=== PATIENT | male | born 1970 | race Caucasian/White ===

== ENCOUNTER 2022-08-17 01:02 | Emergency (ER) | payer OTHER, SELFPAY ==
--- NOTE | ~2022-08-17 | XR_ITS ---
EXAMINATION: XR KNEE, LEFT CLINICAL INFORMATION: Pop of the left knee COMPARISON: None TECHNIQUE: Two views of the left knee. FINDINGS: No fracture or subluxation. Mild medial compartment joint space narrowing. Small tricompartmental marginal osteophytes. No joint effusion. The soft tissues are unremarkable. XR/XR knee LT 2V IMPRESSION: Mild tricompartmental degenerative changes.
[2022-08-17 01:25] VITALS: BP 180/84; PULSE 71; O2SAT 98
[2022-08-17 01:26] VITALS: BP 144/82; PULSE 68; RESP 18; TEMP 36.5; O2SAT 98; BMI 35.2
[2022-08-17 04:13] VITALS: BP 139/80; PULSE 59; RESP 16; TEMP 36.7; O2SAT 100
[2022-08-17 06:06] VITALS: BP 129/73; PULSE 61; RESP 14; TEMP 36.6; O2SAT 98
--- NOTE | 2022-08-17 06:53 | PC.NURSE ---
report given to FRANCINE Rich
[2022-08-17 07:18] VITALS: BP 117/63; PULSE 60; RESP 16; O2SAT 98
--- NOTE | 2022-08-17 07:36 | ED.LOWEXIN ---
HPI - Extremity Injury (Lower) General Chief Complaint: Extremity Injury, Lower Stated Complaint: LT KNEE AND ANKLE PAIN S/P FALL Time Seen by Provider: 08/17/22 07:28 Source: patient and old records reviewed History of Present Illness HPI Narrative: Patient with a history of chronic left leg pain secondary to left knee arthritis as well as 1 year postop from stent placement for presumed vascular insufficiency. He states last night he slipped and fell after losing his balance when his left leg gave out. He did not fall to the ground,. He complains of increased left knee and left ankle pain. No recent illnesses. He is supposed to be in physical therapy for the left flank but has not gone for a while. He denies other injuries for physical point. He is able to weightbear but states with pain. Related Data Allergies Allergy/AdvReac Type Severity Reaction Status Date / Time No Known Allergies Allergy Unverified 04/16/20 18:35 [No Known Allergies*] Review of Systems Constitutional: Comments: No fevers or chills Musculoskeletal: Comments: Left knee and ankle pain as documented Integumentary/Breasts: Comments: No rashes or change in skin color Neurologic: Comments: No new focal weakness PMFSH Social History Social History Advance Directives: No Physical Exam Vital Signs: Vital Signs: Last Vital Signs Temp 97.8 F 08/17/22 06:06 Pulse 60 08/17/22 07:18 Resp 16 08/17/22 07:18 BP 117/63 08/17/22 07:18 Pulse Ox 98 08/17/22 07:18 O2 Del Method 08/17/22 07:18 BMI result Body Mass Index 35.2 Const: Other: Awake alert. No acute distress. Vital signs stable. Skin: Other: Warm pink and dry. Exam of left lower extremity shows no increased erythema or warmth or evidence of infection. Ankle with medial and lateral remote surgical scars which are well-healed without evidence of infection or dehiscence. Neuro: Other: Motor and sensation intact Extrem: Other: Left knee stable in all 4 directions. Discomfort with weight-bearing. Left ankle with chronic edema. No evidence of and focal bony injury on exam. Ankle is stable. Medical Decision Making Medical Decision Making MDM Narrative: Acute on chronic pain. Internal derangement of knee most likely. Rule out bony injury. No evidence of significant ankle injury. X-ray of knee shows arthritis without acute traumatic injury. Will treat symptomatically with crutches and knee immobilizer. Encouraged to follow up with his physical therapy team. Discharge Plan Discharge Clinical Impression: Knee derangement Patient Disposition: Home, Self-Care Instructions: Arthritis (ED), Knee Immobilizer (ED), Crutch Instructions (ED) Additional Instructions: Your x-ray today showed arthritis but no evidence of fracture or acute bony injury. Be sure to follow-up with her physical therapy team and was [place] as discussed. Ibuprofen if needed for discomfort. Crutches and knee immobilizer for comfort. You may take the immobilizer off as tolerated.
== END 2022-08-17 08:14 | disposition home or self-care (01) ==
PROVIDERS: Emergency Provider Emergency Medicine; PCP Internal Medicine
DX: M23.92 Unspecified internal derangement of left knee (principal); M25.562 Pain in left knee
CPT/HCPCS: 73560; 99283

== ENCOUNTER 2022-08-31 21:45 | Emergency (ER) | payer OTHER, SELFPAY ==
[2022-08-31 21:52] VITALS: BP 143/79; PULSE 63; RESP 16; TEMP 36.8; O2SAT 98; BMI 36.6
--- NOTE | 2022-09-01 02:27 | ED_ITS ---
HPI - General Adult General Chief complaint: General Medical Stated complaint: anxiety attacks, doesnt have meds Time Seen by Provider: 09/01/22 01:05 Source: patient Mode of arrival: ambulatory Limitations: no limitations History of Present Illness HPI narrative: This is a 52-year-old male history of anxiety presenting to the emergency department requesting a medication refill for clonazepam patient tells me he is on 0.5 mg p.o. q.i.d. has been on this dose for a long time he tells me he has been taking this medication for years. He tells me he last took it 6 days ago, he tells me he is in between providers because he was kicked out of his [facility] due to missed appointments. Patient tells me he is experiencing increasing anxiety and panic attacks he tells me he is having relationship issues that are contributing to this. Denies visual, auditory and tactile hallucinations. Denies drugs, alcohol and tobacco. Tells me that he is feeling intermittently nauseous however not at this time he tells me this is likely from not taking his clonazepam. Patient denies suicidal and homicidal ideation. Patient tells me he is scheduled for an intake this Monday and he is hoping he can get in sooner than what other places have told him which has been 3 months. Patient not requesting to speak to crisis today. Denies medical complaints at this time Related Data Previous Rx's Medication Instructions Recorded clonazepam 0.5 mg disintegrating 0.5 mg PO QID 5 days #20 tabs 09/01/22 tablet Allergies Allergy/AdvReac Type Severity Reaction Status Date / Time No Known Allergies Allergy Unverified 04/16/20 18:35 [No Known Allergies*] Review of Systems Review of Systems: Constitutional : No Weight loss, No Fever, No Chills, No Fatigue, No Malaise ENT/Mouth : No sore throat, No Rhinorrhea Eyes: No Eye Pain, No Swelling, No Redness Cardiovascular : No Chest Pain, No SOB, No Dyspnea on Exertion, No Orthopnea, No Edema, No Palpitations Respiratory : No Cough, No Sputum, No Wheezing Gastrointestinal : + Nausea, No Vomiting, No Diarrhea, No Constipation, No abdominal Pain, No Hematochezia, No Melena Genitourinary : No Dysuria, No Urinary Frequency, No Hematuria, Musculoskeletal : No joint pain, No Myalgias, No Joint Swelling Skin : No Skin Lesions, No rash Neuro : No Weakness, No Numbness, No Dizziness, No Headache Psych : + Anxiety/Panic, No Depression All other systems reviewed and are negative Yes all other systems are reviewed and are negative FOR[facility]LY [facility] Past Medical History Attestation statement: The following information was validated with the patient. Source: old records reviewed and nursing notes reviewed Social History Social History Advance Directives: No Physical Exam ED Vital Signs: Vital Signs - 24 hr 08/31/22 21:52 Temperature 98.3 F Pulse Rate 63 Respiratory Rate 16 Blood Pressure 143/79 H Pulse Oximetry 98 Oxygen Delivery Method Room Air BMI result Body Mass Index 36.6 vss Appearance: Alert.? Oriented X3.? No acute distress.? Linear speech. Head: Normocephalic, atraumatic, no step-offs or deformities Eyes: Pupils equal, round and reactive to light.? ENT: Pharynx normal.? Neck: Normal inspection.? Neck supple.? CVS: Normal heart rate and rhythm.? Pulses normal.? Respiratory: No respiratory distress.? Breath sounds normal.? Abdomen: Soft and nontender.? Skin: Skin warm and dry.? Normal skin color.? Normal skin turgor.? Extremities: No lower extremity edema.? No calf ttp. 5/5 strength to bilateral upper and lower extremities Neuro: Oriented X 3.? No motor deficit.? No sensory deficit. CN 2-12 intact . Answering questions appropriately. Following commands. Course Reevaluation(s) Reevaluation #1: Clonazepam has been sent to patient's pharmacy. Advised him to return with new or worsening symptoms and to follow-up with psychiatry and therapy. Educated patient on diagnosis and treatment plan, answered all question, patient verbalizes understanding. At this time patient will be discharged home, advised to return with new or worsening symptoms. Educated on worrisome signs and symptoms and when to return. At this time I feel comfortable discharge home. Again patient refusing to speak to care team. Time: 02:31 Medical Decision Making Medical Decision Making [facility] Narrative: 021 52-year-old male presents requesting medication refill. Physical exam benign. Likely anxiety versus panic attack. Unlikely metabolic causes. Patient denies suicidal and homicidal ideation. I did check patient's [employer]NA[employer], he filled clonazepam 0.5 mg p.o. q.i.d. on 08/07/2022 he had 5 days worth #20. Consistent with patient's story. Plan at this time is to discharge patient home with a 5 day supply of clonazepam. I did offer him to speak to crisis however he tells me there is no need he tells me he is just anxious. No indication for Section 12 at this time. Patient is not a harm to self or others. Differential Diagnosis Differential Diagnoses: The differential diagnosis associated with the presentation includes Likely anxiety versus panic attack. Unlikely metabolic causes. Patient denies suicidal and homicidal ideation. Admission/Observation Consideration of admission/observation: Escalation of care including admission/observation considered Not indicated Core Measures AMI core measures followed: Yes Measure exclusions: not indicated Critical Care Time Critical Care Time Critical Care Time: No Discharge Plan Discharge Clinical Impression: Anxiety, Medication refill Patient Disposition: Home, Self-Care Instructions: Anxiety (ED), Medicine Refill (ED) Additional Instructions: Take your medications as prescribed. If you were prescribed antibiotics today, it is important that you take your medication to their entirety, do not skip any doses, do not finish them early. Follow-up with your primary care provider this week. Please follow-up with therapy and psychiatry. Return to the emergency department with new or worsening symptoms. Such as fevers, chills, chest pain, shortness of breath, nausea, vomiting, dizziness, headache, vision changes, lethargy, suicidal or homicidal ideation In case of emergency call 911 Prescriptions: New clonazepam 0.5 mg tablet,disintegrating 0.5 mg PO QID 5 Days Qty: 20 0RF Rx Instructions: Patient can partially filled this prescription upon request. Referrals: [facility] [Provider Group] - 1 day Rome Cameron MD [Primary Care Provider] - 2 days Stand Alone Forms: Work/School Release
[2022-09-01 03:55] VITALS: BP 137/79; PULSE 50; RESP 16; O2SAT 99
== END 2022-09-01 04:00 | disposition home or self-care (01) ==
PROVIDERS: Emergency Provider Emergency Medicine; PCP Orthopaedic Surgery
DX: F41.9 Anxiety disorder, unspecified (principal); Z76.0 Encounter for issue of repeat prescription
CPT/HCPCS: 99283

== ENCOUNTER 2022-09-23 00:12 | Emergency (ER) | payer OTHER, SELFPAY ==
[2022-09-23 02:09] VITALS: BP 132/82; PULSE 71; RESP 18; TEMP 36.4; O2SAT 96; BMI 36.6
--- NOTE | 2022-09-23 03:40 | ED_ITS ---
HPI - General Adult General Chief complaint: Extremity Problem Stated complaint: Flu like Time Seen by Provider: 09/23/22 02:26 Source: patient Mode of arrival: ambulatory Limitations: no limitations History of Present Illness HPI narrative: Patient history of anxiety on Klonopin and gabapentin for long-time moved from [place] unable to get the prescription patient fairly been taking this medication for a long time patient was seen here on 09/01/2022 for same feels very anxious unable to sleep and having diffuse leg pain Related Data Previous Rx's Medication Instructions Recorded clonazepam 0.5 mg disintegrating 0.5 mg PO QID 5 days #20 tabs 09/01/22 tablet clonazepam 0.5 mg tablet (Klonopin) 0.5 mg PO QID PRN anxiety #30 tabs 09/23/22 gabapentin 800 mg tablet 800 mg PO TID #90 tabs 09/23/22 Allergies Allergy/AdvReac Type Severity Reaction Status Date / Time No Known Allergies Allergy Unverified 04/16/20 18:35 [No Known Allergies*] Review of Systems Review of Systems: Yes all other systems are reviewed and are negative COUNT INCLUDES THE [facility] Social History Social History Advance Directives: No Advance Directives Information Provided: No Physical Exam ED Vital Signs: Vital Signs - 24 hr 09/23/22 02:09 Temperature 97.6 F Pulse Rate 71 Respiratory Rate 18 Blood Pressure 132/82 Pulse Oximetry 96 Oxygen Delivery Method Room Air BMI result Body Mass Index 36.6 Appearance: Alert. Oriented X3. No acute distress. Anxious Eyes: PERRLA, No Nystagmus ENT: Pharynx normal. Oral Mucosa moist Neck: Normal inspection. Neck supple. CVS: Normal heart rate and rhythm. Pulses normal. Respiratory: No respiratory distress. Equal air entry bilateral, no wheezing/rales/rhonchi Abdomen: Soft and nontender. Bowel sounds are present, no mass palpable, no CVA tenderness Skin: Skin warm and dry. Normal skin color. Normal skin turgor. Extremities: No lower extremity edema. No calf tenderness neuro No sensory deficit.No cerebellar signs , cranial nerves II-XII intact Medications Administered Discontinued Medications Generic Name Dose Route Start Last Admin Trade Name Freq PRN Reason Stop Dose Admin Clonazepam 0.5 mg 09/23/22 03:46 09/23/22 04:04 Clonazepam 0.5 Mg Tablet PO 09/23/22 03:47 0.5 mg ONCE ONE Administration Gabapentin 800 mg 09/23/22 03:46 09/23/22 04:04 Gabapentin 600 Mg Tablet PO 09/23/22 03:47 800 mg ONCE ONE Administration Discharge Plan Discharge Clinical Impression: Anxiety, Chronic pain Patient Disposition: Home, Self-Care Instructions: Chronic Pain (ED), Anxiety (ED) Additional Instructions: Take medication as prescribed Follow-up with your psychiatrist Prescriptions: New gabapentin 800 mg tablet 800 mg PO TID Qty: 90 0RF clonazepam [Klonopin] 0.5 mg tablet 0.5 mg PO QID PRN (Reason: anxiety) Qty: 30 0RF No Action clonazepam 0.5 mg tablet,disintegrating 0.5 mg PO QID 5 Days Qty: 20 0RF Rx Instructions: Patient can partially filled this prescription upon request. Interventions: ED Discharge Assessment Last Done: 09/23/22 04:08 Discharge Date/Time: 09/23/22 04:08
[2022-09-23] MEDS: Gabapentin 600 MG TABLET 800 MG PO (04:04)
[2022-09-23] MEDS: clonazePAM 0.5 MG TABLET PO (04:04)
== END 2022-09-23 04:08 | disposition home or self-care (01) ==
PROVIDERS: Emergency Provider Internal Medicine
DX: F41.9 Anxiety disorder, unspecified (principal); G89.29 Other chronic pain; Z79.899 Other long term (current) drug therapy
CPT/HCPCS: 99282; 99283

== ENCOUNTER 2023-01-28 00:22 | Observation (INO) | payer OTHER, SELFPAY ==
[2023-01-28] VITALS (8 sets, daily range): BP systolic 126–179; BP diastolic 70–101; PULSE 62–77; RESP 11–20; TEMP 36.4–36.7; O2SAT 94–99; BMI 37.4
--- NOTE | ~2023-01-28 | CT_ITS ---
EXAMINATION: CT ANGIOGRAM NECK AND HEAD CLINICAL INFORMATION: Right arm/leg weakness, history of hemorrhagic CVA is COMPARISON: 10/03/2015 TECHNIQUE: Initial noncontrast head CT was performed. Test bolus sequences followed by intravenous administration 70 mL of Omnipaque 350. Helical imaging was performed in the axial plane from the thoracic inlet to the skull vertex. Delayed postcontrast imaging of the head was also performed. The data was processed at the [employer] infectious [employer]'s workstation for generation of MIP sequences. Angled MIPs and volume rendered reformatted images were also generated at an offline 3D workstation. Stenoses are assessed in accordance with NASCET criteria unless otherwise indicated. DOSE LOWERING TECHNIQUES: This CT examination was performed using dose optimization techniques as appropriate, variously including the following: - Automated exposure control - Adjustment of mA and/or kV according to patient size (this includes techniques or standardized protocols for targeted exams were dose is matched to indication/reason for exam; i.e. extremities or head) - Use of iterative reconstruction technique DLP: 2390 mGy-cm FINDINGS: Neck CTA: There is a classic 3 vessel branching pattern of the aortic arch. Ascending aorta measures approximately 4.0 cm in diameter. No evidence of stenosis at the branch origins. Both vertebral arteries are widely patent throughout their extracranial cervical course. Normal appearance of the common and internal carotid arteries without focal stenosis. Brain CTA: Normal appearance of the intradural vertebral arteries. Normal appearance of the basilar and superior cerebellar arteries. There is origin of the right posterior cerebral artery. Normally opacified posterior cerebral arteries bilaterally. Normal appearance of the intradural internal carotid arteries without focal stenosis. Normal appearance of the anterior cerebral and middle cerebral arteries without focal occlusion or stenosis. Normal anterior communicating artery. Normal arborization of the middle cerebral arteries. CT Head: There is subtle curvilinear hyperdensity along the cortex of the left frontal lobe as seen on axial image 30/70 of series 8, which appears similar to 10/03/2015. No intracranial mass, definite hemorrhage, extra-axial collection, or midline shift. The tan-white matter differentiation is preserved. No pathologic intra-axial enhancement or regional oligemia. No hydrocephalus. The mastoid air cells and paranasal sinuses remain well aerated. CT Neck: The thyroid gland and remaining cervical soft tissues are normal in appearance. There is degenerative change at the atlantodens articulation. There is disc space narrowing and endplate osteophyte formation in the lower cervical spine. Upper Chest: No abnormalities in the visualized lung apices or upper mediastinum. CT/CT angio head neck IMPRESSION: 1. No hemodynamically significant stenosis in the major arteries of the neck. No large vessel occlusion or significant stenosis in the intracranial circulation. 2. Subtle curvilinear hyperdensity along the cortex of the left frontal lobe, similar to 10/03/2015 and suggesting mild mineralization. If not already performed, this could be further assessed with MRI.
[2023-01-28 01:00] LABS: MANUAL DIFF FLAG NO
[2023-01-28 01:02] LABS: Basophils Percent Auto 0.4 % (0-2); Eosinophils Absolute Auto 0.2 X10*3/uL (0.0-0.4); Eosinophils Percent Auto 3.6 % (0-4); Hematocrit 43.1 % (42.0-52.0); Hemoglobin 13.6 g/dl (14.0-18.0); Lymphocytes Absolute Auto 1.6 X10*3/uL (1.2-4.9); Lymphocytes Percent Auto 30.7 % (20-40); Mean Corpuscular HGB Conc 31.6 g/dl (31.0-36.0); Mean Corpuscular Hemoglobin 25.4 pg (27.0-33.0); Mean Corpuscular Volume 80.6 fL (80.0-98.0); Mean Platelet Volume 11.2 fL (9.4-12.4); Monocytes Absolute Auto 0.4 X10*3/uL (0.1-1.2); Monocytes Percent Auto 8.1 % (2-11); Neutrophils Absolute Auto 2.9 x10*3/uL (2.0-8.3); Neutrophils Percent Auto 57.2 % (45-73); Platelet Count 224 X10*3/uL (160-400); Red Blood Count 5.35 X10*6/uL (4.60-5.80); Red Cell Distribution Width 14.9 % (11.0-16.0); White Blood Count 5.1 X10*3/uL (4.8-10.8)
--- NOTE | 2023-01-28 01:03 | ED_ITS ---
HPI - Weakness General Chief complaint: Weakness Stated complaint: stroke symptoms, history of stroke Time Seen by Provider: 01/28/23 00:43 Source: patient Mode of arrival: ambulatory Limitations: no limitations History of Present Illness HPI Narrative: Patient comes to the emergency room complaining of right upper and lower extremity pain and weakness. Patient states that earlier today, approximately 2-1/2 hours, patient had a popping sensation on the right side of his head. Patient states that the numbness/weakness on the right upper and lower extremity lasted for about 30 minutes and then self-resolved. Patient states that he takes aspirin daily. 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 Patient states that today he did not use any drugs, admits to using cocaine yesterday. Related Data Previous Rx's Medication Instructions Recorded clonazepam 0.5 mg disintegrating 0.5 mg PO QID 5 days #20 tabs 09/01/22 tablet clonazepam 0.5 mg tablet (Klonopin) 0.5 mg PO QID PRN anxiety #30 tabs 09/23/22 gabapentin 800 mg tablet 800 mg PO TID #90 tabs 09/23/22 Allergies Allergy/AdvReac Type Severity Reaction Status Date / Time No Known Allergies Allergy Unverified 04/16/20 18:35 [No Known Allergies*] Review of Systems Review of Systems: Constitutional : No Weight loss, No Fever, No Chills, No Night Sweats, No Fatigue, No Malaise ENT/Mouth : No Hearing loss, No Ear Pain, No Nasal Congestion, No Sinus Pain, No Hoarseness, No sore throat, No Rhinorrhea, No Swallowing Difficulty Eyes: No Eye Pain, No Swelling, No Redness, No Foreign Body, No Discharge, No Vision Changes Cardiovascular : No Chest Pain, No SOB, No Dyspnea on Exertion, No Orthopnea, No Edema, No Palpitations Respiratory : No Cough, No Sputum, No Wheezing, No Smoke Exposure, No Dyspnea Gastrointestinal : No Nausea, No Vomiting, No Diarrhea, No Constipation, No abdominal Pain, No Hematochezia, No Melena Genitourinary : no irregular bleeding, No Dysuria, No Urinary Frequency, No Hematuria, No Urinary Incontinence, No Urgency, No Flank Pain, No Urinary Flow Changes, No Hesitancy Musculoskeletal : No joint pain, No Myalgias, No Joint Swelling Skin : No Skin Lesions, No rash Neuro : No Weakness, No Numbness, complaining of paresthesia, weakness of right arm and right leg lasting 30 minutes and self resolving Psych : No Anxiety/Panic, No Depression, No SI/HI/AH/VH, No Social Issues, Heme/Lymph: No Bruising, No Bleeding,No Lymphadenopathy Endocrine : No Polyuria, No Polydipsia, No Temperature Intolerance [facility] Past Medical History Medical History (Updated 01/28/23 @ 04:49 by Zhane Chicas MD) Cocaine abuse Hemorrhagic stroke Social History Social History Alcohol intake: never Smoked in Last 30 Days: No Use of substances other than those prescribed or required for medical reasons: Yes Substance Use Type: IV Drugs, Methamphetamine and Opiates Substance Use Frequency: Weekly Last Used Substance: Days (ago) Advance Directives: No Advance Directives Information Provided: Yes Physical Exam Vital Signs: Vital Signs: Last Vital Signs Temp 97.8 F 01/28/23 01:53 Pulse 67 01/28/23 01:53 Resp 15 01/28/23 01:53 BP 126/77 01/28/23 01:53 Pulse Ox 98 01/28/23 01:53 O2 Del Method Room Air 01/28/23 01:53 BMI result Body Mass Index 37.4 Const: Other: Appearance: Alert. Oriented X3. No acute distress. Eyes: Pupils equal, round and reactive to light. ENT: Pharynx normal. Neck: Normal inspection. Neck supple. No lymph nodes noted. No crepitus CVS: Normal heart rate and rhythm. Pulses normal. Normal S1 and S2 Respiratory: No respiratory distress. Breath sounds normal. No Wheezing. No rales Abdomen: Soft and nontender. No rigidity. No distention. Skin: Skin warm and dry. Normal skin color. Normal skin turgor. Extremities: No lower extremity edema. No Lacerations. No Rash Neuro: Oriented X 3. No motor deficit. No sensory deficit. Moving all extremities. No slurred speech. CN 2 through 12 grossly intact Psych: calm, cooperative, normal affect NIH Stroke Scale Internal: Initial- Upon Arrival Level of Consciousness: Alert Level of Consciousness Questions: Answers both questions correctly Level of Consciousness Commands: Performs both tasks correctly Best Gaze: Normal Visual: No visual loss Facial Palsy: Normal Motor Arm (Right): No drift Motor Arm (Left): No drift Motor Leg (Right): No drift Motor Leg (Left): No drift Limb Ataxia: Absent Sensory: Normal Best Language: No aphasia Dysarthia: Normal Extinction and Inattention: No abnormality Score: 0 Course Course Course Narrative: -on arrival, NIH score 0, neurologically, patient is at baseline -of of patient's labs and CT scan pending Medications Administered Discontinued Medications Generic Name Dose Route Start Last Admin Trade Name Julissa PRN Reason Stop Dose Admin Iohexol 70 ml 01/28/23 02:50 01/28/23 02:51 Iohexol 350 Mg/Ml 100 Ml Infus..Btl IV 01/28/23 02:51 70 ml ONCE ONE Administration Medical Decision Making Medical Decision Making [facility] Narrative: -my interpretation of CT scan of the brain: No intracranial bleed -patient's CTA shows no large vessel occlusion or stenosis in the intracranial circulation. -my interpretation of labs: White blood cell count normal, no significant electrolyte abnormality Differential Diagnosis Differential Diagnoses: The differential diagnosis associated with the presentation includes (TIA, CVA, migraine) Admission/Observation Consideration of admission/observation: Escalation of care including admission/observation considered Consult Healthcare Provider Management of the patient was discussed with: Hospitalist Lab Data [facility] Lab Attestation statement: I reviewed the patient's lab results. 01/28/23 00:37 01/28/23 00:37 Labs: Lab Results 01/28/23 01/28/23 01/28/23 Range/Units 00:37 00:37 00:37 WBC 5.1 (4.8-10.8) X10*3/uL RBC 5.35 (4.60-5.80) X10*6/uL Hgb 13.6 L (14.0-18.0) g/dl Hct 43.1 (42.0-52.0) % MCV 80.6 (80.0-98.0) fL MCH 25.4 L (27.0-33.0) pg MCHC 31.6 (31.0-36.0) g/dl RDW 14.9 (11.0-16.0) % Plt Count 224 (160-400) X10*3/uL MPV 11.2 (9.4-12.4) fL Immature Gran % (Auto) 0.0 (0.0-0.4) % Neut % (Auto) 57.2 (45-73) % Lymph % (Auto) 30.7 (20-40) % [place] % (Auto) 8.1 (2-11) % Eos % (Auto) 3.6 (0-4) % Baso % (Auto) 0.4 (0-2) % Lymph # (Auto) 1.6 (1.2-4.9) X10*3/uL [place] # (Auto) 0.4 (0.1-1.2) X10*3/uL Eos # (Auto) 0.2 (0.0-0.4) X10*3/uL Baso # (Auto) 0.0 (0.0-0.2) X10*3/uL Abs Immat Gran (auto) 0.00 (0.00-0.03) X10*3/uL Absolute Neuts (auto) 2.9 (2.0-8.3) x10*3/uL Absolute Nucleated RBC 0.000 (0.0-0.012) X10*3/uL Nucleated RBC % (auto) 0.0 (0.0-0.2) /100WBC PT 11.4 (10.0-13.1) SEC INR 1.0 (0.9-1.1) Sodium (135-145) mmol/L Potassium (3.3-5.1) mmol/L Chloride (96-108) mmol/L Carbon Dioxide (22-29) mmol/L Anion Gap (12-20) BUN (9-16) mg/dL Creatinine (0.5-1.4) mg/dL Estim Creat Clear Calc Estimated GFR Random Glucose (60-115) mg/dL Calcium (8.4-10.2) mg/dL Total Bilirubin (0.0-1.0) mg/dL AST (5-37) U/L ALT (0-40) U/L Alkaline Phosphatase (39-117) U/L Troponin I High Sens 3.0 (<3.5-35.0) ng/L Total Protein (6.5-8.0) g/dL Albumin (3.5-5.0) g/dL Ethyl Alcohol mg/dL 01/28/23 Range/Units 01:50 WBC (4.8-10.8) X10*3/uL RBC (4.60-5.80) X10*6/uL Hgb (14.0-18.0) g/dl Hct (42.0-52.0) % MCV (80.0-98.0) fL MCH (27.0-33.0) pg MCHC (31.0-36.0) g/dl RDW (11.0-16.0) % Plt Count (160-400) X10*3/uL MPV (9.4-12.4) fL Immature Gran % (Auto) (0.0-0.4) % Neut % (Auto) (45-73) % Lymph % (Auto) (20-40) % [place] % (Auto) (2-11) % Eos % (Auto) (0-4) % Baso % (Auto) (0-2) % Lymph # (Auto) (1.2-4.9) X10*3/uL [place] # (Auto) (0.1-1.2) X10*3/uL Eos # (Auto) (0.0-0.4) X10*3/uL Baso # (Auto) (0.0-0.2) X10*3/uL Abs Immat Gran (auto) (0.00-0.03) X10*3/uL Absolute Neuts (auto) (2.0-8.3) x10*3/uL Absolute Nucleated RBC (0.0-0.012) X10*3/uL Nucleated RBC % (auto) (0.0-0.2) /100WBC PT (10.0-13.1) SEC INR (0.9-1.1) Sodium 139 (135-145) mmol/L Potassium 3.3 (3.3-5.1) mmol/L Chloride 101 (96-108) mmol/L Carbon Dioxide 28 (22-29) mmol/L Anion Gap 13 (12-20) BUN 10 (9-16) mg/dL Creatinine 0.91 (0.5-1.4) mg/dL Estim Creat Clear Calc 131.2 Estimated GFR > 60 Random Glucose 139 H (60-115) mg/dL Calcium 9.7 (8.4-10.2) mg/dL Total Bilirubin 0.5 (0.0-1.0) mg/dL AST 31 (5-37) U/L ALT 32 (0-40) U/L Alkaline Phosphatase 113 (39-117) U/L Troponin I High Sens (<3.5-35.0) ng/L Total Protein 7.2 (6.5-8.0) g/dL Albumin 3.8 (3.5-5.0) g/dL Ethyl Alcohol < 10 mg/dL Radiology Impression Discussion of test interpretation with radiology: I have reviewed the radiologist's reading. Radiologist Impression: FINDINGS: Neck CTA: There is a classic 3 vessel branching pattern of the aortic arch. Ascending aorta measures approximately 4.0 cm in diameter. No evidence of stenosis at the branch origins. Both vertebral arteries are widely patent throughout their extracranial cervical course. Normal appearance of the common and internal carotid arteries without focal stenosis. Brain CTA: Normal appearance of the intradural vertebral arteries. Normal appearance of the basilar and superior cerebellar arteries. There is origin of the right posterior cerebral artery. Normally opacified posterior cerebral arteries bilaterally. Normal appearance of the intradural internal carotid arteries without focal stenosis. Normal appearance of the anterior cerebral and middle cerebral arteries without focal occlusion or stenosis. Normal anterior communicating artery. Normal arborization of the middle cerebral arteries. CT Head: There is subtle curvilinear hyperdensity along the cortex of the left frontal lobe as seen on axial image 30/70 of series 8, which appears similar to 10/03/2015. No intracranial mass, definite hemorrhage, extra-axial collection, or midline shift. The tan-white matter differentiation is preserved. No pathologic intra-axial enhancement or regional oligemia. No hydrocephalus. The mastoid air cells and paranasal sinuses remain well aerated. CT Neck: The thyroid gland and remaining cervical soft tissues are normal in appearance. There is degenerative change at the atlantodens articulation. There is disc space narrowing and endplate osteophyte formation in the lower cervical spine. Upper Chest: No abnormalities in the visualized lung apices or upper mediastinum. CT/CT angio head neck IMPRESSION: 1.? No hemodynamically significant stenosis in the major arteries of the neck. No large vessel occlusion or significant stenosis in the intracranial circulation. 2.? Subtle curvilinear hyperdensity along the cortex of the left frontal lobe, similar to 10/03/2015 and suggesting mild mineralization. If not already performed, this could be further assessed with MRI. ? External Record Review I do not see any previous records from the patient regarding CVAs. Patient states that he was here. I reviewed the old system as well, I did not see any information regarding hemorrhagic or ischemic CVAs. Critical Care Time Critical Care Time Critical Care Time: Yes Total Critical Care Time: 60 Attestation: I have personally provided critical care time. Time includes review of lab data, radiology results, discussion with consultants, and monitoring for potential decompensation. Intervention performed as documented. Discharge Plan Discharge Clinical Impression: Brain TIA Patient Disposition: Admitted As Inpatient Instructions: Transient Ischemic Attack (ED) Prescriptions: No Action gabapentin 800 mg tablet 800 mg PO TID Qty: 90 0RF clonazepam [Klonopin] 0.5 mg tablet 0.5 mg PO QID PRN (Reason: anxiety) Qty: 30 0RF clonazepam 0.5 mg tablet,disintegrating 0.5 mg PO QID 5 Days Qty: 20 0RF Rx Instructions: Patient can partially filled this prescription upon request.
[2023-01-28 01:07] LABS: Prothrombin Time 11.4 SEC (10.0-13.1)
[2023-01-28] MEDS: iohexoL 350 MG/ML 100 ML INFUS..BTL 70 ML IV (02:51)
[2023-01-28 04:59] LABS: Amphetamine Screen Urine POSITIVE (Not Detect); Barbiturates, Urine Not Detected (Not Detect); Benzodiazepines Screen Urine Not Detected (Not Detect); Cannabinoid Screen Urine Not Detected (Not Detect); Cocaine Screen Urine POSITIVE (Not Detect); Fentanyl, urine POSITIVE (Not Detect); Opiate Screen Urine Not Detected (Not Detect); Phencyclidine Screen Urine Not Detected (Not Detect)
--- NOTE | 2023-01-28 05:30 | PM.IMHP ---
History of Present Illness Date of Service: 01/28/23 Chief Complaint: Dizziness, weakness 52-year-old male with past medical history of hemorrhagic stroke, history of cocaine abuse states that he is sober for 3 weeks presents the hospital with complaints of dizziness, lightheadedness, blurry vision, as well as right-sided weakness. Patient reports that as a result of his MRI jig stroke he does have some minimal weakness on the right but today was worse. He also complaining of right-sided headache, blurry vision, denies any shortness of breath, no chest pain, no abdominal pain nausea or vomiting, no diarrhea constipation, no urinary symptoms and no lower extremity edema. On arrival to the ED patient hypertensive with blood pressure 170/100 Labs significant for urine drug screen positive for amphetamines, cocaine, and fentanyl Head and neck CT angiogram shows no stenosis in the major arteries of the neck, no large vessel occlusion or significant stenosis in the intracranial circulation, Patient admitted for further evaluation Review of Systems Review of Systems: Yes all other systems are reviewed and are negative [facility] Medical History Cocaine abuse Hemorrhagic stroke Social History Alcohol intake: never Smoked in Last 30 Days: No Use of substances other than those prescribed or required for medical reasons: Yes Substance Use Type: IV Drugs, Methamphetamine and Opiates Substance Use Frequency: Weekly Last Used Substance: Days (ago) Advance Directives: No Advance Directives Information Provided: Yes Meds Allergies Allergy/AdvReac Type Severity Reaction Status Date / Time No Known Allergies Allergy Unverified 04/16/20 18:35 [No Known Allergies*] Active Medications: Current Medications Acetaminophen (Acetaminophen 325 Mg Tablet) 650 mg PO Q6H PRN PRN Reason: Pain, Mild (Pain Scale 1-3) Docusate Sodium (Docusate Sodium 100 Mg Capsule) 100 mg PO DAILY PRN PRN Reason: Constipation Ondansetron HCl (Ondansetron Hcl 4 Mg/2 Ml Vial) 4 mg IVPUSH Q8H PRN PRN Reason: Nausea and Vomiting Physical Exam Vital Signs and Narrative: Vital Signs: Last Vital Signs Temp 98.0 F 01/28/23 04:00 Pulse 62 01/28/23 04:00 Resp 11 L 01/28/23 04:00 BP 170/101 H 01/28/23 04:00 Pulse Ox 97 01/28/23 04:00 O2 Del Method Room Air 01/28/23 04:00 BMI result Body Mass Index 37.4 Const: General: cooperative and no acute distress Orientation/consciousness: patient oriented x3 Eyes: General: appearance normal, both eyes and all related structures Pupils: Equal, round and reactive pupils present Resp: Effort & Inspection: normal respiratory effort Auscultation: clear to auscultation bilaterally Cardio: Rate: regular rate Rhythm: regular rhythm GI: Palpation (GI): Soft to palpation Auscultation: normal bowel sounds Skin: General skin exam: no rashes or lesions noted Neuro: Other: , has 5/5 strength in upper and lower extremities General: patient oriented x3 Cranial nerves: Yes Equal, round and reactive pupils present Cognition (Neuro): normal cognition Extrem: General: Yes normal to inspection and Yes no pedal edema Results Labs 01/28/23 00:37 01/28/23 01:50 Labs: Laboratory Results - last 24 hr 01/28/23 01/28/23 01/28/23 00:37 00:37 00:37 MCV 80.6 MCH 25.4 L MCHC 31.6 RDW 14.9 Plt Count 224 MPV 11.2 Immature Gran % (Auto) 0.0 Neut % (Auto) 57.2 Lymph % (Auto) 30.7 [place] % (Auto) 8.1 Eos % (Auto) 3.6 Baso % (Auto) 0.4 Lymph # (Auto) 1.6 [place] # (Auto) 0.4 Eos # (Auto) 0.2 Baso # (Auto) 0.0 Abs Immat Gran (auto) 0.00 Absolute Neuts (auto) 2.9 Absolute Nucleated RBC 0.000 Nucleated RBC % (auto) 0.0 PT 11.4 INR 1.0 Anion Gap Estim Creat Clear Calc Estimated GFR Random Glucose Calcium Total Bilirubin AST ALT Alkaline Phosphatase Troponin I High Sens 3.0 Total Protein Albumin Urine Opiates Screen Urine Fentanyl Screen Ur Barbiturates Screen Ur Phencyclidine Scrn Ur Amphetamines Screen U Benzodiazepines Scrn Urine Cocaine Screen U Marijuana (THC) Screen Ethyl Alcohol 01/28/23 01/28/23 01:50 04:42 MCV MCH MCHC RDW Plt Count MPV Immature Gran % (Auto) Neut % (Auto) Lymph % (Auto) [place] % (Auto) Eos % (Auto) Baso % (Auto) Lymph # (Auto) [place] # (Auto) Eos # (Auto) Baso # (Auto) Abs Immat Gran (auto) Absolute Neuts (auto) Absolute Nucleated RBC Nucleated RBC % (auto) PT INR Anion Gap 13 Estim Creat Clear Calc 131.2 Estimated GFR > 60 Random Glucose 139 H Calcium 9.7 Total Bilirubin 0.5 AST 31 ALT 32 Alkaline Phosphatase 113 Troponin I High Sens Total Protein 7.2 Albumin 3.8 Urine Opiates Screen Not Detected Urine Fentanyl Screen POSITIVE H Ur Barbiturates Screen Not Detected Ur Phencyclidine Scrn Not Detected Ur Amphetamines Screen POSITIVE H U Benzodiazepines Scrn Not Detected Urine Cocaine Screen POSITIVE H U Marijuana (THC) Screen Not Detected Ethyl Alcohol < 10 Imaging Radiologist's Impressions: Impressions Head/Neck CTA 01/28/23 02:59 IMPRESSION: 1. No hemodynamically significant stenosis in the major arteries of the neck. No large vessel occlusion or significant stenosis in the intracranial circulation. 2. Subtle curvilinear hyperdensity along the cortex of the left frontal lobe, similar to 10/03/2015 and suggesting mild mineralization. If not already performed, this could be further assessed with MRI. Assessment and Plan (1) Right sided weakness: Status: Acute Plan This is a 52-year-old male with past medical history of cocaine use presents the hospital with complaints of lightheadedness, and right-sided weakness # right-sided weakness - possibly secondary to TIA/CVA - risk factors including cocaine use - although patient admitted to stopping cocaine use about 3 weeks ago, urine drug screen stool positive - at this time will consult Neurology, start him on aspirin and statin # history of opioid use disorder - continue methadone DVT prophylaxis: Early ambulation Time Spent With Patient Time: Total time managing care of this patient today ____ minutes. Quality Stroke Does the patient have a stroke diagnosis?: No VTE Prior VTE?: No VTE Risk Level:: Medical - low VTE Device Contraindication: Treatment Not Indicated VTE Drug Contraindication: Treatment Not Indicated
--- NOTE | 2023-01-28 06:16 | PC.NURSE ---
Methadone dose verified by KEELY Naidu at [facility], per Elysia patient receives Methadone 100 mg daily, last dose received 01/27/2023. Release of information form filled at faxed to [facility] [place] oat [phone].
--- NOTE | 2023-01-28 06:35 | HE.PHANOTE ---
RE METHADONE PATIENT GETS 100MG DOSED FROM [facility]. LAST DOSE WAS 01/27/23 RICHARD
--- NOTE | 2023-01-28 07:51 | PHA.MEDREC ---
Pharmacy Consult ? Medication Reconciliation Pharmacy has completed the medication reconciliation. Patient confirmed he is only on methadone at home
--- NOTE | 2023-01-28 08:04 | PC.NURSE ---
report given to RN on [facility].
--- NOTE | 2023-01-28 08:26 | PC.NURSE ---
pt transported to [facility] via transporter
[2023-01-28] MEDS: methADONE HCl 20 MG/2 ML ORAL.CONC 100 MG PO (09:03)
[2023-01-28] MEDS: Acetaminophen 325 MG TABLET 650 MG PO (09:07)
--- NOTE | 2023-01-28 10:46 | PM.NEUROCN ---
History of Present Illness Data of Consult Service Date: 01/28/23 Primary Care Provider: Nonstaff Physician HPI Reason for consult: Numbness 52 years old man with polydrug abuse including cocaine abuse, a left frontal cortical hyperdensity noted in 2016 and [address] on recent CT scan, probably from a frontal contusion, having 15-20 headaches every month came to hospital with right-sided numbness. He said that numbness was like pain started in his right leg in and few seconds went up to involve his body arm and face. He also had a headache with it that lasted for couple of hours. This was similar to his usual headache Review of Systems Review of Systems: Active cocaine abuse PMFSH Past Medical History Medical History Cocaine abuse Hemorrhagic stroke Social History Social History Alcohol intake: never Patient Tobacco Use Status: Never used Tobacco Substance Use Type: IV Drugs, Methamphetamine and Opiates Meds Allergies Allergy/AdvReac Type Severity Reaction Status Date / Time No Known Allergies Allergy Unverified 04/16/20 18:35 [No Known Allergies*] Active Medications: Current Medications Acetaminophen (Acetaminophen 325 Mg Tablet) 650 mg PO Q6H PRN PRN Reason: Pain, Mild (Pain Scale 1-3) Last Admin: 01/28/23 09:07 Dose: 650 mg Docusate Sodium (Docusate Sodium 100 Mg Capsule) 100 mg PO DAILY PRN PRN Reason: Constipation Methadone HCl (Methadone Hcl 20 Mg/2 Ml Oral.Conc) 100 mg PO DAILY [facility] Last Admin: 01/28/23 09:03 Dose: 100 mg Home Medications Medication Instructions Recorded Confirmed Last Taken Type methadone 10 mg/mL oral 100 mg PO DAILY 01/28/23 01/28/23 01/27/23 History concentrate (Methadone Intensol) Physical Exam Vital Signs: Vital Signs: Last Vital Signs Temp 97.7 F 01/28/23 08:33 Pulse 66 01/28/23 08:33 Resp 20 01/28/23 08:33 BP 141/90 H 01/28/23 08:33 Pulse Ox 99 01/28/23 08:33 O2 Del Method Room Air 01/28/23 08:33 BMI result Body Mass Index 37.4 Neuro: Other: Alert and awake with normal spontaneity of speech fluency comprehension and affect. Face is symmetrical. Visual aponte are full. There is no pronator drift. Deep tendon reflexes are absent. Speech and gait are okay. Results Labs 01/28/23 00:37 01/28/23 01:50 Labs: Short CBC 01/28/23 Range/Units 00:37 WBC 5.1 (4.8-10.8) X10*3/uL Hgb 13.6 L (14.0-18.0) g/dl Hct 43.1 (42.0-52.0) % Plt Count 224 (160-400) X10*3/uL BMP 01/28/23 01:50 Sodium 139 Potassium 3.3 Chloride 101 Carbon Dioxide 28 BUN 10 Creatinine 0.91 Calcium 9.7 Liver Function 01/28/23 Range/Units 01:50 Total Bilirubin 0.5 (0.0-1.0) mg/dL AST 31 (5-37) U/L ALT 32 (0-40) U/L Alkaline Phosphatase 113 (39-117) U/L Albumin 3.8 (3.5-5.0) g/dL Not contrast head CT revealed left frontal cortical hyperdensity unchanged from 2016. No significant vascular lesion was noted. Assessment and Plan (1) Migraine equivalent syndrome: Status: Acute 52 years old man who was having frequent headaches every month developed right-sided spreading numbness followed by headache. Overall history was suggestive of migraine and migraine and related stroke-like symptoms. Head CT finding is chronic and probably from a frontal contusion. This could be a risk factor for seizure disorder but he is not presenting with such symptoms. Mainstay of management at this time is complete avoidance of drugs including cocaine, which typically can cause strokes or stroke-like symptoms and headaches. For headache control, topiramate 50 mg 1 at night can be considered. (2) Brain lesion: Status: Acute (3) Polydrug abuse: Status: Acute Time Spent With Patient Time: Total time managing care of this patient today ____ minutes. Procedures Date of Service Date of Service: 01/28/23
--- NOTE | 2023-01-28 11:00 | PM.DS ---
DS: Providers Provider Date of Service: 01/28/23 Date of admission: 01/28/23 05:17 Date of discharge: 01/28/23 Primary care physician: Nonstaff Physician Consults: 01/28/23 05:19 Consult to Neurology Routine Consulting Provider: [facility] Reason for consultation: worsening right sided weakness, dizziness, blurred vision Attending physician on discharge: Owen Rico Discharging clinician: Tesha Benavidez DS: Diagnosis Discharge Diagnosis (1) Migraine equivalent syndrome: Status: Acute (2) Brain lesion: Status: Acute (3) Polydrug abuse: Status: Acute DS: Summary Hospital Course Hospital Course: From H&P on day of admission 52-year-old male with past medical history of hemorrhagic stroke, history of cocaine abuse states that he is sober for 3 weeks presents the hospital with complaints of dizziness, lightheadedness, blurry vision, as well as right-sided weakness.? Patient reports that as a result of his MRI jig stroke he does have some minimal weakness on the right but today was worse.? He also complaining of right-sided headache, blurry vision, denies any shortness of breath, no chest pain, no abdominal pain nausea or vomiting, no diarrhea constipation, no urinary symptoms and no lower extremity edema.? On arrival to the ED patient hypertensive with blood pressure 170/100 Labs significant for urine drug screen positive for amphetamines, cocaine, and fentanyl Head and neck CT angiogram shows no stenosis in the major arteries of the neck, no large vessel occlusion or significant stenosis in the intracranial circulation, Patient admitted for further evaluation Right side weakness with headache. Head and neck CT angiogram shows no stenosis in the major arteries of the neck, no large vessel occlusion or significant stenosis in the intracranial circulation. Symptoms have resolved. Patient was seen by Neurology Overall history was suggestive of migraine and migraine and related stroke-like symptoms. Mainstay of management at this time is complete avoidance of drugs including cocaine, which typically can cause strokes or stroke-like symptoms and headaches.? For headache control, topiramate 50 mg 1 at night can be considered. He was seen by physical therapy who recommended outpatient physical therpay Polysubstance abuse. patient reports he has cut down drug use significantly. He has a sponsor through and awareness of available resources. He was encouraged to avoid all drug use Time Spent with Patient Time attestation: Total time managing care of this patient today ____ minutes. Discharge coordination time: Greater than 30 minutes Quality: Safe Use of Opioids Does Pt have an Active Cancer Diagnosis on the Problem List?: No Quality: Stroke Does the patient have a stroke diagnosis?: No Physical Exam Vital Signs: Vital Signs: Last Vital Signs Temp 97.7 F 01/28/23 08:33 Pulse 66 01/28/23 08:33 Resp 20 01/28/23 08:33 BP 141/90 H 01/28/23 08:33 Pulse Ox 99 01/28/23 08:33 O2 Del Method Room Air 01/28/23 08:33 BMI result Body Mass Index 37.4 Const: General: cooperative, comfortable, alert and awake Nutritional Appearance: average body habitus Orientation/consciousness: patient oriented x3 Resp: Effort & Inspection: normal respiratory effort, able to speak in complete sentences, no respiratory distress and no use of accessory muscles Auscultation: clear to auscultation bilaterally Cardio: Rate: regular rate Heart sounds: S1 normal heart sound present and S2 normal heart sound present GI: Inspection: No distended Palpation (GI): Soft to palpation and nontender Neuro: General: patient oriented x3, moves all extremities and CN's II-XI intact bilaterally Extrem: General: Yes no pedal edema DS: Data Data Completed and Pending Labs on day of discharge: Laboratory Results - last 24 hr 01/28/23 01/28/23 01/28/23 00:37 00:37 00:37 WBC 5.1 RBC 5.35 Hgb 13.6 L Hct 43.1 MCV 80.6 MCH 25.4 L MCHC 31.6 RDW 14.9 Plt Count 224 MPV 11.2 Immature Gran % (Auto) 0.0 Neut % (Auto) 57.2 Lymph % (Auto) 30.7 Stanley % (Auto) 8.1 Eos % (Auto) 3.6 Baso % (Auto) 0.4 Lymph # (Auto) 1.6 Stanley # (Auto) 0.4 Eos # (Auto) 0.2 Baso # (Auto) 0.0 Abs Immat Gran (auto) 0.00 Absolute Neuts (auto) 2.9 Absolute Nucleated RBC 0.000 Nucleated RBC % (auto) 0.0 PT 11.4 INR 1.0 Sodium Potassium Chloride Carbon Dioxide Anion Gap BUN Creatinine Estim Creat Clear Calc Estimated GFR Random Glucose Calcium Total Bilirubin AST ALT Alkaline Phosphatase Troponin I High Sens 3.0 Total Protein Albumin Urine Opiates Screen Urine Fentanyl Screen Ur Barbiturates Screen Ur Phencyclidine Scrn Ur Amphetamines Screen U Benzodiazepines Scrn Urine Cocaine Screen U Marijuana (THC) Screen Ethyl Alcohol 01/28/23 01/28/23 01:50 04:42 WBC RBC Hgb Hct MCV MCH MCHC RDW Plt Count MPV Immature Gran % (Auto) Neut % (Auto) Lymph % (Auto) Stanley % (Auto) Eos % (Auto) Baso % (Auto) Lymph # (Auto) Stanley # (Auto) Eos # (Auto) Baso # (Auto) Abs Immat Gran (auto) Absolute Neuts (auto) Absolute Nucleated RBC Nucleated RBC % (auto) PT INR Sodium 139 Potassium 3.3 Chloride 101 Carbon Dioxide 28 Anion Gap 13 BUN 10 Creatinine 0.91 Estim Creat Clear Calc 131.2 Estimated GFR > 60 Random Glucose 139 H Calcium 9.7 Total Bilirubin 0.5 AST 31 ALT 32 Alkaline Phosphatase 113 Troponin I High Sens Total Protein 7.2 Albumin 3.8 Urine Opiates Screen Not Detected Urine Fentanyl Screen POSITIVE H Ur Barbiturates Screen Not Detected Ur Phencyclidine Scrn Not Detected Ur Amphetamines Screen POSITIVE H U Benzodiazepines Scrn Not Detected Urine Cocaine Screen POSITIVE H U Marijuana (THC) Screen Not Detected Ethyl Alcohol < 10 Discharge Plan Discharge Patient Disposition: Home, Self-Care Discharge Diagnosis: migraine equivalent Referrals: Physician,Nonstaff [Primary Care Provider] - 1 Week Discharge Medications: New topiramate 50 mg tablet 50 mg PO BEDTIME Qty: 30 0RF Continued methadone [Methadone Intensol] 10 mg/mL Concentrate 100 mg PO DAILY Discharge Orders: Discharge Order (Routine); Ordered 01/28/23 Ordered By: Tesha Benavidez Activity on Discharge: As tolerated Stand Alone Forms: Patient Portal Discharge page Care Plan Goals: see below Health Concerns: Headache with right side weakness polysubstance use Plan of Treatment: No evidence of stroke. symptoms were likely related to complex migraine or migraine equivalent can try taking topiramate at night time for management of migraines. can cause sedation, don't drive/operate heavy machinery until you know how you will respond. do not take while using drugs or alcohol recommend to avoid all drugs call to schedule follow up appointment with PCP Assessment: see discharge summary
--- NOTE | 2023-01-28 15:06 | PM.EVENT ---
Event Note Date of Service: 01/28/23 Event Note: seen and examined this morning admitted overnight for tia rule out awake, alert, NAD pulm: lungs CTA CV: RRR neuro: no focal deficits appreciated, moving all extremities, strength equal b/l reporting frequent headaches plan for pt eval, neuro eval further management per H&P Time Spent With Patient Time: Total time managing care of this patient today ____ minutes.
--- NOTE | 2023-01-28 15:37 | MHC.CM.PN ---
MD order for home, self care prior to CM interview w/Pt. CM acknowledge MD order for home, self care.
== END 2023-01-28 17:25 | disposition home or self-care (01) ==
LOC: HO.ED 04:49 → HO.EDOVER 05:34 → HO.IMC 07:02
PROVIDERS: Admitting Provider Internal Medicine; Emergency Provider Emergency Medicine; Visit Provider Physician Assistant Medical
DX: G43.109 Migraine with aura, not intractable, without status migrainosus (principal); G93.9 Disorder of brain, unspecified; F19.10 Other psychoactive substance abuse, uncomplicated; R42 Dizziness and giddiness; H53.8 Other visual disturbances; R53.1 Weakness; Z86.73 Personal history of transient ischemic attack (TIA), and cerebral infarction without residual deficits
CPT/HCPCS: 36415; 70496; 70498; 80053; 80061; 80307; 84484; 85025; 85610; 97161; 99222; 99285; Q9967

== ENCOUNTER 2023-03-08 23:42 | Emergency (ER) | payer OTHER, SELFPAY ==
[2023-03-08 23:43] VITALS: BP 154/90; PULSE 78; RESP 16; TEMP 36.9; O2SAT 98; BMI 38.3
--- NOTE | 2023-03-09 01:00 | PC.NURSE ---
Patient presents with complaints that his right arm is locking up. Patient with history of stroke that did affect his right side but he currently has full range of motion to the area. Patient admits that recently he has been going hard at the gym. Patient is otherwise well appearing at this time.
--- NOTE | 2023-03-09 02:44 | ED_ITS ---
HPI - Extremity Injury (Lower) General Chief Complaint: Extremity Injury, Lower Stated Complaint: extremity inj Time Seen by Provider: 03/09/23 01:20 Source: patient Mode of arrival: ambulatory Limitations: no limitations History of Present Illness HPI Narrative: 52-year-old male who presents emergency department for evaluation of right elbow locking up while he is lifting weights and left foot pain. The patient states that he was released today from a dual diagnosis treatment program. He states he was in this program for 2 months and he was detoxing Tea benzodiazepines and crystal meth. He was also being treated for bipolar disorder. Patient states that he was working out daily and that he notice that his right elbow would lock up when he was bench pressing. He also was complaining of left foot pain. He states that he had surgery to his left foot 2 years prior and that he often gets pain in his foot. Related Data Home Medications Medication Instructions Recorded Confirmed methadone 10 mg/mL oral 100 mg PO DAILY 01/28/23 01/28/23 concentrate (Methadone Intensol) Previous Rx's Medication Instructions Recorded topiramate 50 mg tablet 50 mg PO BEDTIME #30 tabs 01/28/23 Allergies Allergy/AdvReac Type Severity Reaction Status Date / Time No Known Allergies Allergy Unverified 04/16/20 18:35 [No Known Allergies*] Review of Systems Review of Systems: Yes all other systems are reviewed and are negative [facility] Past Medical History [facility] Narrative: Social history: He denies tobacco and alcohol use. Patient states that he has been sober for 2 months and has not been using cocaine or methamphetamine since he was in a treatment program. Medical History Brain lesion Cocaine abuse Hemorrhagic stroke Social History Social History Alcohol intake: never Patient Tobacco Use Status: Never used Tobacco Substance Use Type: IV Drugs, Methamphetamine and Opiates Advance Directives: No Advance Directives Information Provided: Yes Physical Exam Vital Signs: Vital Signs: Last Vital Signs Temp 98.4 F 03/08/23 23:43 Pulse 78 03/08/23 23:43 Resp 16 03/08/23 23:43 BP 154/90 H 03/08/23 23:43 Pulse Ox 98 03/08/23 23:43 O2 Del Method Room Air 03/08/23 23:43 BMI result Body Mass Index 38.3 Medical Decision Making Medical Decision Making MDM Narrative: 52-year-old male who presents emergency department for evaluation of right elbow locking up while he is bench pressing and lifting weights and left foot pain. The patient's physical examination was unremarkable. At this time I do not have a clear etiology for the patient's right elbow locking up and I did discuss this with him. I told the patient if he wants to continue to bench press he should try using individual dumbbells to see if this prevents is right elbow from walking up. The patient's left foot does not appear to be infected and I believe that his pain is chronic and related to his previous surgery he was advised to take Tylenol and ibuprofen for pain. Was discharged home Differential Diagnosis Differential diagnosis includes but is not limited to arthritis of the elbow, spasm of the forearm and upper arm muscles, left foot infection Discharge Plan Discharge Clinical Impression: Acute pain of left foot, Right elbow pain Patient Disposition: Home, Self-Care Additional Instructions: At this time, I do not know why your right elbow is locking up when you are bench pressing weight. Consider using dumbbells instead of a straight bar to see if this prevents your elbow from walking up Your left foot does not look infected. Take ibuprofen 200 mg pills, 2 pills every 6 hours as needed for pain or fever. Take Tylenol (acetaminophen) 500 mg pills, 2 pills every 6 hours as needed for pain or fever. Follow-up with your doctor in 2 days. Please return to the emergency department if your symptoms get worse or if you develop any symptoms that are concerning to you. Prescriptions: No Action methadone [Methadone Intensol] 10 mg/mL Concentrate 100 mg PO DAILY topiramate 50 mg tablet 50 mg PO BEDTIME Qty: 30 0RF
[2023-03-09 03:04] VITALS: BP 116/92; PULSE 76; RESP 16; O2SAT 96
== END 2023-03-09 03:08 | disposition home or self-care (01) ==
PROVIDERS: Emergency Provider Emergency Medicine Emergency Medical Services
DX: M79.672 Pain in left foot (principal); M25.521 Pain in right elbow
CPT/HCPCS: 99282; 99283

== ENCOUNTER 2023-08-12 00:29 | Emergency (ER) | payer OTHER, SELFPAY ==
[2023-08-12 00:53] VITALS: BP 133/79; PULSE 98; RESP 19; TEMP 36.6; O2SAT 97; BMI 44.1
--- OUTSIDE RECORDS SUMMARY | 2023-08-12 02:34 | XMS_ITS | Continuity of Care Document ---
Author Name Unknown Organization [facility] ter Address [address] [place] [address]- Care Team Providers Care Product Development Technician Name Role Phone Roger Peter MD Primary Care Physician [phone] Encounter [facility] Date(s): 07/21/22 - 07/22/[address] [address]- Discharge Disposition: A-D/C Walkout Attending Physician: Not on Staff, Attending MD Admitting Physician: Not on Staff, Admitting MD Referring Physician: Not on Staff, Referring MD Allergies, Adverse Reactions, Alerts No Known Allergies Immunizations Given and Recorded Vaccine Date Status Refusal Reason tetanus/diphtheria/pertussis, acel(Tdap) 12/14/09 Recorded Medications clonazePAM 0.5 mg oral tablet 1 tablet = 0.5 mg, By Mouth, 3 times a day, PRN Anxiety, # 15 tablet, 0 Refills, Maintenance, 03/30/22 11:25:00 EDT, Tablet, [facility]/pharmacy #[id number], Partial fill upon patient request if the prescription is for a schedule II opioid drug., 183, cm, 03/29/22... Start Date: 03/30/22 Stop Date: 04/04/22 Status: Ordered gabapentin 300 mg oral capsule 300 mg, 1, capsule, By Mouth, 3 times a day, # 90 capsule, Refills 0, Tot. Refills 0, Maintenance, 03/30/22 11:25:00 EDT, Route to Pharmacy Electronically, [facility]/pharmacy #[id number], Partial fill upon patient request if the prescription is for a schedule II... Start Date: 03/30/22 Status: Ordered lisinopril 10 mg oral tablet 10 mg, 1, tablet, By Mouth, Daily, # 30 tablet, Refills 0, Tot. Refills 0, Maintenance, 03/30/22 11:25:00 EDT, Route to Pharmacy Electronically, [facility]/pharmacy #[id number], Partial fill upon patient request if the prescription is for a schedule II opioid drug... Start Date: 03/30/22 Status: Ordered methadone 10 mg oral tablet 3 tablet = 30 mg, By Mouth, Daily, 0 Refills, Maintenance, 03/30/22 11:25:00 EDT, Tablet, Partial fill upon patient request if the prescription is for a schedule II opioid drug. Start Date: 03/30/22 Status: Ordered Trileptal 150 mg oral tablet 150 mg, 1, tablet, By Mouth, 2 times a day, # 60 tablet, Refills 0, Tot. Refills 0, Maintenance, 03/30/22 11:25:00 EDT, Route to Pharmacy Electronically, [facility]/pharmacy #[id number], Partial fill upon patientrequest if the prescription is for a schedule II op... Start Date: 03/30/22 Status: Ordered Walker See Instructions, # 1 each, Maintenance, Group G Strep Septic Arthritis in L ankle s/p I+D of left ankle and talar region, 01/03/22 12:23:00 EDT, Supply Start Date: 01/03/22 Status: Ordered Problem List Condition Confirmation Course Effective Dates Status Health St atus Informant Obese class II Confirmed Active Results Radiology Reports * Exam Date Time Procedure Performing Provider Status 07/21/22 9:43 PM Knee 1 or 2 Views Right Rose Kishore ; Margie (Verified) Notes: (Knee 1 or 2 Views Right) Reason For Exam: Pain RESULT: Knee 1 or 2 Views Right Knee 1 or 2 Views Right, views Hx of Present Illness: Patient reports increasing pain in right knee x past 2 days. Pain extends distally into right ankle. No known traumatic injury.; Reason: Pain; Clinical Question(s): Arthritis COMPARISON: None. FINDINGS: There is no evidence of acute or healing fracture, dislocation or bone lesion. Mild tricompartmental degenerative osteoarthritis but no evidence of osteochondral defect or intra-articular loose body. No evidence of joint effusion. IMPRESSION: Mild tricompartmental degenerative osteoarthritis but no acute abnormality. WSN: [id number] Ordering Physician: Sonali Julio Dictated By: Manuel Boston MD Dictated Date/Time: 07/21/22 9:44 pm Reviewed By: Manuel Boston MD Signed By: Manuel Boston MD Signed Date/Time: 07/21/22 9:44 pm Transcribed By: SAMM Transcribed Date/Time: 07/21/22 9:43 pm Vital Signs Most recent to oldest [Reference Range]: 1 2 3 Height 183 cm (07/21/22 8:59 PM) Weight 122 kg (07/21/22 8:59 PM) Oxygen Saturation [94-100 %] 99 % (07/22/22 5:20 AM) 96 % (07/22/22:22 AM) 98 % (07/21/22 8:59 PM) Pulse Rate [55-90 bpm] 56 bpm (07/22/22 5:20 AM) 68 bpm (07/22/22 2:22 AM) 82 bpm (07/21/22 8:59 PM) Body Mass Index [18.5-24.99 kg/m2] 36.43 kg/m2 *>HHI* (07/21/22 8:59 PM) Blood Pressure [90-138/55-84 mm Hg] 140/82mm Hg *H* (07/22/22 5:20 AM) 142/86mm Hg *H* (07/22/22 2:22 AM) 133/84mm Hg (07/21/22 8:59 PM) Respiratory Rate [16-30 br/min] 16 br/min (07/22/22 5:20 AM) 16 br/min (07/21/22 8:59 PM) Temperature [96.8-100.4 DegF] 98.1 DegF (07/22/22 5:20 AM) 97.9 DegF (07/22/22:22 AM) 98.3 DegF (07/21/22 8:59 PM) Mode of Delivery (Oxygen) Room air (07/22/22 5:20 AM) Room air (07/22/22 2:22 AM) Room air (07/21/22 8:59 PM) Blood pressure sites Arm, left (07/22/22 5:20 AM) Arm, left (07/22/22 2:22 AM) Arm, left (07/21/22 8:59 PM) Temperature Route Oral (07/22/22 5:20 AM) Oral (07/22/22 2:22 AM) Oral (07/21/22 8:59 PM) Dry Weight 122 kg (07/21/22 8:59 PM) Weight Obtained Via Patient/family state d (07/21/22 8:59 PM) Dry Weight Obtained Via Patient/family s tated (07/21/22 8:59 PM) Social History Social History Type Response Smoking Status Never (less than 100 in lifetime) entered on: 02/15/22 Sex XR Knee - right 1 or 2 Views * [facility] , CIS S: TRANSCRIBE Manuel Boston MD: VERIFY Event Display: Result: Authored Date: [id number] Knee 1 or 2 Views Right, views Hx of Present Illness: Patient reports increasing pain in right knee x past 2 days. Pain extends distally into right ankle. No known traumatic injury.; Reason: Pain; Clinical Question(s): Arthritis COMPARISON: None. FINDINGS: There is no evidence of acute or healing fracture, dislocation or bone lesion. Mild tricompartmental degenerative osteoarthritis but no evidence of osteochondral defect or intra-articular loose body. No evidence of joint effusion. IMPRESSION: Mild tricompartmental degenerative osteoarthritis but no acute abnormality. WSN: [id number] Ordering Physician: Sonali Julio Dictated By: Manuel Boston MD Dictated Date/Time: 07/21/22 9:44 pm Reviewed By: Manuel Boston MD Signed By: Manuel Boston MD Signed Date/Time: 07/21/22 9:44 pm Transcribed By: SAMM Transcribed Date/Time: 07/21/22 9:43 pm Patient Care team information Care Team Personnel Name: Sangeetha Webb RN Position: [facility] RN Member Role: Primary Care Nurse Name: Navdeep Chavez RN Position: S RN Member Role: Primary Care Nurse Name: Minnie Turk RN Position: S RN Member Role: Primary Care Nurse Name: CRUZ FRENCH RN Position: S RN Member Role: Primary Care Nurse Name: Luis Ross RN Position: S RN Member Role: Primary Care Nurse Name: Adri Santizo RN Position: S RN Member Role: Primary Care Nurse Name: Ruth Cowan Position: S RN Member Role: Primary Care Nurse Name: Tesha Javier Position: [facility] RN Member Role: Primary Care Nurse Name: Ghazala Aldrich RN Position: S RN Member Role: Primary Care Nurse Name: Piotr Mckeon RN Position: S RN Member Role: Primary Care Nurse Name: Roger Peter MD Position: Reference Physician Member Role: PCP Address: Address: [address] [place] [address] [address] [place] [address]- Name: Carlo Almodovar RN Position: [facility] RN Member Role: Primary Care Nurse Name: Rossy Oliver Position: S RN Member Role: Primary Care Nurse Name: Candelaria Christensen RN Position: [facility] RN Member Role: Primary Care Nurse Name: Joseph Sams Position: [facility] Associate Professional Member Role: Lifetime Consulting Provider Address: Address: [address] [place] [address]- Name: Erica Mulligan RN Position: [facility] RN Member Role: Primary Care Nurse Name: Vinny Miller RN Position: [facility] RN Member Role: Primary Care Nurse Name: Sal Lazo MD Position: [facility] Renal MD Member Role: Lifetime Consulting Physician Address: Address: [address] [place] [address] [address] [facility] [place] [address]- [place] Name: Janis Greenberg RN Position: [facility] RN Member Role: Primary Care Nurse Name: Bret Butt RN Position: [facility] RN Member Role: Primary Care Nurse Name: Lakshmi Roberson RN Position: [facility] RN Member Role: Primary Care Nurse Name: Haley Lamb RN Position: [facility] RN Member Role: Primary Care Nurse Name: Dolores Krishnamurthy RN Position: [facility] RN Member Role: Primary Care Nurse Name: Nelia Smiley RN Position: [facility] RN Member Role: Primary Care Nurse Name: Alejandra Hernandez RN Position: [facility] RN Member Role: Primary Care Nurse Address: Address: [address] [place] [address]- [place] Name: Ferny Gomez MD Position: [facility] Renal MD Member Role: Lifetime Consulting Physician Address: Address: [address] [place] [address] [facility] [place] [place] [address]- [place] Name: Malina Blackwell RN Position: [facility] RN Member Role: Primary Care Nurse Name: Joycelyn Carmona RN Position: [facility] RN Member Role: Primary Care Nurse Name: Asif Berry RN Position: [facility] RN Member Role: Primary Care Nurse Name: Asha Howell RN Position: [facility] RN Member Role: Primary Care Nurse Name: Gale Doherty RN Position: [facility] RN Member Role: Primary Care Nurse Name: Nichole Thomas RN Position: [facility] RN Member Role: Primary Care Nurse Care Team Related Persons Name: MAURISIO MANZO Address: [place] [address]
--- OUTSIDE RECORDS SUMMARY | 2023-08-12 02:34 | XMS_ITS | Continuity of Care Document ---
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 RN Position: [facility] RN Member Role: Primary Care Nurse Name: Vinny Miller RN Position: [facility] RN Member Role: Primary Care Nurse Name: Sal Lazo MD Position: [facility] Renal MD Member Role: Lifetime Consulting Physician Address: Address: [address] [place] [address] [address] [facility] [place] [address]- Name: Bret Butt RN Position: [facility] Onco RN Member Role: Primary Care Nurse Name: Lakshmi Roberson RN Position: [facility] RN Member Role: Primary Care Nurse Name: Haley Lamb RN Position: [facility] RN Member Role: Primary Care Nurse Name: Nelia Smiley RN Position: [facility] SN RN Member Role: Primary Care Nurse Name: Alejandra Hernandez RN Position: [facility] RN Member Role: Primary Care Nurse Address: Address: [address] [place] [address]- [place] Name: Ferny Gomez MD Position: [facility] Renal MD Member Role: Lifetime Consulting Physician Address: Address: [address] [place] [address] [facility] [place] [place] [address]- Name: Asif Berry RN Position: [facility] RN Member Role: Primary Care Nurse Name: Asha Howell RN Position: [facility] RN Member Role: Primary Care Nurse Name: Gale Doherty RN Position: [facility] RN Member Role: Primary Care Nurse Name: Nichole Thomas RN Position: [facility] RN Member Role: Primary Care Nurse Name: Deborah Hadley MD Position: [facility] ED Medicine MD Member Role: Admitting Physician Address: Address: [address] [place] [address] Name: Andrey Woodard MD Position: [facility] Resident Member Role: ED Resident Address: Address: [address] [place] [address] Name: Elsa Chavez RN Position: [facility] ED RN W/OE and Tasks Member Role: Patient Care Provider Name: Fercho Bailon Position: [facility] ED [facility] Member Role: Patient Care Provider Care Team Related Persons Name: MAURISIO MANZO Address: home [address] [place] [address]
--- OUTSIDE RECORDS SUMMARY | 2023-08-12 02:34 | XMS_ITS | Continuity of Care Document ---
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 Name Role Phone Roger Peter MD Primary Care Physician [phone] Encounter [facility] Date(s): 07/11/22 - 07/12/[address] [address]- Discharge Disposition: A-D/C Home Attending Physician: Shaheed OCHOA, Radha Jacobs Admitting Physician: Shaheed OCHOA, Radha Jacobs Referring Physician: Not on Staff, Referring MD [...] Date: 03/30/22 Stop Date: 04/04/22 Status: Ordered doxycycline hyclate 100 mg oral tablet 1 tablet = 100 mg, By Mouth, 2 times a day, for 7 days, with fluids, # 14 tablet, 0 Refills, Acute 07/19/22 8:04:00 EST, 07/12/22 8:04:00 EST, Tablet, Partial fill upon patient request if the prescription is for a schedule II opioid drug. Start Date: 07/12/22 Stop Date: 07/19/22 Status: Ordered gabapentin 300 mg oral capsule 300 mg, Capsule, By Mouth, 07/12/22 9:00:00 EST Start Date: 07/12/22 Stop Date: 07/12/22 Status: Completed gabapentin 300 mg oral capsule 300 mg, 1, capsule, By Mouth, 3 times a day, # 90 capsule, Refills 0, Tot. Refills 0, Maintenance, 03/30/22 11:25:00 EDT, Route to Pharmacy Electronically, [facility]/pharmacy #[id number], Partial fill upon patient request if the prescription is for a schedule II... Start Date: 03/30/22 Status: Ordered lisinopril 10 mg oral tablet 10 mg, Tablet, By Mouth, 07/11/22 14:02:00 EST Start Date: 07/11/22 Stop Date: 07/11/22 Status: Completed lisinopril 10 mg oral tablet 10 mg, Tablet, By Mouth, 07/12/22 9:00:00 EST Start Date: 07/12/22 Stop Date: 07/12/22 Status: Completed lisinopril 10 mg oral tablet 10 mg, 1, tablet, By Mouth, Daily, # 30 tablet, Refills 0, Tot. Refills 0, Maintenance, 03/30/22 11:25:00 EDT, Route to Pharmacy Electronically, [facility]/pharmacy #[id number], Partial fill upon patient request if the prescription is for a schedule II opioid drug... Start Date: 03/30/22 Status: Ordered methadone 10 mg oral tablet 3 tablet = 30 mg, By Mouth, Daily, 0 Refills, Maintenance, 03/30/22 11:25:00 EDT, Tablet, Partial fill upon patient request if the prescription is for a schedule II opioid drug. Start Date: 03/30/22 Status: Ordered Methadone Tablet 30 mg, Tablet, By Mouth, Once, STAT, 07/12/22 7:47:00 EST, Stop date 07/12/22 7:47:00 EST Start Date: 07/12/22 Stop Date: 07/12/22 Status: Completed Trileptal 150 mg oral tablet 150 mg, 1, tablet, By Mouth, 2 times a day, # 60 tablet, Refills 0, Tot. Refills 0, Maintenance, 03/30/22 11:25:00 EDT, Route to Pharmacy Electronically, [facility]/pharmacy #[id number], Partial fill upon patientrequest if the prescription is for a schedule II op... 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 History: Hx of Present Illness: feeling suicidal x 4 dys, been wothout meds for 3 weeks, having difference with my pshychiatr=st so i stopped going to get my meds ; Reason: Trauma; with Pain; Clinical Question(s): Fracture Findings: Frontal, oblique, and lateral views of the left hand are submitted. There is a 0.6 cm ovoid lucency within the distal aspect of the fifth proximal phalanx. This could represent an area of fibrous dysplasia or a bone cyst. No fractures or dislocations are seen. Soft tissue prominence overlies the dorsum of the hand. IMPRESSION: Soft tissue prominence. There is no acute osseous abnormality. WSN: [id number] Ordering Physician: Deborah Bartlett Dictated By: Arianne Savage MD Dictated Date/Time: 07/11/22 1:40 pm Reviewed By: Arianne Savage MD Signed By: Arianne Savage MD Signed Date/Time: 07/11/22 1:40 pm Transcribed By: SAMM Transcribed Date/Time: 07/11/22 1:39 pm Vital Signs Most recent to oldest [Reference Range]: 1 2 3 Oxygen Saturation [94-100 %] 98 % (07/12/22 7:57 AM) 95 % (07/11/22 11:47 PM) 100 % (07/11/22 11:43 AM) Pulse Rate [55-90 bpm] 60 bpm (07/12/22 7:57 AM) 55 bpm (07/11/22 11:47 PM) 86 bpm (07/11/22 11:29 AM) Blood Pressure [90-138/55-84 mm Hg] 116/64mm Hg (07/12/22 7:57 AM) 133/67mm Hg (07/11/22 11:47 PM) 106/60mm Hg (07/11/22 1:48 PM) Respiratory Rate [16-30 br/min] 18 br/min (07/12/22 7:57 AM) 18 br/min (07/12/22 7:57 AM) 20 br/min (07/11/22 11:47 PM) Temperature [96.8-100.4 DegF] 98.6 DegF (07/11/22 11:47 PM) 98 DegF (07/11/22 11:43 AM) Mode of Delivery (Oxygen) Room air (07/12/22 7:57 AM) Room air (07/11/22 11:47 PM) Room air (07/11/22 11:29 AM) Blood pressure sites Arm, right (07/12/22 7:57 AM) Arm, right (07/11/22 11:47 PM) Temperature Route Oral (07/11/22 11:47 PM) Social History Social History Type Response Smoking Status Never (less than 100 in lifetime) entered on: 02/15/22 Sex XR Hand - left GE 3 Views * [facility] , CIS S: TRANSCRIBE Janette OCHOA , Arianne Connors: VERIFY Event Display: Result: Authored Date: [id number] Examination: Left hand performed on 07/11/2022. History: Hx of Present Illness: feeling suicidal x 4 dys, been wothout meds for 3 weeks, having difference with my pshychiatr=st so i stopped going to get my meds ; Reason: Trauma; with Pain; Clinical Question(s): Fracture Findings: Frontal, oblique, and lateral views of the left hand are submitted. There is a 0.6 cm ovoid lucency within the distal aspect of the fifth proximal phalanx. This could represent an area of fibrous dysplasia or a bone cyst. No fractures or dislocations are seen. Soft tissue prominence overlies the dorsum of the hand. IMPRESSION: Soft tissue prominence. There is no acute osseous abnormality. WSN: [id number] Ordering Physician: Deborah Bartlett Dictated By: Arianne Savage MD Dictated Date/Time: 07/11/22 1:40 pm Reviewed By: Arianne Savage MD Signed By: Arianne Savage MD Signed Date/Time: 07/11/22 1:40 pm Transcribed By: SAMM Transcribed Date/Time: 07/11/22 1:39 pm Patient Care team information Care Team Personnel Name: Sangeetha Webb RN Position: S RN Member Role: Primary Care Nurse Name: Navdeep Chavez RN Position: S RN Member Role: Primary Care Nurse Name: Minnie Turk RN Position: S RN Member Role: Primary Care Nurse Name: CRUZ FRENCH RN Position: S RN Member Role: Primary Care Nurse Name: Luis Ross RN Position: [facility] RN Member Role: Primary Care Nurse Name: Adri Santizo RN Position: [facility] RN Member Role: Primary Care Nurse Name: Ruth Cowan Position: S RN Member Role: Primary Care Nurse Name: Tesha Javier Position: [facility] RN Member Role: Primary Care Nurse Name: Ghazala Aldrich RN Position: [facility] RN Member Role: Primary Care Nurse Name: Piotr Mckeon RN Position: S RN Member Role: Primary Care Nurse Name: Roger Peter MD Position: Reference Physician Member Role: PCP Address: Address: [address] [place] [address] [address] Name: Carlo Almodovar RN Position: [facility] RN Member Role: Primary Care Nurse Name: Rossy Oliver Position: [facility] RN Member Role: Primary Care Nurse Name: Candelaria Christensen RN Position: S RN Member Role: Primary Care Nurse Name: Joseph Sams Position: [facility] Associate Professional Member Role: Lifetime Consulting Provider Address: Address: [address] [place] [address] Name: Erica Mulligan RN Position: S RN Member Role: Primary Care Nurse Name: Vinny Miller RN Position: [facility] RN Member Role: Primary Care Nurse Name: Sal Lazo MD Position: [facility] Renal MD Member Role: Lifetime Consulting Physician Address: Address: [address] [place] [address] [address] [facility] [place] [address]- Name: Janis Greenberg RN Position: S RN Member Role: Primary Care Nurse Name: Bret Butt RN Position: S RN Member Role: Primary Care Nurse Name: Lakshmi Roberson RN Position: S RN Member Role: Primary Care Nurse Name: Haley Lamb RN Position: S RN Member Role: Primary Care Nurse Name: Dolores Krishnamurthy RN Position: S RN Member Role: Primary Care Nurse Name: Nelia Smiley RN Position: [facility] SN RN Member Role: Primary Care Nurse Name: Alejandra Hernandez RN Position: S RN Member Role: Primary Care Nurse Address: Address: [address] [place] [address]- Name: Ferny Gomez MD Position: [facility] Renal MD Member Role: Lifetime Consulting Physician Address: Address: [address] [place] [address] [facility] [place] [address]- Name: Malina Blackwell RN Position: [facility] RN Member Role: Primary Care Nurse Name: Joycelyn Carmona RN Position: [facility] RN Member Role: Primary Care Nurse Name: Asif Berry RN Position: [facility] RN Member Role: Primary Care Nurse Name: Asha Howell RN Position: [facility] RN Member Role: Primary Care Nurse Name: Gale Doherty RN Position: [facility] RN Member Role: Primary Care Nurse Name: Nichole Thomas RN Position: [facility] RN Member Role: Primary Care Nurse [facility] Attending Position: [facility] ED Attendings Patient Name: Adrian aTlbot Position: [facility] ED [facility] Name: Irene Turner RN Position: [facility] ED RN W/OE and Tasks Member Role: Patient Care Provider Name: Radha Hummel MD Position: [facility] ED Medicine MD Member Role: Admitting Physician Address: Address: [address] [facility] [place] [address]- Care Team Related Persons Name: ANAISMAURISIO Address: home [address] [facility] [place] [facility] [place] [address]
--- OUTSIDE RECORDS SUMMARY | 2023-08-12 02:34 | XMS_ITS | Continuity of Care Document ---
Author Name Unknown Organization [facility] ter Address [address] [place] [address]- Care Team Providers Care Household Assistant Name Role Phone Not on Staff, PCP Primary Care Physician Unavail able [place] [facility] [place] 12[place] [facility] [address] [place] [id number]- Encounter Diagnosis Back pain(Final) - 12/09/21 Knee pain(Final) - 12/09/21 Discharge Disposition: Transfer to [facility] Facility Attending Physician: Eddi Liu MD Admitting Physician: Silviano OCHOA, Kishan Kothari Referring Physician: Not on Staff, Referring MD Allergies, Adverse Reactions, Alerts No Known Allergies Medications amoxicillin 875 mg oral tablet = 875 mg, By Mouth, Every 12 hours, 0 Refills, Maintenance, 12/29/21 9:46:00 EDT, Tablet, Partial fill upon patient request if the prescription is for a schedule II opioid drug. Start Date: 12/29/21 Stop Date: 01/09/22 Status: Ordered clonazePAM 0.5 mg oral tablet 1 tablet = 0.5 mg, By Mouth, 4 times a day, Maintenance, 12/09/21 15:47:00 EDT, Tablet, Partial fill upon patient request if the prescription is for a schedule II opioid drug. Start Date: 12/09/21 Stop Date: 01/08/22 Status: Ordered gabapentin 300 mg oral capsule 300 mg, Capsule, By Mouth, Hold for: oversedation, 12/29/21 9:00:00 EDT Start Date: 12/29/21 Stop Date: 12/29/21 Status: Completed gabapentin 300 mg oral capsule 300 mg, 1, capsule, By Mouth, 3 times a day, Refills 0, Maintenance, 12/29/21 9:46:00 EDT, Partial fill upon patient request if the prescription is for a schedule II opioid drug. Start Date: 12/29/21 Status: Ordered methadone 10 mg oral tablet 50 mg, Tablet, By Mouth, 12/29/21 9:00:00 EDT Start Date: 12/29/21 Stop Date: 12/29/21 Status: Completed methadone 10 mg oral tablet 5 tablet = 50 mg, By Mouth, Daily, 0 Refills, Maintenance, 12/29/21 9:47:00 EDT, Tablet, Partial fill upon patient request if the prescription is for a schedule II opioid drug. Start Date: 12/29/21 Status: Ordered methocarbamol 750 mg oral tablet 1 tablet = 750 mg, By Mouth, Every 6 hours, PRN muscle spasms, Maintenance, 12/09/21 15:46:00 EDT, Partial fill upon patient request if the prescription is for a schedule II opioid drug. Start Date: 12/09/21 Stop Date: 12/14/21 Status: Ordered oxyCODONE 5 mg oral tablet 5 mg, 1, tablet, By Mouth, Every 6 hours, PRN, # 10 tablet, Refills 0, Tot. Refills 0, Maintenance,Pain , Moderate, 12/29/21 9:47:00 EDT, Partial fill upon patient request if the prescription is fora schedule II opioid drug. Start Date: 12/29/21 Status: Ordered Problem List Condition Effective Dates Status Health Status Inform ant Severe obesity(Confirmed) Active Results Orders for Microbiology Reports Name Date Anaerobic Culture (ANAEROBIC CULTURE) Fungal Culture, Nonrespiratory (FUNGAL C ULT,NON-RESPIRATORY) 12/12/21 Sterile Body Fluid Culture W/ Gram Smear (STERILE FLUID CULT.) 12/12/21 Anaerobic Culture (ANAEROBIC CULTURE) Sterile Body Fluid Culture W/ Gram Smear (STERILE FLUID CULT.) 12/10/21 Blood Culture 12/09/21 Blood Culture #2 12/09/21 Microbiology Reports TEST:Anaerobic Culture STATUS:Auth (Verified) BODY SITE: SOURCE:JOINT COLLECTED DATE/TIME:12/12/21 12:30 PM Anaerobic Culture SPECIMEN DESCRIPTION : JOINT FLUID LEFT ANKLE SPECIMEN RECEIVED ON SWAB. RESULTS MAY BE COMPROMISED. SPECIMEN OF CHOICE IS TISSUE OR ASPIRATE. SPECIAL REQUESTS : NONE CULTURE : NO ANAEROBES ISOLATED REPORT STATUS : FINAL 12/14/2021 TEST:Sterile Fluid Culture STATUS:Auth (Verified) BODY SITE: SOURCE:JOINT COLLECTED DATE/TIME:12/12/21 12:30 PM Sterile Fluid Culture SPECIMEN DESCRIPTION : JOINT FLUID LEFT ANKLE SPECIMEN RECEIVED ON SWAB. RESULTS MAY BE COMPROMISED. SPECIMEN OF CHOICE IS TISSUE OR ASPIRATE. SPECIAL REQUESTS : NONE GRAM STAIN : 3+ POLYMORPHONUCLEAR LEUKOCYTES 2+ TISSUE CELLS NO ORGANISMS SEEN CULTURE : 1+ STREPTOCOCCI, GR.G BETA HEMOLYTIC FOR CLINDAMYCIN RESULT, REFER TO: JOINT FLUID COLLECTED ON 12/10/21. REPORT STATUS : FINAL 12/14/2021 ORGANISM 1+ STREPTOCOCCI, GR.G BETA HEMOLYTIC METHOD MIN. INHIB. CONC. (MCG/ML) CEFTRIAXONE SUSCEPTIBLE ERYTHROMYCIN RESISTANT PENICILLIN SUSCEPTIBLE VANCOMYCIN SUSCEPTIBLE TEST:Fungal Culture, Non-Respiratory STATUS:Unauthenticated BODY SITE: SOURCE:JOINT COLLECTED DATE/TIME:12/12/21 12:30 PM Fungal Culture, Non-Respiratory SPECIMEN DESCRIPTION : JOINT FLUID LEFT ANKLE SPECIMEN RECEIVED ON SWAB. RESULTS MAY BE COMPROMISED. SPECIMEN OF CHOICE IS TISSUE OR ASPIRATE. SPECIAL REQUESTS : NONE DIRECT EXAM : NO FUNGAL ELEMENTS OBSERVED CULTURE : NO FUNGI ISOLATED AFTER 16 DAYS REPORT STATUS : PRELIMINARY REPORT TEST:Anaerobic Culture STATUS:Auth (Verified) BODY SITE: SOURCE:JOINT COLLECTED DATE/TIME:12/10/21 4:20 PM Anaerobic Culture SPECIMEN DESCRIPTION : JOINT FLUID LEFT ANKLE SPECIAL REQUESTS : PLEASE NOTE THAT CULTURE RESULTS MAY BE COMPROMISED BY THE LIMITED VOLUME OF SPECIMEN RECEIVED CULTURE : NO ANAEROBES ISOLATED REPORT STATUS : FINAL 12/20/2021 TEST:Sterile Fluid Culture STATUS:Auth (Verified) BODY SITE: SOURCE:JOINT COLLECTED DATE/TIME:12/10/21 4:20 PM Sterile Fluid Culture SPECIMEN DESCRIPTION : JOINT FLUID LEFT ANKLE SPECIAL REQUESTS : PLEASE NOTE THAT CULTURE RESULTS MAY BE COMPROMISED BY THE LIMITED VOLUME OF SPECIMEN RECEIVED CRITICAL VALUE CALLED AND VERIFIED BY READBACK FOR: GRAM POSITIVE COCCI TO [id number], S64, ON 12/11/21 AT 0030 BY TECH [id number] GRAM STAIN : 3+ POLYMORPHONUCLEAR LEUKOCYTES 3+ GRAM POSITIVE COCCI CULTURE : 3+ STREPTOCOCCI, GR.G BETA HEMOLYTIC THIS ORGANISM IS PRESUMED TO BE CLINDAMYCIN RESISTANT BASED ON DETECTION OF INDUCIBLE RESISTANCE. CLINDAMYCIN MAY STILL BE EFFECTIVE IN SOME PATIENTS. CRITICAL VALUE CALLED AND VERIFIED BY READBACK FOR: JNTF TO [id number],S64,12/12 AT 1350 BY TECH 155 REPORT STATUS : FINAL 12/14/2021 ORGANISM 3+ STREPTOCOCCI, GR.G BETA HEMOLYTIC THIS ORGANISM IS PRESUMED TO BE CLINDAMYCIN RESISTANT BASED ON DETECTION OF INDUCIBLE RESISTANCE. CLINDAMYCIN MAY STILL BE EFFECTIVE IN SOME PATIENTS. METHOD MIN. INHIB. CONC. (MCG/ML) CEFTRIAXONE SUSCEPTIBLE ERYTHROMYCIN RESISTANT PENICILLIN SUSCEPTIBLE VANCOMYCIN SUSCEPTIBLE INDUCIBLE CLINDAMYCI POSITIVE TEST:Blood Culture STATUS:Auth (Verified) BODY SITE: SOURCE:Blood COLLECTED DATE/TIME:12/09/21 2:30 PM Blood Culture SPECIMEN DESCRIPTION : BLOOD RHAND SPECIAL REQUESTS : NONE CULTURE : NO GROWTH 5 DAYS. REPORT STATUS : FINAL 12/14/2021 TEST:Blood Culture, Second Order STATUS:Auth (Verified) BODY SITE: SOURCE:Blood COLLECTED DATE/TIME:12/09/21 2:30 PM Blood Culture, Second Order SPECIMEN DESCRIPTION : BLOOD LAC SPECIAL REQUESTS : NONE CULTURE : NO GROWTH 5 DAYS. REPORT STATUS : FINAL 12/14/2021 Radiology Reports * Exam Date Time Procedure Performing Provider Status 12/21/21 8:45 AM Chest Portable Dee Dee Matthew h (Verified) Notes: (Chest Portable) Reason For Exam: Cough RESULT: Chest Portable Chest Portable Reason: Cough; Clinical Question(s): Pneumonia COMPARISON: Scanogram from chest CT 12/09/2021. FINDINGS: LINES AND TUBES: None. LUNGS AND PLEURA: Clear lungs. Normal pulmonary vascularity. No pleural effusion. No pneumothorax. HEART, MEDIASTINUM AND CATALINO: Heart is normal in size. Normal upper mediastinal and hilar contour. BONES AND SOFT TISSUES: No acute abnormality. IMPRESSION: No acute abnormality. WSN: [id number] Ordering Physician: Apollo Pastrana Dictated By: Jethro Tellez MD Dictated Date/Time: 12/21/21 10:14 a Reviewed By: Jethro Telelz MD Signed By: Jethro Tellez MD Signed Date/Time: 12/21/21 10:14 am Transcribed By: SAMM Transcribed Date/Time: 12/21/21 10:14 am * Exam Date Time Procedure Performing Provider Status 12/10/21 4:25 PM XR Aspiration Hip Left OrlandoÁlvaro avila L; Auth (Verified) Notes: (XR Aspiration Hip Left) Reason For Exam: lt ankle tenosynovitis RESULT: XR Aspiration Hip Left XR ASPIRATION LEFT SUBTALAR JOINT HISTORY: Possible infection. PROCEDURE: Informed, written consent was obtained from the patient. Risks including bleeding and infection were outlined. Under fluoroscopic guidance an 18-gauge needle was advanced to the anterior aspect of the sinus tarsi/ anterior subtalar joint. This portion of the subtalar joint was targeted as there may have been more fluid in this portion of the subtalar joint on the recent CT scan. Less than 1 mL serosanguineous fluid was removed and sent for laboratory evaluation. Intra-articular needle position could not be confirmed with contrast due to contrast shortage Fluoroscopy time: 18 seconds DAP [id number]^2 IMPRESSION: Fluoroscopically guided subtalar joint aspiration yielding 1 mL serosanguineous fluid that was sent for laboratory analysis. WSN: [id number] Ordering Physician: Rere Morton Dictated By: Fercho Rodas MD Dictated Date/Time: 12/10/21 4:45 pm Reviewed By: Fercho Rodas MD Signed By: Fercho Rodas MD Signed Date/Time: 12/10/21 4:45 pm Transcribed By: SAMM Transcribed Date/Time: 12/10/21 4:42 pm * Exam Date Time Procedure Performing Provider Status 12/09/21 3:25 PM Tibia/Fibula 2 Views Left Amos Beasley; Margie (Verified) Notes: (Tibia/Fibula 2 Views Left) Reason For Exam: with Pain;Trauma RESULT: Tibia/Fibula 2 Views Left Tibia/Fibula 2 Views Left Reason: Trauma; with Pain; Clinical Question(s): Fracture COMPARISON: None. FINDINGS: No fractures or bone lesions. Alignment and bone mineralization are preserved. Visualized joints are maintained. There is mild soft tissue edema in the mid lower calf. IMPRESSION: Mild soft tissue edema in the mid lower calf. No acute fracture. WSN: [id number] Ordering Physician: Ariane Pop Dictated By: Idalmis Boyd MD Dictated Date/Time: 12/09/21 3:49 pm Reviewed By: Idalmis Boyd MD Signed By: Idalmis Boyd MD Signed Date/Time: 12/09/21 3:49 pm Transcribed By: SAMM Transcribed Date/Time: 12/09/21 3:40 pm * Exam Date Time Procedure Performing Provider Status 12/09/21 9:16 AM Knee 1 or 2 Views Right Matsuk , Arthu r; Auth (Verified) Notes: (Knee 1 or 2 Views Right) Reason For Exam: with Pain;Trauma RESULT: Knee 1 or 2 Views Right Knee 1 or 2 Views Right, 2 views Reason: Trauma; with Pain; Clinical Question(s): Fracture COMPARISON: None. FINDINGS: There is no evidence of acute or healing fracture, dislocation or bone lesion. Bone mineralization is normal. Small osteophytes along the medial femoral condyle and medial tibial plateau associated with mild to moderate narrowing of the medial compartment and slight widening of the lateral compartment. No evidence of joint effusion. IMPRESSION: No acute abnormality. Osteoarthritis of the right knee with mild cartilage loss in the medial compartment. WSN: [id number] Ordering Physician: Ariane Pop Dictated By: Fercho Boyer MD Dictated Date/Time: 12/09/21 9:33 am Reviewed By: Fercho Boyer MD Signed By: Fercho Boyer MD Signed Date/Time: 12/09/21 9:33 am Transcribed By: SAMM Transcribed Date/Time: 12/09/21 9:32 am * Exam Date Time Procedure Performing Provider Status 12/09/21 9:16 AM Foot Min 3 Views Left Ernie , Jorge Alberto; Auth (Verified) Notes: (Foot Min 3 Views Left) Reason For Exam: with Pain;Trauma RESULT: Foot Min 3 Views Left Foot Min 3 Views Left, 3 views Reason: Trauma; with Pain; Clinical Question(s): Fracture COMPARISON: None. FINDINGS: No fractures or bone lesions. No arthritic changes. Normal soft tissues. IMPRESSION: Normal. WSN: [id number] Ordering Physician: Ariane Pop Dictated By: Fercho Boyer MD Dictated Date/Time: 12/09/21 9:21 am Reviewed By: Fercho Boyer MD Signed By: Fercho Boyer MD Signed Date/Time: 12/09/21 9:21 am Transcribed By: SAMM Transcribed Date/Time: 12/09/21 9:19 am * Exam Date Time Procedure Performing Provider Status 12/09/21 9:16 AM Ankle Min 3 Views Left Matsuk , Jorge Alberto ; Auth (Verified) Notes: (Ankle Min 3 Views Left) Reason For Exam: with Pain;Trauma RESULT: Ankle Min 3 Views Left Ankle Min 3 Views Left Reason: Trauma; with Pain; Clinical Question(s): Fracture COMPARISON: None. FINDINGS: No evidence of acute or healing fracture or bone lesion. Bone mineralization is normal. Intact ankle mortise and talar dome. No arthritic changes. Generalized soft tissue swelling at the ankle. IMPRESSION: No osseous or joint space abnormality. Generalized soft tissue swelling. WSN: [id number] Ordering Physician: Ariane Pop Dictated By: Fercho Boyer MD Dictated Date/Time: 12/09/21 9:19 am Reviewed By: Fercho Boyer MD Signed By: Fercho Boyer MD Signed Date/Time: 12/09/21 9:19 am Transcribed By: SAMM Transcribed Date/Time: 12/09/21 9:18 am * Exam Date Time Procedure Performing Provider Status 12/09/21 9:16 AM Knee 1 or 2 Views Left Jorge Alberto Klein ; Auth (Verified) Notes: (Knee 1 or 2 Views Left) Reason For Exam: with Pain;Trauma RESULT: Knee 1 or 2 Views Left Knee 1 or 2 Views Left, 2 views Reason: Trauma; with Pain; Clinical Question(s): Fracture COMPARISON: None. FINDINGS: There is no evidence of acute or healing fracture, dislocation or bone lesion. No arthritic changes. No osteochondral defects or intra-articular loose bodies. No evidence of joint effusion. IMPRESSION: Normal. WSN: [id number] Ordering Physician: Ariane Pop Dictated By: Fercho Boyer MD Dictated Date/Time: 12/09/21 9:18 am Reviewed By: Fercho Boyer MD Signed By: Fercho Boyer MD Signed Date/Time: 12/09/21 9:18 am Transcribed By: SAMM Transcribed Date/Time: 12/09/21 9:17 am * Exam Date Time Procedure Performing Provider Status 12/09/21 8:36 AM Chest Portable Adri Pryor; Auth (Verified) Notes: (Chest Portable) Reason For Exam: Pain;Other: RESULT: Chest Portable Chest Portable, supine at 8:19 AM Reason: Other:; Pain following trauma; Clinical Question(s): Other:; Fracture, pneumothorax, pulmonary contusion COMPARISON: None. FINDINGS: LINES AND TUBES: None. LUNGS AND PLEURA: Clear lungs. Normal pulmonary vascularity. No pleural effusion. No pneumothorax. HEART, MEDIASTINUM AND CATALINO: Heart is normal in size. Normal upper mediastinal and hilar contour. BONES AND SOFT TISSUES: No acute abnormality. IMPRESSION: Normal examination. WSN: [id number] Ordering Physician: Ariane Pop Dictated By: Fercho Boyer MD Dictated Date/Time: 12/09/21 8:41 am Reviewed By: Fercho Boyer MD Signed By: Fercho Boyer MD Signed Date/Time: 12/09/21 8:41 am Transcribed By: SAMM Transcribed Date/Time: 12/09/21 8:40 am Vital Signs Most recent to oldest [Reference Range]: 1 2 3 4 Height 183 cm (12/29/21 7:48 AM) 183 cm (12/28/21 11:41 PM) 183 cm (12/28/21 7:47 PM) Weight 137.6 kg (12/12/21 10:48 AM) 137.6 kg (12/09/21 5:03 PM) Oxygen Saturation [94-100 %] 98 % (12/29/21 7:48 AM) 99 % (12/28/21 11:41 PM) 99 % (12/28/21 7:47 PM) Pulse Rate [55-90 bpm] 71 bpm (12/29/21 7:48 AM) 79 bpm (12/28/21 11:41 PM) 78 bpm (12/28/21 7:47 PM) Body Mass Index [18.5-24.99] 41.09 *>HHI* (12/12/21 10:48 AM) 41.09 *>HHI* (12/09/21 5:03 PM) Blood Pressure [90-138/55-84 mm Hg] 119/55mm Hg (12/29/21 7:48 AM) 122/82mm Hg (12/28/21 11:41 PM) 136/78mm Hg (12/28/21 7:47 PM) Respiratory Rate [16-30 br/min] 18 br/min (12/29/21 11:33 AM) 18 br/min (12/29/21 11:33 AM) 18 br/min (12/29/21 9:10 AM) 18 br/min (12/29/21 9:10 AM) Temperature [96.8-100.4 DegF] 98.1 DegF (12/29/21 7:48 AM) 98.9 DegF (12/28/21 11:41 PM) 97.8 DegF (12/28/21 7:47 PM) Liters per Minute 0 L/min (12/09/21 10:51 AM) Mode of Delivery (Oxygen) Room air (12/29/21 7:48 AM) Room air (12/28/21 11:41 PM) Room air (12/28/21 7:47 PM) Blood pressure sites Arm, left (12/29/21 7:48 AM) Arm, left (12/28/21 11:41 PM) Arm, left (12/28/21 7:47 PM) Temperature Route Oral (12/29/21 7:48 AM) Oral (12/28/21 11:41 PM) Oral (12/28/21 7:47 PM) Dry Weight 137.6 kg (12/09/21 5:03 PM) Weight Obtained Via Bed scale (12/09/21 5:03 PM)
--- OUTSIDE RECORDS SUMMARY | 2023-08-12 02:34 | XMS_ITS | Continuity of Care Document ---
Author Name Unknown Organization [facility] Address [address] [place] [id number]- Care Team Providers Care Research Tech Name Role Phone Roger Peter MD Primary Care Physician [place] [facility] [place] [id number] Date(s): 12/21/21 - 01/20/22 [facility] [address] [place] [phone]- Attending Physician: Han Yarbrough Admitting Physician: AdmtrHan Referring Physician: Admtr, Ar8 Allergies, Adverse Reactions, Alerts No Known Allergies Medications acetaminophen 325 mg oral tablet 650 mg, By Mouth, Every 4 hours, PRN, Temperature Greater than 100.5, Refills 0, Maintenance, Pain , Mild, 01/13/22 14:22:00 EDT, Partial fill upon patient request if the prescription is for a schedule II opioid drug. Start Date: 01/13/22 Status: Ordered clonazePAM 0.5 mg oral tablet 1 tablet = 0.5 mg, By Mouth, 3 times a day, PRN Anxiety, # 15 tablet, 0 Refills, Maintenance, 01/13/22 14:20:00 EDT, Tablet, [facility], Partial fill upon patient request if the prescription is for a schedule II opioid drug., 183, cm, 06... Start Date: 01/13/22 Stop Date: 01/18/22 Status: Ordered gabapentin 300 mg oral capsule 300 mg, 1, capsule, By Mouth, 3 times a day, # 90 capsule, Refills 0, Tot. Refills 0, Maintenance, 01/03/22 12:00:00 EDT, Route to Pharmacy Electronically, [facility]/pharmacy #[id number], Partial fill upon patient request if the prescription is for a schedule II... Start Date: 01/03/22 Status: Ordered lisinopril 10 mg oral tablet 10 mg, 1, tablet, By Mouth, Daily, # 30 tablet, Refills 0, Tot. Refills 0, Maintenance, 01/13/22 14:23:00 EDT, Route to Pharmacy Electronically, [facility], Partial fill upon patient request if the prescription is for a schedule II opioi... Start Date: 01/13/22 Status: Ordered methadone 10 mg oral tablet 4 tablet = 40 mg, By Mouth, Daily, 0 Refills, Maintenance, 01/13/22 14:21:00 EDT, Tablet, Partial fill upon patient request if the prescription is for a schedule II opioid drug. Start Date: 01/13/22 Status: Ordered oxyCODONE 5 mg oral tablet 5 mg, 1, tablet, By Mouth, Every 6 hours, PRN, # 20 tablet, Refills 0, Tot. Refills 0, Maintenance,Pain , Moderate, 01/13/22 14:21:00 EDT, Route to Pharmacy Electronically, [facility],Partial fill upon patient request if the prescripti... Start Date: 01/13/22 Stop Date: 01/18/22 Status: Ordered Trileptal 150 mg oral tablet 150 mg, 1, tablet, By Mouth, 2 times a day, # 60 tablet, Refills 0, Tot. Refills 0, Maintenance, 01/13/22 14:21:00 EDT, Route to Pharmacy Electronically, [facility], Partial fill upon patient request if the prescription is for a schedule... 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
--- OUTSIDE RECORDS SUMMARY | 2023-08-12 02:34 | XMS_ITS | Continuity of Care Document ---
Author Name Unknown Organization [facility] ter Address [address] [place] [id number]- Care Team Providers Care Quiller Machine Fixer Name Role Phone Rome OCHOA, Roger Primary Care Physician [phone] Encounter [facility] Date(s): 01/08/22 - 01/13/[address] [address] Discharge Disposition: A-D/C Home Attending Physician: Sonny Sawyer MD Admitting Physician: Christina OCHOA, Luis Referring Physician: Not on Staff, Referring MD Allergies, Adverse Reactions, Alerts No Known Allergies Medications acetaminophen 325 mg oral tablet 650 mg, By Mouth, Every 4 hours, PRN, Temperature Greater than 100.5, Refills 0, Maintenance, Pain , Mild, 01/13/22 14:22:00 EDT, Partial fill upon patient request if the prescription is for a schedule II opioid drug. Start Date: 01/13/22 Status: Ordered cephalexin monohydrate 500 mg oral tablet 1 tablet = 500 mg, By Mouth, 4 times a day, for 3 days, # 12 tablet, 0 Refills, Acute 01/16/22 14:24:00 EDT, 01/13/22 14:24:00 EDT, Tablet, [facility], Partial fill upon patient requestif the prescription is for a schedule II opioid tanvi... Start Date: 01/13/22 Stop Date: 01/16/22 Status: Ordered clonazePAM 0.5 mg oral tablet 1 tablet = 0.5 mg, By Mouth, 3 times a day, PRN Anxiety, # 15 tablet, 0 Refills, Maintenance, 01/13/22 14:20:00 EDT, Tablet, [facility], Partial fill upon patient request if the prescription is for a schedule II opioid drug., 183, cm, 06... Start Date: 01/13/22 Stop Date: 01/18/22 Status: Ordered gabapentin 300 mg oral capsule 300 mg, 1, capsule, By Mouth, 3 times a day, # 90 capsule, Refills 0, Tot. Refills 0, Maintenance, 01/03/22 12:00:00 EDT, Route to Pharmacy Electronically, [facility]/pharmacy #[id number], Partial fill upon patient request if the prescription is for a schedule II... Start Date: 01/03/22 Status: Ordered gabapentin 300 mg oral capsule 300 mg, Capsule, By Mouth, 01/13/22 9:00:00 EDT Start Date: 01/13/22 Stop Date: 01/13/22 Status: Completed gabapentin 300 mg oral capsule 300 mg, Capsule, By Mouth, 01/13/22 15:00:00 EDT Start Date: 01/13/22 Stop Date: 01/13/22 Status: Completed lisinopril 10 mg oral tablet 10 mg, 1, tablet, By Mouth, Daily, # 30 tablet, Refills 0, Tot. Refills 0, Maintenance, 01/13/22 14:23:00 EDT, Route to Pharmacy Electronically, [facility], Partial fill upon patient request if the prescription is for a schedule II opioi... Start Date: 01/13/22 Status: Ordered lisinopril 10 mg oral tablet 10 mg, Tablet, By Mouth, Hold for: sbp<110, 01/13/22 9:00:00 EDT Start Date: 01/13/22 Stop Date: 01/13/22 Status: Completed methadone 10 mg oral tablet 4 tablet = 40 mg, By Mouth, Daily, 0 Refills, Maintenance, 01/13/22 14:21:00 EDT, Tablet, Partial fill upon patient request if the prescription is for a schedule II opioid drug. Start Date: 01/13/22 Status: Ordered methadone 10 mg oral tablet 40 mg, Tablet, By Mouth, 01/13/22 9:00:00 EDT Start Date: 01/13/22 Stop Date: 01/13/22 Status: Completed oxyCODONE 5 mg oral tablet 5 mg, 1, tablet, By Mouth, Every 6 hours, PRN, # 20 tablet, Refills 0, Tot. Refills 0, Maintenance,Pain , Moderate, 01/13/22 14:21:00 EDT, Route to Pharmacy Electronically, [facility],Partial fill upon patient request if the prescripti... Start Date: 01/13/22 Stop Date: 01/18/22 Status: Ordered Trileptal 150 mg oral tablet 150 mg, 1, tablet, By Mouth, 2 times a day, # 60 tablet, Refills 0, Tot. Refills 0, Maintenance, 01/13/22 14:21:00 EDT, Route to Pharmacy Electronically, [facility], Partial fill upon patient [...] Results Orders for Microbiology Reports Name Date Blood Culture 01/08/22 Blood Culture #2 01/08/22 Microbiology Reports TEST:Blood Culture, Second Order STATUS:Auth (Verified) BODY SITE: SOURCE:Blood COLLECTED DATE/TIME:01/08/22 12:45 PM Blood Culture, Second Order SPECIMEN DESCRIPTION : BLOOD R HAND SPECIAL REQUESTS : NONE CULTURE : NO GROWTH 5 DAYS. REPORT STATUS : FINAL 01/13/2022 TEST:Blood Culture STATUS:Auth (Verified) BODY SITE: SOURCE:Blood COLLECTED DATE/TIME:01/08/22 12:20 PM Blood Culture SPECIMEN DESCRIPTION : BLOOD LAC SPECIAL REQUESTS : NONE CULTURE : NO GROWTH 5 DAYS. REPORT STATUS : FINAL 01/13/2022 Radiology Reports * Exam Date Time Procedure Performing Provider Status 01/08/22 3:16 PM Ankle Min 3 Views Left Elie Beasley; Auth (Verified) Notes: (Ankle Min 3 Views Left) Reason For Exam: Infection RESULT: Ankle Min 3 Views Left Examination: Left ankle performed on 01/08/2022. History: Hx of Present Illness: pt arrived from hotel via EMS c o LLE cellulitis. [facility]. took PO abx as directed, LLE seems worse and it painful and itchy. LLE red, warm to touch; Reason: Infection; Clinical Question(s): Osteomyelitis Findings: Frontal, oblique, and lateral views of the left ankle are compared to a prior study dated 12/30/2021. The mortise is preserved. No fractures or dislocations are demonstrated. Soft tissue swelling overlies the malleoli. An ankle joint effusion is noted. Impression: Soft tissue swelling. There is no acute osseous abnormality. WSN: [id number] Ordering Physician: Gregg Horvath Dictated By: Arianne Savage MD Dictated Date/Time: 01/08/22 3:26 pm Reviewed By: Arianne Savage MD Signed By: Arianne Savage MD Signed Date/Time: 01/08/22 3:26 pm Transcribed By: SAMM Transcribed Date/Time: 01/08/22 3:25 pm Vital Signs Most recent to oldest [Reference Range]: 1 2 3 4 Height 183 cm (01/13/22 7:39 AM) 183 cm (01/12/22 7:26 PM) 183 cm (01/12/22 3:43 PM) Weight 154.4 kg (01/09/22 4:46 PM) 154.4 kg (01/09/22 1:17 PM) Oxygen Saturation [94-100 %] 100 % (01/13/22 1:00 PM) 96 % (01/13/22 7:39 AM) 98 % (01/12/22 7:26 PM) Pulse Rate [55-90 bpm] 48 bpm *L* (01/13/22 1:00 PM) 64 bpm (01/13/22 7:39 AM) 62 bpm (01/12/22 7:26 PM) Body Mass Index [18.5-24.99] 46.1 *>HHI* (01/09/22 4:46 PM) 46.1 *>HHI* (01/09/22 1:17 PM) Blood Pressure [90-138/55-84 mm Hg] 143/79mm Hg *H* (01/13/22 1:00 PM) 123/73mm Hg (01/13/22 8:12 AM) 123/73mm Hg (01/13/22 7:39 AM) Respiratory Rate [16-30 br/min] 20 br/min (01/13/22 3:00 PM) 21 br/min (01/13/22 1:00 PM) 20 br/min (01/13/22 8:12 AM) 20 br/min (01/13/22 8:12 AM) Temperature [96.8-100.4 DegF] 98.6 DegF (01/13/22 1:00 PM) 98.6 DegF (01/13/22 7:39 AM) 98.3 DegF (01/12/22 7:26 PM) Mode of Delivery (Oxygen) Room air (01/13/22 1:00 PM) Room air (01/13/22 7:39 AM) Room air (01/12/22 7:26 PM) Blood pressure sites Arm, left (01/13/22 1:00 PM) Arm, left (01/13/22 7:39 AM) Arm, left (01/12/22 7:26 PM) Temperature Route Oral (01/13/22 1:00 PM) Oral (01/13/22 7:39 AM) Oral (01/12/22 7:26 PM) Dry Weight 154.4 kg (01/09/22 4:46 PM) 154.4 kg (01/09/22 1:17 PM) Weight Obtained Via Bed scale (01/09/22 1:17 PM) Dry Weight Obtained Via Bed scale (01/09/22 1:17 PM)
--- OUTSIDE RECORDS SUMMARY | 2023-08-12 02:34 | XMS_ITS | Continuity of Care Document ---
Author Name Unknown Organization [facility] ter Address [address] [place] [id number]- Care Team Providers Care Lead Dental Assistant Name Role Phone Roger Peter MD Primary Care Physician [phone] [facility]23 - 07/30/[address] [address]- Encounter Diagnosis Suicidal ideation(Final) - 07/30/23 Discharge Disposition: Transfer to [facility] Facility Attending Physician: eFrcho Smith MD Admitting Physician: Fercho Smith MD Referring Physician: Not on Staff, Referring MD Allergies, Adverse Reactions, Alerts Substance Reaction Severity Status cefepime 1 whole body rash Active 1can take ertapenem Immunizations Given and Recorded Vaccine Date Status Refusal Reason tetanus/diphtheria/pertussis, acel(Tdap) 12/14/09 Recorded Medications cloNIDine 0.1 mg oral tablet 0.1 mg, 1, tablet, By Mouth, 3 times a day, # 90 tablet, Refills 0, Tot. Refills 0, Maintenance, 04/17/23 13:04:00 EDT, Print Requisition, Partial fill upon patient request if the prescription is fora schedule II opioid drug. Start Date: 04/17/23 Stop Date: 05/17/23 Status: Ordered gabapentin 300 mg oral capsule 300 mg, 1, capsule, By Mouth, 3 times a day, # 90 capsule, Refills 0, Tot. Refills 0, Maintenance, 04/17/23 13:03:00 EDT, Print Requisition, Partial fill upon patient request if the prescription is for a schedule II opioid drug. Start Date: 04/17/23 Status: Ordered gabapentin 800 mg oral tablet 1 tablet = 800 mg, By Mouth, 3 times a day, # 270 tablet, 0 Refills, Maintenance, 07/30/23 7:30:00 EST, Tablet, Partial fill upon patient request if the prescription is for a schedule II opioid drug. Start Date: 07/30/23 Status: Ordered lidocaine 5% topical film APPLY 1 PATCH TOPICALLY DAILY NEEDED FOR MILD PAIN REMOVE AFTER 12 HOURS Start Date: 07/30/23 Status: Ordered lisinopril 10 mg oral tablet 10 mg, By Mouth, Daily, # 30 tablet, Refills 0, Tot. Refills 0, Maintenance, 04/17/23 13:03:00 EDT,Print Requisition, Partial fill upon patient request if the prescription is for a schedule II opioid drug. Start Date: 04/17/23 Stop Date: 05/17/23 Status: Ordered lisinopril 10 mg oral tablet 10 mg, Tablet, By Mouth, 07/30/23 9:00:00 EST Start Date: 07/30/23 Stop Date: 07/30/23 Status: Completed lisinopril 5 mg oral tablet 5 mg, 1, tablet, By Mouth, Daily, # 30 tablet, Refills 0, Maintenance, 07/30/23 7:30:00 EST, Partial fill upon patient request if the prescription is for a schedule II opioid drug. Start Date: 07/30/23 Status: Ordered methadone 10 mg/5 mL oral solution 10 mL = 20 mg, By Mouth, Daily at bedtime, 0 Refills, Maintenance, 04/17/23 13:04:00 EDT, Solution,Partial fill upon patient request if the prescription is for a schedule II opioid drug. Start Date: 04/17/23 Status: Ordered methadone 10 mg/5 mL oral solution 25 mL = 50 mg, By Mouth, Daily in AM, 0 Refills, Maintenance, 04/17/23 13:04:00 EDT, Solution, Partial fill upon patient request if the prescription is for a schedule II opioid drug. Start Date: 04/17/23 Status: Ordered Methadone Tablet 30 mg, Tablet, By Mouth, Once, STAT, 07/30/23 8:17:00 EST, Stop date 07/30/23 8:17:00 EST Start Date: 07/30/23 Stop Date: 07/30/23 Status: Completed OXcarbazepine 150 mg oral tablet 150 mg, By Mouth, 2 times a day, # 60 tablet, Refills 0, Tot. Refills 0, Maintenance, 04/17/23 13:04:00 EDT, Print Requisition, Partial fill upon patient request if the prescription is for a scheduleII opioid drug. Start Date: 04/17/23 Stop Date: 05/17/23 Status: Ordered sertraline 25 mg oral tablet = 25 mg, By Mouth, Daily in AM, # 30 tablet, 0 Refills, Maintenance, 04/17/23 13:04:00 EDT, Tablet,Partial fill upon patient request if the prescription is for a schedule II opioid drug. Start Date: 04/17/23 Stop Date: 05/17/23 Status: Ordered topiramate 50 mg oral tablet 1 tablet = 50 mg, By Mouth, 2 times a day, # 180 tablet, 0 Refills, Maintenance, 07/30/23 7:30:00 EST, Tablet, Partial fill upon patient request if the prescription is for a schedule II opioid drug. Start Date: 07/30/23 Status: Ordered Problem List Condition Confirmation Course Effective Dates Status Health St atus Informant Severe obesity Confirmed Active Vital Signs Most recent to oldest [Reference Range]: 1 2 3 Height 183 cm (07/30/23 2:06 AM) Weight 141 kg (07/30/23 2:06 AM) Oxygen Saturation [94-100 %] 99 % (07/30/23 8:00 PM) 100 % (07/30/23 3:57 PM) 99 % (07/30/23 6:56 AM) Pulse Rate [55-90 bpm] 60 bpm (07/30/23 8:00 PM) 53 bpm *L* (07/30/23 3:57 PM) 52 bpm *L* (07/30/23 6:56 AM) Body Mass Index [18.5-24.99 kg/m2] 42.1 kg/m2 *>HHI* (07/30/23 2:06 AM) Blood Pressure [90-138/55-84 mm Hg] 116/74mm Hg (07/30/23 8:00 PM) 111/72mm Hg (07/30/23 3:57 PM) 147/79mm Hg *H* (07/30/23 8:09 AM) Respiratory Rate [16-30 br/min] 18 br/min (07/30/23 8:00 PM) 18 br/min (07/30/23 3:57 PM) 16 br/min (07/30/23 8:19 AM) Temperature [96.8-100.4 DegF] 98.8 DegF (07/30/23 8:00 PM) 98.9 DegF (07/30/23 3:57 PM) 97.6 DegF (07/30/23 6:56 AM) Mode of Delivery (Oxygen) Room air (07/30/23 3:57 PM) Room air (07/30/23 6:56 AM) Room air (07/30/23 2:06 AM) Blood pressure sites Arm, left (07/30/23 3:57 PM) Arm, right (07/30/23 6:56 AM) Arm, right (07/30/23 2:06 AM) Temperature Route Oral (07/30/23 3:57 PM) Oral (07/30/23 6:56 AM) Oral (07/30/23 2:06 AM) Dry Weight 141 kg (07/30/23 2:06 AM) Weight Obtained Via Patient/family state d (07/30/23 2:06 AM) Dry Weight Obtained Via Patient/family s tated (07/30/23 2:06 AM) Social History Social History Type Response Smoking Status Never (less than 100 in lifetime) entered on: 02/15/22 Sex Patient Care team information Care Team Personnel Name: Navdeep Chavez RN Position: [facility] RN Member Role: Primary Care Nurse Name: Minnie Turk RN Position: S RN Member Role: Primary Care Nurse Name: Dolores Torres RN Position: [facility] SN RN Member Role: Primary Care Nurse Name: Adri Shepard RN Position: S RN Member Role: Primary Care Nurse Name: Ingrid Nazario RN Position: S RN Member Role: Primary Care Nurse Name: Luis Ross RN Position: [facility] RN Supv Member Role: Primary Care Nurse Name: Tesha Javier Position: S RN Member Role: Primary Care Nurse Name: Ghazala Aldrich RN Position: S RN Member Role: Primary Care Nurse Name: Piotr Mckeon RN Position: S RN Member Role: Primary Care Nurse Name: Roger Peter MD Position: Reference Physician Member Role: PCP Address: Address: [address] [place] [address] [address] [place] [address] Name: Carlo Almodovar RN Position: [facility] RN Member Role: Primary Care Nurse Name: Rossy Oliver Position: [facility] RN Member Role: Primary Care Nurse Name: Candelaria Christensen RN Position: [facility] RN Member Role: Primary Care Nurse Name: Joseph Sams Position: [facility] Associate Professional Member Role: Lifetime Consulting Provider Address: Address: [address] [place] [address]- Name: Erica Mulligan RN Position: [facility] RN Member Role: Primary Care Nurse Name: Yisel Patel Position: [facility] RN Member Role: Primary Care Nurse Name: Vinny Miller RN Position: [facility] RN Member Role: Primary Care Nurse Name: Sal Lazo MD Position: [facility] Renal MD Member Role: Lifetime Consulting Physician Address: Address: [address] [place] [address] [facility] [place] [address]- Name: Bret Butt RN Position: [facility] Onco RN Member Role: Primary Care Nurse Name: Lakshmi Roberson RN Position: [facility] RN Member Role: Primary Care Nurse Name: Haley Lamb RN Position: [facility] RN Member Role: Primary Care Nurse Name: Nelia Smiley RN Position: [facility] SN RN Member Role: Primary Care Nurse Name: Alejandra Hernandez RN Position: [facility] RN Member Role: Primary Care Nurse Address: Address: [address] [place] [address]- Name: Ferny Gomez MD Position: [facility] Renal MD Member Role: Lifetime Consulting Physician Address: Address: [address] [place] [address] [facility] [place] [address]- Name: Asif Berry RN Position: [facility] RN Member Role: Primary Care Nurse Name: Asha Howell RN Position: [facility] RN Member Role: Primary Care Nurse Name: Gale Doherty RN Position: [facility] RN Member Role: Primary Care Nurse Name: Nichole Thomas RN Position: [facility] RN Member Role: Primary Care Nurse [facility] Attending Position: [facility] ED Attendings Patient Name: Paco Baldwin Position: [facility] ED TA [facility] Name: Markus Centeno RN Position: [facility] ED RN W/OE and Tasks Member Role: Patient Care Provider Name: Sarah OCHOA, Fercho Du Position: S Resident Member Role: Admitting Physician Address: Address: [address] [place] [address]- Care Team Related Persons Name: MAURISIO MANZO Address: home [address] [place] [address]
--- OUTSIDE RECORDS SUMMARY | 2023-08-12 02:34 | XMS_ITS | Continuity of Care Document ---
Author Name Unknown Organization [facility] ter Address [address] [place] [address]- Care Team Providers Care Broadcast Checker Name Role Phone Roger Peter MD Primary Care Physician [place] [facility] [place] 07/13/[address] [address]- Encounter Diagnosis Right knee sprain(Final) - 07/13/20 Discharge Disposition: A-D/C Home Attending Physician: Celestina Cuenca DO Admitting Physician: Celestina Cuenca DO Referring Physician: Not on Staff, Referring MD Allergies, Adverse Reactions, Alerts Substance Reaction Severity Status NKA Active Medications clonazePAM 1 mg oral tablet 1 tablet = 1 mg, TK 1 T PO QID PRF ANXIETY. DO NOT DRIVE OR USE MACHINERY Start Date: 02/16/17 Status: Ordered Suboxone 8 mg-2 mg sublingual film 2 times a day, 0 Refills, Maintenance, 07/02/17 2:16:10 Start Date: 07/02/17 Status: Ordered Suboxone 8 mg-2 mg Sublingual Film 2 film, Sublingual, Daily, dissolve under the tongue. JOSSELIN-X: [id number], # 14 film, 0 Refills, Maintenance, 05/27/20 18:50:00 EDT, Film, [id number], 2 film Sublingual Daily,x7 days,Instr:dissolve under the tongue. JOSSELIN-X: [id number] Start Date: 05/27/20 Stop Date: 06/03/20 Status: Ordered Results Radiology Reports * Exam Date Time Procedure Performing Provider Status 07/13/20 10:49 AM Knee 1 or 2 Views Right lEena Zaldivar; Auth (Verified) Notes: (Knee 1 or 2 Views Right) Reason For Exam: with Pain;Trauma RESULT: Knee 1 or 2 Views Right Knee 1 or 2 Views Right, 2 views Reason: Trauma; with Pain; Clinical Question(s): Fracture; Special Instructions: This is a protocolfilm and radiologist should call any findings to the Charge Nurse COMPARISON: August,. FINDINGS: No fracture or dislocation. Minimal narrowing medial joint compartment. Spur off inferior-posterior patella. Sharpening of tibial spines. IMPRESSION: Mild degenerative changes. WSN: [id number] Ordering Physician: Lai Garcia MD Dictated By: Damon Vogt MD Dictated Date/Time: 07/13/20 10:51 a Reviewed By: Damon Vogt MD Signed By: Damon Vogt MD Signed Date/Time: 07/13/20 10:51 am Transcribed By: SAMM Transcribed Date/Time: 07/13/20 10:50 am Vital Signs Most recent to oldest [Reference Range]: 1 2 Height 183 cm (07/13/20 11:18 AM) 183 cm (07/13/20 10:24 AM) Weight 136.5 kg (07/13/20 11:18 AM) 136.5 kg (07/13/20 10:24 AM) Oxygen Saturation [94-100 %] 98 % (07/13/20 10:24 AM) 99 % (07/13/20 10:16 AM) Pulse Rate [55-90 bpm] 76 bpm (07/13/20 10:24 AM) 72 bpm (07/13/20 10:16 AM) Body Mass Index [18.5-24.99] 40.76 *>HHI* (07/13/20 10:24 AM) Blood Pressure [90-138/55-84 mm Hg] 148/ 85mm Hg *H* (07/13/20 10:24 AM) Respiratory Rate [16-30 br/min] 18 br/mi n (07/13/20 10:24 AM) Temperature [96.8-100.4 DegF] 98.6 DegF (07/13/20 10:24 AM) Mode of Delivery (Oxygen) Room air (07/13/20 10:24 AM) Simple face mask (07/13/20 10:16 AM) Blood pressure sites Arm, right (07/13/20 10:24 AM) Temperature Route Oral (07/13/20 10:24 AM) Dry Weight 136.5 kg (07/13/20 11:18 AM) 136.5 kg (07/13/20 10:24 AM) Weight Obtained Via Patient/family state d (07/13/20 10:24 AM) Dry Weight Obtained Via Patient/family s tated (07/13/20 10:24 AM)
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
--- OUTSIDE RECORDS SUMMARY | 2023-08-12 02:34 | XMS_ITS | Continuity of Care Document ---
Author Name Unknown Organization [facility] ter Address [address] [place] [address]- Care Team Providers Care Manager Testing Name Role Phone Roger Peter MD Primary Care Physician [phone] [place] [facility] [place] 09/02/[address] [address]- Discharge Disposition: A-D/C Home Attending Physician: Carlo Laboy MD Admitting Physician: Carlo Laboy MD Referring Physician: Not on Staff, Referring MD Allergies, Adverse Reactions, Alerts No Known Allergies Immunizations Given and Recorded Vaccine Date Status Refusal Reason tetanus/diphtheria/pertussis, acel(Tdap) 12/14/09 Recorded Medications clonazePAM 0.5 mg oral tablet 1 tablet = 0.5 mg, By Mouth, 3 times a day, PRN Anxiety, # 15 tablet, 0 Refills, Maintenance, 03/30/22 11:25:00 EDT, Tablet, [facility]/pharmacy #[id number], Partial fill upon patient request if the prescription is for a schedule II opioid drug., 183, cm, 03/29/22... Start Date: 03/30/22 Stop Date: 04/04/22 Status: Ordered gabapentin 300 mg oral capsule 300 mg, 1, capsule, By Mouth, 3 times a day, # 90 capsule, Refills 0, Tot. Refills 0, Maintenance, 03/30/22 11:25:00 EDT, Route to Pharmacy Electronically, [facility]/pharmacy #[id number], Partial fill upon patient request if the prescription is for a schedule II... Start Date: 03/30/22 Status: Ordered ibuprofen 600 mg oral tablet 600 mg, 1, tablet, By Mouth, Every 6 hours, for 7 days, # 28 tablet, Refills 0, Tot. Refills 0, Acute 09/09/22 4:08:00 EST, 09/02/22 4:08:00 EST, Route to Pharmacy Electronically, [facility]acy #[id number],Partial fill upon patient request if the prescripti... Start Date: 09/02/22 Stop Date: 09/09/22 Status: Ordered lisinopril 10 mg oral tablet [...] EST, H... Start Date: 09/02/22 Status: Ordered Trileptal 150 mg oral tablet 150 mg, 1, tablet, By Mouth, 2 times a day, # 60 tablet, Refills 0, Tot. Refills 0, Maintenance, 03/30/22 11:25:00 EDT, Route to Pharmacy Electronically, [id number], Partial fill upon patientrequest if the prescription is for a schedule II op... Start Date: 03/30/22 Status: Ordered Tylenol 325 mg oral tablet 650 mg, 2, tablet, By Mouth, Every 6 hours, PRN, for 7 days, # 56 tablet, Refills 0, Tot. Refills 0, Acute 09/09/22 4:08:00 EST, for fever, 09/02/22 4:08:00 EST, Route to Pharmacy Electronically, [id number], Partial fill upon patient request i... 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, 01/03/22 12:23:00 EDT, Supply Start Date: 01/03/22 Status: Ordered Problem List Condition Confirmation Course Effective Dates Status Health St atus Informant Obese class II Confirmed Active Vital Signs Most recent to oldest [Reference Range]: 1 2 3 Oxygen Saturation [94-100 %] 96 % (09/02/22 5:56 AM) 96 % (09/02/22 4:00 AM) 98 % (09/02/22 2:37 AM) Pulse Rate [55-90 bpm] 55 bpm (09/02/22 5:56 AM) 66 bpm (09/02/22 4:00 AM) 78 bpm (09/02/22 2:37 AM) Blood Pressure [90-138/55-84 mm Hg] 127/75mm Hg (09/02/22 5:56 AM) 124/72mm Hg (09/02/22 4:00 AM) 141/84mm Hg *H* (09/02/22 2:37 AM) Respiratory Rate [16-30 br/min] 16 br/min (09/02/22 5:56 AM) 16 br/min (09/02/22 4:00 AM) 18 br/min (09/01/22 10:22 PM) Temperature [96.8-100.4 DegF] 97.8 DegF (09/02/22 5:56 AM) 97.8 DegF (09/02/22 4:00 AM) 98.1 DegF (09/02/22 2:37 AM) Mode of Delivery (Oxygen) Room air (09/02/22 5:56 AM) Room air (09/02/22 4:00 AM) Room air (09/02/22 2:37 AM) Blood pressure sites Arm, left (09/02/22 5:56 AM) Arm, left (09/02/22 4:00 AM) Arm, left (09/01/22 10:22 PM) Temperature Route Oral (09/02/22 5:56 AM) Oral (09/02/22 4:00 AM) Oral (09/02/22 2:37 AM) Social History Social History Type Response Smoking Status Never (less than 100 in lifetime) entered on: 02/15/22 Sex Patient Care team information Care Team Personnel Name: Navdeep Chavez RN Position: [facility] RN Member Role: Primary Care Nurse Name: Minnie Turk RN Position: S RN Member Role: Primary Care Nurse Name: CRUZ FRENCH RN Position: S RN Member Role: Primary Care Nurse Name: Luis Ross RN Position: [facility] RN Supv Member Role: Primary Care Nurse Name: Adri Santizo RN Position: S RN Member Role: Primary Care Nurse Name: Ruth Cowan Position: S RN Member Role: Primary Care Nurse Name: Tesha Javier Position: [facility] RN Member Role: Primary Care Nurse Name: Ghazala Aldrich RN Position: S RN Member Role: Primary Care Nurse Name: Piotr Mckeon RN Position: [facility] RN Member Role: Primary Care Nurse Name: Roger Peter MD Position: Reference Physician Member Role: PCP Address: Address: [address] [place] [address] [address] [facility] [address] Name: Carlo Almodovar RN Position: [facility] RN Member Role: Primary Care Nurse Name: Rossy Oliver Position: [facility] RN Member Role: Primary Care Nurse Name: Candelaria Christensen RN Position: [facility] RN Member Role: Primary Care Nurse Name: Joseph Sams Position: [facility] Associate Professional Member Role: Lifetime Consulting Provider Address: Address: [address] [place] [address]- Name: Erica Mulligan RN Position: [facility] RN Member Role: Primary Care Nurse Name: Vinny Miller RN Position: [facility] RN Member Role: Primary Care Nurse Name: Sal Lazo MD Position: [facility] Renal MD Member Role: Lifetime Consulting Physician Address: Address: [address] [place] [address] [address] [facility] Name: Janis Greenberg RN Position: [facility] RN Member Role: Primary Care Nurse Name: Bret Butt RN Position: [facility] RN Member Role: Primary Care Nurse Name: Lakshmi Roberson RN Position: [facility] RN Member Role: Primary Care Nurse Name: Haley Lamb RN Position: [facility] RN Member Role: Primary Care Nurse Name: Dolores Krishnamurthy RN Position: [facility] RN Member Role: Primary Care Nurse Name: Nelia Smiley RN Position: [facility] SN RN Member Role: Primary Care Nurse Name: Alejandra Hernandez RN Position: [facility] RN Member Role: Primary Care Nurse Address: Address: [address] [place] [id number]- Name: Ferny Gomez MD Position: [facility] Renal MD Member Role: Lifetime Consulting Physician Address: Address: [address] [place] [address] [facility] [place] [address]- Name: Malina Blackwell RN Position: [facility] RN Member Role: Primary Care Nurse Name: Joycelyn Carmona RN Position: [facility] RN Member Role: Primary Care Nurse Name: Asif Berry RN Position: [facility] RN Member Role: Primary Care Nurse Name: Asha Howell RN Position: [facility] RN Member Role: Primary Care Nurse Name: Gale Doherty RN Position: [facility] RN Member Role: Primary Care Nurse Name: Nichole Thomas RN Position: [facility] RN Member Role: Primary Care Nurse [facility] Attending Position: [facility] ED Attendings Patient Name: Briseida Tinsley Position: [facility] ED TA [facility] Name: Fercho Orozco RN Position: [facility] ED RN W/OE and Tasks Member Role: Patient Care Provider Name: Carlo Laboy MD Position: [facility] Resident Member Role: Admitting Physician Address: Address: [address] [place] [address] [place] [address]- Care Team Related Persons Name: MAURISIO MANZO Address: home [address] [place] [address]
--- OUTSIDE RECORDS SUMMARY | 2023-08-12 02:34 | XMS_ITS | Continuity of Care Document ---
Author Name Unknown Organization [facility] Address [address] [place] [address]- Care Team Providers Care Cash Processor Name Role Phone Roger Peter MD Primary Care Physician [phone] Encounter [facility] [place] Date(s): 02/15/22 - 02/22/[address] [address]- Discharge Disposition: A-Transfer SNF Attending Physician: Lai Ochoa DO Admitting Physician: Lai Ochoa DO Referring Physician: Lai Ochoa DO Allergies, Adverse Reactions, Alerts No Known Allergies Medications acetaminophen 325 mg oral tablet 650 mg, By Mouth, Every 4 hours, PRN, Temperature Greater than 100.5, Refills 0, Maintenance, Pain , Mild, 01/13/22 14:22:00 EDT, Partial fill upon patient request if the prescription is for a schedule II opioid drug. Start Date: 01/13/22 Status: Ordered Benadryl Tablet = 25 mg, By Mouth, Every 12 hours, PRN Itch, 0 Refills, Maintenance, 02/22/22 10:22:00 EDT, Tablet,Partial fill upon patient request if the prescription is for a schedule II opioid drug. Start Date: 02/22/22 Status: Ordered clonazePAM 0.5 mg oral tablet 1 tablet = 0.5 mg, By Mouth, 3 times a day, PRN Anxiety, # 15 tablet, 0 Refills, Maintenance, 01/13/22 14:20:00 EDT, Tablet, [facility], Partial fill upon patient request if the prescription is for a schedule II opioid drug., 183, cm, 06... Start Date: 01/13/22 Stop Date: 01/18/22 Status: Ordered ertapenem 1 gm injectable powder for injection = 1 Gm, IV Infusion, Every 24 hours, 0 Refills, Maintenance, 02/15/22 17:02:00 EDT, Partial fill upon patient request if the prescription is for a schedule II opioid drug. Start Date: 02/15/22 Status: Ordered gabapentin 300 mg oral capsule 300 mg, 1, capsule, By Mouth, 3 times a day, # 90 capsule, Refills 0, Tot. Refills 0, Maintenance, 01/03/22 12:00:00 EDT, [id number] Partial fill upon patient request if the prescription is for a schedule II... Start Date: 01/03/22 Status: Ordered gabapentin 300 mg oral capsule 300 mg, Capsule, By Mouth, 02/22/22 9:00:00 EDT Start Date: 02/22/22 Stop Date: 02/22/22 Status: Completed lisinopril 10 mg oral tablet 10 mg, 1, tablet, By Mouth, Daily, # 30 tablet, Refills 0, Tot. Refills 0, Maintenance, 01/13/22 14:23:00 EDT, Route to Pharmacy Electronically, [facility], Partial fill upon patient request if the prescription is for a schedule II opioi... Start Date: 01/13/22 Status: Ordered lisinopril 10 mg oral tablet 10 mg, Tablet, By Mouth, 02/22/22 9:00:00 EDT Start Date: 02/22/22 Stop Date: 02/22/22 Status: Completed methadone 10 mg oral tablet 4.5 tablet = 45 mg, By Mouth, Daily, 0 Refills, Maintenance, 02/15/22 13:15:00 EDT, Tablet, Partialfill upon patient request if the prescription is for a schedule II opioid drug. Start Date: 02/15/22 Status: Ordered methadone 10 mg oral tablet 45 mg, Tablet, By Mouth, 02/22/22 9:00:00 EDT Start Date: 02/22/22 Stop Date: 02/22/22 Status: Completed Miconazole 2% Topical Ointment 1 applicator, Topically, Daily, 0 Refills, Maintenance, Ointment Start Date: 02/15/22 Status: Ordered Multivit Therapeutic/Minerals Tablet 1 tablet, By Mouth, Daily, 0 Refills, Maintenance, 02/15/22 13:15:00 EDT, Tablet, Partial fill uponpatient request if the prescription is for a schedule II opioid drug. Start Date: 02/15/22 Status: Ordered oxyCODONE 5 mg oral tablet 5 mg, 1, tablet, By Mouth, Every 6 hours, PRN, # 20 tablet, Refills 0, Tot. Refills 0, Maintenance,Pain , Moderate, 01/13/22 14:21:00 EDT, Route to Pharmacy Electronically, [facility],Partial fill upon patient request if the prescripti... Start Date: 01/13/22 Stop Date: 01/18/22 Status: Ordered Robitussin DM Liquid 10 mL, By Mouth, Every 4 hours, PRN Cough, 0 Refills, Maintenance, 02/15/22 16:57:00 EDT, Syrup, Partial fill upon patient request if the prescription is for a schedule II opioid drug. Start Date: 02/15/22 Status: Ordered simethicone 80 mg oral tablet, chewable 80 mg, Chew, 3 times a day, PRN, Refills 0, Maintenance, Gas, 02/15/22 13:15:00 EDT, Partial fill upon patient request if the prescription is for a schedule II opioid drug. Start Date: 02/15/22 Status: Ordered Trileptal 150 mg oral tablet 150 mg, 1, tablet, By Mouth, 2 times a day, # 60 tablet, Refills 0, Tot. Refills 0, Maintenance, 01/13/22 14:21:00 EDT, Route to Pharmacy Electronically, [facility], Partial fill upon patient request if the prescription is for a schedule... 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, 01/03/22 12:23:00 EDT, Supply Start Date: 01/03/22 Status: Ordered Problem List Condition Effective Dates Status Health Status Inform ant Severe obesity(Confirmed) Active Vital Signs Most recent to oldest [Reference Range]: 1 2 3 Height 182 cm (02/22/22 7:40 AM) 182 cm (02/22/22 6:02 AM) 182 cm (02/21/22 11:30 PM) Weight 151.6 kg (02/21/22 4:28 AM) 143 kg (02/15/22 5:07 PM) 143.0 kg (02/15/22 3:40 PM) Oxygen Saturation [94-100 %] 100 % (02/22/22 7:40 AM) 100 % (02/22/22 6:02 AM) 97 % (02/21/22 11:30 PM) Pulse Rate [55-90 bpm] 57 bpm (02/22/22 7:40 AM) 57 bpm (02/22/22 6:02 AM) 58 bpm (02/21/22 11:30 PM) Body Mass Index [18.5-24.99] 45.77 *>HHI* (02/21/22 4:28 AM) 43.17 *>HHI* (02/15/22 5:07 PM) Blood Pressure [90-138/55-84 mm Hg] 122/74mm Hg (02/22/22 9:01 AM) 122/74mm Hg (02/22/22 7:40 AM) 108/51mm Hg (02/22/22 6:02 AM) Respiratory Rate [16-30 br/min] 17 br/min (02/22/22 10:01 AM) 17 br/min (02/22/22 10:00 AM) 18 br/min (02/22/22 9:01 AM) Temperature [96.8-100.4 DegF] 97.9 DegF (02/22/22 7:40 AM) 97.4 DegF (02/22/22 6:02 AM) 97.6 DegF (02/21/22 11:30 PM) Liters per Minute 0 L/min (02/20/22 4:08 AM) 0 L/min (02/19/22 11:44 PM) 0 L/min (02/19/22 3:12 AM) Mode of Delivery (Oxygen) Room air (02/22/22 7:40 AM) Room air (02/22/22 6:02 AM) Room air (02/21/22 11:30 PM) Blood pressure sites Arm, left (02/22/22 7:40 AM) Arm, right (02/22/22 6:02 AM) Arm, right (02/21/22 11:30 PM) Temperature Route Oral (02/22/22 7:40 AM) Oral (02/22/22 6:02 AM) Oral (02/21/22 11:30 PM) Dry Weight 143 kg (02/15/22 5:07 PM) Weight Obtained Via Bed scale (02/21/22 4:28 AM) Bed scale (02/15/22 5:07 PM) Bed scale (02/15/22 3:40 PM) Dry Weight Obtained Via Bed scale (02/15/22 5:07 PM) Social History Social History Type Response Smoking Status Never (less than 100 in lifetime) entered on: 02/15/22 Sex
--- OUTSIDE RECORDS SUMMARY | 2023-08-12 02:34 | XMS_ITS | Continuity of Care Document ---
Author Name Unknown Organization [facility] ter Address [address] [place] [address]- Care Team Providers Care Emergency Vehicle Technician Name Role Phone Roger Peter MD Primary Care Physician Encounter [facility] [place] Date(s): 07/13/23 - 07/14/[address] [address]- Encounter Diagnosis Strain of thoracic region(Final) - 07/14/23 Discharge Disposition: A-D/C Home Attending Physician: Shaheed OCHOA, Radha Jacobs Admitting Physician: Radha Hummel MD Referring Physician: Not on Staff, Referring [...] drug. Start Date: 04/17/23 Status: Ordered gabapentin 300 mg oral capsule 300 mg, Capsule, By Mouth, Once, MERI, 07/14/23 3:14:00 EST, Stop date 07/14/23 3:14:00 EST Start Date: 07/14/23 Stop Date: 07/14/23 Status: Completed lidocaine 5% topical film 1 patch, Topically, Daily, PRN Pain , Mild, remove after 12 hours, # 13 each, 0 Refills, Acute 07/21/23 12:00:00 EST, 07/14/23 5:14:00 EST, Film, [id number], Partial fill upon patient requestif the prescription is for a schedule II opioid tanvi... Start Date: 07/14/23 Stop Date: 07/21/23 Status: Ordered lisinopril 10 mg oral tablet 10 mg, By Mouth, Daily, # 30 tablet, Refills 0, Tot. Refills 0, Maintenance, 04/17/23 13:03:00 EDT,Print Requisition, Partial fill upon patient request if the prescription is for a schedule II opioid drug. Start Date: 04/17/23 Stop Date: 05/17/23 Status: Ordered methadone 10 mg/5 mL oral [...] opioid drug. Start Date: 04/17/23 Status: Ordered OXcarbazepine 150 mg oral tablet 150 mg, [...] Date: 04/17/23 Stop Date: 05/17/23 Status: Ordered Problem List Condition Confirmation Course Effective Dates Status Health St atus Informant Obese class II Confirmed Active Vital Signs Most recent to oldest [Reference Range]: 1 2 3 Oxygen Saturation [94-100 %] 97 % (07/14/23 5:26 AM) 99 % (07/14/23 2:57 AM) 94 % (07/14/23 1:22 AM) Pulse Rate [55-90 bpm] 78 bpm (07/14/23 5:26 AM) 83 bpm (07/14/23 2:57 AM) 69 bpm (07/14/23 1:22 AM) Blood Pressure [90-138/55-84 mm Hg] 147/81mm Hg *H* (07/14/23 5:26 AM) 139/86mm Hg *H* (07/14/23 2:57 AM) 176/100mm Hg *H* (07/14/23 1:22 AM) Respiratory Rate [16-30 br/min] 18 br/min (07/14/23 5:26 AM) 16 br/min (07/14/23 3:19 AM) 16 br/min (07/14/23 2:57 AM) Temperature [96.8-100.4 DegF] 98.3 DegF (07/14/23 2:57 AM) 98.2 DegF (07/14/23 1:22 AM) 97.8 DegF (07/13/23 10:44 PM) Mode of Delivery (Oxygen) Room air (07/14/23 5:26 AM) Room air (07/14/23 2:57 AM) Room air (07/14/23 1:22 AM) Blood pressure sites Arm, left (07/14/23 5:26 AM) Arm, right (07/14/23 2:57 AM) Arm, right (07/14/23 1:22 AM) Temperature Route Oral (07/14/23 2:57 AM) Oral (07/14/23 1:22 AM) Oral (07/13/23 10:44 PM) Dry Weight 141.7 kg (07/14/23 5:26 AM) 141.7 kg (07/14/23 2:57 AM) 141.7 kg (07/13/23 10:44 PM) Dry Weight Obtained Via Standing scale (07/13/23 10:44 PM) Social History Social History Type Response Smoking Status Never (less than 100 in lifetime) entered on: 02/15/22 Sex Note * Radha Quach DO: PERFORM Event Display: Patient Education Leaflets Authored Date: [id number] Back Spasm (No Trauma) ?? [id number] Back Spasm (No Trauma) Spasm of the back muscles can occur after a sudden forceful twisting or bending such as in a car accident. A spasm can also happen after a simple awkward movement. Or after lifting something heavy without the correct body positioning. In any case, muscle spasm adds to the pain.??Sleeping in an awkward position or on a poor quality mattress can also cause this. Some people respond to emotional stress by tensing the muscles of their back. Lasting pain may need further assessment. Or you may need other types of treatment such as physicaltherapy. You don't always need X-rays for the first assessment of back pain, unless you had a physical injury such as from a car accident or fall. If your pain continues and doesn't respond to medical treatment, X-rays and other tests may then be done.?? Home care ??? As soon as possible, start sitting or walking again. This will help prevent problems from a long bed rest. These problems include muscle weakness, worsening back stiffness and pain, and blood clots in the legs. ??? When in bed, try to find a position of comfort. A firm mattress is best. Try lying flat on your back with pillows under your knees. You can also try lying on your side with your kne es bent up toward your chest and a pillow between your knees. ??? Don't sit for long periods. Also limit car rides and travel. This puts more stress on the lower back than standing or walking.? During the first 24 to 72 hours after an injury or flare-up, put an ice pack on the painful area for20 minutes, then remove it for 20 minutes. Do this over a period of 60 to 90 minutes, or several times a day. This will reduce swelling and pain. Always wrap ice packs in a thin towel. ??? You can start with ice, then switch to heat. Heat from a hot shower, hot bath, or heating pad reduces pain andworks well for muscle spasms. Put heat on the painful area for 20 minutes, then remove it for 20 minutes. Do this over a period of 60 to 90 minutes, or several times a day. Don't sleep on a heating pad. It can burn or damage skin. ??? Alternate using ice and heat. ??? Be aware of safe lifting methods. don't lift anything over 15 pounds until??all the pain is gone. Gentle stretching will help your back heal faster. Do this simple routine 2 to 3 times a day until your back is feeling better. ??? Lie on your back with your knees bent and both feet on the ground. ??? Slowly raise your left knee to your chest as you flatten your lower back against the floor. Holdfor??20 to 30??seconds. ??? Relax and repeat the exercise with your right knee. ??? Do??2 to 3??of these exercises for each leg. ??? Repeat, hugging both knees to your chest at the same time. ??? Don't bounce, but use a gentle pull. ?? Medicines Talk with your doctor before using medicine, especially if you have other medical problems or are taking other medicines. You may use [id number] medicines such as acetaminophen, ibuprofen, or naproxen to control pain, unless your healthcare provider prescribed another pain medicine. Talk with your provider if you have a chronic condition such as diabetes, liver or kidney disease, stomach ulcer, or digestive bleeding. Also talk with them if you're taking blood thinners. Be careful if you are given prescription pain medicine, opioids, or medicine for muscle spasm. Theycan cause drowsiness. It can affect your coordination, reflexes, and judgment. Don't drive or operate heavy machinery when taking these medicines. Take pain medicine only as prescribed by your provider. ?? Follow-up care Follow up with your doctor as advised. You may need physical therapy or more tests. If X-rays were taken, they may be reviewed by a radiologist. You'll be told of any new findings that may affect your care. ?? Call 911 Call 911 if any of these occur: ??? Trouble breathing ??? Confusion ??? Drowsiness or trouble awakening ??? Fainting or loss of consciousness ??? Rapid or very slow heart rate ??? Loss of bowel or bladder control ?? When to get medical care Call your healthcare provider right away if any of these occur: ??? Pain gets worse or spreads to your legs ??? Weakness or numbness in 1 or both legs ??? Numbness in the groin or genital area ??? Fever of 100.4??F (38??C) or higher, or as advised by your provider ??? Chills ??? Burning feeling or pain when you pee ?? Last Reviewed Date: 2021 ?? 3767-9550 [employer]. All rights reserved. This information is not intended as a substitute for professional medical care. Always follow your healthcare professional's instructions. ?? Patient Care team information Care Team Personnel Name: Navdeep Chavez RN Position: [facility] RN Member Role: Primary Care Nurse Name: Minnie Turk RN Position: [facility] RN Member Role: Primary Care Nurse Name: Dolores Torres RN Position: [facility] SN RN Member Role: Primary Care Nurse Name: Adri Shepard RN Position: [facility] RN Member Role: Primary Care Nurse Name: Ingrid Nazario RN Position: [facility] RN Member Role: Primary Care Nurse Name: Luis Ross RN Position: [facility] RN Supeliot Member Role: Primary Care Nurse Name: Tesha Javier Position: [facility] RN Member Role: Primary Care Nurse Name: Ghazala Aldrich RN Position: [facility] RN Member Role: Primary Care Nurse Name: Piotr Mckeon RN Position: [facility] RN Member Role: Primary Care Nurse Name: Roger Peter MD Position: Reference Physician Member Role: PCP Address: Address: [address] [place] [id number]- Name: Carlo Almodovar RN Position: [facility] RN Member Role: Primary Care Nurse Name: Rossy Oliver Position: [facility] RN Member Role: Primary Care Nurse Name: Candelaria Christensen RN Position: [facility] RN Member Role: Primary Care Nurse Name: Joseph Sams Position: [facility] Associate Professional Member Role: Lifetime Consulting Provider Address: Address: [address] [place] [address]- Name: Erica Mulligan RN Position: [facility] RN Member Role: Primary Care Nurse Name: Asuncion COBOS Yisel Position: S RN Member Role: Primary Care Nurse Name: Vinny Miller RN Position: [facility] RN Member Role: Primary Care Nurse Name: Sal Lazo MD Position: [facility] Renal MD Member Role: Lifetime Consulting Physician Address: Address: [address] [place] [address] [address] [facility] [place] [address]- [place] Name: Bret Butt RN Position: [facility] Onco RN Member Role: Primary Care Nurse Name: Lakshmi Roberson RN Position: [facility] RN Member Role: Primary Care Nurse Name: Haley Lamb RN Position: [facility] RN Member Role: Primary Care Nurse Name: Nelia Smiley RN Position: [facility] SN RN Member Role: Primary Care Nurse Name: Alejandra Hernandez RN Position: [facility] RN Member Role: Primary Care Nurse Address: Address: [address] [place] [address]- Name: Ferny Gomez MD Position: [facility] Renal MD Member Role: Lifetime Consulting Physician Address: Address: [address] [place] [address] [facility] [place] [address]- [place] Name: Asif Berry RN Position: [facility] RN Member Role: Primary Care Nurse Name: Asha Howell RN Position: [facility] RN Member Role: Primary Care Nurse Name: Gale Doherty RN Position: [facility] RN Member Role: Primary Care Nurse Name: Nichole Thomas RN Position: [facility] RN Member Role: Primary Care Nurse Name: Asha Cox RN Position: [facility] ED RN W/OE and Tasks Member Role: Patient Care Provider Name: Radha Quach DO Position: [facility] Resident Member Role: ED Resident Address: Address: [address] [place] [id number]- [place] Name: Radha Hummel MD Position: [facility] ED Medicine MD Member Role: Admitting Physician Address: Address: [address] [place] [address]- Care Team Related Persons Name: SOLISLaMAURISIO CONROY Address: home [address] [place] [address]
--- OUTSIDE RECORDS SUMMARY | 2023-08-12 02:35 | XMS_ITS | Continuity of Care Document ---
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 Name Role Phone Roger Peter MD Primary Care Physician Encounter [facility] [place] Date(s): 01/22/22 - 02/15/[address] [address]- Encounter Diagnosis Osteomyelitis(Final) - 01/22/22 Cellulitis(Final) - 01/22/22 Discharge Disposition: Disch/Trans to IP Rehab or unit w/in Hos Attending Physician: Bobby OCHOA, Noor Admitting Physician: Jenaro Phillips MD Referring Physician: Not on Staff, Referring [...] 0 Refills, Maintenance, 01/13/22 14:20:00 EDT, Tablet, [facility], Partial fill upon patient [...] 01/03/22 12:00:00 EDT, [id number] Partial fill upon patient request if the prescription is for a schedule II... Start Date: 01/03/22 Status: Ordered gabapentin 300 mg oral capsule 300 mg, Capsule, By Mouth, 02/15/22 9:00:00 EDT Start Date: 02/15/22 Stop Date: 02/15/22 Status: Completed lisinopril 10 mg oral tablet 10 mg, Tablet, By Mouth, 02/15/22 9:00:00 EDT Start Date: 02/15/22 Stop Date: 02/15/22 Status: Completed lisinopril 10 mg oral tablet 10 mg, 1, tablet, By Mouth, Daily, # 30 tablet, Refills 0, Tot. Refills 0, Maintenance, 01/13/22 14:23:00 EDT, Route to Pharmacy Electronically, [facility], Partial fill upon patient request if the prescription is for a schedule II opioi... Start Date: 01/13/22 Status: Ordered loratadine 10 mg oral tablet 10 mg, 1, tablet, By Mouth, 2 times a day, PRN, hold if sedation, Refills 0, Maintenance, Itch, 02/15/22 13:15:00 EDT, Partial fill upon patient request if the prescription is for a schedule II opioid drug. Start Date: 02/15/22 Status: Ordered methadone 10 mg oral tablet 45 mg, Tablet, By Mouth, 02/15/22 9:00:00 EDT Start Date: 02/15/22 Stop Date: 02/15/22 Status: Completed methadone 10 mg oral tablet 4.5 tablet = 45 mg, By Mouth, Daily, 0 Refills, Maintenance, 02/15/22 13:15:00 EDT, Tablet, Partialfill upon patient request if the prescription is for a schedule II opioid drug. Start Date: 02/15/22 Status: Ordered Miconazole 2% Topical Ointment 1 applicator, Topically, [...] 01/13/22 14:21:00 EDT, Route to Pharmacy Electronically, [facility],Partial fill upon patient request if the prescripti... Start Date: 01/13/22 Stop Date: 01/18/22 Status: Ordered oxyCODONE 5 mg oral tablet 10 mg, Tablet, By Mouth, Every 6 hours, PRN for Pain , Severe, Routine, 01/23/22 4:22:00 EDT Start Date: 01/23/22 Stop Date: 02/20/22 Status: Ordered Robitussin DM Liquid 10 mL, [...] 01/13/22 14:21:00 EDT, Route to Pharmacy Electronically, [facility], Partial fill upon patient request [...] Results Orders for Microbiology Reports Name Date AFB Culture w/ AFB Smear, Nonrespiratory (ACID FAST CULT,NON-RESP) 01/27/22 Anaerobic Culture (ANAEROBIC CULTURE) Fungal Culture, Nonrespiratory (FUNGAL C ULT,NON-RESPIRATORY) 01/27/22 Tissue Culture w/ Gram Smear (TISSUE/BIO PSY CULT.) 01/27/22 Anaerobic Culture (ANAEROBIC CULTURE) Tissue Culture w/ Gram Smear (TISSUE/BIO PSY CULT.) 01/27/22 Wound Superficial Culture W/ Gram Smear (Culture Wound Superficial w/ Gram Smear) 01/22/22 Blood Culture 01/22/22 Blood Culture #2 01/22/22 Microbiology Reports TEST:Anaerobic Culture STATUS:Auth (Verified) BODY SITE: SOURCE:TISSUE1 COLLECTED DATE/TIME:01/27/22 3:20 PM Anaerobic Culture SPECIMEN DESCRIPTION : TISSUE LEFT ANKLE SPECIAL REQUESTS : NONE CULTURE : BACILLUS SPECIES SUSCEPTIBILITY TESTING NOT ROUTINELY PERFORMED ON THIS ISOLATE. NO ANAEROBES ISOLATED REPORT STATUS : FINAL 02/03/2022 TEST:Tissue/Biopsy Culture STATUS:Auth (Verified) BODY SITE: SOURCE:TISSUE1 COLLECTED DATE/TIME:01/27/22 3:20 PM Tissue/Biopsy Culture SPECIMEN DESCRIPTION : TISSUE LEFT ANKLE SPECIAL REQUESTS : NONE GRAM STAIN : 4+ RBC'S 2+ WHITE BLOOD CELLS NO ORGANISMS SEEN CULTURE : NO GROWTH 2 DAYS REPORT STATUS : FINAL 01/30/2022 TEST:Fungal Culture, Non-Respiratory STATUS:Unauthenticated BODY SITE: SOURCE:TISSUE1 COLLECTED DATE/TIME:01/27/22 3:20 PM Fungal Culture, Non-Respiratory SPECIMEN DESCRIPTION : TISSUE LEFT ANKLE SPECIAL REQUESTS : NONE DIRECT EXAM : NO FUNGAL ELEMENTS OBSERVED CULTURE : NO FUNGI ISOLATED AFTER 18 DAYS REPORT STATUS : PRELIMINARY REPORT TEST:AFB Culture w/AFB Smear, Non-Respiratory STATUS:Unauthenticated BODY SITE: SOURCE:TISSUE1 COLLECTED DATE/TIME:01/27/22 3:20 PM AFB Culture w/AFB Smear, Non-Respiratory SPECIMEN DESCRIPTION : TISSUE LEFT ANKLE SPECIAL REQUESTS : NONE DIRECT EXAM : NO ACID FAST BACILLI SEEN ON DIRECT SMEAR, TEST PERFORMED AT [facility] No acid fast bacilli seen on concentrated smear. Per [facility] protocol, this specimen was concentrated prior to smear preparation. [facility], [address] [place] [id number]. CULTURE : SPECIMEN SENT TO DEPT OF PUBLIC HEALTH, [place], [place] REPORT STATUS : PRELIMINARY REPORT TEST:Anaerobic Culture STATUS:Auth (Verified) BODY SITE: SOURCE:TISSUE1 COLLECTED DATE/TIME:01/27/22 2:45 PM Anaerobic Culture SPECIMEN DESCRIPTION : TISSUE LEFT ANKLE SPECIAL REQUESTS : NONE CULTURE : NO ANAEROBES ISOLATED REPORT STATUS : FINAL 02/01/2022 TEST:Tissue/Biopsy Culture STATUS:Auth (Verified) BODY SITE: SOURCE:TISSUE1 COLLECTED DATE/TIME:01/27/22 2:45 PM Tissue/Biopsy Culture SPECIMEN DESCRIPTION : TISSUE LEFT ANKLE SPECIAL REQUESTS : NONE GRAM STAIN : 2+ TISSUE CELLS 2+ WHITE BLOOD CELLS NO ORGANISMS SEEN CULTURE : NO GROWTH 2 DAYS REPORT STATUS : FINAL 01/30/2022 TEST:Blood Culture, Second Order STATUS:Auth (Verified) BODY SITE: SOURCE:Blood COLLECTED DATE/TIME:01/22/22 8:47 PM Blood Culture, Second Order SPECIMEN DESCRIPTION : BLOOD RT HAND SPECIAL REQUESTS : NONE CULTURE : NO GROWTH 5 DAYS. REPORT STATUS : FINAL 01/27/2022 TEST:Blood Culture STATUS:Auth (Verified) BODY SITE: SOURCE:Blood COLLECTED DATE/TIME:01/22/22 8:30 PM Blood Culture SPECIMEN DESCRIPTION : BLOOD L HAND SPECIAL REQUESTS : NONE CULTURE : NO GROWTH 5 DAYS. REPORT STATUS : FINAL 01/27/2022 TEST:Superficial Wound Culture STATUS:Auth (Verified) BODY SITE: SOURCE:E SWAB COLLECTED DATE/TIME:01/22/22 8:00 PM Superficial Wound Culture SPECIMEN DESCRIPTION : E SWAB ANKLE LT LESION SPECIAL REQUESTS : NONE GRAM STAIN : 3+ POLYMORPHONUCLEAR LEUKOCYTES 1+ GRAM NEGATIVE RODS CULTURE : 3+ ESCHERICHIA COLI 3+ ENTEROBACTER CLOACAE REPORT STATUS : FINAL 01/25/2022 ORGANISM 3+ ESCHERICHIA COLI METHOD MIN. INHIB. CONC. (MCG/ML) AMPICILLIN RESISTANT AMPICILLIN/SULBACTAM RESISTANT AMOXICILLIN/CLAVULAN SUSCEPTIBLE CEFAZOLIN INTERMEDIATE CEFEPIME SUSCEPTIBLE CEFTRIAXONE SUSCEPTIBLE CIPROFLOXACIN SUSCEPTIBLE ERTAPENEM SUSCEPTIBLE GENTAMICIN SUSCEPTIBLE LEVOFLOXACIN SUSCEPTIBLE MEROPENEM SUSCEPTIBLE PIPERACILLIN/TAZOBAC SUSCEPTIBLE TRIMETH/SULFAMETHOX SUSCEPTIBLE TETRACYCLINE RESISTANT ORGANISM 3+ ENTEROBACTER CLOACAE METHOD MIN. INHIB. CONC. (MCG/ML) AMPICILLIN RESISTANT AMPICILLIN/SULBACTAM RESISTANT AMOXICILLIN/CLAVULAN RESISTANT CEFAZOLIN RESISTANT CEFEPIME SUSCEPTIBLE CEFTRIAXONE SUSCEPTIBLE CIPROFLOXACIN SUSCEPTIBLE ERTAPENEM SUSCEPTIBLE GENTAMICIN SUSCEPTIBLE LEVOFLOXACIN SUSCEPTIBLE MEROPENEM SUSCEPTIBLE PIPERACILLIN/TAZOBAC SUSCEPTIBLE TRIMETH/SULFAMETHOX SUSCEPTIBLE TETRACYCLINE SUSCEPTIBLE Radiology Reports * Exam Date Time Procedure Performing Provider Status 02/09/22 10:19 AM Ankle Min 3 Views Left Indigo Pollock ; Margie (Verified) Notes: (Ankle Min 3 Views Left) Reason For Exam: Follow-Up Fracture RESULT: Ankle Min 3 Views Left Ankle Min 3 Views Left Reason: Follow-Up Fracture; Clinical Question(s): Position Fixation COMPARISON: 01/22/2022 FINDINGS: Fine detail is obscured by the overlying dressing material. No evidence of fracture or dislocation. Antibiotic impregnated plugs in the distal tibia and talus. IMPRESSION: Limited by the overlying dressing. No fracture or dislocation. Tibiotalar antibiotic impregnated plugs WSN: [id number] Ordering Physician: Lakisha Lopez Dictated By: Fercho Rodas MD Dictated Date/Time: 02/09/22 1:05 pm Reviewed By: Fercho Rodas MD Signed By: Fercho Rodas MD Signed Date/Time: 02/09/22 1:05 pm Transcribed By: SAMM Transcribed Date/Time: 02/09/22 1:00 pm * Exam Date Time Procedure Performing Provider Status 01/27/22 3:35 PM Ankle 2 Views Left Cynthia Vargas; Margie (Verified) Notes: (Ankle 2 Views Left) Reason For Exam: Left ankle abscess; Insertion antibiotic nail RESULT: Ankle 2 Views Left Ankle 2 Views Left INDICATION: Reason: Left ankle abscess; Insertion antibiotic nail COMPARISONS: None TECHNIQUE: Fluoroscopy support was provided. There was no radiologist in attendance. FLUOROSCOPY TIME: 45 seconds EXPOSURE: 2.50 mGy TECHNOLOGIST TIME: 45 minutes FINDINGS: 3 images were submitted. Please refer to operative note for full details. IMPRESSION: See above. WSN: [id number] Ordering Physician: Josee Adhikari Dictated By: Mike Meza MD Dictated Date/Time: 01/28/22 12:07 p Reviewed By: Mike Meza MD Signed By: Mike Meza MD Signed Date/Time: 01/28/22 12:07 pm Transcribed By: SAMM Transcribed Date/Time: 01/28/22 12:06 pm * Exam Date Time Procedure Performing Provider Status 01/27/22 3:35 PM C-Arm < 1 Hour Edwin Vargas (Verified) Notes: (C-Arm < 1 Hour) Reason For Exam: Left ankle abscess; Insertion antibiotic nail RESULT: C-Arm < 1 Hour C-Arm < 1 Hour INDICATION: Reason: Left ankle abscess; Insertion antibiotic nail COMPARISONS: None TECHNIQUE: Fluoroscopy support was provided. There was no radiologist in attendance. FLUOROSCOPY TIME: 45 seconds TECHNOLOGIST TIME: 45 minutes FINDINGS: Fluoroscopy support was provided. There was no radiologist in attendance. IMPRESSION: See above. WSN: [id number] Ordering Physician: Josee Adhikari Dictated By: Leo Mao MD Dictated Date/Time: 01/28/22 12:47 p Reviewed By: Leo Mao MD Signed By: Leo Mao MD Signed Date/Time: 01/28/22 12:47 pm Transcribed By: SAMM Transcribed Date/Time: 01/27/22 9:11 pm * Exam Date Time Procedure Performing Provider Status 01/22/22 9:33 PM Chest Portable Bran Menard (Veri fied) Notes: (Chest Portable) Reason For Exam: Shortness of Breath RESULT: Chest Portable Chest Portable REASON: Shortness of Breath; Clinical Question(s): Pneumonia Hx of Present Illness: Pt c o infection to left ankle. Pt initially cut it on something when he wasrenovating his house. Pt had surgery to clean out the wound, now has some yellow drainage from surgical site. Swelling to entire lower leg, more around surgical site.; COMPARISON: Multiple priors, most recent 12/21/2021. FINDINGS: LINES AND TUBES: None. LUNGS AND PLEURA: Clear lungs. Normal pulmonary vascularity. No pleural effusion. No pneumothorax. HEART, MEDIASTINUM AND CATALINO: Unchanged. Normal upper mediastinal and hilar contour. BONES AND SOFT TISSUES: No acute abnormality. IMPRESSION: No acute abnormality. I have personally reviewed the images and I agree with this report. WSN: [id number] Ordering Physician: Alexia Salazar Dictated By: Ferny Martinez DO Dictated Date/Time: 01/22/22 9:39 pm Reviewed By: Ben Erickson MD Signed By: Ben Erickson MD Signed Date/Time: 01/22/22 9:44 pm Transcribed By: SAMM Transcribed Date/Time: 01/22/22 9:37 pm * Exam Date Time Procedure Performing Provider Status 01/22/22 7:00 PM Ankle Min 3 Views Left Gris Hummel ; Auth (Verified) Notes: (Ankle Min 3 Views Left) Reason For Exam: with Pain;Trauma RESULT: Ankle Min 3 Views Left Ankle Min 3 Views Left Refer to EMR; Hx of Present Illness: Pt c o infection to left ankle. Pt initially cut it on something when he was renovating his house. Pt had surgery to clean out the wound, now has some yellow drainage from surgical site. Swelling to entire lower leg, more around surgical site.; Reason: Trauma; with Pain; Clinical Question(s): Fracture; Special Instructions: This is a protocol film and radiologic COMPARISON: None. FINDINGS: Diffuse soft tissue swelling question of gas anterior to the ankle joint. Irregularity of the distal fibula with cortical disruption is reidentified in concern for osteomyelitis. No acute fracture. IMPRESSION: Irregularity and discontinuity of the distal fibula cortex concerning for osteomyelitis. MR may be helpful. Question of soft tissue gas anterior to the ankle joint. A Mills message has been communicated via the [employer] system on 01/22/2022 7:13 PM, Message ID [id number]. WSN: [id number] Ordering Physician: Kishan Cali Dictated By: Ben Erickson MD Dictated Date/Time: 01/22/22 7:13 pm Reviewed By: Ben Erickson MD Signed By: Ben Erickson MD Signed Date/Time: 01/22/22 7:13 pm Transcribed By: SAMM Transcribed Date/Time: 01/22/22 7:10 pm Vital Signs Most recent to oldest [Reference Range]: 1 2 3 4 Height 183 cm (02/15/22 5:16 AM) 183 cm (02/14/22 8:13 PM) 183 cm (02/14/22 5:02 AM) Weight 136.4 kg (01/27/22 1:07 PM) 136.4 kg (01/23/22 5:23 AM) 136.4 kg (01/23/22 3:40 AM) Oxygen Saturation [94-100 %] 95 % (02/15/22 1:00 PM) 100 % (02/15/22 5:16 AM) 99 % (02/14/22 8:13 PM) Pulse Rate [55-90 bpm] 67 bpm (02/15/22 1:00 PM) 52 bpm *L* (02/15/22 5:16 AM) 57 bpm (02/14/22 8:13 PM) Body Mass Index [18.5-24.99] 40.73 *>HHI* (01/27/22 1:07 PM) 40.73 *>HHI* (01/23/22 5:23 AM) 40.73 *>HHI* (01/23/22 3:40 AM) Blood Pressure [90-138/55-84 mm Hg] 135/68mm Hg (02/15/22 1:00 PM) 133/68mm Hg (02/15/22 8:24 AM) 129/72mm Hg (02/15/22 5:16 AM) Respiratory Rate [16-30 br/min] 18 br/min (02/15/22 1:00 PM) 19 br/min (02/15/22 10:38 AM) 19 br/min (02/15/22 8:24 AM) 19 br/min (02/15/22 8:24 AM) Temperature [96.8-100.4 DegF] 97.7 DegF (02/15/22 1:00 PM) 98.4 DegF (02/15/22 5:16 AM) 98.0 DegF (02/14/22 8:13 PM) Liters per Minute 6 L/min (01/27/22 4:30 PM) Mode of Delivery (Oxygen) Room air (02/15/22 1:00 PM) Room air (02/15/22 5:16 AM) Room air (02/14/22 8:13 PM) Blood pressure sites Arm, left (02/15/22 1:00 PM) Arm, left (02/15/22 5:16 AM) Arm, left (02/14/22 8:13 PM) Temperature Route Oral (02/15/22 1:00 PM) Oral (02/15/22 5:16 AM) Oral (02/14/22 8:13 PM) Dry Weight 136.4 kg (01/23/22 5:23 AM) 136.4 kg (01/23/22 3:40 AM) 136.4 kg (01/23/22 2:04 AM) 136.4 kg (01/23/22 2:04 AM) Weight Obtained Via Patient/family stated (01/22/22 5:34 PM) Dry Weight Obtained Via Patient/family stated (01/22/22 5:34 PM) Social History Social History Type Response Smoking Status Never (less than 100 in lifetime) entered on: 02/15/22 Sex
--- OUTSIDE RECORDS SUMMARY | 2023-08-12 02:35 | XMS_ITS | Continuity of Care Document ---
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 Name Role Phone Roger Peter MD Primary Care Physician Encounter [facility] [place] Date(s): 03/11/22 - 04/10/22 [facility] [address] [place], [place] [address] Attending Physician: AdmHan jacobsen Admitting Physician: AdmtrHan Referring Physician: Admtr, Ar8 Allergies, Adverse Reactions, Alerts No Known Allergies Immunizations Given and Recorded Vaccine Date Status Refusal Reason tetanus/diphtheria/pertussis, acel(Tdap) 12/14/09 Recorded Medications clonazePAM 0.5 mg oral tablet 1 tablet = 0.5 mg, By Mouth, 3 times a day, PRN Anxiety, # 15 tablet, 0 Refills, Maintenance, 03/30/22 11:25:00 EDT, Tablet, [facility] #[id number], Partial fill upon patient request if [...] 03/30/22 11:25:00 EDT, Route to Pharmacy Electronically, [facility]/pharmacy #[id number], Partial fill upon patientrequest if the [...] Health Status Inform ant Severe obesity(Confirmed) Active Social History Social History Type Response Smoking Status Never (less than 100 in lifetime) entered on: 02/15/22 Sex Care Team Personnel Name: Roger Peter MD Address: [address] [place] [address] [address]
--- OUTSIDE RECORDS SUMMARY | 2023-08-12 02:35 | XMS_ITS | Continuity of Care Document ---
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 Name Role Phone PCP, No Primary Care Physician Unavailab le Encounter [facility] Date(s): 05/03/23 - 05/03/[address] [address]- Encounter Diagnosis Rhinorrhea(Discharge Diagnosis) - 05/03/23 Fatty liver(Discharge Diagnosis) - 05/03/23 COVID-19(Discharge Diagnosis) - 05/03/23 Headache(Discharge Diagnosis) - 05/03/23 Sore throat(Discharge Diagnosis) - 05/03/23 Discharge Disposition: Home/Self Care Attending Physician: LEONARDO PARSON MD Admitting Physician: LEONARDO PARSON MD Referring Physician: LEONARDO PARSON MD Allergies, Adverse Reactions, Alerts No Known Medication Allergies Assessment and Plan Diagnostic Tests Pending * Strep Group A Culture 05/03/23 Medications cloNIDine 0.1 mg oral tablet 0 Refill(s) Start Date: 05/03/23 Status: Ordered gabapentin 300 mg oral capsule 0 Refill(s) Start Date: 05/03/23 Status: Ordered ibuprofen 800 mg oral tablet 800 mg = 1 tab, Oral, Q8hr, PRN PRN Pain Mild, PRN PAIN, SWELLING AND/OR FEVER. TAKE W/ FOOD AND/ORMILK., # 30 tab, 0 Refill(s), Pharmacy: [facility], COVID-19, 182.9, cm, 8:51:00 EDT, Height, 129, kg, 05/03/2023 18:51:00... Start Date: 05/03/23 Stop Date: 05/08/23 Status: Ordered lisinopril 10 mg oral tablet 0 Refill(s) Start Date: 05/03/23 Status: Ordered Melatonin 3 mg oral tablet 0 Refill(s), Partial fill upon patient request if the prescription is for a schedule II opioid drug. Start Date: 05/03/23 Status: Ordered OXcarbazepine 150 mg oral tablet 0 Refill(s) Start Date: 05/03/23 Status: Ordered sertraline 25 mg oral tablet 0 Refill(s) Start Date: 05/03/23 Status: Ordered Trileptal 0 Refill(s) Start Date: 05/03/23 Status: Ordered Tylenol Extra Strength 500 mg oral tablet 1,000 mg = 2 tab, Oral, Q4hr, PRN PRN Fever, PRN FEVER, PAIN AND/OR SWELLING. DONT EXCEED 4000MG/DAY AND/OR 8TAB/DAY FROM ALL SOURCES OF ACETAMINOPHEN, # 30 tab, 0 Refill(s), Pharmacy: [facility], COVID-19, 182.9, cm, 05/03/2023 18:51:... Start Date: 05/03/23 Stop Date: 05/08/23 Status: Ordered Problem List Condition Confirmation Course Effective Dates Status H ealth Status Informant Anxiety Confirmed Active patient Bone infection Confirmed 07/31/19 Active patient CVA - Cerebrovascular accident Confirmed Active patient Morbid obesity Confirmed Active Results Laboratory List Name Date Rapid Streptococcal Screen 05/03/23 Respiratory Virus COVID-19 Flu A+B RSV P CR 05/03/23 Most recent to oldest [Reference Range]: 1 Influenza A PCR [Negative] Negative (05/03/23 7:28 PM) COVID-19 PCR [Negative] Positive *ABN* (05/03/23 7:28 PM) Influenza B PCR [Negative] Negative (05/03/23 7:28 PM) RSV PCR [Negative] Negative (05/03/23 7:28 PM) Rapid Strep Scr [Presumptive Neg] Presum ptive Neg (05/03/23 7:28 PM) Vital Signs Most recent to oldest [Reference Range]: 1 2 Blood Pressure [90-140/60-90 mmHg] 119/7 8mmHg (05/03/23 6:51 PM) Blood Pressure Method Automatic (05/03/23 6:51 PM) Dosing BMI 39 (05/03/23 9:06 PM) 39 (05/03/23 6:51 PM) Dosing BSA-Mosteller 2.56 m2 (05/03/23 9:06 PM) 2.56 m2 (05/03/23 6:51 PM) Dosing Weight 129 kg (05/03/23 9:06 PM) 129 kg (05/03/23 6:51 PM) Heart Rate [60-100 bpm] 61 bpm (05/03/23 6:51 PM) Height 182.9 cm (05/03/23 9:06 PM) 182.9 cm (05/03/23 6:51 PM) Mean Arterial Pressure 92 mmHg (05/03/23 6:51 PM) Method for Height Stated (05/03/23 6:51 PM) Method for Weight Stated (05/03/23 6:51 PM) Respiratory Rate [14-20 breaths/min] 19 breaths/min (05/03/23 6:51 PM) SpO2/Pulse Oximetry [85-100 %] 97 % (05/03/23 6:51 PM) Temperature Oral [35.8-37.3 degC] 37.0 d egC (05/03/23 6:51 PM) Social History Social History Type Response Smoking Status Former smoker entered on: 05/03/23 Sex Hospital Discharge Instructions Follow Up Care 05/03/2023 18:20:54 With:Follow up with primary care provider Address: When:Within 1 Day(s) Comments:Call your doctor in the morning, schedule appointment to be seen within 2 days for evaluation, review all lab results and discharge paperwork with your doctor.ORAL COVID MEDICATION SUCH PAXLOVID IS NOT RECOMMENDED GIVEN YOUR NUMEROUS MEDICATIONS AND THEIR POTENTIAL SIDE EFFECTS WHEN COMBINED WITH PAXLOVID.Drink plenty of water. Avoid exertional, strenuous, high impact activity, lift/push/pull > 5 lbs, stairs/steps/ladders/heights until cleared by your doctor. At ANY time should you experience ANY new and/or worse signs and/or symptoms return immediately to the emergency department for further evaluation.?? Patient Care team information Care Team Personnel Name: PCP, No Position: RO No Access Member Role: Primary Care Physician Name: JASMIN GUY PA-C Position: ED MLP PA R3 Member Role: Physician Casualty Claim Adjuster Name: Allie OCHOA, Hari Position: ED Physician R3 Member Role: ED Physician Address: Address: [address] [place] [id number]- [place] Name: Vi Chen CLA Position: ED Registration/Bed Control CPOE
--- OUTSIDE RECORDS SUMMARY | 2023-08-12 02:35 | XMS_ITS | Continuity of Care Document ---
Author Name Unknown Organization [facility] Address [address] [place] [address]- Care Team Providers Care Senior Sales Associate Name Role Phone Roger Peter MD Primary Care Physician Encounter [facility] Date(s): 02/03/22 - 04/10/22 [facility] [address] [place], [place] [address] Attending Physician: Fabio Baltazar MD Admitting Physician: Fabio Baltazar MD Referring Physician: Roger Peter MD Allergies, Adverse Reactions, Alerts No Known [...] 11:25:00 EDT, Route to Pharmacy Electronically, [facility]/pharmacy #[id number], Partial fill upon patientrequest if the [...] Team Personnel Name: Roger Peter MD Address: [address] [place] [address] [address]
--- OUTSIDE RECORDS SUMMARY | 2023-08-12 02:35 | XMS_ITS | Continuity of Care Document ---
Author Name Unknown Organization [facility] ter Address [address] [place] [id number]- Care Team Providers Care Laundry Agent Name Role Phone Roger Peter MD Primary Care Physician [phone] Encounter [facility] Date(s): 09/13/22 - 09/14/[address] [address]- Encounter Diagnosis Anxiety(Final) - 09/14/22 Discharge Disposition: A-D/C Home Attending Physician: Bernabe Riley MD Admitting Physician: Bernabe Riley MD Referring Physician: Not on Staff, Referring MD Allergies, Adverse Reactions, Alerts No Known Allergies Immunizations Given and Recorded Vaccine Date Status Refusal Reason tetanus/diphtheria/pertussis, acel(Tdap) 12/14/09 Recorded Medications clonazePAM 0.5 mg oral tablet 1 tablet = 0.5 mg, By Mouth, 3 times a day, PRN Anxiety, # 15 tablet, 0 Refills, Maintenance, 03/30/22 11:25:00 EDT, Tablet, [facility]/pharmacy #[id number], Partial fill upon patient request if the prescription is for a schedule II opioid drug., 183, cm, 03/29/22... Start Date: 03/30/22 Stop Date: 04/04/22 Status: Ordered gabapentin 300 mg oral capsule 300 mg, 1, capsule, By Mouth, 3 times a day, # 90 capsule, Refills 0, Tot. Refills 0, Maintenance, 03/30/22 11:25:00 EDT, Route to Pharmacy Electronically, [facility]/pharmacy #[id number], Partial fill upon patient request if [...] Start Date: 03/30/22 Status: Ordered Methadone Tablet 95 mg, Tablet, By Mouth, Once, Routine, 09/14/22 14:00:00 EST, Stop date 09/14/22 14:00:00 EST Start Date: 09/14/22 Stop Date: 09/14/22 Status: Completed ondansetron 4 mg oral tablet 1 tablet [...] Exam Date Time Procedure Performing Provider Status 09/13/22 8:32 PM Chest 2 Views Frontal and Lat Trixie Rinaldi; Auth (Verified) Notes: (Chest 2 Views Frontal and Lat) Reason For Exam: Chest Pain;Other: RESULT: Chest 2 Views Frontal and Lat Chest 2 Views Frontal and Lat Hx of Present Illness: pt reports he ran out of his psych meds. Increasing anxiety panic attacks, CP x 6 hours.; Reason: Chest Pain COMPARISON: Multiple priors, most recent 01/22/2022. FINDINGS: LINES AND TUBES: None. LUNGS AND PLEURA: Clear lungs. Normal pulmonary vascularity. No pleural effusion. No pneumothorax. HEART, MEDIASTINUM AND CATALINO: Heart is normal in size. Normal mediastinal and hilar contour. BONES AND SOFT TISSUES: Degenerative changes of the spine. No acute abnormality. IMPRESSION: No acute abnormality. I have personally reviewed the images and I agree with this report. WSN: [id number] Ordering Physician: Rodríguez Vallejo MD Dictated By: Ina Lou DO Dictated Date/Time: 09/13/22 8:56 pm Reviewed By: Ben Erickson MD Signed By: Ben Erickson MD Signed Date/Time: 09/13/22 9:01 pm Transcribed By: SAMM Transcribed Date/Time: 09/13/22 8:53 pm Vital Signs Most recent to oldest [Reference Range]: 1 2 3 Weight 118 kg (09/14/22 3:06 PM) 118 kg (09/13/22 7:53 PM) Oxygen Saturation [94-100 %] 98 % (09/14/22 3:06 PM) 100 % (09/14/22 9:12 AM) 100 % (09/14/22 8:21 AM) Pulse Rate [55-90 bpm] 58 bpm (09/14/22 3:06 PM) 58 bpm (09/14/22 9:12 AM) 52 bpm *L* (09/14/22 8:21 AM) Blood Pressure [90-138/55-84 mm Hg] 146/77mm Hg *H* (09/14/22 3:06 PM) 122/78mm Hg (09/14/22 9:12 AM) 131/78mm Hg (09/14/22 8:21 AM) Respiratory Rate [16-30 br/min] 17 br/min (09/14/22 3:06 PM) 18 br/min (09/14/22 1:48 PM) 16 br/min (09/13/22 7:53 PM) Temperature [96.8-100.4 DegF] 98 DegF (09/14/22 3:06 PM) 98.2 DegF (09/14/22 8:21 AM) 97.8 DegF (09/14/22 6:40 AM) Mode of Delivery (Oxygen) Room air (09/14/22 3:06 PM) Room air (09/14/22 9:12 AM) Room air (09/14/22 8:21 AM) Blood pressure sites Arm, right (09/14/22 3:06 PM) Arm, left (09/14/22 9:12 AM) Arm, right (09/14/22 8:21 AM) Temperature Route Oral (09/14/22 3:06 PM) Oral (09/14/22 8:21 AM) Oral (09/14/22 6:40 AM) Weight Obtained Via Patient/family state d (09/13/22 7:53 PM) Social History Social History Type Response Smoking Status Never (less than 100 in lifetime) entered on: 02/15/22 Sex EKG study * Event Display: ECG 12-Lead Authored Date: Please click on pdf link to open report * Event Display: ECG 12-Lead Authored Date: Ventricular Rate: 54 BPM Atrial Rate: 54 BPM P-R Interval: 152 ms QRS Duration: 90 ms Q-T Interval: 440 ms QTC Calculation(Bazett): 417 ms P Davis: 49 degrees R Davis: 17 degrees T Davis: 31 degrees Sinus bradycardia Otherwise normal ECG When compared with ECG of 29-MAR-2022 08:20, No significant change was found Confirmed by MEE DICKSON MD ([id number]) on 09/14/2022 3:59:12 PM [place]: MEE DICKSON MD Note * Jordyn Deluna: PERFORM Event Display: Patient Education Leaflets Authored Date: Anxiety??Reaction ?? [id number] Anxiety??Reaction Anxiety is the feeling we all get when we think something bad might happen. It is a normal responseto stress. It most often causes only a mild reaction. But it can interfere with daily life when anxiety is more severe. In some cases, you may not know what you???re anxious about. Anxiety seems to have both mental and physical triggers. You may have stress from home and family. Or work and social relationships. Anxiety tends to run in families. This may mean it???s linked to genes. During an anxiety reaction, you may feel: ??? Helpless ??? Nervous ??? Depressed ??? Grouchy Your body may show signs of anxiety in many ways. You may have: ??? Dry mouth ??? Shakiness ??? Dizziness ??? Weakness ??? Trouble breathing ??? Fast breathing ???Chest pressure ??? Sweating ??? Headache ??? Nausea ??? Diarrhea ??? Tiredness ??? Inability to sleep ??? Sexual problems Home care Try to find those things that set off anxiety in your life. They may not be obvious. They may include: ??? Daily hassles of life. This can include traffic jams, missed appointments, or car troubles. ???Major life changes. This means both good changes, such as a new baby or job promotion. This can also mean tough life changes, such as loss of a job or loss of a loved one. ??? Overload. This means feeling that you have too many responsibilities. And that you can't take care of all of them. ??? Feeling helpless. You may feel you don???t have any control or choices. You may feel that your problems can't be solved. Notice how your body reacts to stress. This will help you take action before the stress sets off anxiety. When you can, make changes to reduce the sources of your stress. But stress in life often can't be prevented. It is important to learn how to manage stress to reduce anxiety. There are many proven methods that will reduce your anxiety. These include: ??? Exercise ??? Good nutrition ??? Getting enough sleep ??? Relaxation methods ??? Breathing exercises ??? Visualization ??? Biofeedback ??? Meditation ??? Counseling ??? Medicine For more information about this, talk with your healthcare provider. Or check online or at your local library or bookstore. You'll find many books and audiobooks on this subject. ?? Follow-up care If you feel your anxiety is not getting better with self-help, call your healthcare provider. Or make an appointment with a counselor. You may need short-term counseling or medicine to help you manage anxiety. ?? Call 911 Call 911 if any of the following occur: ??? Trouble breathing ??? Confusion ??? Drowsiness or trouble waking up ??? Fainting ??? Rapid heart rate ??? Seizure ??? New chest pain that becomes more severe, lasts longer, or spreads into your shoulder, arm, neck, jaw, or back Call or text [phone] if you have thoughts of harming yourself or others. You will be connected to trained crisis counselors at the [employer] Suicide Prevention Lifeline. An online chat option is also available at www.suicidepreQuantagen Biotech.org. You can also call [employer] at 774-143-LOVD ([phone]). Lifeline is free and available 20/02. ?? When to get medical advice Call your healthcare provider right away if any of the following occur: ??? Symptoms that don't improve or get worse, such as feelings of hopelessness or overwhelming sadness ??? Severe headache not eased by rest and mild pain medicine The [employer] Suicide Prevention Lifeline is available at 928-550-RJBP ([phone]). The Lifeline is available 20/02 and provides free and confidential support. The [employer] also has an online chat at www.[employer]uel[employer].org. ?? Last Reviewed Date: 2022 ?? 5138-5444 [employer]. All rights reserved. This information is not intended as a substitute for professional medical care. Always follow your healthcare professional's instructions. ?? * Katherine , YOHANA S: TRANSCTISH Erickson MD, Ben: VERIFY LouIna lindsay DO P: SIGN Event Display: Result: Authored Date: [id number] Chest 2 Views Frontal and Lat Hx of Present Illness: pt reports he ran out of his psych meds. Increasing anxiety panic attacks, CP x 6 hours.; Reason: Chest Pain COMPARISON: Multiple priors, most recent 01/22/2022. FINDINGS: LINES AND TUBES: None. LUNGS AND PLEURA: Clear lungs. Normal pulmonary vascularity. No pleural effusion. No pneumothorax. HEART, MEDIASTINUM AND CATALINO: Heart is normal in size. Normal mediastinal and hilar contour. BONES AND SOFT TISSUES: Degenerative changes of the spine. No acute abnormality. IMPRESSION: No acute abnormality. I have personally reviewed the images and I agree with this report. WSN: [id number] Ordering Physician: Rodríguez Vallejo MD Dictated By: Ina Lou DO Dictated Date/Time: 09/13/22 8:56 pm Reviewed By: Ben Erickson MD Signed By: Ben Erickson MD Signed Date/Time: 09/13/22 9:01 pm Transcribed By: SAMM Transcribed Date/Time: 09/13/22 8:53 pm Patient Care team information Care Team Personnel Name: Navdeep Chavez RN Position: S RN Member Role: Primary Care Nurse Name: Minnie Turk RN Position: S RN Member Role: Primary Care Nurse Name: Adri Shepard RN Position: S RN Member Role: Primary Care Nurse Name: CRUZ FRENCH RN Position: S RN Member Role: Primary Care Nurse Name: Luis Ross RN Position: [facility] RN Supv Member Role: Primary Care Nurse Name: Ruth Cowan Position: S RN Member Role: Primary Care Nurse Name: Tesha Javier Position: S RN Member Role: Primary Care Nurse Name: Ghazala Aldrich RN Position: S RN Member Role: Primary Care Nurse Name: Piotr Mckeon RN Position: S RN Member Role: Primary Care Nurse Name: Roger Peter MD Position: Reference Physician Member Role: PCP Address: Address: [address] [place] [address] Name: Carlo Almodovar RN Position: S RN Member Role: Primary Care Nurse Name: Rossy Oliver Position: S RN Member Role: Primary Care Nurse Name: Candelaria Christensen RN Position: S RN Member Role: Primary Care Nurse Name: Joseph Sams Position: S Associate Professional Member Role: Lifetime Consulting Provider Address: Address: [address] [place] [address]- Name: Erica Mulligan RN Position: S RN Member Role: Primary Care Nurse Name: Vinny Miller RN Position: S RN Member Role: Primary Care Nurse Name: Sal Lazo MD Position: [facility] Renal MD Member Role: Lifetime Consulting Physician Address: Address: [address] [facility] [address] [facility] [place] [address]- Name: Janis Greenberg RN Position: [facility] RN Member Role: Primary Care Nurse Name: Bret Butt RN Position: [facility] RN Member Role: Primary Care Nurse Name: Lakshmi Roberson RN Position: [facility] RN Member Role: Primary Care Nurse Name: Haley Lamb RN Position: [facility] RN Member Role: Primary Care Nurse Name: Dolores Krishnamurthy RN Position: [facility] RN Member Role: Primary Care Nurse Name: Nelia Smiley RN Position: [facility] SN RN Member Role: Primary Care Nurse Name: Alejandra Hernandez RN Position: [facility] RN Member Role: Primary Care Nurse Address: Address: [address] [place] [address]- Name: Ferny Gomez MD Position: [facility] Renal MD Member Role: Lifetime Consulting Physician Address: Address: [address] [place] [address] [facility] [place] [address]- Name: Joycelyn Carmona RN Position: [facility] RN Member Role: Primary Care Nurse Name: Asif Berry RN Position: [facility] RN Member Role: Primary Care Nurse Name: Asha Howell RN Position: [facility] RN Member Role: Primary Care Nurse Name: Gale Doherty RN Position: [facility] RN Member Role: Primary Care Nurse Name: Nichole Thomas RN Position: [facility] RN Member Role: Primary Care Nurse Name: Asha Coates RN Position: [facility] ED RN W/OE and Tasks Member Role: Patient Care Provider Name: Edna Ruelas Position: [facility] ED [facility] Member Role: Patient Care Provider Name: Bernabe Riley MD Position: [facility] ED Medicine MD Member Role: Admitting Physician Address: Address: [address] [place] [address] Department Emergency [address] Name: Jordyn Deluna Position: [facility] Associate Professional Member Role: Physician Senior Net Application Developer Address: Address: [address] [place] [address] Name: Lea Estrella Position: [facility] ED [facility] Care Team Related Persons Name: MAURISIO MANZO Address: home [address] [place] [address]
--- OUTSIDE RECORDS SUMMARY | 2023-08-12 02:35 | XMS_ITS | Continuity of Care Document ---
Author Name Unknown Organization [facility] Address [address] [place] [id number]- Care Team Providers Care Operator Command Support Systems Name Role Phone Roger Peter MD Primary Care Physician [facility]counter [facility] Date(s): 12/22/21 - 01/20/22 [facility] [address] [place] [address]- Attending Physician: Kishan Francisco MD Admitting Physician: Kishan Francisco MD Allergies, Adverse Reactions, Alerts No Known [...] 0 Refills, Maintenance, 01/13/22 14:20:00 EDT, Tablet, [facility], Partial fill upon patient request if the prescription is for a schedule II opioid drug., 183, cm, 06... Start Date: 01/13/22 Stop Date: 01/18/22 Status: Ordered gabapentin 300 mg oral capsule 300 mg, 1, capsule, By Mouth, 3 times a day, # 90 capsule, Refills 0, Tot. Refills 0, Maintenance, 01/03/22 12:00:00 EDT, Route to Pharmacy Electronically, [facility]/pharmacy #[id number], Partial fill upon patient request if the prescription is for a schedule II... Start Date: 01/03/22 Status: Ordered lisinopril 10 mg oral tablet 10 mg, 1, tablet, By Mouth, Daily, # 30 tablet, Refills 0, Tot. Refills 0, Maintenance, 01/13/22 14:23:00 EDT, Route to Pharmacy Electronically, [facility], Partial fill upon patient [...] 01/13/22 14:21:00 EDT, Route to Pharmacy Electronically, [facility],Partial fill upon patient request if the prescripti... Start Date: 01/13/22 Stop Date: 01/18/22 Status: Ordered Trileptal 150 mg oral tablet 150 mg, 1, tablet, By Mouth, 2 times a day, # 60 tablet, Refills 0, Tot. Refills 0, Maintenance, 01/13/22 14:21:00 EDT, Route to Pharmacy Electronically, [facility], Partial fill upon patient request if [...]
--- OUTSIDE RECORDS SUMMARY | 2023-08-12 02:35 | XMS_ITS | Continuity of Care Document ---
Author Name Unknown Organization [facility] ter Address [address] [place] [address]- Care Team Providers Care Associate Sales Manager Name Role Phone Roger Peter MD Primary Care Physician Encounter [facility] [place] Date(s): 03/29/22 - 03/30/[address] [address] Discharge Disposition: A-D/C Home Attending Physician: Fiorella Bennett MD Admitting Physician: Fiorella Bennett MD Referring Physician: Deborah Heaton Allergies, Adverse Reactions, Alerts No Known Allergies Immunizations Given and Recorded Vaccine Date Status Refusal Reason tetanus/diphtheria/pertussis, acel(Tdap) 12/14/09 Recorded Medications clonazePAM 0.5 mg oral tablet 1 tablet = 0.5 mg, By Mouth, 3 times a day, PRN Anxiety, # 15 tablet, 0 Refills, Maintenance, 03/30/22 11:25:00 EDT, Tablet, [facility]/pharmacy #[id number], Partial fill upon patient request if the prescription is for a schedule II opioid drug., 183, cm, 03/29/22... Start Date: 03/30/22 Stop Date: 04/04/22 Status: Ordered gabapentin 300 mg oral capsule 300 mg, Capsule, By Mouth, 03/30/22 9:00:00 EDT Start Date: 03/30/22 Stop Date: 03/30/22 Status: Completed gabapentin 300 mg oral capsule 300 mg, 1, capsule, By Mouth, 3 times a day, # 90 capsule, Refills 0, Tot. Refills 0, Maintenance, 03/30/22 11:25:00 EDT, Route to Pharmacy Electronically, [facility]/pharmacy #[id number], Partial fill upon patient request if the prescription is for a schedule II... Start Date: 03/30/22 Status: Ordered lisinopril 10 mg oral tablet 10 mg, 1, tablet, By Mouth, Daily, # 30 tablet, Refills 0, Tot. Refills 0, Maintenance, 03/30/22 11:25:00 EDT, [facility], [facility] [...] Methadone Tablet 30 mg, Tablet, By Mouth, 03/30/22 9:00:00 EDT Start Date: 03/30/22 Stop Date: 03/30/22 Status: Completed sulfamethoxazole-trimethoprim 400 mg-80 mg oral tablet = 80 mg, By Mouth, 2 times a day, for 2 days, # 4 tablet, 0 Refills, Acute 04/01/22 11:26:00 EDT, 03/30/22 11:26:00 EDT, Tablet, [facility]/pharmacy #[id number], Partial fill upon patient request if the prescription is for a schedule II opioid drug., 80 mg By Mout... Start Date: 03/30/22 Stop Date: 04/01/22 Status: Ordered Trileptal 150 mg oral tablet 150 mg, 1, tablet, By Mouth, 2 times a day, # 60 tablet, Refills 0, Tot. Refills 0, Maintenance, 03/30/22 11:25:00 EDT, Route to Pharmacy Electronically, [facility]/pharmacy #[id number], Partial fill upon patientrequest if the [...] for Microbiology Reports Name Date Blood Culture 03/25/22 Blood Culture #2 03/25/22 Microbiology Reports TEST:Blood Culture, Second Order STATUS:Auth (Verified) BODY SITE: SOURCE:Blood COLLECTED DATE/TIME:03/25/22 10:35 AM Blood Culture, Second Order SPECIMEN DESCRIPTION : BLOOD LARM SPECIAL REQUESTS : NONE CULTURE : NO GROWTH 5 DAYS. REPORT STATUS : FINAL 03/30/2022 TEST:Blood Culture STATUS:Auth (Verified) BODY SITE: SOURCE:Blood COLLECTED DATE/TIME:03/25/22 10:09 AM Blood Culture SPECIMEN DESCRIPTION : BLOOD NOSITE SPECIAL REQUESTS : NONE CULTURE : NO GROWTH 5 DAYS. REPORT STATUS : FINAL 03/30/2022 Radiology Reports * Exam Date Time Procedure Performing Provider Status 03/25/22 11:41 AM Foot Min 3 Views Left Rashard Collins; Auth (Verified) Notes: (Foot Min 3 Views Left) Reason For Exam: with Pain;Trauma RESULT: Foot Min 3 Views Left Foot Min 3 Views Left, 3 views Hx of Present Illness: I've had a couple of operations yesterday was [place], and had those rail road rocks in the middle of the trail and I stepped on them and it was awful they made me fall and the walker came apart, denies wearing a shoe, had a; Reason: Trauma; with Pain; Clinical Question(s): Fracture COMPARISON: Ankle from the same day. FINDINGS: Bones appear demineralized. There are postsurgical changes in the distal tibia and talus. Small metallic structures project in the region of the calcaneus. Linear lucency in the calcaneus seen on theankle radiographs is not as well- visualized on this exam. There is soft tissue swelling around the foot and ankle. IMPRESSION: No fracture identified. WSN: [id number] Ordering Physician: Deborah Bartlett Dictated By: Mike Meza MD Dictated Date/Time: 03/25/22 12:08 p Reviewed By: Mike Meza MD Signed By: Mike Meza MD Signed Date/Time: 03/25/22 12:08 pm Transcribed By: SAMM Transcribed Date/Time: 03/25/22 12:07 pm * Exam Date Time Procedure Performing Provider Status 03/25/22 11:41 AM Ankle Min 3 Views Left Reymundo Collins; Auth (Verified) Notes: (Ankle Min 3 Views Left) Reason For Exam: with Pain;Trauma RESULT: Ankle Min 3 Views Left Ankle Min 3 Views Left Hx of Present Illness: I've had a couple of operations yesterday was walking my [place] through the [place], and had those rail road rocks in the middle of the trail and I stepped on them and it was awful they made me fall and the walker came apart, denies wearing a shoe, had a; Reason: Trauma; with Pain; Clinical Question(s): Fracture COMPARISON: 02/09/2022 FINDINGS: Ghost tracts in the distal tibia and talus. Small metallic structures in the calcaneus. Subtle vertically oriented linear lucency in the calcaneal body seen only on the lateral view. Soft tissue swelling around the ankle with soft tissue irregularity laterally. Bones appear demineralized. IMPRESSION: Findings concerning for a nondisplaced fracture of the calcaneus. Postoperative changes around the ankle. WSN: [id number] Ordering Physician: Deborah Bartlett Dictated By: Mike Meza MD Dictated Date/Time: 03/25/22 12:01 p Reviewed By: Mike Meza MD Signed By: Mike Meza MD Signed Date/Time: 03/25/22 12:01 pm Transcribed By: SAMM Transcribed Date/Time: 03/25/22 11:58 am Vital Signs Most recent to oldest [Reference Range]: 1 2 3 4 Height 183 cm (03/29/22 7:10 PM) 183 cm (03/29/22 12:30 PM) 183 cm (03/29/22 8:23 AM) Weight 139.1 kg (03/29/22 12:30 PM) 140 kg (03/29/22 8:23 AM) 140 kg (03/28/22 7:07 PM) Oxygen Saturation [94-100 %] 99 % (03/30/22 7:57 AM) 98 % (03/29/22 7:10 PM) 96 % (03/29/22 12:30 PM) Pulse Rate [55-90 bpm] 53 bpm *L* (03/30/22 7:57 AM) 62 bpm (03/29/22 7:10 PM) 64 bpm (03/29/22 12:30 PM) Body Mass Index [18.5-24.99] 41.54 *>HHI* (03/29/22 12:30 PM) 41.8 *>HHI* (03/29/22 8:23 AM) 41.8 *>HHI* (03/28/22 7:07 PM) Blood Pressure [90-138/55-84 mm Hg] 145/78mm Hg *H* (03/30/22 7:57 AM) 121/65mm Hg (03/29/22 7:10 PM) 107/60mm Hg (03/29/22 12:30 PM) Respiratory Rate [16-30 br/min] 16 br/min (03/30/22 9:07 AM) 16 br/min (03/30/22 9:07 AM) 16 br/min (03/30/22 8:07 AM) 16 br/min (03/30/22 8:07 AM) Temperature [96.8-100.4 DegF] 96.9 DegF (03/30/22 7:57 AM) 96.8 DegF (03/29/22 7:10 PM) 96.4 DegF *L* (03/29/22 12:30 PM) Mode of Delivery (Oxygen) Room air (03/30/22 7:57 AM) Room air (03/29/22 7:10 PM) Room air (03/29/22 12:30 PM) Blood pressure sites Arm, right (03/30/22 7:57 AM) Arm, right (03/29/22 7:10 PM) Arm, right (03/29/22 12:30 PM) Temperature Route Temporal (03/30/22 7:57 AM) Temporal (03/29/22 7:10 PM) Temporal (03/29/22 12:30 PM) Dry Weight 139.1 kg (03/29/22 12:30 PM) 140 kg (03/29/22 8:23 AM) 140 kg (03/28/22 7:07 PM) Weight Obtained Via Standing scale (03/29/22 12:30 PM) Dry Weight Obtained Via Standing scale (03/29/22 12:30 PM) Social History Social History Type Response Smoking Status Never (less than 100 in lifetime) entered on: 02/15/22 Sex XR Ankle - left GE 3 Views * [facility] , C[facility] S: Mike Gomes MD S: VERIFY Event Display: Result: Authored Date: Ankle Min 3 Views Left Hx of Present Illness: I've had a couple of operations yesterday was [place], and had those rail road rocks in the middle of the trail and I stepped on them and it was awful they made me fall and the walker came apart, denies wearing a shoe, had a; Reason: Trauma; with Pain; Clinical Question(s): Fracture COMPARISON: 02/09/2022 FINDINGS: Ghost tracts in the distal tibia and talus. Small metallic structures in the calcaneus. Subtle vertically oriented linear lucency in the calcaneal body seen only on the lateral view. Soft tissue swelling around the ankle with soft tissue irregularity laterally. Bones appear demineralized. IMPRESSION: Findings concerning for a nondisplaced fracture of the calcaneus. Postoperative changes around the ankle. WSN: [id number] Ordering Physician: Deborah Bartlett Dictated By: Mike Meza MD Dictated Date/Time: 03/25/22 12:01 p Reviewed By: Mike Meza MD Signed By: Mike Meza MD Signed Date/Time: 03/25/22 12:01 pm Transcribed By: SAMM Transcribed Date/Time: 03/25/22 11:58 am Note * YOHANA Murphy S: Mike Gomes MD: VERIFY Event Display: Result: Authored Date: Foot Min 3 Views Left, 3 views Hx of Present Illness: I've had a couple of operations yesterday was [place], and had those rail road rocks in the middle of the trail and I stepped on them and it was awful they made me fall and the walker came apart, denies wearing a shoe, had a; Reason: Trauma; with Pain; Clinical Question(s): Fracture COMPARISON: Ankle from the same day. FINDINGS: Bones appear demineralized. There are postsurgical changes in the distal tibia and talus. Small metallic structures project in the region of the calcaneus. Linear lucency in the calcaneus seen on theankle radiographs is not as well- visualized on this exam. There is soft tissue swelling around the foot and ankle. IMPRESSION: No fracture identified. WSN: [id number] Ordering Physician: Deborah Bartlett Dictated By: Mike Meza MD Dictated Date/Time: 03/25/22 12:08 p Reviewed By: Mike Meza MD Signed By: Mike Meza MD Signed Date/Time: 03/25/22 12:08 pm Transcribed By: SAMM Transcribed Date/Time: 03/25/22 12:07 pm Care Team Personnel Name: Roger Peter MD Address: [address] [place] [address] [address]
--- OUTSIDE RECORDS SUMMARY | 2023-08-12 02:35 | XMS_ITS | Continuity of Care Document ---
Author Name Unknown Organization [facility] ter Address [address] [place] [address]- Care Team Providers Care Business Reporting Developer Name Role Phone Roger Peter MD Primary Care Physician [phone] Encounter [facility] [place] Date(s): 12/29/21 - 01/27/[address] [address] Attending Physician: Jamie Banks MD Referring Physician: Jamie Banks MD Allergies, Adverse Reactions, Alerts No Known [...] 0 Refills, Maintenance, 01/13/22 14:20:00 EDT, Tablet, [facility], Partial fill upon patient request if the prescription is for a schedule II opioid drug., 183, cm, 06... Start Date: 01/13/22 Stop Date: 01/18/22 Status: Ordered gabapentin 300 mg oral capsule 300 mg, 1, capsule, By Mouth, 3 times a day, # 90 capsule, Refills 0, Tot. Refills 0, Maintenance, 01/03/22 12:00:00 EDT, Route to Pharmacy Electronically, [facility]/pharmacy #[id number], Partial fill upon patient request if the prescription is for a schedule II... Start Date: 01/03/22 Status: Ordered lisinopril 10 mg oral tablet 10 mg, 1, tablet, By Mouth, Daily, # 30 tablet, Refills 0, Tot. Refills 0, Maintenance, 01/13/22 14:23:00 EDT, Route to Pharmacy Electronically, [facility], Partial fill upon patient [...] 01/13/22 14:21:00 EDT, Route to Pharmacy Electronically, [facility],Partial fill upon patient request if the prescripti... Start Date: 01/13/22 Stop Date: 01/18/22 Status: Ordered Trileptal 150 mg oral tablet 150 mg, 1, tablet, By Mouth, 2 times a day, # 60 tablet, Refills 0, Tot. Refills 0, Maintenance, 01/13/22 14:21:00 EDT, Route to Pharmacy Electronically, [facility], Partial fill upon patient [...]
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
--- NOTE | 2023-08-12 04:15 | PC.NURSE ---
per dr anaya pt okay to remain in ed to sleep plan to discharge in AM. supercharger mechanic aware. pt provided with warm blanket and lights dimmed to promote rest
[2023-08-12 06:27] VITALS: BP 151/80; PULSE 87; RESP 14; TEMP 36.4; O2SAT 95
--- NOTE | 2023-08-12 06:41 | PC.NURSE ---
pt calm and cooperative. pt ambulatory at discharge pt states I feel ready to leave pt discharged to waiting room to wait for bus. pt provided with discharge packet. pt verbalized understanding of discharge plan
== END 2023-08-12 06:42 | disposition home or self-care (01) ==
PROVIDERS: Emergency Provider Emergency Medicine
DX: R60.0 Localized edema (principal); F11.20 Opioid dependence, uncomplicated; Z72.89 Other problems related to lifestyle; Z63.0 Problems in relationship with spouse or partner; Z79.899 Other long term (current) drug therapy
CPT/HCPCS: 99283; 99284

== ENCOUNTER 2024-01-04 10:53 | Emergency (ER) | payer MEDICAID, SELFPAY ==
--- NOTE | ~2024-01-04 | US_ITS ---
EXAMINATION: US VENOUS ULTRASOUND WITH DOPPLER LOWER EXTREMITY, RIGHT CLINICAL INFORMATION: Right lower extremity swelling COMPARISON: None available. TECHNIQUE: Ultrasound of the deep veins is performed from the hip to the calf with compression sonography and color and pulse Doppler assessment. Spectral analysis with color-flow imaging is performed. FINDINGS: There is normal venous compression and respiratory variation. The visualized common femoral vein, superficial femoral vein, profunda femoral vein, popliteal vein, and the posterior tibial and peroneal veins show no evidence of deep venous thrombosis. 6.0 x 1.4 x 3.2 cm cyst is seen in the right popliteal fossa consistent with a Matos's cyst. The contralateral common femoral vein demonstrates normal respiratory variation. Benign-appearing lymph nodes are seen in the right groin. These measure 1.0 x 0.6 x 1.2 cm and 2.0 x 0.5 x 1.7 cm. US/US venous duplex LE RT IMPRESSION: 1. No DVT demonstrated in the right lower extremity. 2. Matos's cyst in the right popliteal fossa. 3. Benign-appearing lymph nodes in the right groin.
[2024-01-04 11:00] VITALS: BP 161/91; PULSE 78; O2SAT 95
[2024-01-04 11:01] VITALS: BP 143/83; PULSE 79; RESP 18; TEMP 36.8; O2SAT 96; BMI 41.3
--- NOTE | 2024-01-04 12:10 | ED_ITS ---
HPI - General Adult General Chief complaint: Extremity Injury, Lower Stated complaint: PT C/O LEG INF X3 DAYS PER EMS Time Seen by Provider: 01/04/24 11:10 Source: patient Mode of arrival: EMS Limitations: no limitations History of Present Illness ED Provider: Philip Vaca PA-C HPI narrative: This is a 53 yo male pmh of polydrug abuse, migraine equivalent syndrome,right sided weakness, cocaine abuse, hemmorhagic stroke, brain lesion, presenting with right leg infection x 4 days which he first noticed Monday. Patient states he was wearing tight socks which originally caused a scab on his right lower extremity, but last night the lesion began to become increasingly painful, red and is now spreading up his leg. Patient reports pain that is constant, worse with movement and ambulation and states he has difficulty ambulating due to pain. Patient reports he has also been experiencing fever, chills, and sweating describes just feeling unewell. Denies numbness, weakness, or tingling to extremity. Patient reports he has been sober for 7 years and typically recieves methadone daily, however he has not gone x 3 days because of his leg pain and difficulty ambulating. Reports intermitent chest discomfort but not present at this time Related Data Home Medications ?Medication ?Instructions ?Recorded ?Confirmed methadone 10 mg/mL oral 100 mg PO DAILY 01/28/23 01/28/23 concentrate (Methadone Intensol) Previous Rx's ?Medication ?Instructions ?Recorded topiramate 50 mg tablet 50 mg PO BEDTIME #30 tabs 01/28/23 compr.stocking,knee,long,x-lrg #12 ea 08/12/23 cephalexin 500 mg tablet 500 mg PO Q6H 10 days #40 tabs 01/04/24 doxycycline hyclate 100 mg capsule 100 mg PO BID 10 days #20 caps 01/04/24 Allergies Allergy/AdvReac Type Severity Reaction Status Date / Time No Known Allergies Allergy Verified 01/04/24 11:03 [No Known Allergies*] Review of Systems 2 Review of Systems: Yes all other systems are reviewed and are negative [facility] Past Medical History Attestation statement: The following information was validated with the patient. Source: old records reviewed and nursing notes reviewed Medical History Brain lesion Cocaine abuse Hemorrhagic stroke Social History Social History Alcohol intake: former Patient Tobacco Use Status: Never used Tobacco Smoked in Last 30 Days: No Use of substances other than those prescribed or required for medical reasons: No Substance Use Type: IV Drugs, Methamphetamine and Opiates Advance Directives: No Advance Directives Information Provided: Yes Do you have a plan to hurt others: No Plan Physical Exam ED Vital Signs: Vital Signs - 24 hr 01/04/24 11:01 01/04/24 14:00 Temperature 98.3 F 97.9 F Pulse Rate 79 63 Respiratory Rate 18 Blood Pressure 143/83 H 142/75 H Pulse Oximetry 96 97 Oxygen Delivery Method Room Air Room Air BMI result Body Mass Index 41.3 vss. Appearance: Alert.? Oriented X3.? No acute distress.? Head: Normocephalic, atraumatic, no step-offs or deformities Eyes: Pupils equal, round and reactive to light.? Neck: Normal inspection.? Neck supple.? CVS: Normal heart rate and rhythm.? Pulses normal.? Respiratory: No respiratory distress.? Breath sounds normal.? Abdomen: Soft and nontender.? Skin: Skin warm and dry.? Normal skin color.? Normal skin turgor.? Extremities: +Scab wound to right lower extremity on anterior sofia with crusting and surrounding erythema up the right sofia . Hot to the touch. 2+ dp,at and pt pulses equal and symmetric blaterally. Tenderness to palpation of right anterior sofia and mild ttp of right calf. 5/5 strength to bilateral upper and lower extremities Back: No midline tenderness, no C-spine tenderness, full range of motion, no CVA tenderness bilaterally Neuro: Oriented X 3.? No motor deficit.? No sensory deficit. CN 2-12 intact Course Reevaluation(s) Reevaluation #1: Patient now mentions that he has been having intermittent substernal chest discomfort at times, not present at this time. Not associated with shortness of breath. No associated palpitations. Troponin, EKG ordered. Unlikely acs, pe. Time: 13:41 Reevaluation #2: CBC unremarkable baseline normocytic anemia. Chemistry no acute findings requiring intervention. Troponin negative, EKG nonischemic. Ultrasound venous duplex no DVT in the right lower extremity. Matos's cyst in the right popliteal fossa. Benign-appearing lymph node in the right groin region. No DVT. Palpable pulses unlikely arterial occlusion. At this time patient to be discharged with doxycycline and Keflex. No need for hospital admission. Vital signs stable patient nontoxic appearing tolerating p.o.. Educated patient on diagnosis and treatment plan, answered all question, patient verbalizes understanding. At this time patient will be discharged home, advised to return with new or worsening symptoms. Educated on worrisome signs and symptoms and when to return. At this time I feel comfortable discharge home. Time: 15:01 Medical Decision Making Medical Decision Making [facility] Narrative: 53 yo male pmh polydrug abuse presenting with right anterior lower leg infection x 4 days which has become increasingly warm, erythematous and painful since last night. PE: Extremities: +Scab wound to right lower extremity on anterior sofia with crusting and surrounding erythema up the right sofia. Hot to the touch. 2+ dp and pt pulses equal and symmetric blaterally. Tenderness to palpation of right anterior sofia and mild ttp of right calf. 5/5 strength to bilateral upper and lower extremities. Differential: Cellulitis vs venous stasis. Rule out DVT. Unlikely, necrotizing infection, threat to limb, neurovascular compromise, compartment syndrome. Plan: Labs, imaging, blood cultures pending. Differential Diagnosis Differential Diagnoses: The differential diagnosis associated with the presentation includes Cellulitis vs venous stasis vs ulcer. Rule out DVT. Unlikely, necrotizing infection, threat to limb, neurovascular compromise, compartment syndrome Lab Data [facility] Lab Attestation statement: I reviewed the patient's lab results. 01/04/24 12:26 01/04/24 12:26 Labs: Lab Results 01/04/24 Range/Units 12:26 WBC 5.1 (4.8-10.8) X10*3/uL RBC 4.40 L (4.60-5.80) X10*6/uL Hgb 12.1 L (14.0-18.0) g/dl Hct 36.5 L (42.0-52.0) % MCV 83.0 (80.0-98.0) fL MCH 27.5 (27.0-33.0) pg MCHC 33.2 (31.0-36.0) g/dl RDW 14.1 (11.0-16.0) % Plt Count 178 (160-400) X10*3/uL MPV 10.8 (9.4-12.4) fL Immature Gran % (Auto) 0.6 H (0.0-0.4) % Neut % (Auto) 71.0 (45-73) % Lymph % (Auto) 13.6 L (20-40) % [place] % (Auto) 13.2 H (2-11) % Eos % (Auto) 1.2 (0-4) % Baso % (Auto) 0.4 (0-2) % Lymph # (Auto) 0.7 L (1.2-4.9) X10*3/uL [place] # (Auto) 0.7 (0.1-1.2) X10*3/uL Eos # (Auto) 0.1 (0.0-0.4) X10*3/uL Baso # (Auto) 0.0 (0.0-0.2) X10*3/uL Abs Immat Gran (auto) 0.03 (0.00-0.03) X10*3/uL Absolute Neuts (auto) 3.6 (2.0-8.3) x10*3/uL Absolute Nucleated RBC 0.000 (0.0-0.012) X10*3/uL Nucleated RBC % (auto) 0.0 (0.0-0.2) /100WBC Sodium 139 (135-145) mmol/L Potassium 3.6 (3.3-5.1) mmol/L Chloride 105 (96-108) mmol/L Carbon Dioxide 29 (22-29) mmol/L Anion Gap 9 L (12-20) BUN 12 (9-16) mg/dL Creatinine 0.77 (0.5-1.4) mg/dL Estim Creat Clear Calc 161.5 Estimated GFR > 60 Random Glucose 132 H (60-115) mg/dL Lactic Acid 0.9 (0.5-2.0) mmol/L Calcium 9.3 (8.4-10.2) mg/dL Magnesium 2.1 (1.6-2.6) mg/dL Total Bilirubin 0.4 (0.0-1.0) mg/dL AST 31 (5-37) U/L ALT 32 (0-40) U/L Alkaline Phosphatase 85 (39-117) U/L Troponin I High Sens 2.9 (<3.5-35.0) ng/L Total Protein 7.3 (6.5-8.0) g/dL Albumin 3.4 L (3.5-5.0) g/dL Radiology Impression Discussion of test interpretation with radiology: I have reviewed the radiologist's reading. External Record Review External record reviewed: Outpatient record, Prior outpatient labs and Prior outpatient radiology Social Determinants Patient?s care significantly limited by Social Determinants of Health including: Inadequate housing, Low income, Alcoholism and drug addiction in family, Problems related to primary support group, Unemployment, Problems related to employment and Other Social Determinant of Health Critical Care Time Critical Care Time Critical Care Time: No Discharge Plan Discharge Clinical Impression: Cellulitis Patient Disposition: Home, Self-Care Instructions: Cellulitis (ED) Additional Instructions: Take your medications as prescribed. If you were prescribed antibiotics today, it is important that you take your medication to their entirety, do not skip any doses, do not finish them early. Follow-up with your primary care provider this week. Return to the emergency department with new or worsening symptoms. Such as fevers, chills, chest pain, shortness of breath, nausea, vomiting, dizziness, headache, vision changes, lethargy In case of emergency call 911 US/US venous duplex LE RT IMPRESSION: 1. No DVT demonstrated in the right lower extremity. 2. Matos's cyst in the right popliteal fossa. 3. Benign-appearing lymph nodes in the right groin. Prescriptions: New doxycycline hyclate 100 mg capsule 100 mg PO BID 10 Days Qty: 20 0RF cephalexin 500 mg tablet 500 mg PO Q6H 10 Days Qty: 40 0RF No Action methadone [Methadone Intensol] 10 mg/mL Concentrate 100 mg PO DAILY topiramate 50 mg tablet 50 mg PO BEDTIME Qty: 30 0RF (DME) compr.stocking,knee,long,x-lrg Misc See Rx Instructions .Route Qty: 12 0RF Rx Instructions: As directed Referrals: Trixie Khanna MD [Primary Care Provider] - 1 day Print Language: Chadian
[2024-01-04 12:31] LABS: MANUAL DIFF FLAG NO
[2024-01-04 12:43] LABS: Lactic Acid 0.9 mmol/L (0.5-2.0)
[2024-01-04 12:44] LABS: Basophils Percent Auto 0.4 % (0-2); Eosinophils Absolute Auto 0.1 X10*3/uL (0.0-0.4); Eosinophils Percent Auto 1.2 % (0-4); Hematocrit 36.5 % (42.0-52.0); Hemoglobin 12.1 g/dl (14.0-18.0); Imm Gran Abs Auto 0.03 X10*3/uL (0.00-0.03); Imm Gran Pct Auto 0.6 % (0.0-0.4); Lymphocytes Absolute Auto 0.7 X10*3/uL (1.2-4.9); Lymphocytes Percent Auto 13.6 % (20-40); Mean Corpuscular HGB Conc 33.2 g/dl (31.0-36.0); Mean Corpuscular Hemoglobin 27.5 pg (27.0-33.0); Mean Platelet Volume 10.8 fL (9.4-12.4); Monocytes Absolute Auto 0.7 X10*3/uL (0.1-1.2); Monocytes Percent Auto 13.2 % (2-11); Neutrophils Absolute Auto 3.6 x10*3/uL (2.0-8.3); Platelet Count 178 X10*3/uL (160-400); Red Cell Distribution Width 14.1 % (11.0-16.0); White Blood Count 5.1 X10*3/uL (4.8-10.8)
[2024-01-04 12:47] LABS: Alanine Aminotransferase 32 U/L (0-40); Albumin Level 3.4 g/dL (3.5-5.0); Alkaline Phosphatase 85 U/L (39-117); Anion Gap 9 (12-20); Aspartate Amino Transferase 31 U/L (5-37); Bilirubin Total 0.4 mg/dL (0.0-1.0); Blood Urea Nitrogen 12 mg/dL (9-16); Calcium 9.3 mg/dL (8.4-10.2); Carbon Dioxide 29 mmol/L (22-29); Chloride 105 mmol/L (96-108); Creatinine Clr Calc Pharmacy 161.5; Estimated Glomerular Filt Rate > 60; Glucose Random 132 mg/dL (60-115); Magnesium 2.1 mg/dL (1.6-2.6); Potassium 3.6 mmol/L (3.3-5.1); Sodium 139 mmol/L (135-145); Total Protein 7.3 g/dL (6.5-8.0)
--- NOTE | 2024-01-04 13:00 | PC.NURSE ---
patient a&ox3, vss, pt difficult stick- iv inserted to rt hand, labs drawn, rle red/hot to touch, pt awaiting US RLE, call antony chinchilla, will continue to monitor
--- NOTE | 2024-01-04 13:37 | ECG_ITS ---
Test Reason : CP Blood Pressure : / mmHG Vent. Rate : 053 BPM Atrial Rate : 053 BPM P-R Int : 148 ms QRS Dur : 096 ms QT Int : 472 ms P-R-T Axes : 035 010 018 degrees QTc Int : 442 ms Sinus bradycardia Possible Left atrial enlargement Cannot rule out Anterior infarct , age undetermined Abnormal ECG When compared with ECG of 10-AUG-2018 16:55, No significant change was found Referred By: Philip Vaca Electronically Signed By:ALISA WHALEY MD
[2024-01-04 14:00] VITALS: BP 142/75; PULSE 63; TEMP 36.6; O2SAT 97
[2024-01-04 14:10] LABS: Troponin-I High Sensitivity 2.9 ng/L (<3.5-35.0)
[2024-01-04 16:15] LABS: Troponin-I High Sensitivity 2.7 ng/L (<3.5-35.0)
[2024-01-04 16:43] VITALS: BP 140/76; PULSE 73; RESP 18; TEMP 36.7
== END 2024-01-04 16:44 | disposition home or self-care (01) ==
PROVIDERS: Physician Assistant; Emergency Provider Student in an Organized Health Care Education/Training Program; PCP Family Medicine
DX: L03.115 Cellulitis of right lower limb (principal); R07.89 Other chest pain; R00.1 Bradycardia, unspecified; R60.0 Localized edema; Z79.899 Other long term (current) drug therapy
CPT/HCPCS: 36415; 80053; 83605; 83735; 84484; 85025; 87040; 93005; 93971; 99284

== ENCOUNTER → 2024-01-04 13:37 | Outpatient (BNV) | payer MEDICAID, SELFPAY | PROVIDERS: Emergency Provider Student in an Organized Health Care Education/Training Program; PCP Family Medicine; Visit Provider Internal Medicine Cardiovascular Disease | DX: R07.9 Chest pain, unspecified (principal); R00.1 Bradycardia, unspecified | CPT/HCPCS: 93010 ==

== ENCOUNTER 2024-01-07 17:12 | Inpatient (IN) | payer MEDICAID, OTHER, SELFPAY ==
--- NOTE | 2024-01-07 | ECG_ITS ---
Test Reason : HR Blood Pressure : / mmHG Vent. Rate : 046 BPM Atrial Rate : 046 BPM P-R Int : 128 ms QRS Dur : 094 ms QT Int : 484 ms P-R-T Axes : 031 020 023 degrees QTc Int : 423 ms Sinus bradycardia Cannot rule out Anterior infarct (cited on or before 04-JAN-2024) Abnormal ECG When compared with ECG of 07-JAN-2024 17:50, No significant change was found Referred By: Fabio Grissom Electronically Signed By:BERONICA CHIANG
[2024-01-07 17:32] VITALS: BP 119/86; PULSE 56; RESP 16; TEMP 36; O2SAT 97; BMI 40.7
--- NOTE | 2024-01-07 17:37 | ED.GENADULT ---
HPI - General Adult General Chief complaint: Psychiatric Symptoms Stated complaint: crisis Time Seen by Provider: 01/07/24 18:15 Source: patient, RN notes reviewed and old records reviewed Mode of arrival: ambulatory Limitations: no limitations History of Present Illness ED Provider: Jaciel CARPENTER narrative: 53-year-old male with past medical history significant for polysubstance abuse, schizophrenia, depression presents for evaluation of a suicide attempt. Patient reports that 2 hours prior to arrival he took 30 tablets of gabapentin 300 mg. Send this in an attempt to harm himself. He reports feeling somewhat sleepy He has no other complaints. Denies any headaches, abdominal pain, nausea vomiting. Denies any cough, shortness of breath, chest pain Is currently calm and cooperative He denies any cold ingestions Related Data Home Medications ?Medication ?Instructions ?Recorded ?Confirmed methadone 10 mg/mL oral 70 mg PO DAILY 01/28/23 01/08/24 concentrate (Methadone Intensol) aspirin 81 mg tablet,delayed 81 mg PO DAILY 01/08/24 01/08/24 release clonidine HCl 0.1 mg tablet 0.1 mg PO DAILY 01/08/24 01/08/24 clopidogrel 75 mg tablet 75 mg PO DAILY 01/08/24 01/08/24 gabapentin 300 mg capsule 300 mg PO TID 01/08/24 01/08/24 hydroxyzine pamoate 50 mg capsule 50 mg PO DAILY PRN Anxiety 01/08/24 01/08/24 lisinopril 10 mg tablet 10 mg PO DAILY 01/08/24 01/08/24 melatonin 3 mg tablet 3 mg PO BEDTIME 01/08/24 01/08/24 oxcarbazepine 300 mg tablet 300 mg PO BID 01/08/24 01/08/24 quetiapine 25 mg tablet 25 mg PO BEDTIME 01/08/24 01/08/24 sertraline 50 mg tablet 50 mg PO DAILY 01/08/24 01/08/24 Allergies Allergy/AdvReac Type Severity Reaction Status Date / Time No Known Allergies Allergy Verified 01/07/24 17:39 [No Known Allergies*] Review of Systems Constitutional: Constitutional: Denies chills and Denies fever(s) Eyes: Eyes: Denies blurry vision ENT: Denies vertigo and Denies dizziness Cardiovascular: Cardiovascular: Denies chest pain and Denies dyspnea Respiratory: Respiratory: Denies cough and Denies dyspnea Gastrointestinal: Gastrointestinal: Denies abdominal pain, Denies nausea and Denies vomiting Musculoskeletal: Musculoskeletal: Denies back pain Integumentary/Breasts: Skin/Breast: Denies rash Neurologic: Denies vertigo and Denies dizziness Psychiatric: Psychiatric: Reports anxiety, Reports depression and Reports suicidal ideation [facility] Past Medical History Medical History Brain lesion Cocaine abuse Hemorrhagic stroke Social History Social History Unable to assess alcohol history related to: Unknown Alcohol intake: former Patient Tobacco Use Status: Never used Tobacco Substance Use Type: Heroin Advance Directives: No Advance Directives Information Provided: No Do you have a plan to hurt others: No Plan Physical Exam ED Vital Signs: Vital Signs - 24 hr 01/07/24 17:32 01/07/24 19:39 01/07/24 22:26 Temperature 96.8 F 98.3 F 97.0 F Pulse Rate 56 53 50 Respiratory Rate 16 17 17 Blood Pressure 119/86 138/85 135/69 Pulse Oximetry 97 98 100 Oxygen Delivery Method Room Air Room Air Room Air 01/08/24 00:33 01/08/24 04:39 Temperature 98.5 F 97.6 F Pulse Rate 46 L 54 Respiratory Rate 17 17 Blood Pressure 109/70 113/65 Pulse Oximetry 97 96 Oxygen Delivery Method Room Air Room Air BMI result Body Mass Index 40.7 Const General: healthy appearing, comfortable, no acute distress and alert Nutritional Appearance: well nourished Orientation/consciousness: patient oriented x3 HENMT Head: Yes normocephalic and Yes atraumatic Throat: Yes posterior oropharynx normal Eyes Other: Left eye amblyopia Eyelids: Yes eyelids normal Conjunctivae: conjunctivae normal Sclerae: sclerae normal Corneas: corneas normal Pupils: Equal, round and reactive pupils present EOM: EOMs intact bilaterally Neck Neck: Yes full ROM Resp Effort & Inspection: normal respiratory effort, able to speak in complete sentences, no audible wheezes and not labored Auscultation: clear to auscultation bilaterally Cardio Rate: regular rate Rhythm: regular rhythm GI Inspection: No distended Palpation (GI): Soft to palpation, not firm, nontender, no guarding and not rigid Skin General skin exam: no rashes or lesions noted and elasticity normal Neuro General: patient oriented x3 Cranial nerves: Yes CN's II-XII intact bilaterally, Yes Equal, round and reactive pupils present and Yes Bilaterally intact EOM present Cognition (Neuro): normal cognition Extrem Other: Moving all extremities well without any obvious deformities Course Course Course Narrative: RME: RME Done by SONJA Barker. 53-year-old male presents to ED for suicidal ideation and hallucinations. Patient states also suicide attempt by taking 30 pills of gabapentin. Labs ordered. Patient brought to the ED to be evaluated. Reevaluation(s) Reevaluation #1: Patient re-evaluated, he is sleeping but arouses to verbal stimuli alone. He will stay awake for a complete conversation. Plan for repeat labs at 11:00 p.m. per poison control Time: 21:59 Reevaluation #2: I called to discuss with poison control myself. The patient's labs remain unchanged, his QTC is 400. He remains somewhat sleepy but arousable to verbal stimuli, he is bradycardic when sleeping but this jumped back up into the 50s when he is awake and talking. Again this is sinus without any blocks. Per poison control, the patient is medically cleared at this time. and the patient will require care team evaluation Time: 01:28 Medications Administered Generic Name Dose Route Start Last Admin Trade Name Julissa PRN Reason Stop Dose Admin Aspirin 81 mg 01/08/24 09:00 01/08/24 08:01 Aspirin Enteric Coated 81 Mg Tablet. PO 81 mg DAILY CODY Administration Clonidine HCl 0.1 mg 01/08/24 09:00 01/08/24 08:02 Clonidine Hcl 0.1 Mg Tablet PO 0.1 mg DAILY CODY Administration Protocol Clopidogrel Bisulfate 75 mg 01/08/24 09:00 01/08/24 08:02 Clopidogrel Bisulfate 75 Mg Tablet PO 75 mg DAILY CODY Administration Gabapentin 300 mg 01/08/24 09:00 01/08/24 08:07 Gabapentin 300 Mg Capsule PO Not Given TID CODY Lisinopril 10 mg 01/08/24 09:00 01/08/24 08:02 Lisinopril 10 Mg Tablet PO 10 mg DAILY CODY Administration Protocol Methadone HCl 70 mg 01/08/24 09:00 01/08/24 08:01 Methadone Hcl 20 Mg/2 Ml Oral.Conc PO 70 mg DAILY CODY Administration Oxcarbazepine 300 mg 01/08/24 09:00 01/08/24 08:01 Oxcarbazepine 300 Mg Tablet PO 300 mg BID CODY Administration Sertraline HCl 50 mg 01/08/24 09:00 01/08/24 08:01 Sertraline Hcl 50 Mg Tablet PO 50 mg DAILY CODY Administration Medical Decision Making Medical Decision Making [facility] Narrative: 83-year-old male presents for evaluation after a gabapentin overdose. He reportedly took 9000 mg of gabapentin 2 hours prior to arrival. He has no somatic complaints. He is somewhat sleepy but does awake to verbal stimuli only. He is able to stay awake for a conversation. Discussed with poison control who recommends Q 2 hour EKGs for the 1st 6 hours, repeat labs at 11:00 p.m. which was ordered. Patient's initial labs show no leukocytosis. He has a mild anemia with a hemoglobin of 12 point 6 which is consistent with his recent baseline dating back to it does not 19. There is no left shift. Chemistries without any concerning abnormalities. Electrolytes within normal limits,. Patient's ALT is just above normal at 42. Differential Diagnosis Differential Diagnoses: The differential diagnosis associated with the presentation includes Lab Data [facility] Lab Attestation statement: I reviewed the patient's lab results. See medical decision making above 01/07/24 17:49 01/07/24 23:10 Labs: Lab Results 01/07/24 01/07/24 01/07/24 Range/Units 17:49 21:09 23:10 WBC 5.3 (4.8-10.8) X10*3/uL RBC 4.59 L (4.60-5.80) X10*6/uL Hgb 12.6 L (14.0-18.0) g/dl Hct 37.4 L (42.0-52.0) % MCV 81.5 (80.0-98.0) fL MCH 27.5 (27.0-33.0) pg MCHC 33.7 (31.0-36.0) g/dl RDW 13.9 (11.0-16.0) % Plt Count 248 D (160-400) X10*3/uL MPV 10.5 (9.4-12.4) fL Immature Gran % (Auto) 0.4 (0.0-0.4) % Neut % (Auto) 59.0 (45-73) % Lymph % (Auto) 29.1 (20-40) % [place] % (Auto) 8.2 (2-11) % Eos % (Auto) 2.9 (0-4) % Baso % (Auto) 0.4 (0-2) % Lymph # (Auto) 1.5 (1.2-4.9) X10*3/uL [place] # (Auto) 0.4 (0.1-1.2) X10*3/uL Eos # (Auto) 0.2 (0.0-0.4) X10*3/uL Baso # (Auto) 0.0 (0.0-0.2) X10*3/uL Abs Immat Gran (auto) 0.02 (0.00-0.03) X10*3/uL Absolute Neuts (auto) 3.1 (2.0-8.3) x10*3/uL Absolute Nucleated RBC 0.000 (0.0-0.012) X10*3/uL Nucleated RBC % (auto) 0.0 (0.0-0.2) /100WBC PT 12.4 (11.1-13.3) SEC INR 1.0 (0.9-1.1) APTT 31.6 (26.0-36.8) SEC Sodium 138 138 (135-145) mmol/L Potassium 3.6 3.7 (3.3-5.1) mmol/L Chloride 103 104 (96-108) mmol/L Carbon Dioxide 25 23 (22-29) mmol/L Anion Gap 14 15 (12-20) BUN 10 10 (9-16) mg/dL Creatinine 0.80 0.83 (0.5-1.4) mg/dL Estim Creat Clear Calc 154.2 148.7 Estimated GFR > 60 > 60 Random Glucose 92 105 (60-115) mg/dL Calcium 9.3 9.5 (8.4-10.2) mg/dL Magnesium 2.0 2.1 (1.6-2.6) mg/dL Total Bilirubin 0.3 0.3 (0.0-1.0) mg/dL AST 37 34 (5-37) U/L ALT 42 H 40 (0-40) U/L Alkaline Phosphatase 96 91 (39-117) U/L Total Protein 7.5 7.2 (6.5-8.0) g/dL Albumin 3.6 3.4 L (3.5-5.0) g/dL Urine Color Yellow Urine Appearance Clear Urine pH 6.5 (5.0-9.0) Ur Specific [place] 1.010 (1.005-1.025) Urine Protein Negative (Neg-Trace) mg/dL Urine Glucose (UA) Negative (Negative) mg/dL Urine Ketones Negative (Negative) mg/dL Urine Blood Negative (Negative) Urine Nitrite Negative (Negative) Ur Leukocyte Esterase Negative (Negative) Salicylates < 5.0 L (15-30) mg/dL Urine Opiates Screen POSITIVE H (Not Detect) Ur Buprenorphine Scrn Not Detected (Not Detect) ng/mL Ur Oxycodone Screen Not Detected (Not Detect) ng/mL Urine Methadone Screen Positive H (Not Detect) ng/mL Urine Fentanyl Screen POSITIVE H (Not Detect) Acetaminophen < 3 (<30) mcg/mL Ur Barbiturates Screen Not Detected (Not Detect) Ur Phencyclidine Scrn Not Detected (Not Detect) Ur Amphetamines Screen Not Detected (Not Detect) U Benzodiazepines Scrn Not Detected (Not Detect) Urine Cocaine Screen POSITIVE H (Not Detect) U Marijuana (THC) Screen Not Detected (Not Detect) Ethyl Alcohol < 10 mg/dL COVID-19 ([facility]) Negative (Negative) COVID-19 Clin Com See Note Independent Interpretation I performed an independent interpretation of an: EKG Interpretation: Sinus bradycardia with a rate of 47 beats per minute. No AV blocks. No ST segment changes. EKG relatively unchanged when compared to from 3 days prior Discharge Plan Discharge Clinical Impression: Gabapentin overdose, Suicidal ideation Patient Disposition: Still a Patient Prescriptions: No Action methadone [Methadone Intensol] 10 mg/mL Concentrate 70 mg PO DAILY Rx Instructions: [facility]. [phone], Dose verified by Inderjit CALLOWAY quetiapine 25 mg tablet 25 mg PO BEDTIME clonidine HCl 0.1 mg tablet 0.1 mg PO DAILY hydroxyzine pamoate 50 mg capsule 50 mg PO DAILY PRN (Reason: Anxiety) oxcarbazepine 300 mg tablet 300 mg PO BID melatonin 3 mg tablet 3 mg PO BEDTIME clopidogrel 75 mg tablet 75 mg PO DAILY aspirin 81 mg tablet,delayed release (DR/EC) 81 mg PO DAILY lisinopril 10 mg tablet 10 mg PO DAILY gabapentin 300 mg capsule 300 mg PO TID sertraline 50 mg tablet 50 mg PO DAILY Interventions: [place]-Suicide Risk Severity Scale Last Done: 01/07/24 20:43 Print Language: Urdu
--- NOTE | 2024-01-07 17:38 | ECG_ITS ---
Test Reason : OVERDOSE Blood Pressure : / mmHG Vent. Rate : 047 BPM Atrial Rate : 047 BPM P-R Int : 160 ms QRS Dur : 104 ms QT Int : 478 ms P-R-T Axes : 030 -03 011 degrees QTc Int : 423 ms Sinus bradycardia Minimal voltage criteria for LVH, may be normal variant ( R in aVL ) Possible Anterior infarct (cited on or before 04-JAN-2024) Abnormal ECG When compared with ECG of 04-JAN-2024 14:03, No significant change was found Referred By: Skinny Barker Electronically Signed By:BERONICA CHIANG
[2024-01-07 17:59] LABS: MANUAL DIFF FLAG NO
[2024-01-07 18:03] LABS: Basophils Percent Auto 0.4 % (0-2); Eosinophils Absolute Auto 0.2 X10*3/uL (0.0-0.4); Eosinophils Percent Auto 2.9 % (0-4); Hematocrit 37.4 % (42.0-52.0); Hemoglobin 12.6 g/dl (14.0-18.0); Imm Gran Abs Auto 0.02 X10*3/uL (0.00-0.03); Imm Gran Pct Auto 0.4 % (0.0-0.4); Lymphocytes Absolute Auto 1.5 X10*3/uL (1.2-4.9); Lymphocytes Percent Auto 29.1 % (20-40); Mean Corpuscular HGB Conc 33.7 g/dl (31.0-36.0); Mean Corpuscular Hemoglobin 27.5 pg (27.0-33.0); Mean Corpuscular Volume 81.5 fL (80.0-98.0); Mean Platelet Volume 10.5 fL (9.4-12.4); Monocytes Absolute Auto 0.4 X10*3/uL (0.1-1.2); Monocytes Percent Auto 8.2 % (2-11); Neutrophils Absolute Auto 3.1 x10*3/uL (2.0-8.3); Platelet Count 248 X10*3/uL (160-400); Red Blood Count 4.59 X10*6/uL (4.60-5.80); Red Cell Distribution Width 13.9 % (11.0-16.0); White Blood Count 5.3 X10*3/uL (4.8-10.8)
[2024-01-07 18:09] LABS: Prothrombin Time 12.4 SEC (11.1-13.3)
[2024-01-07 18:11] LABS: Partial Thromboplastin Time 31.6 SEC (26.0-36.8)
[2024-01-07 18:14] LABS: COVID-19 Test Negative (Negative); IDNOW Serial# 08D9AD1C
[2024-01-07 18:24] LABS: Acetaminophen LAB < 3 mcg/mL (<30); Alanine Aminotransferase 42 U/L (0-40); Albumin Level 3.6 g/dL (3.5-5.0); Alkaline Phosphatase 96 U/L (39-117); Anion Gap 14 (12-20); Aspartate Amino Transferase 37 U/L (5-37); Bilirubin Total 0.3 mg/dL (0.0-1.0); Blood Urea Nitrogen 10 mg/dL (9-16); Calcium 9.3 mg/dL (8.4-10.2); Carbon Dioxide 25 mmol/L (22-29); Chloride 103 mmol/L (96-108); Creatinine Clr Calc Pharmacy 154.2; Estimated Glomerular Filt Rate > 60; Ethanol < 10 mg/dL; Glucose Random 92 mg/dL (60-115); Potassium 3.6 mmol/L (3.3-5.1); Salicylate < 5.0 mg/dL (15-30); Sodium 138 mmol/L (135-145); Total Protein 7.5 g/dL (6.5-8.0)
--- NOTE | 2024-01-07 18:26 | PC.NURSE ---
call made to poison control, it is advised that the patient has supportive care: ekg q2hr q9agemc as long as the qtc and qrs does not become unstable, then q6hr after that. labs are to be drawn q6hr to monitor potassium and magnesium levels. monitor for seizures and vomiting, poison control advised patient can get benzos and zofran as needed.
--- NOTE | 2024-01-07 18:31 | PC.NURSE ---
patient presented to ED after ingesting 30, 300 mg metformin pills. patient was brought back to room 12, patient is alert and oriented x3, patient changed over by this RN and security, patient belongings placed in decon due to drug paraphernalia. patient has sitter at bedside 1:1, on tele monitor.
[2024-01-07 19:39] VITALS: BP 138/85; PULSE 53; RESP 17; TEMP 36.8; O2SAT 98
--- NOTE | 2024-01-07 21:02 | PC.NURSE ---
call from poison control - they are requesting an additional 2 EKGs. one now at 2100 and another at 2300. IF these remain stable then patient shall have EKGs Q6HRs.
--- NOTE | 2024-01-07 21:07 | ECG_ITS ---
Test Reason : OD Blood Pressure : / mmHG Vent. Rate : 041 BPM Atrial Rate : 041 BPM P-R Int : 150 ms QRS Dur : 098 ms QT Int : 486 ms P-R-T Axes : 025 003 011 degrees QTc Int : 400 ms Marked sinus bradycardia Possible Anterior infarct (cited on or before 04-JAN-2024) Abnormal ECG When compared with ECG of 07-JAN-2024 20:58, No significant change was found Referred By: Fabio Grissom Electronically Signed By:BERNOICA CHIANG
[2024-01-07 21:31] LABS: Appearance Urine Clear; Color Urine Yellow; Glucose Urine UA Negative (Negative); Leukocyte Esterase Urine Negative (Negative); Nitrite Urine Negative (Negative); PH 6.5 (5.0-9.0); Urine Blood Negative (Negative); Urine Ketones Negative (Negative); Urine Protein Negative (Neg-Trace)
[2024-01-07 21:45] LABS: Amphetamine Screen Urine Not Detected (Not Detect); Barbiturates, Urine Not Detected (Not Detect); Benzodiazepines Screen Urine Not Detected (Not Detect); Buprenorphine Scr Not Detected (Not Detect); Cannabinoid Screen Urine Not Detected (Not Detect); Cocaine Screen Urine POSITIVE (Not Detect); Fentanyl, urine POSITIVE (Not Detect); Methadone Screen, Urine Positive (Not Detect); Opiate Screen Urine POSITIVE (Not Detect); Oxycodone Screen Urine Not Detected (Not Detect); Phencyclidine Screen Urine Not Detected (Not Detect)
[2024-01-07 22:26] VITALS: BP 135/69; PULSE 50; RESP 17; TEMP 36.1; O2SAT 100
[2024-01-07 23:28] LABS: Alanine Aminotransferase 40 U/L (0-40); Albumin Level 3.4 g/dL (3.5-5.0); Alkaline Phosphatase 91 U/L (39-117); Anion Gap 15 (12-20); Aspartate Amino Transferase 34 U/L (5-37); Bilirubin Total 0.3 mg/dL (0.0-1.0); Blood Urea Nitrogen 10 mg/dL (9-16); Calcium 9.5 mg/dL (8.4-10.2); Carbon Dioxide 23 mmol/L (22-29); Chloride 104 mmol/L (96-108); Creatinine Clr Calc Pharmacy 148.7; Estimated Glomerular Filt Rate > 60; Glucose Random 105 mg/dL (60-115); Magnesium 2.1 mg/dL (1.6-2.6); Potassium 3.7 mmol/L (3.3-5.1); Sodium 138 mmol/L (135-145); Total Protein 7.2 g/dL (6.5-8.0)
[2024-01-08 00:33] VITALS: BP 109/70; PULSE 46; RESP 17; TEMP 36.9; O2SAT 97
--- NOTE | 2024-01-08 02:32 | MHC.CARE ---
Once pt was medically cleared by the provider, the provider didn't want to move the pt to the POD until the pt had woken up more. Pt will remain in the main ED until morning. CARE Team will assess the pt in the morning once the pt has had time to rest.
[2024-01-08 04:39] VITALS: BP 113/65; PULSE 54; RESP 17; TEMP 36.4; O2SAT 96
--- NOTE | 2024-01-08 06:36 | HE.PHANOTE ---
Methadone Patient receives from [facility] ([phone]) in [place]. Per ELLI Jansen in clinic patient received 70mg on 01/06/24 @ 0805.
--- NOTE | 2024-01-08 07:42 | PC.NURSE ---
Assumed care of patient at 0645, patient appears to be sleeping, respirations even and unlabored, no apparent distress noted. Continue plan of care for care team eval this am
[2024-01-08] MEDS: Aspirin Enteric Coated 81 MG TABLET.DR PO (08:01)
[2024-01-08] MEDS: methADONE HCl 20 MG/2 ML ORAL.CONC 70 MG PO (08:01)
[2024-01-08] MEDS: OXcarbazepine 300 MG TABLET PO ×2 (08:01→19:37)
[2024-01-08] MEDS: Sertraline HCL 50 MG TABLET PO (08:01)
[2024-01-08] MEDS: lisinopriL 10 MG TABLET PO (08:02)
[2024-01-08] MEDS: cloNIDine HCL 0.1 MG TABLET PO (08:02)
[2024-01-08] MEDS: Clopidogrel Bisulfate 75 MG TABLET PO (08:02)
[2024-01-08] MEDS: Nicotine 21 MG PATCH.TD24 TRANSDERMA (12:56)
[2024-01-08 14:12] VITALS: BP 141/76; PULSE 75; RESP 20; TEMP 36.4; O2SAT 96
[2024-01-08 14:13] VITALS: BMI 40.7
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
[2024-01-08] MEDS: Gabapentin 300 MG CAPSULE PO ×2 (16:44→19:37)
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
[2024-01-08] MEDS: QUEtiapine Fumarate 25 MG TABLET PO (19:37)
[2024-01-08] MEDS: Melatonin 3 MG TABLET PO (19:37)
[2024-01-09 08:00] VITALS: BP 118/68; PULSE 47; RESP 18; TEMP 36.9; O2SAT 97
[2024-01-09] MEDS: Gabapentin 300 MG CAPSULE PO ×3 (08:40→20:49)
[2024-01-09] MEDS: Clopidogrel Bisulfate 75 MG TABLET PO (08:40)
[2024-01-09] MEDS: OXcarbazepine 300 MG TABLET PO ×2 (08:41→20:49)
[2024-01-09] MEDS: Aspirin Enteric Coated 81 MG TABLET.DR PO (08:41)
[2024-01-09] MEDS: Sertraline HCL 50 MG TABLET PO (08:41)
[2024-01-09] MEDS: methADONE HCl 20 MG/2 ML ORAL.CONC 70 MG PO (08:43)
[2024-01-09 09:47] LABS: Estimated Average Glucose 114 mg/dL; Hemoglobin A1c % 5.6 % (<6.0)
[2024-01-09] MEDS: Acetaminophen 325 MG TABLET 650 MG PO (09:50)
[2024-01-09 09:59] LABS: Cholesterol 151 mg/dL (<200); HDL Cholesterol 36 mg/dL (>40); LDL Cholesterol Calculated 100 mg/dL (<100); Magnesium 2.1 mg/dL (1.6-2.6); Triglycerides 78 mg/dL (<150)
[2024-01-09 10:15] LABS: Free T4 (Free Thyroxine) 1.05 ng/dL (0.71-1.85); Thyroid Stimulating Hormone 1.16 uIU/mL (0.32-4.0)
[2024-01-09 10:30] VITALS: BP 118/68
--- NOTE | 2024-01-09 10:33 | PC.NURSE ---
AM Lisinopril and Clonidine held d/t decreased pulse. Provider Aura soares.
[2024-01-09 11:05] LABS: Folate 9.3 ng/mL (> or = 4.0); Vitamin B12 528 pg/mL (200-900)
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
[2024-01-09 20:00] VITALS: BP 134/74; PULSE 57; RESP 18; TEMP 36.9; O2SAT 98
[2024-01-09] MEDS: QUEtiapine Fumarate 50 MG TABLET PO ×2 (20:49)
[2024-01-09] MEDS: Melatonin 3 MG TABLET PO (20:49)
[2024-01-10 09:30] VITALS: BP 130/74; PULSE 64; RESP 20; TEMP 36.5; O2SAT 100
[2024-01-10] MEDS: Gabapentin 300 MG CAPSULE PO ×3 (09:30→22:18)
[2024-01-10] MEDS: lisinopriL 10 MG TABLET PO (09:30)
[2024-01-10] MEDS: OXcarbazepine 300 MG TABLET PO ×2 (09:30→22:18)
[2024-01-10] MEDS: Aspirin Enteric Coated 81 MG TABLET.DR PO (09:30)
[2024-01-10 09:31] VITALS: BP 130/74
[2024-01-10] MEDS: Clopidogrel Bisulfate 75 MG TABLET PO (09:31)
[2024-01-10] MEDS: cloNIDine HCL 0.1 MG TABLET PO (09:31)
[2024-01-10] MEDS: Sertraline HCL 25 MG TABLET 75 MG PO (09:32)
[2024-01-10] MEDS: methADONE HCl 20 MG/2 ML ORAL.CONC 70 MG PO (09:51)
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
[2024-01-10 20:00] VITALS: BP 113/58; PULSE 58; RESP 17; TEMP 36.6; O2SAT 98
[2024-01-10] MEDS: Melatonin 3 MG TABLET PO (22:18)
[2024-01-10] MEDS: traZODone HCL 50 MG TABLET PO (22:18)
[2024-01-10] MEDS: QUEtiapine Fumarate 50 MG TABLET PO (22:18)
[2024-01-11 07:00] VITALS: BMI 40.6
[2024-01-11] MEDS: Clopidogrel Bisulfate 75 MG TABLET PO (09:16)
[2024-01-11] MEDS: Gabapentin 300 MG CAPSULE PO ×3 (09:17→21:51)
[2024-01-11] MEDS: Aspirin Enteric Coated 81 MG TABLET.DR PO (09:17)
[2024-01-11] MEDS: OXcarbazepine 300 MG TABLET PO ×2 (09:17→21:50)
[2024-01-11] MEDS: Sertraline HCL 25 MG TABLET 75 MG PO (09:17)
[2024-01-11] MEDS: methADONE HCl 20 MG/2 ML ORAL.CONC 70 MG PO (09:18)
[2024-01-11 09:21] VITALS: BP 129/78
[2024-01-11] MEDS: lisinopriL 10 MG TABLET PO (09:21)
[2024-01-11] MEDS: cloNIDine HCL 0.1 MG TABLET PO (09:21)
[2024-01-11 09:22] VITALS: BP 129/78; PULSE 77; RESP 20; TEMP 37.1; O2SAT 99
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
[2024-01-11] MEDS: risperiDONE 1 MG TABLET PO ×2 (15:49→21:50)
[2024-01-11 20:00] VITALS: BP 118/60; PULSE 61; TEMP 36.3; O2SAT 97
[2024-01-11] MEDS: Melatonin 3 MG TABLET PO (21:51)
[2024-01-11] MEDS: QUEtiapine Fumarate 50 MG TABLET PO (21:51)
[2024-01-12 08:00] VITALS: BP 108/63; PULSE 47; RESP 19; TEMP 36.6; O2SAT 97
[2024-01-12] MEDS: methADONE HCl 20 MG/2 ML ORAL.CONC 70 MG PO (09:44)
[2024-01-12] MEDS: Clopidogrel Bisulfate 75 MG TABLET PO (09:45)
[2024-01-12] MEDS: Sertraline HCL 25 MG TABLET 75 MG PO (09:45)
[2024-01-12] MEDS: lisinopriL 10 MG TABLET PO (09:46)
[2024-01-12] MEDS: Gabapentin 300 MG CAPSULE PO ×3 (09:46→21:33)
[2024-01-12] MEDS: risperiDONE 1 MG TABLET PO ×2 (09:46→21:33)
[2024-01-12] MEDS: OXcarbazepine 300 MG TABLET PO ×2 (09:46→21:33)
[2024-01-12] MEDS: Aspirin Enteric Coated 81 MG TABLET.DR PO (09:46)
[2024-01-12] MEDS: cloNIDine HCL 0.1 MG TABLET PO (09:46)
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
[2024-01-12 20:00] VITALS: BP 118/67; PULSE 55; RESP 18; TEMP 36.9; O2SAT 96
[2024-01-12] MEDS: QUEtiapine Fumarate 50 MG TABLET PO (21:33)
[2024-01-12] MEDS: traZODone HCL 50 MG TABLET PO (21:33)
[2024-01-12] MEDS: Melatonin 3 MG TABLET PO (21:33)
[2024-01-13 09:14] VITALS: BP 161/72; PULSE 49; RESP 16; TEMP 36.7; O2SAT 99
[2024-01-13 09:18] VITALS: BP 161/72
[2024-01-13] MEDS: lisinopriL 10 MG TABLET PO (09:18)
[2024-01-13] MEDS: risperiDONE 1 MG TABLET PO ×2 (09:18→22:48)
[2024-01-13] MEDS: Sertraline HCL 25 MG TABLET 75 MG PO (09:18)
[2024-01-13 09:19] VITALS: BP 161/72
[2024-01-13] MEDS: Gabapentin 300 MG CAPSULE PO ×3 (09:19→22:47)
[2024-01-13] MEDS: cloNIDine HCL 0.1 MG TABLET PO (09:19)
[2024-01-13] MEDS: Aspirin Enteric Coated 81 MG TABLET.DR PO (09:19)
[2024-01-13] MEDS: Clopidogrel Bisulfate 75 MG TABLET PO (09:19)
[2024-01-13] MEDS: OXcarbazepine 300 MG TABLET PO ×2 (09:19→22:48)
[2024-01-13] MEDS: methADONE HCl 20 MG/2 ML ORAL.CONC 70 MG PO (09:21)
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
[2024-01-13 20:00] VITALS: BP 133/74; PULSE 61; RESP 18; TEMP 37.1; O2SAT 97
[2024-01-13] MEDS: QUEtiapine Fumarate 50 MG TABLET PO (22:47)
[2024-01-13] MEDS: traZODone HCL 50 MG TABLET PO (22:48)
[2024-01-13] MEDS: Melatonin 3 MG TABLET PO (22:48)
[2024-01-14 07:54] VITALS: BP 113/64; PULSE 48; RESP 16; TEMP 36.7; O2SAT 98
[2024-01-14 08:10] VITALS: BP 113/64
[2024-01-14] MEDS: Aspirin Enteric Coated 81 MG TABLET.DR PO (08:10)
[2024-01-14] MEDS: lisinopriL 10 MG TABLET PO (08:10)
[2024-01-14] MEDS: Clopidogrel Bisulfate 75 MG TABLET PO (08:10)
[2024-01-14] MEDS: cloNIDine HCL 0.1 MG TABLET PO (08:10)
[2024-01-14] MEDS: Sertraline HCL 25 MG TABLET 75 MG PO (08:10)
[2024-01-14] MEDS: methADONE HCl 20 MG/2 ML ORAL.CONC 70 MG PO (08:11)
[2024-01-14] MEDS: OXcarbazepine 300 MG TABLET PO ×2 (08:11→21:18)
[2024-01-14] MEDS: Gabapentin 300 MG CAPSULE PO ×3 (08:11→21:18)
[2024-01-14] MEDS: risperiDONE 1 MG TABLET PO ×2 (08:11→21:18)
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
[2024-01-14 20:00] VITALS: BP 114/63; PULSE 67; RESP 18; TEMP 36.8; O2SAT 96
[2024-01-14] MEDS: Melatonin 3 MG TABLET PO (21:18)
[2024-01-14] MEDS: QUEtiapine Fumarate 50 MG TABLET PO (21:18)
[2024-01-14] MEDS: traZODone HCL 50 MG TABLET PO (21:20)
[2024-01-15 08:00] VITALS: BP 145/86; PULSE 51; RESP 18; TEMP 36.4; O2SAT 98
[2024-01-15] MEDS: Aspirin Enteric Coated 81 MG TABLET.DR PO (08:38)
[2024-01-15] MEDS: risperiDONE 1 MG TABLET PO ×2 (08:38→21:38)
[2024-01-15] MEDS: lisinopriL 10 MG TABLET PO (08:38)
[2024-01-15] MEDS: cloNIDine HCL 0.1 MG TABLET PO (08:38)
[2024-01-15] MEDS: Sertraline HCL 25 MG TABLET 75 MG PO (08:38)
[2024-01-15] MEDS: OXcarbazepine 300 MG TABLET PO ×2 (08:38→21:38)
[2024-01-15] MEDS: Gabapentin 300 MG CAPSULE PO ×3 (08:39→21:38)
[2024-01-15] MEDS: Clopidogrel Bisulfate 75 MG TABLET PO (08:39)
[2024-01-15] MEDS: methADONE HCl 20 MG/2 ML ORAL.CONC 70 MG PO (08:42)
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
[2024-01-15 20:00] VITALS: BP 120/69; PULSE 65; RESP 16; TEMP 36.9; O2SAT 97
[2024-01-15] MEDS: Melatonin 3 MG TABLET PO (21:38)
[2024-01-15] MEDS: QUEtiapine Fumarate 100 MG TABLET PO (21:38)
[2024-01-16 08:45] VITALS: BP 122/65; PULSE 54; RESP 16; TEMP 36.3; O2SAT 99
[2024-01-16 08:49] VITALS: BP 122/65
[2024-01-16] MEDS: Aspirin Enteric Coated 81 MG TABLET.DR PO (08:49)
[2024-01-16] MEDS: Gabapentin 300 MG CAPSULE PO (08:49)
[2024-01-16] MEDS: Clopidogrel Bisulfate 75 MG TABLET PO (08:49)
[2024-01-16] MEDS: lisinopriL 10 MG TABLET PO (08:49)
[2024-01-16] MEDS: Sertraline HCL 25 MG TABLET 75 MG PO (08:49)
[2024-01-16] MEDS: OXcarbazepine 300 MG TABLET PO ×2 (08:49→21:18)
[2024-01-16] MEDS: risperiDONE 1 MG TABLET PO ×2 (08:49→21:17)
[2024-01-16] MEDS: methADONE HCl 20 MG/2 ML ORAL.CONC 70 MG PO (08:49)
[2024-01-16] MEDS: Gabapentin 400 MG CAPSULE PO ×2 (15:11→21:18)
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
[2024-01-16 20:00] VITALS: BP 127/70; PULSE 64; RESP 16; TEMP 36.2; O2SAT 97
[2024-01-16] MEDS: QUEtiapine Fumarate 100 MG TABLET PO (21:17)
[2024-01-16] MEDS: Melatonin 3 MG TABLET PO (21:18)
[2024-01-17 08:50] VITALS: BP 137/78; PULSE 68; RESP 18; TEMP 36.9; O2SAT 97
[2024-01-17] MEDS: Sertraline HCL 25 MG TABLET 75 MG PO (08:53)
[2024-01-17] MEDS: methADONE HCl 20 MG/2 ML ORAL.CONC 70 MG PO (08:53)
[2024-01-17] MEDS: Aspirin Enteric Coated 81 MG TABLET.DR PO (08:53)
[2024-01-17] MEDS: OXcarbazepine 300 MG TABLET PO (08:53)
[2024-01-17] MEDS: Gabapentin 400 MG CAPSULE PO (08:53)
[2024-01-17] MEDS: Clopidogrel Bisulfate 75 MG TABLET PO (08:53)
[2024-01-17] MEDS: lisinopriL 10 MG TABLET PO (08:53)
[2024-01-17] MEDS: risperiDONE 1 MG TABLET PO (08:53)
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
== END 2024-01-17 11:00 | disposition home or self-care (01) | DRG 750 ==
LOC: HO.ED 01-08 06:05 → HO.PM5 01-08 13:07
PROVIDERS: Physician Assistant; Admitting Provider Clinical Nurse Specialist Psychiatric/Mental Health, Adult; Emergency Provider Internal Medicine; PCP Family Medicine; Visit Provider Clinical Nurse Specialist Psychiatric/Mental Health, Adult
DX: F25.0 Schizoaffective disorder, bipolar type (principal); F11.20 Opioid dependence, uncomplicated; F43.21 Adjustment disorder with depressed mood; F19.10 Other psychoactive substance abuse, uncomplicated; Z20.822 Contact with and (suspected) exposure to COVID-19; T42.6X2A Poisoning by other antiepileptic and sedative-hypnotic drugs, intentional self-harm, initial encounter; Z59.02 Unsheltered homelessness; Z63.4 Disappearance and death of family member; Z79.02 Long term (current) use of antithrombotics/antiplatelets; Z79.82 Long term (current) use of aspirin; Z79.899 Other long term (current) drug therapy
CPT/HCPCS: 36415; 80053; 80061; 80143; 80179; 80307; 81003; 82607; 82746; 83036; 83735; 84439; 84443; 85025; 85610; 85730; 87635; 93005; 99285; S9485

== ENCOUNTER → 2024-01-07 17:38 | Outpatient (BNV) | payer MEDICAID, SELFPAY | PROVIDERS: Admitting Provider Clinical Nurse Specialist Psychiatric/Mental Health, Adult; Emergency Provider Internal Medicine; PCP Family Medicine; Visit Provider Internal Medicine | DX: R00.1 Bradycardia, unspecified (principal); R94.31 Abnormal electrocardiogram [ECG] [EKG] | CPT/HCPCS: 93010 ==

== ENCOUNTER → 2024-01-08 12:12 | Outpatient (BNV) | payer OTHER, SELFPAY | PROVIDERS: Admitting Provider Clinical Nurse Specialist Psychiatric/Mental Health, Adult; Emergency Provider Internal Medicine; PCP Family Medicine; Visit Provider Clinical Nurse Specialist Psychiatric/Mental Health, Adult | DX: F25.0 Schizoaffective disorder, bipolar type (principal); F11.20 Opioid dependence, uncomplicated; F19.90 Other psychoactive substance use, unspecified, uncomplicated; F43.21 Adjustment disorder with depressed mood; Z63.4 Disappearance and death of family member | CPT/HCPCS: 99231; 99232 ==

== ENCOUNTER 2024-01-22 22:47 | Inpatient (IN) | payer MEDICAID, OTHER, SELFPAY ==
--- NOTE | 2024-01-22 | ECG_ITS ---
Test Reason : OVERDOSE Blood Pressure : / mmHG Vent. Rate : 057 BPM Atrial Rate : 057 BPM P-R Int : 158 ms QRS Dur : 092 ms QT Int : 424 ms P-R-T Axes : 050 007 027 degrees QTc Int : 412 ms Sinus bradycardia Possible Left atrial enlargement Possible Anterior infarct (cited on or before 04-JAN-2024) Abnormal ECG When compared with ECG of 07-JAN-2024 22:59, No significant change was found Referred By: Generic ED Physician Electronically Signed By:ALISA WHALEY MD
--- NOTE | ~2024-01-22 | CT_ITS ---
EXAMINATION: CT FOREARM WITH CONTRAST, RIGHT CLINICAL INFORMATION: cellulitis, fluctuance, r/o abscess ivda COMPARISON: None available. TECHNIQUE: Multidetector volumetric imaging was obtained through the right forearm following intravenous administration of 85 mL Omnipaque 350. Multiplanar reformatted images in coronal and sagittal orientations were submitted. This CT examination was performed using dose optimization techniques as appropriate, variously including the following: *Automated exposure control *Adjustment of mA and/or kV according to patient size (this includes techniques or standardized protocols for targeted exams where dose is matched to indication/reason for exam; i.e. extremities or head) *Use of iterative reconstruction technique DLP: 162 mGy-cm FINDINGS: At the dorsal aspect of the forearm, there is an oblique band of ill-defined soft tissue attenuation along the superficial vein which may correspond to local inflammation or early phlegmon formation. No discrete drainable fluid collection is identified, however. This region of inflammation measures approximately 12 cm in length from the level of the mid forearm of the distal margin of the study at the level of the carpus. Skin thickening and underlying edema are present at the dorsal aspect of the wrist and forearm at the surrounding soft tissues. No significant gas. The imaged forearm musculature is normal in attenuation without deep fascial abnormalities. Extensor and flexor tendons are intact. 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 More mild osteoarthritis at the first CMC joint. Small os styloideum (carpal boss). No acute osseous findings. No evidence of osteomyelitis. CT/CT forearm RT w IV con IMPRESSION: 1. A 12 cm band of ill-defined soft tissue attenuation at the dorsal aspect of the forearm which may correspond to local inflammation or early phlegmon formation along the course of a subcutaneous vein. No discrete drainable fluid collection to indicate abscess. No significant gas. 2. 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
[2024-01-22 22:48] VITALS: BP 143/86; PULSE 74; RESP 20; TEMP 37; O2SAT 97; BMI 41.4
[2024-01-22 23:21] VITALS: BP 139/80; PULSE 59; RESP 13; TEMP 36.6; O2SAT 98
--- NOTE | 2024-01-22 23:24 | MHC.EDTECH ---
pt changed over with security into hospital gown. pt belongings placed into decon. pt EKG completed and placed on ekg monitor tech. waiting for orders for blood work per provider and poison control. pt here for overdose.
--- NOTE | 2024-01-22 23:27 | PC.NURSE ---
this rn assumed care of pt, pt a&ox4, respirations even and unlabored. pt ambulatory into stretcher. pt reports about one hour prior to arrival into the ED pt made SI attempt by taking 27 300mg gabapentin. pt is fully conscious, alert and oriented at this time, no respiratory distress noted, pt able to speak in full clear sentences. pt noted to be sinus Faustino on tele. pt denies HI, pt changed over by security, belongings placed in decon. Jelly ESCAMILLA from poison control contacted, reports 6-8 hours of medical observation with lab draws. No other recommendations at this time. aware.
--- NOTE | 2024-01-22 23:28 | ED.OVERDOSE ---
HPI - Overdose General Chief Complaint: Overdose Stated Complaint: SI Time Seen by Provider: 01/22/24 23:21 Source: patient Mode of arrival: ambulatory Limitations: no limitations History of Present Illness ED Provider: Dr. Gutiérrez HPI Narrative: patient with a history of schizoaffective disorder, depression and polysubstance abuse. He was just admitted to psychiatry 10 days ago. 5 days ago his girlfriend caught him using fentanyl, today she told him that they will not be together. He took 20 gabapentin in a suicide gesture. MD complaint: intentional overdose Onset (ago): hour(s) Intent: suicide attempt Associated symptoms: depression Related Data Home Medications ?Medication ?Instructions ?Recorded ?Confirmed methadone 10 mg/mL oral 70 mg PO DAILY 01/28/23 01/08/24 concentrate (Methadone Intensol) aspirin 81 mg tablet,delayed 81 mg PO DAILY 01/08/24 01/08/24 release clopidogrel 75 mg tablet 75 mg PO DAILY 01/08/24 01/08/24 hydroxyzine pamoate 50 mg capsule 50 mg PO DAILY PRN Anxiety 01/08/24 01/08/24 lisinopril 10 mg tablet 10 mg PO DAILY 01/08/24 01/08/24 Previous Rx's ?Medication ?Instructions ?Recorded gabapentin 400 mg capsule 400 mg PO TID #21 caps 01/17/24 melatonin 3 mg tablet 3 mg PO BEDTIME #30 tabs 01/17/24 naloxone 4 mg/actuation nasal 4 mg intranasal Q2M PRN opioid 01/17/24 spray (Narcan) overdose #2 ea oxcarbazepine 300 mg tablet 300 mg PO BID #60 tabs 01/17/24 quetiapine 100 mg tablet 100 mg PO BEDTIME #30 tabs 01/17/24 risperidone 1 mg tablet 1 mg PO BID #60 tabs 01/17/24 sertraline 25 mg tablet 75 mg (3 x 25 mg) PO DAILY #90 tabs 01/17/24 Allergies Allergy/AdvReac Type Severity Reaction Status Date / Time No Known Allergies Allergy Verified 01/22/24 22:51 [No Known Allergies*] Review of Systems Review of Systems: Yes all other systems are reviewed and are negative Neurologic: Denies Sensory deficit (Neuro) PMFSH Past Medical History Medical History Opioid use disorder, severe, on maintenance therapy, dependence Polysubstance use disorder Schizoaffective disorder, bipolar type Brain lesion Cocaine abuse Hemorrhagic stroke Social History Social History Household Members: None Housing: Homeless Do you presently have visiting nurse or other home services: No Unable to assess alcohol history related to: Unknown Alcohol intake: former Patient Tobacco Use Status: Never used Tobacco Smoked in Last 30 Days: No e-Cigarette/Vaping Use: Never Used Second Hand Smoke Exposure: No Use of substances other than those prescribed or required for medical reasons: Yes Substance Use Type: Crack/Cocaine Advance Directives: No Advance Directives Information Provided: Yes Do you have a plan to hurt others: No Plan service: No Sexual orientation: Straight/Heterosexual Physical Exam Vital Signs: Vital Signs: Last Vital Signs Temp 97.8 F 01/23/24 05:52 Pulse 52 01/23/24 05:52 Resp 15 01/23/24 05:52 BP 141/72 H 01/23/24 05:52 Pulse Ox 99 01/23/24 05:52 O2 Del Method Room Air 01/23/24 05:52 BMI result Body Mass Index 41.4 Const: Other: obese male looking chronically ill Nutritional Appearance: obese Orientation/consciousness: oriented to person and patient oriented x3 Limitations: no limitations HEENT: Other: disconjugate gaze Head: Yes normal to inspection Ears: external ears normal General nose exam: Normal external nose present Mouth: Normal oral and palatal mucosa present and oropharynx normal Throat: Yes posterior oropharynx normal Eyes: General: appearance normal, both eyes and all related structures Neck: Other: supple Neck: Yes normal visual inspection Chest: Chest palpation & inspection: normal inspection of the chest Resp: Auscultation: clear to auscultation bilaterally Cardio: Jugular venous distension: no JVD Rate: regular rate Rhythm: regular rhythm Heart sounds: S1 normal heart sound present and S2 normal heart sound present GI: Inspection: Yes normal to inspection Palpation (GI): Soft to palpation, nontender and No hepatosplenomegaly present Auscultation: normal bowel sounds : General: Yes no CVA tenderness Back/Spine/Pelvis: Back: no CVA tenderness Skin: General skin exam: no rashes or lesions noted Neuro: General: oriented to person and patient oriented x3 Cranial nerves: Yes CN's II-XII intact bilaterally Motor exam (neuro): 5/5 motor strength present throughout Sensory Exam: No Sensory deficit (Neuro) Extrem: General: Yes normal to inspection Psych: Appearance: grossly normal Course Reevaluation(s) Reevaluation #1: discussed with poison control 6-8 hours of cardiac monitoring Time: 23:33 Reevaluation #2: physician observation: started at 11:30pm, indication is that patient needs continual monitoring for gabapentin overdose Time: 23:33 Reevaluation #3: Patient is medically cleared Time: 05:59 Medications Administered Discontinued Medications Generic Name Dose Route Start Last Admin Trade Name Freq PRN Reason Stop Dose Admin Acetaminophen 650 mg 01/23/24 01:02 01/23/24 01:12 Acetaminophen 325 Mg Tablet PO 01/23/24 01:03 650 mg ONCE ONE Administration Medical Decision Making Differential Diagnosis Differential Diagnoses: The differential diagnosis associated with the presentation includes (suicide attempt, depression, schizoaffective disorder, gabapentin overdose) Admission/Observation Consideration of admission/observation: Escalation of care including admission/observation considered (upon arrival patient was considered for admission) Consult Healthcare Provider Management of the patient was discussed with: It Risk And Assurance Manager (poison control) and Behavioral Health Provider Lab Data 01/22/24 23:34 01/22/24 23:34 Labs: Lab Results 01/22/24 01/22/24 Range/Units 23:34 23:42 WBC 5.6 (4.8-10.8) X10*3/uL RBC 4.76 (4.60-5.80) X10*6/uL Hgb 13.0 L (14.0-18.0) g/dl Hct 38.2 L (42.0-52.0) % MCV 80.3 (80.0-98.0) fL MCH 27.3 (27.0-33.0) pg MCHC 34.0 (31.0-36.0) g/dl RDW 14.0 (11.0-16.0) % Plt Count 234 (160-400) X10*3/uL MPV 10.6 (9.4-12.4) fL Immature Gran % (Auto) 0.2 (0.0-0.4) % Neut % (Auto) 55.3 (45-73) % Lymph % (Auto) 29.9 (20-40) % [place] % (Auto) 10.5 (2-11) % Eos % (Auto) 3.4 (0-4) % Baso % (Auto) 0.7 (0-2) % Lymph # (Auto) 1.7 (1.2-4.9) X10*3/uL [place] # (Auto) 0.6 (0.1-1.2) X10*3/uL Eos # (Auto) 0.2 (0.0-0.4) X10*3/uL Baso # (Auto) 0.0 (0.0-0.2) X10*3/uL Abs Immat Gran (auto) 0.01 (0.00-0.03) X10*3/uL Absolute Neuts (auto) 3.1 (2.0-8.3) x10*3/uL Absolute Nucleated RBC 0.000 (0.0-0.012) X10*3/uL Nucleated RBC % (auto) 0.0 (0.0-0.2) /100WBC Sodium 141 (135-145) mmol/L Potassium 3.8 (3.3-5.1) mmol/L Chloride 104 (96-108) mmol/L Carbon Dioxide 25 (22-29) mmol/L Anion Gap 16 (12-20) BUN 21 H (9-16) mg/dL Creatinine 0.81 (0.5-1.4) mg/dL Estim Creat Clear Calc 153.7 Estimated GFR > 60 Random Glucose 101 (60-115) mg/dL Calcium 9.0 (8.4-10.2) mg/dL Total Bilirubin 0.3 (0.0-1.0) mg/dL AST 34 (5-37) U/L ALT 44 H (0-40) U/L Alkaline Phosphatase 94 (39-117) U/L Total Protein 7.8 (6.5-8.0) g/dL Albumin 3.8 (3.5-5.0) g/dL Salicylates < 5.0 L (15-30) mg/dL Urine Opiates Screen Not Detected (Not Detect) Ur Buprenorphine Scrn Not Detected (Not Detect) ng/mL Ur Oxycodone Screen Not Detected (Not Detect) ng/mL Urine Methadone Screen Positive H (Not Detect) ng/mL Urine Fentanyl Screen POSITIVE H (Not Detect) Acetaminophen < 3 (<30) mcg/mL Ur Barbiturates Screen Not Detected (Not Detect) Ur Phencyclidine Scrn Not Detected (Not Detect) Ur Amphetamines Screen Not Detected (Not Detect) U Benzodiazepines Scrn Not Detected (Not Detect) Urine Cocaine Screen POSITIVE H (Not Detect) U Marijuana (THC) Screen Not Detected (Not Detect) Ethyl Alcohol < 10 mg/dL Independent Interpretation I performed an independent interpretation of an: EKG (sinus 57, no st or twave changes) External Record Review External record reviewed: Outpatient record Chronic Conditions Patient?s care impacted by: Other psychiatric illness Social Determinants Patient?s care significantly limited by Social Determinants of Health including: Low income and Alcoholism and drug addiction in family Discharge Plan Discharge Clinical Impression: Suicidal ideation, Polysubstance use disorder Patient Disposition: Still a Patient Prescriptions: No Action methadone [Methadone Intensol] 10 mg/mL Concentrate 70 mg PO DAILY [facility] [place]. [phone], Dose verified by Inderjit CALLOWAY hydroxyzine pamoate 50 mg capsule 50 mg PO DAILY PRN (Reason: Anxiety) clopidogrel 75 mg tablet 75 mg PO DAILY aspirin 81 mg tablet,delayed release (DR/EC) 81 mg PO DAILY lisinopril 10 mg tablet 10 mg PO DAILY quetiapine 100 mg Tablet 100 mg PO BEDTIME Qty: 30 0RF sertraline 25 mg Tablet 75 mg PO DAILY Qty: 90 0RF risperidone 1 mg Tablet 1 mg PO BID Qty: 60 0RF oxcarbazepine 300 mg tablet 300 mg PO BID Qty: 60 0RF melatonin 3 mg tablet 3 mg PO BEDTIME Qty: 30 0RF naloxone [Narcan] 4 mg/actuation spray,non-aerosol 4 mg intranasal Q2M PRN (Reason: opioid overdose) Qty: 2 0RF Rx Instructions: spray 1 dose into ONE nostril; alternate nostrils w each dose until help arrives gabapentin 400 mg capsule 400 mg PO TID Qty: 21 4RF Print Language: Yoruba
--- NOTE | 2024-01-22 23:34 | PC.NURSE ---
sitter at bedside for safety.
[2024-01-22 23:39] LABS: MANUAL DIFF FLAG NO
[2024-01-22 23:41] LABS: Basophils Percent Auto 0.7 % (0-2); Eosinophils Absolute Auto 0.2 X10*3/uL (0.0-0.4); Eosinophils Percent Auto 3.4 % (0-4); Hematocrit 38.2 % (42.0-52.0); Imm Gran Abs Auto 0.01 X10*3/uL (0.00-0.03); Imm Gran Pct Auto 0.2 % (0.0-0.4); Lymphocytes Absolute Auto 1.7 X10*3/uL (1.2-4.9); Lymphocytes Percent Auto 29.9 % (20-40); Mean Corpuscular Hemoglobin 27.3 pg (27.0-33.0); Mean Corpuscular Volume 80.3 fL (80.0-98.0); Mean Platelet Volume 10.6 fL (9.4-12.4); Monocytes Absolute Auto 0.6 X10*3/uL (0.1-1.2); Monocytes Percent Auto 10.5 % (2-11); Neutrophils Absolute Auto 3.1 x10*3/uL (2.0-8.3); Neutrophils Percent Auto 55.3 % (45-73); Platelet Count 234 X10*3/uL (160-400); Red Blood Count 4.76 X10*6/uL (4.60-5.80); White Blood Count 5.6 X10*3/uL (4.8-10.8)
[2024-01-22 23:59] LABS: Acetaminophen LAB < 3 mcg/mL (<30); Alanine Aminotransferase 44 U/L (0-40); Albumin Level 3.8 g/dL (3.5-5.0); Alkaline Phosphatase 94 U/L (39-117); Anion Gap 16 (12-20); Aspartate Amino Transferase 34 U/L (5-37); Bilirubin Total 0.3 mg/dL (0.0-1.0); Blood Urea Nitrogen 21 mg/dL (9-16); Carbon Dioxide 25 mmol/L (22-29); Chloride 104 mmol/L (96-108); Creatinine Clr Calc Pharmacy 153.7; Estimated Glomerular Filt Rate > 60; Ethanol < 10 mg/dL; Glucose Random 101 mg/dL (60-115); Potassium 3.8 mmol/L (3.3-5.1); Salicylate < 5.0 mg/dL (15-30); Sodium 141 mmol/L (135-145); Total Protein 7.8 g/dL (6.5-8.0)
[2024-01-23] VITALS (8 sets, daily range): BP systolic 126–143; BP diastolic 57–91; PULSE 5–86; RESP 14–17; TEMP 36.6–36.8; O2SAT 94–99
[2024-01-23 00:03] LABS: Amphetamine Screen Urine Not Detected (Not Detect); Barbiturates, Urine Not Detected (Not Detect); Benzodiazepines Screen Urine Not Detected (Not Detect); Buprenorphine Scr Not Detected (Not Detect); Cannabinoid Screen Urine Not Detected (Not Detect); Cocaine Screen Urine POSITIVE (Not Detect); Fentanyl, urine POSITIVE (Not Detect); Methadone Screen, Urine Positive (Not Detect); Opiate Screen Urine Not Detected (Not Detect); Oxycodone Screen Urine Not Detected (Not Detect); Phencyclidine Screen Urine Not Detected (Not Detect)
[2024-01-23] MEDS: Acetaminophen 325 MG TABLET 650 MG PO ×2 (01:12→22:56)
--- NOTE | 2024-01-23 01:22 | PC.NURSE ---
update given to Jelly ESCAMILLA on poison control. pt reporting 7/10 headache at this time, pt medicated per sep, tolerated well.
--- NOTE | 2024-01-23 06:19 | PC.NURSE ---
Addendum entered by Kayley Urbina 01/23/24 06:19: aware. Original Note: Jelly ESCAMILLA from poison control reports pt may be medically cleared at this time.
--- NOTE | 2024-01-23 07:53 | PC.NURSE ---
This RN assumes care for Pt today. Pt is observed eating breakfast upon arrival to room. VSS and Pt presents with NAD. Pt reports SI that comes and goes and is exacerbated by coming down from doing drugs. He reports conflict with his from his drug use which is also adding to his stress. Pt is awaiting care team for further plan of care.
--- NOTE | 2024-01-23 09:49 | HE.PHANOTE ---
Re Methadone Received Verification from from ED. Patient received 60mg on 01/22/24 from [facility].
[2024-01-23] MEDS: methADONE HCl 20 MG/2 ML ORAL.CONC 60 MG PO (10:16)
--- NOTE | 2024-01-23 11:57 | PC.NURSE ---
Pt is resting comfortable in bed. Pt was informed he was scheduled to transfer to the pod, after information was relayed this RN was made aware that a change in plan has occurred. Awaiting new plan and will update Pt accordingly.
--- NOTE | 2024-01-23 18:11 | PM.EVENT ---
Event Note Date of Service: 01/23/24 Event Note: 53-year-old male admitted to adult Psychiatry with consult placed hospitalist service for evaluation of possible cellulitis of the right forearm. The patient is an IV cocaine abuser, reports last use was about 1 week ago. He is noticed some focal swelling over the dorsal aspect of the right wrist with faint erythema ongoing for several days. He reports he forgot to mention this to the ED provider. He has been afebrile and has no leukocytosis. On exam, there is a 4cm area of fluctuance over the dorsum of the R wrist with faint overlying erythema. Pt reports he injected directly into this area. Will check CT R wrist w/ contrast to evaluate for abscess. Start doxycycline 100mg BID- take with food and full glass of water, do not lay down for 1 hour after taking medication. Continue course for 7 days. Will continue following for results. Time Spent With Patient Time: Total time managing care of this patient today ____ minutes.
--- NOTE | 2024-01-23 19:45 | PC.ADMIT ---
Ga is a 53 year old male w a hx of schizophrenia who arrived on m5 from the [facility] at 17:25 after self presenting after an intentional overdose yesterday of #30 gabapentin. He was put on observation for 6-8 hours then medically cleared. Ga was recently on m5 from 01/07-01/17/24 and has a long history of [facility]. Ga reports living with his partner and another couple and upon previous discharge returned to apartment where other person living there filed a restraining order against him. Ga reported doing speedballs the past few days and had been non-compliant with methadone clinic. Skin check done, by and ONEL and vital signs attained. Ga is alert and oriented x 4 and cooperative with the admission process. Ga reported a painful lump in his right forearm where he had reportedly injected cocaine- Hospitalist consult done and CT w contrast ordered for 01/22 @ 21:45. Ga's mood is flat and he appears tired, denies SI/HI and agrees to seek help if that changes. Admission process completed. All personal belongings are in Decon. Patient reoriented to unit and placed on 15 minute checks for safety.
[2024-01-23] MEDS: iohexoL 350 MG/ML 100 ML INFUS..BTL 85 ML IV (22:42)
[2024-01-23] MEDS: Doxycycline Monohydrate 100 MG CAPSULE PO (22:57)
[2024-01-23] MEDS: QUEtiapine Fumarate 100 MG TABLET PO (22:57)
[2024-01-23] MEDS: Melatonin 3 MG TABLET PO (22:57)
[2024-01-23] MEDS: OXcarbazepine 300 MG TABLET PO (22:58)
[2024-01-23] MEDS: risperiDONE 1 MG TABLET PO (22:58)
[2024-01-24] MEDS: traZODone HCL 50 MG TABLET PO (01:37)
[2024-01-24] MEDS: hydrOXYzine HCL 25 MG TABLET PO (01:37)
[2024-01-24 08:00] VITALS: BP 140/75; PULSE 55; TEMP 36.2
[2024-01-24] MEDS: OXcarbazepine 300 MG TABLET PO ×2 (09:16→21:48)
[2024-01-24] MEDS: Doxycycline Monohydrate 100 MG CAPSULE PO ×2 (09:16→21:48)
[2024-01-24] MEDS: Sertraline HCL 25 MG TABLET 75 MG PO (09:16)
[2024-01-24] MEDS: risperiDONE 1 MG TABLET PO ×2 (09:57→21:48)
[2024-01-24] MEDS: methADONE HCl 20 MG/2 ML ORAL.CONC 60 MG PO (09:57)
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
[2024-01-24 20:00] VITALS: BP 138/88; PULSE 78; TEMP 36.8; O2SAT 96
[2024-01-24] MEDS: Melatonin 3 MG TABLET PO (21:48)
[2024-01-24] MEDS: QUEtiapine Fumarate 100 MG TABLET PO (21:48)
[2024-01-25 08:00] VITALS: BP 125/73; PULSE 52; RESP 14; TEMP 36.4; O2SAT 95
[2024-01-25] MEDS: methADONE HCl 20 MG/2 ML ORAL.CONC 70 MG PO (09:22)
[2024-01-25] MEDS: OXcarbazepine 300 MG TABLET PO ×2 (09:22→21:45)
[2024-01-25] MEDS: Sertraline HCL 25 MG TABLET 75 MG PO (09:22)
[2024-01-25] MEDS: Doxycycline Monohydrate 100 MG CAPSULE PO ×2 (09:22→21:45)
[2024-01-25] MEDS: risperiDONE 1 MG TABLET PO ×2 (09:22→21:45)
--- NOTE | 2024-01-25 15:40 | HO.PSYCHPN ---
Subjective Subjective Date of Service: 01/25/24 Reason For Visit: SI Subjective Notes: Conditional Voluntary Healthcare Proxy: No Guardianship: No Medical Problems Affecting Mental Status: No Interim History: Methadone titrated. Pt agrees to attend recovery group this afternoon. Anergic, spending time in bed. Discussed Wellbutrin augment which he agrees to. By history reports Wellbutrin to have been effective and helpful Medication Compliance: Yes Side effects from medications: No Attending Groups: Intermittent Review of Systems Acute medical concerns: No Medical Review of Systems: unchanged Review of Systems Review of Systems Anergy. Forearm continues to be painful, however no treatment complications Mental Status Exam Mental Status Exam Patient Appearance: Fatigued Patient Orientation: Person, Place, Time and Situation Level of Consciousness: Alert Patient Behavior: Talkative, Fatigued and Good Eye Contact Mood Description: Depressed Affect Description: Flat Patient Cognition Impaired: No Ability to Follow Directions: Fair Speech Pattern: Spontaneous Speech Memory Description: Episodic Impaired Delusions: Present Perceptual Disturbances: Depersonalization and Derealization Thought Process: Rumination Thought Content: positive for Circumstantial and positive for Perseveration Depressive Symptoms: Thoughts of /Suicide Judgement: Fair Diagnostics Vital Signs (24Hr): Vital Signs - 24 hr 01/24/24 20:00 01/25/24 08:00 Temperature 98.2 F 97.6 F Pulse Rate 78 52 Respiratory Rate 14 Blood Pressure 138/88 125/73 Pulse Oximetry 96 95 Oxygen Delivery Method Room Air Room Air BMI result Body Mass Index 41.4 Labs 01/22/24 23:34 01/22/24 23:34 Imaging Radiology Impressions: ITS Impressions Forearm CT 01/23/24 22:30 IMPRESSION: 1. A 12 cm band of ill-defined soft tissue attenuation at the dorsal aspect of the forearm which may correspond to local inflammation or early phlegmon formation along the course of a subcutaneous vein. No discrete drainable fluid collection to indicate abscess. No significant gas. 2. 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 Medications Medications Current Medications Acetaminophen (Acetaminophen 325 Mg Tablet) 650 mg PO Q6H PRN PRN Reason: Headache/Pain Mild Scale (1-3) Last Admin: 01/23/24 22:56 Dose: 650 mg Al Hydroxide/Mg Hydroxide (Magnesium Hydrox/Alum Hydrox 30 Ml Oral.Susp) 30 ml PO Q6H PRN PRN Reason: Heartburn/Nausea Doxycycline Monohydrate (Doxycycline Monohydrate 100 Mg Capsule) 100 mg PO BID [facility] Stop: 01/30/24 09:01 Last Admin: 01/25/24 09:22 Dose: 100 mg Hydroxyzine HCl (Hydroxyzine Hcl 25 Mg Tablet) 25 mg PO Q6H PRN PRN Reason: Anxiety Last Admin: 01/24/24 01:37 Dose: 25 mg Magnesium Hydroxide (Milk Of Magnesia 30 Ml Oral.Susp) 30 ml PO DAILY PRN PRN Reason: Constipation Melatonin (Melatonin 3 Mg Tablet) 3 mg PO BEDTIME [facility] Last Admin: 01/24/24 21:48 Dose: 3 mg Methadone HCl (Methadone Hcl 20 Mg/2 Ml Oral.Conc) 70 mg PO DAILY [facility] Last Admin: 01/25/24 09:22 Dose: 70 mg Naloxone HCl (Naloxone Hcl Nasal 4 Mg [place]) 4 mg NOSTRILALT Q2M PRN PRN Reason: opioid overdose Nicotine (Nicotine 21 Mg Patch.Td24) 21 mg TRANSDERMA DAILY PRN PRN Reason: smoking cessation Nicotine Polacrilex (Nicotine Polacrilex 2 Mg Gum) 4 mg BUCCAL Q2H PRN PRN Reason: Nicotine Cravings Olanzapine (Olanzapine 5 Mg Tablet) 5 mg PO TID PRN PRN Reason: agitation Oxcarbazepine (Oxcarbazepine 300 Mg Tablet) 300 mg PO BID [facility] Last Admin: 01/25/24 09:22 Dose: 300 mg Quetiapine Fumarate (Quetiapine Fumarate 100 Mg Tablet) 100 mg PO BEDTIME [facility] Last Admin: 01/24/24 21:48 Dose: 100 mg Risperidone (Risperidone 1 Mg Tablet) 1 mg PO BID [facility] Last Admin: 01/25/24 09:22 Dose: 1 mg Sertraline HCl (Sertraline Hcl 25 Mg Tablet) 75 mg PO DAILY [facility] Last Admin: 01/25/24 09:22 Dose: 75 mg Trazodone HCl (Trazodone Hcl 50 Mg Tablet) 50 mg PO BEDTIME MRX1 PRN PRN Reason: Insomnia Last Admin: 01/24/24 01:37 Dose: 50 mg Allergies Allergies Allergy/AdvReac Type Severity Reaction Status Date / Time No Known Allergies Allergy Verified 01/22/24 22:51 [No Known Allergies*] Assessment & Plan Assessment & Plan (1) Schizoaffective disorder, bipolar type: Status: Acute Code(s): F25.0 - Schizoaffective disorder, bipolar type (2) Opioid use disorder, severe, on maintenance therapy, dependence: Status: Acute Code(s): F11.20 - Opioid dependence, uncomplicated (3) Polysubstance use disorder: Status: Acute Code(s): F19.90 - Other psychoactive substance use, unspecified, uncomplicated (4) Grief at loss of child: Status: Acute Code(s): F43.21 - Adjustment disorder with depressed mood; Z63.4 - Disappearance and of family member Plan 01/25/24 Wellbutrin 75 mg a.m. Reason for continued inpatient stay Substantial Risk for: rapid decompensation Time Spent With Patient Time: Total time managing care of this patient today ____ minutes.
[2024-01-25 21:45] VITALS: BP 127/80; PULSE 60; TEMP 36.4; O2SAT 99
[2024-01-25] MEDS: QUEtiapine Fumarate 100 MG TABLET PO (21:45)
[2024-01-25] MEDS: traZODone HCL 50 MG TABLET PO (21:45)
[2024-01-25] MEDS: Melatonin 3 MG TABLET PO (21:45)
[2024-01-26 08:00] VITALS: BP 109/62; PULSE 59; RESP 16; TEMP 36.4; O2SAT 97
[2024-01-26] MEDS: OXcarbazepine 300 MG TABLET PO ×2 (09:31→21:06)
[2024-01-26] MEDS: Doxycycline Monohydrate 100 MG CAPSULE PO ×2 (09:31→21:06)
[2024-01-26] MEDS: risperiDONE 1 MG TABLET PO ×2 (09:31→21:06)
[2024-01-26] MEDS: methADONE HCl 20 MG/2 ML ORAL.CONC 70 MG PO (09:31)
[2024-01-26] MEDS: Sertraline HCL 25 MG TABLET 75 MG PO (09:31)
[2024-01-26] MEDS: buPROPion HCL 75 MG TABLET PO (09:31)
--- NOTE | 2024-01-26 10:34 | HO.PSYCHPN ---
Subjective Subjective Date of Service: 01/26/24 Reason For Visit: SI Subjective Notes: Conditional Voluntary Healthcare Proxy: No Guardianship: No Medical Problems Affecting Mental Status: No Interim History: Met with pt and Rosemary Goldsmith LCSW. Discussed depressive sx, meds and possible ECT consult. Pt reports his mother had ECT and it was effective. He is interested in a consult for this treatment. Reports relationship discord due to his overdose, girlfriend unsure if she will continue with the relationship as she fears he will . Discussed re-application for [facility] for CSS and longer term addiction treatment. Pt believes he is in need and will need to follow through this admission. Reports he has been sleeping a great deal since admission and today is the first day he is feeling more awake and rested. He appears rested in our meeting. Medication Compliance: Yes Side effects from medications: No Attending Groups: No Review of Systems Acute medical concerns: No Medical Review of Systems: unchanged Review of Systems Review of Systems Yes all other systems are reviewed and are negative Mental Status Exam Mental Status Exam Patient Appearance: Fatigued Patient Orientation: Person, Place, Time and Situation Level of Consciousness: Alert Patient Behavior: Talkative, Fatigued and Good Eye Contact Mood Description: Depressed Affect Description: Flat Patient Cognition Impaired: No Ability to Follow Directions: Fair Speech Pattern: Spontaneous Speech Memory Description: Episodic Impaired Delusions: Present Perceptual Disturbances: Depersonalization and Derealization Thought Process: Rumination Thought Content: positive for Circumstantial and positive for Perseveration Depressive Symptoms: Thoughts of /Suicide Judgement: Fair Diagnostics Vital Signs (24Hr): Vital Signs - 24 hr 01/25/24 21:45 01/26/24 08:00 Temperature 97.5 F 97.5 F Pulse Rate 60 59 Respiratory Rate 16 Blood Pressure 127/80 109/62 Pulse Oximetry 99 97 Oxygen Delivery Method Room Air Room Air BMI result Body Mass Index 41.4 Labs 01/22/24 23:34 01/22/24 23:34 Imaging Radiology Impressions: ITS Impressions Forearm CT 01/23/24 22:30 IMPRESSION: 1. A 12 cm band of ill-defined soft tissue attenuation at the dorsal aspect of the forearm which may correspond to local inflammation or early phlegmon formation along the course of a subcutaneous vein. No discrete drainable fluid collection to indicate abscess. No significant gas. 2. 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 Medications Medications Current Medications Acetaminophen (Acetaminophen 325 Mg Tablet) 650 mg PO Q6H PRN PRN Reason: Headache/Pain Mild Scale (1-3) Last Admin: 01/23/24 22:56 Dose: 650 mg Al Hydroxide/Mg Hydroxide (Magnesium Hydrox/Alum Hydrox 30 Ml Oral.Susp) 30 ml PO Q6H PRN PRN Reason: Heartburn/Nausea Bupropion HCl (Bupropion Hcl 75 Mg Tablet) 75 mg PO DAILY [facility] Last Admin: 01/26/24 09:31 Dose: 75 mg Doxycycline Monohydrate (Doxycycline Monohydrate 100 Mg Capsule) 100 mg PO BID [facility] Stop: 01/30/24 09:01 Last Admin: 01/26/24 09:31 Dose: 100 mg Hydroxyzine HCl (Hydroxyzine Hcl 25 Mg Tablet) 25 mg PO Q6H PRN PRN Reason: Anxiety Last Admin: 01/24/24 01:37 Dose: 25 mg Magnesium Hydroxide (Milk Of Magnesia 30 Ml Oral.Susp) 30 ml PO DAILY PRN PRN Reason: Constipation Melatonin (Melatonin 3 Mg Tablet) 3 mg PO BEDTIME [facility] Last Admin: 01/25/24 21:45 Dose: 3 mg Methadone HCl (Methadone Hcl 20 Mg/2 Ml Oral.Conc) 70 mg PO DAILY [facility] Last Admin: 01/26/24 09:31 Dose: 70 mg Naloxone HCl (Naloxone Hcl Nasal 4 Mg [place]) 4 mg NOSTRILALT Q2M PRN PRN Reason: opioid overdose Nicotine (Nicotine 21 Mg Patch.Td24) 21 mg TRANSDERMA DAILY PRN PRN Reason: smoking cessation Nicotine Polacrilex (Nicotine Polacrilex 2 Mg Gum) 4 mg BUCCAL Q2H PRN PRN Reason: Nicotine Cravings Olanzapine (Olanzapine 5 Mg Tablet) 5 mg PO TID PRN PRN Reason: agitation Oxcarbazepine (Oxcarbazepine 300 Mg Tablet) 300 mg PO BID [facility] Last Admin: 01/26/24 09:31 Dose: 300 mg Quetiapine Fumarate (Quetiapine Fumarate 100 Mg Tablet) 100 mg PO BEDTIME [facility] Last Admin: 01/25/24 21:45 Dose: 100 mg Risperidone (Risperidone 1 Mg Tablet) 1 mg PO BID [facility] Last Admin: 01/26/24 09:31 Dose: 1 mg Sertraline HCl (Sertraline Hcl 25 Mg Tablet) 75 mg PO DAILY [facility] Last Admin: 01/26/24 09:31 Dose: 75 mg Trazodone HCl (Trazodone Hcl 50 Mg Tablet) 50 mg PO BEDTIME MRX1 PRN PRN Reason: Insomnia Last Admin: 01/25/24 21:45 Dose: 50 mg Allergies Allergies Allergy/AdvReac Type Severity Reaction Status Date / Time No Known Allergies Allergy Verified 01/22/24 22:51 [No Known Allergies*] Assessment & Plan Assessment & Plan (1) Schizoaffective disorder, bipolar type: Status: Acute Code(s): F25.0 - Schizoaffective disorder, bipolar type (2) Opioid use disorder, severe, on maintenance therapy, dependence: Status: Acute Code(s): F11.20 - Opioid dependence, uncomplicated (3) Polysubstance use disorder: Status: Acute Code(s): F19.90 - Other psychoactive substance use, unspecified, uncomplicated (4) Grief at loss of child: Status: Acute Code(s): F43.21 - Adjustment disorder with depressed mood; Z63.4 - Disappearance and of family member Plan 01/25/24 Wellbutrin 75 mg a.m. 01/26/24 Continue tx ECT consult Reason for continued inpatient stay Substantial Risk for: rapid decompensation Time Spent With Patient Time: Total time managing care of this patient today ____ minutes.
[2024-01-26 20:00] VITALS: BP 132/85; PULSE 69; RESP 17; TEMP 36.7; O2SAT 98
[2024-01-26] MEDS: Melatonin 3 MG TABLET PO (21:06)
[2024-01-26] MEDS: QUEtiapine Fumarate 100 MG TABLET PO (21:06)
[2024-01-26] MEDS: traZODone HCL 50 MG TABLET PO (21:09)
[2024-01-26] MEDS: hydrOXYzine HCL 25 MG TABLET PO (21:09)
[2024-01-27 08:00] VITALS: BP 119/62; PULSE 56; RESP 16; TEMP 36.4; O2SAT 96
[2024-01-27] MEDS: methADONE HCl 20 MG/2 ML ORAL.CONC 70 MG PO (09:51)
[2024-01-27] MEDS: buPROPion HCL 75 MG TABLET PO (09:52)
[2024-01-27] MEDS: risperiDONE 1 MG TABLET PO ×2 (09:52→21:17)
[2024-01-27] MEDS: OXcarbazepine 300 MG TABLET PO ×2 (09:52→21:16)
[2024-01-27] MEDS: Sertraline HCL 25 MG TABLET 75 MG PO (09:52)
[2024-01-27] MEDS: Doxycycline Monohydrate 100 MG CAPSULE PO ×2 (09:53→21:16)
--- NOTE | 2024-01-27 10:10 | HO.PSYCHPN ---
Subjective Subjective Date of Service: 01/27/24 Reason For Visit: SI Interim History: Patient seen in TV room. Reports A little less depressed today. Tolerating medications well without SE. Isolates from the milieu. Denies active SI. Denies AVH. Review of Systems Review of Systems Anergy. Forearm continues to be painful, however no treatment complications Yes all other systems are reviewed and are negative Denies Sensory deficit (Neuro) Mental Status Exam Mental Status Exam Patient Appearance: Fatigued Patient Orientation: Person, Place, Time and Situation Level of Consciousness: Alert Patient Behavior: Talkative, Fatigued and Good Eye Contact Mood Description: Depressed Affect Description: Flat Patient Cognition Impaired: No Ability to Follow Directions: Fair Speech Pattern: Spontaneous Speech Memory Description: Episodic Impaired Diagnostics Vital Signs (24Hr): Vital Signs - 24 hr 01/26/24 20:00 01/27/24 08:00 Temperature 98.0 F 97.6 F Pulse Rate 69 56 Respiratory Rate 17 16 Blood Pressure 132/85 119/62 Pulse Oximetry 98 96 Oxygen Delivery Method Room Air Room Air BMI result Body Mass Index 41.4 Labs 01/22/24 23:34 01/22/24 23:34 Imaging Radiology Impressions: ITS Impressions Forearm CT 01/23/24 22:30 IMPRESSION: 1. A 12 cm band of ill-defined soft tissue attenuation at the dorsal aspect of the forearm which may correspond to local inflammation or early phlegmon formation along the course of a subcutaneous vein. No discrete drainable fluid collection to indicate abscess. No significant gas. 2. 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 Medications Medications Current Medications Acetaminophen (Acetaminophen 325 Mg Tablet) 650 mg PO Q6H PRN PRN Reason: Headache/Pain Mild Scale (1-3) Last Admin: 01/23/24 22:56 Dose: 650 mg Al Hydroxide/Mg Hydroxide (Magnesium Hydrox/Alum Hydrox 30 Ml Oral.Susp) 30 ml PO Q6H PRN PRN Reason: Heartburn/Nausea Bupropion HCl (Bupropion Hcl 75 Mg Tablet) 75 mg PO DAILY [facility] Last Admin: 01/27/24 09:52 Dose: 75 mg Doxycycline Monohydrate (Doxycycline Monohydrate 100 Mg Capsule) 100 mg PO BID [facility] Stop: 01/30/24 09:01 Last Admin: 01/27/24 09:53 Dose: 100 mg Hydroxyzine HCl (Hydroxyzine Hcl 25 Mg Tablet) 25 mg PO Q6H PRN PRN Reason: Anxiety Last Admin: 01/26/24 21:09 Dose: 25 mg Magnesium Hydroxide (Milk Of Magnesia 30 Ml Oral.Susp) 30 ml PO DAILY PRN PRN Reason: Constipation Melatonin (Melatonin 3 Mg Tablet) 3 mg PO BEDTIME [facility] Last Admin: 01/26/24 21:06 Dose: 3 mg Methadone HCl (Methadone Hcl 20 Mg/2 Ml Oral.Conc) 70 mg PO DAILY [facility] Last Admin: 01/27/24 09:51 Dose: 70 mg Naloxone HCl (Naloxone Hcl Nasal 4 Mg [place]) 4 mg NOSTRILALT Q2M PRN PRN Reason: opioid overdose Nicotine (Nicotine 21 Mg Patch.Td24) 21 mg TRANSDERMA DAILY PRN PRN Reason: smoking cessation Nicotine Polacrilex (Nicotine Polacrilex 2 Mg Gum) 4 mg BUCCAL Q2H PRN PRN Reason: Nicotine Cravings Olanzapine (Olanzapine 5 Mg Tablet) 5 mg PO TID PRN PRN Reason: agitation Oxcarbazepine (Oxcarbazepine 300 Mg Tablet) 300 mg PO BID [facility] Last Admin: 01/27/24 09:52 Dose: 300 mg Quetiapine Fumarate (Quetiapine Fumarate 100 Mg Tablet) 100 mg PO BEDTIME [facility] Last Admin: 01/26/24 21:06 Dose: 100 mg Risperidone (Risperidone 1 Mg Tablet) 1 mg PO BID [facility] Last Admin: 01/27/24 09:52 Dose: 1 mg Sertraline HCl (Sertraline Hcl 25 Mg Tablet) 75 mg PO DAILY [facility] Last Admin: 01/27/24 09:52 Dose: 75 mg Trazodone HCl (Trazodone Hcl 50 Mg Tablet) 50 mg PO BEDTIME MRX1 PRN PRN Reason: Insomnia Last Admin: 01/26/24 21:09 Dose: 50 mg Allergies Allergies Allergy/AdvReac Type Severity Reaction Status Date / Time No Known Allergies Allergy Verified 01/22/24 22:51 [No Known Allergies*] Assessment & Plan Assessment & Plan (1) Schizoaffective disorder, bipolar type: Status: Acute Code(s): F25.0 - Schizoaffective disorder, bipolar type (2) Opioid use disorder, severe, on maintenance therapy, dependence: Status: Acute Code(s): F11.20 - Opioid dependence, uncomplicated (3) Polysubstance use disorder: Status: Acute Code(s): F19.90 - Other psychoactive substance use, unspecified, uncomplicated (4) Grief at loss of child: Status: Acute Code(s): F43.21 - Adjustment disorder with depressed mood; Z63.4 - Disappearance and of family member Plan 01/25/24 Wellbutrin 75 mg a.m. 01/26/24 Continue tx ECT consult 01/26: continue current management and treatment plan. Reason for continued inpatient stay Substantial Risk for: harm to self and rapid decompensation Time Spent With Patient Time: Total time managing care of this patient today ____ minutes.
[2024-01-27 20:00] VITALS: BP 119/73; PULSE 69; RESP 14; TEMP 36.5; O2SAT 99
[2024-01-27] MEDS: Melatonin 3 MG TABLET PO (21:16)
[2024-01-27] MEDS: QUEtiapine Fumarate 100 MG TABLET PO (21:16)
[2024-01-27] MEDS: hydrOXYzine HCL 25 MG TABLET PO (21:16)
[2024-01-27] MEDS: traZODone HCL 50 MG TABLET PO (21:17)
[2024-01-28 08:00] VITALS: BP 146/83; PULSE 68; O2SAT 96
[2024-01-28] MEDS: methADONE HCl 20 MG/2 ML ORAL.CONC 70 MG PO (08:14)
[2024-01-28] MEDS: buPROPion HCL 75 MG TABLET PO (08:15)
[2024-01-28] MEDS: OXcarbazepine 300 MG TABLET PO ×2 (08:15→22:20)
[2024-01-28] MEDS: risperiDONE 1 MG TABLET PO ×2 (08:15→22:20)
[2024-01-28] MEDS: Sertraline HCL 25 MG TABLET 75 MG PO (08:15)
[2024-01-28] MEDS: Doxycycline Monohydrate 100 MG CAPSULE PO ×2 (08:15→22:20)
--- NOTE | 2024-01-28 17:16 | P.PNPSI_ITS ---
Subjective Subjective Date of Service: 01/28/24 Reason For Visit: SI Interim History: Patient seen in TV room. Reports Much better today. Can't tell why exactly. Spends most of his time in TV room on his own. Still considering ECT. Tolerating medications well without SE. Isolates from the milieu. Denies active SI. Denies AVH. Review of Systems Review of Systems Anergy. Forearm continues to be painful, however no treatment complications Yes all other systems are reviewed and are negative Denies Sensory deficit (Neuro) Mental Status Exam Mental Status Exam Patient Appearance: Fatigued Patient Orientation: Person, Place, Time and Situation Level of Consciousness: Alert Patient Behavior: Talkative, Fatigued and Good Eye Contact Mood Description: Depressed Affect Description: Flat Patient Cognition Impaired: No Ability to Follow Directions: Fair Speech Pattern: Spontaneous Speech Memory Description: Episodic Impaired Diagnostics Vital Signs (24Hr): Vital Signs - 24 hr 01/27/24 20:00 01/28/24 08:00 Temperature 97.7 F Pulse Rate 69 68 Respiratory Rate 14 Blood Pressure 119/73 146/83 H Pulse Oximetry 99 96 Oxygen Delivery Method Room Air Room Air BMI result Body Mass Index 41.4 Labs 01/22/24 23:34 01/22/24 23:34 Imaging Radiology Impressions: ITS Impressions Forearm CT 01/23/24 22:30 IMPRESSION: 1. A 12 cm band of ill-defined soft tissue attenuation at the dorsal aspect of the forearm which may correspond to local inflammation or early phlegmon formation along the course of a subcutaneous vein. No discrete drainable fluid collection to indicate abscess. No significant gas. 2. 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 Medications Medications Current Medications Acetaminophen (Acetaminophen 325 Mg Tablet) 650 mg PO Q6H PRN PRN Reason: Headache/Pain Mild Scale (1-3) Last Admin: 01/23/24 22:56 Dose: 650 mg Al Hydroxide/Mg Hydroxide (Magnesium Hydrox/Alum Hydrox 30 Ml Oral.Susp) 30 ml PO Q6H PRN PRN Reason: Heartburn/Nausea Bupropion HCl (Bupropion Hcl 75 Mg Tablet) 75 mg PO DAILY [facility] Last Admin: 01/28/24 08:15 Dose: 75 mg Doxycycline Monohydrate (Doxycycline Monohydrate 100 Mg Capsule) 100 mg PO BID [facility] Stop: 01/30/24 09:01 Last Admin: 01/28/24 08:15 Dose: 100 mg Hydroxyzine HCl (Hydroxyzine Hcl 25 Mg Tablet) 25 mg PO Q6H PRN PRN Reason: Anxiety Last Admin: 01/27/24 21:16 Dose: 25 mg Magnesium Hydroxide (Milk Of Magnesia 30 Ml Oral.Susp) 30 ml PO DAILY PRN PRN Reason: Constipation Melatonin (Melatonin 3 Mg Tablet) 3 mg PO BEDTIME [facility] Last Admin: 01/27/24 21:16 Dose: 3 mg Methadone HCl (Methadone Hcl 20 Mg/2 Ml Oral.Conc) 70 mg PO DAILY [facility] Last Admin: 01/28/24 08:14 Dose: 70 mg Naloxone HCl (Naloxone Hcl Nasal 4 Mg [place]) 4 mg NOSTRILALT Q2M PRN PRN Reason: opioid overdose Nicotine (Nicotine 21 Mg Patch.Td24) 21 mg TRANSDERMA DAILY PRN PRN Reason: smoking cessation Nicotine Polacrilex (Nicotine Polacrilex 2 Mg Gum) 4 mg BUCCAL Q2H PRN PRN Reason: Nicotine Cravings Olanzapine (Olanzapine 5 Mg Tablet) 5 mg PO TID PRN PRN Reason: agitation Oxcarbazepine (Oxcarbazepine 300 Mg Tablet) 300 mg PO BID [facility] Last Admin: 01/28/24 08:15 Dose: 300 mg Quetiapine Fumarate (Quetiapine Fumarate 100 Mg Tablet) 100 mg PO BEDTIME [facility] Last Admin: 01/27/24 21:16 Dose: 100 mg Risperidone (Risperidone 1 Mg Tablet) 1 mg PO BID [facility] Last Admin: 01/28/24 08:15 Dose: 1 mg Sertraline HCl (Sertraline Hcl 25 Mg Tablet) 75 mg PO DAILY [facility] Last Admin: 01/28/24 08:15 Dose: 75 mg Trazodone HCl (Trazodone Hcl 50 Mg Tablet) 50 mg PO BEDTIME MRX1 PRN PRN Reason: Insomnia Last Admin: 01/27/24 21:17 Dose: 50 mg Allergies Allergies Allergy/AdvReac Type Severity Reaction Status Date / Time No Known Allergies Allergy Verified 01/22/24 22:51 [No Known Allergies*] Assessment & Plan Assessment & Plan (1) Schizoaffective disorder, bipolar type: Status: Acute Code(s): F25.0 - Schizoaffective disorder, bipolar type (2) Opioid use disorder, severe, on maintenance therapy, dependence: Status: Acute Code(s): F11.20 - Opioid dependence, uncomplicated (3) Polysubstance use disorder: Status: Acute Code(s): F19.90 - Other psychoactive substance use, unspecified, uncomplicated (4) Grief at loss of child: Status: Acute Code(s): F43.21 - Adjustment disorder with depressed mood; Z63.4 - Disappearance and of family member Plan 01/25/24 Wellbutrin 75 mg a.m. 01/26/24 Continue tx ECT consult 01/26: continue current management and treatment plan. 01/27: continue current management and treatment plan. Reason for continued inpatient stay Substantial Risk for: harm to self and rapid decompensation Time Spent With Patient Time: Total time managing care of this patient today ____ minutes.
[2024-01-28 20:00] VITALS: BP 164/108; PULSE 92; RESP 18; TEMP 36.4; O2SAT 96
[2024-01-28] MEDS: Milk of Magnesia 30 ML ORAL.SUSP PO (21:07)
[2024-01-28] MEDS: hydrOXYzine HCL 25 MG TABLET PO (22:20)
[2024-01-28] MEDS: QUEtiapine Fumarate 100 MG TABLET PO (22:20)
[2024-01-28] MEDS: Melatonin 3 MG TABLET PO (22:20)
[2024-01-28] MEDS: Mineral OiL enema 133 ML ENEMA PR (22:20)
[2024-01-28] MEDS: traZODone HCL 50 MG TABLET PO (22:21)
[2024-01-29 08:00] VITALS: BP 127/57; PULSE 66; RESP 20; TEMP 37.3; O2SAT 96
[2024-01-29] MEDS: risperiDONE 1 MG TABLET PO ×2 (09:46→22:16)
[2024-01-29] MEDS: Sertraline HCL 25 MG TABLET 75 MG PO (09:46)
[2024-01-29] MEDS: Doxycycline Monohydrate 100 MG CAPSULE PO ×2 (09:46→22:16)
[2024-01-29] MEDS: OXcarbazepine 300 MG TABLET PO ×2 (09:47→22:16)
[2024-01-29] MEDS: methADONE HCl 20 MG/2 ML ORAL.CONC 70 MG PO (09:47)
[2024-01-29] MEDS: buPROPion HCL 75 MG TABLET PO (09:47)
[2024-01-29] MEDS: Milk of Magnesia 30 ML ORAL.SUSP PO (09:54)
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
[2024-01-29 20:00] VITALS: BP 159/96; PULSE 75; RESP 18; O2SAT 97
[2024-01-29] MEDS: Sennosides 8.6 MG TABLET 17.2 MG PO (22:14)
[2024-01-29] MEDS: Docusate Sodium 100 MG CAPSULE PO (22:14)
[2024-01-29] MEDS: QUEtiapine Fumarate 100 MG TABLET PO (22:16)
[2024-01-29] MEDS: Melatonin 3 MG TABLET PO (22:16)
[2024-01-30 09:13] VITALS: BP 140/75; PULSE 60; RESP 17; TEMP 36.6; O2SAT 98
[2024-01-30] MEDS: OXcarbazepine 300 MG TABLET PO ×2 (09:14→22:12)
[2024-01-30] MEDS: Docusate Sodium 100 MG CAPSULE PO ×2 (09:14→22:13)
[2024-01-30] MEDS: Sertraline HCL 25 MG TABLET 75 MG PO (09:14)
[2024-01-30] MEDS: buPROPion HCL 75 MG TABLET PO (09:15)
[2024-01-30] MEDS: Doxycycline Monohydrate 100 MG CAPSULE PO (09:15)
[2024-01-30] MEDS: risperiDONE 1 MG TABLET PO ×2 (09:15→22:13)
[2024-01-30] MEDS: methADONE HCl 20 MG/2 ML ORAL.CONC 70 MG PO (09:15)
[2024-01-30] MEDS: polyethylene glycoL 3350 17 GM POWD.PACK PO (09:18)
--- NOTE | 2024-01-30 16:57 | HO.PSYCHPN ---
Subjective Subjective Date of Service: 01/30/24 Reason For Visit: SI Subjective Notes: Conditional Voluntary Healthcare Proxy: No Guardianship: No Medical Problems Affecting Mental Status: No Interim History: Not bad. Reports mild improvement, sleep is improving, mood is improving. ECT denied by Dr. Bishop. Reports a headache last night with a brief nose bleed. Reports this is common at home as due to crack cocaine use and septal damage. Reviewed BP readings with pt. Denies med SE. Medication Compliance: Yes Side effects from medications: No Attending Groups: Intermittent Review of Systems Acute medical concerns: No Medical Review of Systems: unchanged Review of Systems Review of Systems Yes all other systems are reviewed and are negative Mental Status Exam Mental Status Exam Patient Appearance: Fatigued Patient Orientation: Person, Place, Time and Situation Level of Consciousness: Alert Patient Behavior: Talkative, Fatigued and Good Eye Contact Mood Description: Depressed Affect Description: Flat Patient Cognition Impaired: No Ability to Follow Directions: Fair Speech Pattern: Spontaneous Speech Memory Description: Episodic Impaired Diagnostics Vital Signs (24Hr): Vital Signs - 24 hr 01/29/24 20:00 01/30/24 09:13 Temperature 97.8 F Pulse Rate 75 60 Respiratory Rate 18 17 Blood Pressure 159/96 H 140/75 H Pulse Oximetry 97 98 Oxygen Delivery Method Room Air Room Air BMI result Body Mass Index 41.4 Labs 01/22/24 23:34 01/22/24 23:34 Imaging Radiology Impressions: ITS Impressions Forearm CT 01/23/24 22:30 IMPRESSION: 1. A 12 cm band of ill-defined soft tissue attenuation at the dorsal aspect of the forearm which may correspond to local inflammation or early phlegmon formation along the course of a subcutaneous vein. No discrete drainable fluid collection to indicate abscess. No significant gas. 2. 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 Medications Medications Current Medications Acetaminophen (Acetaminophen 325 Mg Tablet) 650 mg PO Q6H PRN PRN Reason: Headache/Pain Mild Scale (1-3) Last Admin: 01/23/24 22:56 Dose: 650 mg Al Hydroxide/Mg Hydroxide (Magnesium Hydrox/Alum Hydrox 30 Ml Oral.Susp) 30 ml PO Q6H PRN PRN Reason: Heartburn/Nausea Bisacodyl (Bisacodyl 5 Mg Tablet.) 10 mg PO DAILY PRN PRN Reason: Constipation Bupropion HCl (Bupropion Hcl 75 Mg Tablet) 75 mg PO DAILY [facility] Last Admin: 01/30/24 09:15 Dose: 75 mg Docusate Sodium (Docusate Sodium 100 Mg Capsule) 100 mg PO BID [facility] Last Admin: 01/30/24 09:14 Dose: 100 mg Hydroxyzine HCl (Hydroxyzine Hcl 25 Mg Tablet) 25 mg PO Q6H PRN PRN Reason: Anxiety Last Admin: 01/28/24 22:20 Dose: 25 mg Magnesium Hydroxide (Milk Of Magnesia 30 Ml Oral.Susp) 30 ml PO DAILY PRN PRN Reason: Constipation Last Admin: 01/29/24 09:54 Dose: 30 ml Melatonin (Melatonin 3 Mg Tablet) 3 mg PO BEDTIME [facility] Last Admin: 01/29/24 22:16 Dose: 3 mg Methadone HCl (Methadone Hcl 20 Mg/2 Ml Oral.Conc) 70 mg PO DAILY [facility] Last Admin: 01/30/24 09:15 Dose: 70 mg Naloxone HCl (Naloxone Hcl Nasal 4 Mg [place]) 4 mg NOSTRILALT Q2M PRN PRN Reason: opioid overdose Olanzapine (Olanzapine 5 Mg Tablet) 5 mg PO TID PRN PRN Reason: agitation Oxcarbazepine (Oxcarbazepine 300 Mg Tablet) 300 mg PO BID [facility] Last Admin: 01/30/24 09:14 Dose: 300 mg Polyethylene Glycol (Polyethylene Glycol 3350 17 Gm Powd.Pack) 17 gm PO DAILY [facility] Last Admin: 01/30/24 09:18 Dose: 17 gm Prazosin HCl (Prazosin Hcl 1 Mg Capsule) 1 mg PO BEDTIME [facility]; Protocol Quetiapine Fumarate (Quetiapine Fumarate 100 Mg Tablet) 100 mg PO BEDTIME [facility] Last Admin: 01/29/24 22:16 Dose: 100 mg Risperidone (Risperidone 1 Mg Tablet) 1 mg PO BID [facility] Last Admin: 01/30/24 09:15 Dose: 1 mg Senna (Sennosides 8.6 Mg Tablet) 17.2 mg PO BEDTIME [facility] Last Admin: 01/29/24 22:14 Dose: 17.2 mg Sertraline HCl (Sertraline Hcl 25 Mg Tablet) 75 mg PO DAILY [facility] Last Admin: 01/30/24 09:14 Dose: 75 mg Trazodone HCl (Trazodone Hcl 50 Mg Tablet) 50 mg PO BEDTIME MRX1 PRN PRN Reason: Insomnia Last Admin: 01/28/24 22:21 Dose: 50 mg Allergies Allergies Allergy/AdvReac Type Severity Reaction Status Date / Time No Known Allergies Allergy Verified 01/22/24 22:51 [No Known Allergies*] Assessment & Plan Assessment & Plan (1) Schizoaffective disorder, bipolar type: Status: Acute Code(s): F25.0 - Schizoaffective disorder, bipolar type (2) Opioid use disorder, severe, on maintenance therapy, dependence: Status: Acute Code(s): F11.20 - Opioid dependence, uncomplicated (3) Polysubstance use disorder: Status: Acute Code(s): F19.90 - Other psychoactive substance use, unspecified, uncomplicated (4) Grief at loss of child: Status: Acute Code(s): F43.21 - Adjustment disorder with depressed mood; Z63.4 - Disappearance and of family member Plan 01/25/24 Wellbutrin 75 mg a.m. 01/26/24 Continue tx ECT consult 01/26: continue current management and treatment plan. 01/27: continue current management and treatment plan. 01/28: Continue tx. 01/29: Continue tx. Reason for continued inpatient stay Substantial Risk for: rapid decompensation Time Spent With Patient Time: Total time managing care of this patient today ____ minutes.
[2024-01-30 20:00] VITALS: BP 134/79; PULSE 70; RESP 15; TEMP 37; O2SAT 97
[2024-01-30] MEDS: QUEtiapine Fumarate 100 MG TABLET PO (22:13)
[2024-01-30] MEDS: Sennosides 8.6 MG TABLET 17.2 MG PO (22:13)
[2024-01-30] MEDS: Melatonin 3 MG TABLET PO (22:13)
[2024-01-30] MEDS: traZODone HCL 50 MG TABLET PO (22:13)
[2024-01-30] MEDS: Prazosin HCL 1 MG CAPSULE PO (22:14)
[2024-01-31 08:07] VITALS: BP 126/65; PULSE 62; RESP 16; TEMP 36.4; O2SAT 98
[2024-01-31] MEDS: Sertraline HCL 25 MG TABLET 75 MG PO (08:56)
[2024-01-31] MEDS: OXcarbazepine 300 MG TABLET PO ×2 (08:56→22:19)
[2024-01-31] MEDS: methADONE HCl 20 MG/2 ML ORAL.CONC 70 MG PO (08:56)
[2024-01-31] MEDS: risperiDONE 1 MG TABLET PO ×2 (08:56→22:20)
[2024-01-31] MEDS: Docusate Sodium 100 MG CAPSULE PO ×2 (08:56→22:20)
[2024-01-31] MEDS: buPROPion HCL 75 MG TABLET PO (08:56)
--- NOTE | 2024-01-31 10:54 | HO.PSYCHPN ---
Subjective Subjective Date of Service: 01/31/24 Reason For Visit: SI Subjective Notes: Conditional Voluntary Healthcare Proxy: No Guardianship: No Medical Problems Affecting Mental Status: No Interim History: Reports mood improvement Review of ECT denial and rationale. Pt is interested in going to [facility] to continue treatment and re-enforce recovery. Medication Compliance: Yes Side effects from medications: No Attending Groups: Intermittent Review of Systems Acute medical concerns: No Medical Review of Systems: unchanged Review of Systems Review of Systems Yes all other systems are reviewed and are negative Mental Status Exam Mental Status Exam Patient Appearance: Appropriate Patient Orientation: Person, Place, Time and Situation Level of Consciousness: Alert Patient Behavior: Talkative and Good Eye Contact Mood Description: Flat Affect Description: Flat Patient Cognition Impaired: No Ability to Follow Directions: Good Speech Pattern: Spontaneous Speech Memory Description: Episodic Impaired Thought Process: Intact and Goal Oriented Thought Content: positive for Intact and positive for Goal Oriented Judgement: Good Diagnostics Vital Signs (24Hr): Vital Signs - 24 hr 01/30/24 20:00 Temperature 98.6 F Pulse Rate 70 Respiratory Rate 15 Blood Pressure 134/79 Pulse Oximetry 97 Oxygen Delivery Method Room Air BMI result Body Mass Index 41.4 Labs 01/22/24 23:34 01/22/24 23:34 Imaging Radiology Impressions: ITS Impressions Forearm CT 01/23/24 22:30 IMPRESSION: 1. A 12 cm band of ill-defined soft tissue attenuation at the dorsal aspect of the forearm which may correspond to local inflammation or early phlegmon formation along the course of a subcutaneous vein. No discrete drainable fluid collection to indicate abscess. No significant gas. 2. 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 Medications Medications Current Medications Acetaminophen (Acetaminophen 325 Mg Tablet) 650 mg PO Q6H PRN PRN Reason: Headache/Pain Mild Scale (1-3) Last Admin: 01/23/24 22:56 Dose: 650 mg Al Hydroxide/Mg Hydroxide (Magnesium Hydrox/Alum Hydrox 30 Ml Oral.Susp) 30 ml PO Q6H PRN PRN Reason: Heartburn/Nausea Bisacodyl (Bisacodyl 5 Mg Tablet.Dr) 10 mg PO DAILY PRN PRN Reason: Constipation Bupropion HCl (Bupropion Hcl 75 Mg Tablet) 75 mg PO DAILY [facility] Last Admin: 01/31/24 08:56 Dose: 75 mg Docusate Sodium (Docusate Sodium 100 Mg Capsule) 100 mg PO BID [facility] Last Admin: 01/31/24 08:56 Dose: 100 mg Hydroxyzine HCl (Hydroxyzine Hcl 25 Mg Tablet) 25 mg PO Q6H PRN PRN Reason: Anxiety Last Admin: 01/28/24 22:20 Dose: 25 mg Magnesium Hydroxide (Milk Of Magnesia 30 Ml Oral.Susp) 30 ml PO DAILY PRN PRN Reason: Constipation Last Admin: 01/29/24 09:54 Dose: 30 ml Melatonin (Melatonin 3 Mg Tablet) 3 mg PO BEDTIME [facility] Last Admin: 01/30/24 22:13 Dose: 3 mg Methadone HCl (Methadone Hcl 20 Mg/2 Ml Oral.Conc) 70 mg PO DAILY [facility] Last Admin: 01/31/24 08:56 Dose: 70 mg Naloxone HCl (Naloxone Hcl Nasal 4 Mg [place]) 4 mg NOSTRILALT Q2M PRN PRN Reason: opioid overdose Olanzapine (Olanzapine 5 Mg Tablet) 5 mg PO TID PRN PRN Reason: agitation Oxcarbazepine (Oxcarbazepine 300 Mg Tablet) 300 mg PO BID [facility] Last Admin: 01/31/24 08:56 Dose: 300 mg Polyethylene Glycol (Polyethylene Glycol 3350 17 Gm Powd.Pack) 17 gm PO DAILY [facility] Last Admin: 01/31/24 10:52 Dose: Not Given Prazosin HCl (Prazosin Hcl 1 Mg Capsule) 1 mg PO BEDTIME [facility]; Protocol Last Admin: 01/30/24 22:14 Dose: 1 mg Quetiapine Fumarate (Quetiapine Fumarate 100 Mg Tablet) 100 mg PO BEDTIME [facility] Last Admin: 01/30/24 22:13 Dose: 100 mg Risperidone (Risperidone 1 Mg Tablet) 1 mg PO BID [facility] Last Admin: 01/31/24 08:56 Dose: 1 mg Senna (Sennosides 8.6 Mg Tablet) 17.2 mg PO BEDTIME [facility] Last Admin: 01/30/24 22:13 Dose: 17.2 mg Sertraline HCl (Sertraline Hcl 25 Mg Tablet) 75 mg PO DAILY [facility] Last Admin: 01/31/24 08:56 Dose: 75 mg Trazodone HCl (Trazodone Hcl 50 Mg Tablet) 50 mg PO BEDTIME MRX1 PRN PRN Reason: Insomnia Last Admin: 01/30/24 22:13 Dose: 50 mg Allergies Allergies Allergy/AdvReac Type Severity Reaction Status Date / Time No Known Allergies Allergy Verified 01/22/24 22:51 [No Known Allergies*] Assessment & Plan Assessment & Plan (1) Schizoaffective disorder, bipolar type: Status: Acute Code(s): F25.0 - Schizoaffective disorder, bipolar type (2) Opioid use disorder, severe, on maintenance therapy, dependence: Status: Acute Code(s): F11.20 - Opioid dependence, uncomplicated (3) Polysubstance use disorder: Status: Acute Code(s): F19.90 - Other psychoactive substance use, unspecified, uncomplicated (4) Grief at loss of child: Status: Acute Code(s): F43.21 - Adjustment disorder with depressed mood; Z63.4 - Disappearance and of family member Plan 01/25/24 Wellbutrin 75 mg a.m. 01/26/24 Continue tx ECT consult 01/26: continue current management and treatment plan. 01/27: continue current management and treatment plan. 01/28: Continue tx. 01/30: Continue tx. CSS applications Reason for continued inpatient stay Substantial Risk for: rapid decompensation Time Spent With Patient Time: Total time managing care of this patient today ____ minutes.
[2024-01-31 20:00] VITALS: BP 124/68; PULSE 58; RESP 14; TEMP 36.9; O2SAT 96
[2024-01-31] MEDS: traZODone HCL 50 MG TABLET PO (22:19)
[2024-01-31] MEDS: QUEtiapine Fumarate 100 MG TABLET PO (22:19)
[2024-01-31] MEDS: Prazosin HCL 1 MG CAPSULE PO (22:20)
[2024-01-31] MEDS: Sennosides 8.6 MG TABLET 17.2 MG PO (22:20)
[2024-01-31] MEDS: Melatonin 3 MG TABLET PO (22:20)
[2024-02-01 08:22] VITALS: BP 137/87; PULSE 67; RESP 16; TEMP 36.4; O2SAT 97
[2024-02-01] MEDS: Sertraline HCL 25 MG TABLET 75 MG PO (08:53)
[2024-02-01] MEDS: OXcarbazepine 300 MG TABLET PO ×2 (08:53→22:33)
[2024-02-01] MEDS: Docusate Sodium 100 MG CAPSULE PO ×2 (08:53→22:34)
[2024-02-01] MEDS: risperiDONE 1 MG TABLET PO ×2 (08:54→22:34)
[2024-02-01] MEDS: methADONE HCl 20 MG/2 ML ORAL.CONC 70 MG PO (08:54)
[2024-02-01] MEDS: buPROPion HCL 75 MG TABLET PO (08:54)
--- NOTE | 2024-02-01 10:36 | HO.PSYCHPN ---
Subjective Subjective Date of Service: 02/01/24 Reason For Visit: SI Interim History: Met with patient; discussed with team; reviewed chart pt reports he's doing much better, good mood and sleeping well; says still having cravings and asks if methadone can be increased to which conventional mortgage underwriter agrees. otherwise no complaints; pleasant and cooperative Mental Status Exam Mental Status Exam Patient Appearance: Appropriate Patient Orientation: Person, Place, Time and Situation Level of Consciousness: Alert Patient Behavior: Talkative and Good Eye Contact Mood Description: Calm Affect Description: Calm Patient Cognition Impaired: No Ability to Follow Directions: Good Speech Pattern: Spontaneous Speech Memory Description: Episodic Impaired Thought Process: Intact (no SI/HI) and Goal Oriented Thought Content: positive for Intact and positive for Goal Oriented Judgement: Good Diagnostics Vital Signs (24Hr): Vital Signs - 24 hr 01/31/24 20:00 Temperature 98.4 F Pulse Rate 58 Respiratory Rate 14 Blood Pressure 124/68 Pulse Oximetry 96 Oxygen Delivery Method Room Air BMI result Body Mass Index 41.4 Labs 01/22/24 23:34 01/22/24 23:34 Imaging Radiology Impressions: ITS Impressions Forearm CT 01/23/24 22:30 IMPRESSION: 1. A 12 cm band of ill-defined soft tissue attenuation at the dorsal aspect of the forearm which may correspond to local inflammation or early phlegmon formation along the course of a subcutaneous vein. No discrete drainable fluid collection to indicate abscess. No significant gas. 2. 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 Medications Medications Current Medications Acetaminophen (Acetaminophen 325 Mg Tablet) 650 mg PO Q6H PRN PRN Reason: Headache/Pain Mild Scale (1-3) Last Admin: 01/23/24 22:56 Dose: 650 mg Al Hydroxide/Mg Hydroxide (Magnesium Hydrox/Alum Hydrox 30 Ml Oral.Susp) 30 ml PO Q6H PRN PRN Reason: Heartburn/Nausea Bisacodyl (Bisacodyl 5 Mg Tablet.Dr) 10 mg PO DAILY PRN PRN Reason: Constipation Bupropion HCl (Bupropion Hcl 75 Mg Tablet) 75 mg PO DAILY [facility] Last Admin: 02/01/24 08:54 Dose: 75 mg Docusate Sodium (Docusate Sodium 100 Mg Capsule) 100 mg PO BID [facility] Last Admin: 02/01/24 08:53 Dose: 100 mg Hydroxyzine HCl (Hydroxyzine Hcl 25 Mg Tablet) 25 mg PO Q6H PRN PRN Reason: Anxiety Last Admin: 01/28/24 22:20 Dose: 25 mg Magnesium Hydroxide (Milk Of Magnesia 30 Ml Oral.Susp) 30 ml PO DAILY PRN PRN Reason: Constipation Last Admin: 01/29/24 09:54 Dose: 30 ml Melatonin (Melatonin 3 Mg Tablet) 3 mg PO BEDTIME [facility] Last Admin: 01/31/24 22:20 Dose: 3 mg Methadone HCl (Methadone Hcl 20 Mg/2 Ml Oral.Conc) 70 mg PO DAILY [facility] Last Admin: 02/01/24 08:54 Dose: 70 mg Naloxone HCl (Naloxone Hcl Nasal 4 Mg [place]) 4 mg NOSTRILALT Q2M PRN PRN Reason: opioid overdose Olanzapine (Olanzapine 5 Mg Tablet) 5 mg PO TID PRN PRN Reason: agitation Oxcarbazepine (Oxcarbazepine 300 Mg Tablet) 300 mg PO BID [facility] Last Admin: 02/01/24 08:53 Dose: 300 mg Polyethylene Glycol (Polyethylene Glycol 3350 17 Gm Powd.Pack) 17 gm PO DAILY [facility] Last Admin: 02/01/24 08:57 Dose: Not Given Prazosin HCl (Prazosin Hcl 1 Mg Capsule) 1 mg PO BEDTIME [facility]; Protocol Last Admin: 01/31/24 22:20 Dose: 1 mg Quetiapine Fumarate (Quetiapine Fumarate 100 Mg Tablet) 100 mg PO BEDTIME [facility] Last Admin: 01/31/24 22:19 Dose: 100 mg Risperidone (Risperidone 1 Mg Tablet) 1 mg PO BID [facility] Last Admin: 02/01/24 08:54 Dose: 1 mg Senna (Sennosides 8.6 Mg Tablet) 17.2 mg PO BEDTIME [facility] Last Admin: 01/31/24 22:20 Dose: 17.2 mg Sertraline HCl (Sertraline Hcl 25 Mg Tablet) 75 mg PO DAILY [facility] Last Admin: 02/01/24 08:53 Dose: 75 mg Trazodone HCl (Trazodone Hcl 50 Mg Tablet) 50 mg PO BEDTIME MRX1 PRN PRN Reason: Insomnia Last Admin: 01/31/24 22:19 Dose: 50 mg Allergies Allergies Allergy/AdvReac Type Severity Reaction Status Date / Time No Known Allergies Allergy Verified 01/22/24 22:51 [No Known Allergies*] Assessment & Plan Assessment & Plan (1) Schizoaffective disorder, bipolar type: Status: Acute Code(s): F25.0 - Schizoaffective disorder, bipolar type (2) Opioid use disorder, severe, on maintenance therapy, dependence: Status: Acute Code(s): F11.20 - Opioid dependence, uncomplicated (3) Polysubstance use disorder: Status: Acute Code(s): F19.90 - Other psychoactive substance use, unspecified, uncomplicated (4) Grief at loss of child: Status: Acute Code(s): F43.21 - Adjustment disorder with depressed mood; Z63.4 - Disappearance and of family member Plan 01/25/24 Wellbutrin 75 mg a.m. 01/26/24 Continue tx ECT consult 01/26: continue current management and treatment plan. 01/27: continue current management and treatment plan. 01/28: Continue tx. 01/30: Continue tx. CSS applications 01/31 increase methadone due to conitnued cravings; says used to be on 90mg Patient educated on: diagnosis, medication risk/benefits and substance abuse Informed Consent: understands Reason for continued inpatient stay Substantial Risk for: stable for discharge Time Spent With Patient Time: Total time managing care of this patient today ____ minutes.
[2024-02-01 20:00] VITALS: BP 140/69; PULSE 62; RESP 18; TEMP 36.7; O2SAT 94
[2024-02-01] MEDS: Melatonin 3 MG TABLET PO (22:33)
[2024-02-01] MEDS: QUEtiapine Fumarate 100 MG TABLET PO (22:33)
[2024-02-01] MEDS: methADONE HCl 20 MG/2 ML ORAL.CONC 5 MG PO (22:34)
[2024-02-01] MEDS: Prazosin HCL 1 MG CAPSULE PO (22:34)
[2024-02-01] MEDS: Sennosides 8.6 MG TABLET 17.2 MG PO (22:34)
[2024-02-01] MEDS: traZODone HCL 50 MG TABLET PO (22:34)
[2024-02-02 08:00] VITALS: BP 122/84; PULSE 72; RESP 16; TEMP 36.9; O2SAT 94
[2024-02-02] MEDS: OXcarbazepine 300 MG TABLET PO ×2 (09:37→22:07)
[2024-02-02] MEDS: risperiDONE 1 MG TABLET PO ×2 (09:37→22:10)
[2024-02-02] MEDS: Sertraline HCL 25 MG TABLET 75 MG PO (09:37)
[2024-02-02] MEDS: methADONE HCl 20 MG/2 ML ORAL.CONC 80 MG PO (09:38)
[2024-02-02] MEDS: buPROPion HCL 75 MG TABLET PO (09:38)
[2024-02-02] MEDS: Docusate Sodium 100 MG CAPSULE PO ×2 (09:42→22:07)
--- NOTE | 2024-02-02 10:05 | HO.PSYCHPN ---
Subjective Subjective Date of Service: 02/02/24 Reason For Visit: SI Subjective Notes: Conditional Voluntary Healthcare Proxy: No Guardianship: No Medical Problems Affecting Mental Status: No Interim History: Reports sleep is improving, depressive sx decreasing. Pleased with Methadone increase. Reports he has realized that depressive sx are decreased if he remains occupied with activity. He is apprehensive about CSS but states he is feeling ready to attend a program at the same time. Medication Compliance: Yes Side effects from medications: No Attending Groups: Intermittent Review of Systems Acute medical concerns: No Medical Review of Systems: unchanged Review of Systems Review of Systems Yes all other systems are reviewed and are negative Mental Status Exam Mental Status Exam Patient Appearance: Appropriate Patient Orientation: Person, Place, Time and Situation Level of Consciousness: Alert Patient Behavior: Talkative and Good Eye Contact Mood Description: Calm Affect Description: Calm Patient Cognition Impaired: No Ability to Follow Directions: Good Speech Pattern: Spontaneous Speech Memory Description: Episodic Impaired Thought Process: Intact (no SI/HI) and Goal Oriented Thought Content: positive for Intact and positive for Goal Oriented Judgement: Good Diagnostics Vital Signs (24Hr): Vital Signs - 24 hr 02/01/24 20:00 Temperature 98.0 F Pulse Rate 62 Respiratory Rate 18 Blood Pressure 140/69 H Pulse Oximetry 94 Oxygen Delivery Method Room Air BMI result Body Mass Index 41.4 Labs 01/22/24 23:34 01/22/24 23:34 Imaging Radiology Impressions: ITS Impressions Forearm CT 01/23/24 22:30 IMPRESSION: 1. A 12 cm band of ill-defined soft tissue attenuation at the dorsal aspect of the forearm which may correspond to local inflammation or early phlegmon formation along the course of a subcutaneous vein. No discrete drainable fluid collection to indicate abscess. No significant gas. 2. 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 Medications Medications Current Medications Acetaminophen (Acetaminophen 325 Mg Tablet) 650 mg PO Q6H PRN PRN Reason: Headache/Pain Mild Scale (1-3) Last Admin: 01/23/24 22:56 Dose: 650 mg Al Hydroxide/Mg Hydroxide (Magnesium Hydrox/Alum Hydrox 30 Ml Oral.Susp) 30 ml PO Q6H PRN PRN Reason: Heartburn/Nausea Bisacodyl (Bisacodyl 5 Mg Tablet.Dr) 10 mg PO DAILY PRN PRN Reason: Constipation Bupropion HCl (Bupropion Hcl 75 Mg Tablet) 75 mg PO DAILY [facility] Last Admin: 02/02/24 09:38 Dose: 75 mg Docusate Sodium (Docusate Sodium 100 Mg Capsule) 100 mg PO BID [facility] Last Admin: 02/02/24 09:42 Dose: 100 mg Hydroxyzine HCl (Hydroxyzine Hcl 25 Mg Tablet) 25 mg PO Q6H PRN PRN Reason: Anxiety Last Admin: 01/28/24 22:20 Dose: 25 mg Magnesium Hydroxide (Milk Of Magnesia 30 Ml Oral.Susp) 30 ml PO DAILY PRN PRN Reason: Constipation Last Admin: 01/29/24 09:54 Dose: 30 ml Melatonin (Melatonin 3 Mg Tablet) 3 mg PO BEDTIME [facility] Last Admin: 02/01/24 22:33 Dose: 3 mg Methadone HCl (Methadone Hcl 20 Mg/2 Ml Oral.Conc) 80 mg PO DAILY [facility] Last Admin: 02/02/24 09:38 Dose: 80 mg Naloxone HCl (Naloxone Hcl Nasal 4 Mg [place]) 4 mg NOSTRILALT Q2M PRN PRN Reason: opioid overdose Olanzapine (Olanzapine 5 Mg Tablet) 5 mg PO TID PRN PRN Reason: agitation Oxcarbazepine (Oxcarbazepine 300 Mg Tablet) 300 mg PO BID [facility] Last Admin: 02/02/24 09:37 Dose: 300 mg Polyethylene Glycol (Polyethylene Glycol 3350 17 Gm Powd.Pack) 17 gm PO DAILY [facility] Last Admin: 02/02/24 09:43 Dose: Not Given Prazosin HCl (Prazosin Hcl 1 Mg Capsule) 1 mg PO BEDTIME [facility]; Protocol Last Admin: 02/01/24 22:34 Dose: 1 mg Quetiapine Fumarate (Quetiapine Fumarate 100 Mg Tablet) 100 mg PO BEDTIME [facility] Last Admin: 02/01/24 22:33 Dose: 100 mg Risperidone (Risperidone 1 Mg Tablet) 1 mg PO BID [facility] Last Admin: 02/02/24 09:37 Dose: 1 mg Senna (Sennosides 8.6 Mg Tablet) 17.2 mg PO BEDTIME [facility] Last Admin: 02/01/24 22:34 Dose: 17.2 mg Sertraline HCl (Sertraline Hcl 25 Mg Tablet) 75 mg PO DAILY [facility] Last Admin: 02/02/24 09:37 Dose: 75 mg Trazodone HCl (Trazodone Hcl 50 Mg Tablet) 50 mg PO BEDTIME MRX1 PRN PRN Reason: Insomnia Last Admin: 02/01/24 22:34 Dose: 50 mg Allergies Allergies Allergy/AdvReac Type Severity Reaction Status Date / Time No Known Allergies Allergy Verified 01/22/24 22:51 [No Known Allergies*] Assessment & Plan Assessment & Plan (1) Schizoaffective disorder, bipolar type: Status: Acute Code(s): F25.0 - Schizoaffective disorder, bipolar type (2) Opioid use disorder, severe, on maintenance therapy, dependence: Status: Acute Code(s): F11.20 - Opioid dependence, uncomplicated (3) Polysubstance use disorder: Status: Acute Code(s): F19.90 - Other psychoactive substance use, unspecified, uncomplicated (4) Grief at loss of child: Status: Acute Code(s): F43.21 - Adjustment disorder with depressed mood; Z63.4 - Disappearance and of family member Plan 01/25/24 Wellbutrin 75 mg a.m. 01/26/24 Continue tx ECT consult 01/26: continue current management and treatment plan. 01/27: continue current management and treatment plan. 01/28: Continue tx. 01/30: Continue tx. CSS applications 02/01 Continue tx. Waiting for CSS acceptance Reason for continued inpatient stay Substantial Risk for: rapid decompensation Time Spent With Patient Time: Total time managing care of this patient today ____ minutes.
[2024-02-02 20:00] VITALS: BP 110/57; PULSE 64; TEMP 36.9; O2SAT 95
[2024-02-02] MEDS: QUEtiapine Fumarate 100 MG TABLET PO (22:07)
[2024-02-02] MEDS: Sennosides 8.6 MG TABLET 17.2 MG PO (22:07)
[2024-02-02] MEDS: Prazosin HCL 1 MG CAPSULE PO (22:07)
[2024-02-02] MEDS: Melatonin 3 MG TABLET PO (22:07)
[2024-02-03 08:00] VITALS: BP 136/74; PULSE 64; RESP 16; TEMP 36.9; O2SAT 97
--- NOTE | 2024-02-03 08:11 | HO.PSYCHPN ---
Subjective Subjective Date of Service: 02/03/24 Reason For Visit: SI Interim History: met with patient. Discussed with nursing. Overall reports things are significantly improved compared to admission regarding mood, feeling safe etc.. Engage well in the milieu and attending groups. Reports wanting CSS as part of disposition plan. Has a history of 7 year sobriety. Also wants to be close to his teenage son, who he finds as a motivation in maintaining sobriety. Medication Compliance: Yes Side effects from medications: No Attending Groups: Yes Review of Systems Acute medical concerns: No Review of Systems Review of Systems Nothing acute Mental Status Exam Mental Status Exam Narrative: pleasant. Engaged. Hospital clothing. Fair self-care. Organized. Euthymic. No SI. No HI. No agitation. No psychosis. Insight and judgment fair Diagnostics Vital Signs (24Hr): Vital Signs - 24 hr 02/02/24 20:00 Temperature 98.4 F Pulse Rate 64 Blood Pressure 110/57 L Pulse Oximetry 95 Oxygen Delivery Method Room Air BMI result Body Mass Index 41.4 Labs 01/22/24 23:34 01/22/24 23:34 Imaging Radiology Impressions: ITS Impressions Forearm CT 01/23/24 22:30 IMPRESSION: 1. A 12 cm band of ill-defined soft tissue attenuation at the dorsal aspect of the forearm which may correspond to local inflammation or early phlegmon formation along the course of a subcutaneous vein. No discrete drainable fluid collection to indicate abscess. No significant gas. 2. 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 Medications Medications Current Medications Acetaminophen (Acetaminophen 325 Mg Tablet) 650 mg PO Q6H PRN PRN Reason: Headache/Pain Mild Scale (1-3) Last Admin: 01/23/24 22:56 Dose: 650 mg Al Hydroxide/Mg Hydroxide (Magnesium Hydrox/Alum Hydrox 30 Ml Oral.Susp) 30 ml PO Q6H PRN PRN Reason: Heartburn/Nausea Bisacodyl (Bisacodyl 5 Mg Tablet.Dr) 10 mg PO DAILY PRN PRN Reason: Constipation Bupropion HCl (Bupropion Hcl 75 Mg Tablet) 75 mg PO DAILY [facility] Last Admin: 02/02/24 09:38 Dose: 75 mg Docusate Sodium (Docusate Sodium 100 Mg Capsule) 100 mg PO BID [facility] Last Admin: 02/02/24 22:07 Dose: 100 mg Hydroxyzine HCl (Hydroxyzine Hcl 25 Mg Tablet) 25 mg PO Q6H PRN PRN Reason: Anxiety Last Admin: 01/28/24 22:20 Dose: 25 mg Magnesium Hydroxide (Milk Of Magnesia 30 Ml Oral.Susp) 30 ml PO DAILY PRN PRN Reason: Constipation Last Admin: 01/29/24 09:54 Dose: 30 ml Melatonin (Melatonin 3 Mg Tablet) 3 mg PO BEDTIME [facility] Last Admin: 02/02/24 22:07 Dose: 3 mg Methadone HCl (Methadone Hcl 20 Mg/2 Ml Oral.Conc) 80 mg PO DAILY [facility] Last Admin: 02/02/24 09:38 Dose: 80 mg Naloxone HCl (Naloxone Hcl Nasal 4 Mg [place]) 4 mg NOSTRILALT Q2M PRN PRN Reason: opioid overdose Olanzapine (Olanzapine 5 Mg Tablet) 5 mg PO TID PRN PRN Reason: agitation Oxcarbazepine (Oxcarbazepine 300 Mg Tablet) 300 mg PO BID [facility] Last Admin: 02/02/24 22:07 Dose: 300 mg Polyethylene Glycol (Polyethylene Glycol 3350 17 Gm Powd.Pack) 17 gm PO DAILY [facility] Last Admin: 02/02/24 09:43 Dose: Not Given Prazosin HCl (Prazosin Hcl 1 Mg Capsule) 1 mg PO BEDTIME [facility]; Protocol Last Admin: 02/02/24 22:07 Dose: 1 mg Quetiapine Fumarate (Quetiapine Fumarate 100 Mg Tablet) 100 mg PO BEDTIME [facility] Last Admin: 02/02/24 22:07 Dose: 100 mg Risperidone (Risperidone 1 Mg Tablet) 1 mg PO BID [facility] Last Admin: 02/02/24 22:10 Dose: 1 mg Senna (Sennosides 8.6 Mg Tablet) 17.2 mg PO BEDTIME [facility] Last Admin: 02/02/24 22:07 Dose: 17.2 mg Sertraline HCl (Sertraline Hcl 25 Mg Tablet) 75 mg PO DAILY [facility] Last Admin: 02/02/24 09:37 Dose: 75 mg Trazodone HCl (Trazodone Hcl 50 Mg Tablet) 50 mg PO BEDTIME MRX1 PRN PRN Reason: Insomnia Last Admin: 02/01/24 22:34 Dose: 50 mg Allergies Allergies Allergy/AdvReac Type Severity Reaction Status Date / Time No Known Allergies Allergy Verified 01/22/24 22:51 [No Known Allergies*] Assessment & Plan Assessment & Plan (1) Schizoaffective disorder, bipolar type: Status: Acute Code(s): F25.0 - Schizoaffective disorder, bipolar type (2) Opioid use disorder, severe, on maintenance therapy, dependence: Status: Acute Code(s): F11.20 - Opioid dependence, uncomplicated (3) Polysubstance use disorder: Status: Acute Code(s): F19.90 - Other psychoactive substance use, unspecified, uncomplicated (4) Grief at loss of child: Status: Acute Code(s): F43.21 - Adjustment disorder with depressed mood; Z63.4 - Disappearance and of family member Plan 01/25/24 Wellbutrin 75 mg a.m. 01/26/24 Continue tx ECT consult 01/26: continue current management and treatment plan. 01/27: continue current management and treatment plan. 01/28: Continue tx. 01/30: Continue tx. CSS applications 02/01 Continue tx. Waiting for CSS acceptance 02/03/2024: No changes Reason for continued inpatient stay Substantial Risk for: rapid decompensation Time Spent With Patient Time: Total time managing care of this patient today ____ minutes.
[2024-02-03] MEDS: buPROPion HCL 75 MG TABLET PO (08:53)
[2024-02-03] MEDS: Sertraline HCL 25 MG TABLET 75 MG PO (08:53)
[2024-02-03] MEDS: methADONE HCl 20 MG/2 ML ORAL.CONC 80 MG PO (08:53)
[2024-02-03] MEDS: Docusate Sodium 100 MG CAPSULE PO ×2 (08:53→21:58)
[2024-02-03] MEDS: OXcarbazepine 300 MG TABLET PO ×2 (08:53→22:03)
[2024-02-03] MEDS: risperiDONE 1 MG TABLET PO ×2 (08:54→21:58)
[2024-02-03 20:00] VITALS: BP 141/85; PULSE 85; RESP 16; TEMP 36; O2SAT 97
[2024-02-03] MEDS: QUEtiapine Fumarate 100 MG TABLET PO (21:57)
[2024-02-03] MEDS: Prazosin HCL 1 MG CAPSULE PO (21:58)
[2024-02-03] MEDS: Melatonin 3 MG TABLET PO (21:58)
[2024-02-03] MEDS: Sennosides 8.6 MG TABLET 17.2 MG PO (21:58)
[2024-02-04] MEDS: Acetaminophen 325 MG TABLET 650 MG PO (05:16)
--- NOTE | 2024-02-04 05:34 | PC.NURSE ---
Patient awoke this AM with 8/10 TEE for which he requested and received Tylenol. Pt later informed RN that his ankle was swollen. Pt noted to have Bilateral lower extremity edema, LL 2+ pitting, RL non-pitting. BLL skin tight, shiny. Pt denies pain. Pt educated on appropriate diet, exercise, and elevation routines, pt states he usually wears compression socks at home and would like those as well. BP 164/83, HR 56, RR 16
[2024-02-04 05:39] VITALS: BP 164/83; PULSE 56; RESP 16; O2SAT 96
[2024-02-04] MEDS: Magnesium Hydrox/Alum Hydrox 30 ML ORAL.SUSP PO (07:50)
[2024-02-04 08:00] VITALS: BP 140/82; PULSE 62; RESP 16; TEMP 36.6; O2SAT 96
[2024-02-04] MEDS: methADONE HCl 20 MG/2 ML ORAL.CONC 80 MG PO (08:52)
[2024-02-04] MEDS: risperiDONE 1 MG TABLET PO ×2 (08:53→22:02)
[2024-02-04] MEDS: Sertraline HCL 25 MG TABLET 75 MG PO (08:53)
[2024-02-04] MEDS: buPROPion HCL 75 MG TABLET PO (08:53)
[2024-02-04] MEDS: Docusate Sodium 100 MG CAPSULE PO ×2 (08:53→22:01)
[2024-02-04] MEDS: OXcarbazepine 300 MG TABLET PO ×2 (08:53→22:02)
--- NOTE | 2024-02-04 10:57 | P.PNPSI_ITS ---
Subjective Subjective Date of Service: 02/04/24 Reason For Visit: SI Interim History: Met with patient. Discussed with nursing. overall patient reports doing well. Mood improving. Feels safe. No SI. Requested VIRAJ stockings, that he wears at home for bilateral lower limb edema. Reports this is affective. Engaging well in the milieu. Intermittently attending groups. Still wanting CSS as part of disposition plan. Medication Compliance: Yes Side effects from medications: No Attending Groups: Yes Review of Systems Acute medical concerns: No Review of Systems Review of Systems unremarkable Mental Status Exam Mental Status Exam Narrative: pleasant. Engaged. Hospital clothing. Fair self-care. Organized. Euthymic. No SI. No HI. No agitation. No psychosis. Insight and judgment fair Diagnostics Vital Signs (24Hr): Vital Signs - 24 hr 02/03/24 20:00 02/04/24 05:39 02/04/24 08:00 Temperature 96.8 F 97.8 F Pulse Rate 85 56 62 Respiratory Rate 16 16 16 Blood Pressure 141/85 H 164/83 H 140/82 H Pulse Oximetry 97 96 96 Oxygen Delivery Method Room Air Room Air Room Air BMI result Body Mass Index 41.4 Labs 01/22/24 23:34 01/22/24 23:34 Imaging Radiology Impressions: ITS Impressions Forearm CT 01/23/24 22:30 IMPRESSION: 1. A 12 cm band of ill-defined soft tissue attenuation at the dorsal aspect of the forearm which may correspond to local inflammation or early phlegmon formation along the course of a subcutaneous vein. No discrete drainable fluid collection to indicate abscess. No significant gas. 2. 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 Medications Medications Current Medications Acetaminophen (Acetaminophen 325 Mg Tablet) 650 mg PO Q6H PRN PRN Reason: Headache/Pain Mild Scale (1-3) Last Admin: 02/04/24 05:16 Dose: 650 mg Al Hydroxide/Mg Hydroxide (Magnesium Hydrox/Alum Hydrox 30 Ml Oral.Susp) 30 ml PO Q6H PRN PRN Reason: Heartburn/Nausea Last Admin: 02/04/24 07:50 Dose: 30 ml Bisacodyl (Bisacodyl 5 Mg Tablet.Dr) 10 mg PO DAILY PRN PRN Reason: Constipation Bupropion HCl (Bupropion Hcl 75 Mg Tablet) 75 mg PO DAILY [facility] Last Admin: 02/04/24 08:53 Dose: 75 mg Docusate Sodium (Docusate Sodium 100 Mg Capsule) 100 mg PO BID [facility] Last Admin: 02/04/24 08:53 Dose: 100 mg Hydroxyzine HCl (Hydroxyzine Hcl 25 Mg Tablet) 25 mg PO Q6H PRN PRN Reason: Anxiety Last Admin: 01/28/24 22:20 Dose: 25 mg Magnesium Hydroxide (Milk Of Magnesia 30 Ml Oral.Susp) 30 ml PO DAILY PRN PRN Reason: Constipation Last Admin: 01/29/24 09:54 Dose: 30 ml Melatonin (Melatonin 3 Mg Tablet) 3 mg PO BEDTIME [facility] Last Admin: 02/03/24 21:58 Dose: 3 mg Methadone HCl (Methadone Hcl 20 Mg/2 Ml Oral.Conc) 80 mg PO DAILY [facility] Last Admin: 02/04/24 08:52 Dose: 80 mg Naloxone HCl (Naloxone Hcl Nasal 4 Mg [place]) 4 mg NOSTRILALT Q2M PRN PRN Reason: opioid overdose Olanzapine (Olanzapine 5 Mg Tablet) 5 mg PO TID PRN PRN Reason: agitation Oxcarbazepine (Oxcarbazepine 300 Mg Tablet) 300 mg PO BID [facility] Last Admin: 02/04/24 08:53 Dose: 300 mg Polyethylene Glycol (Polyethylene Glycol 3350 17 Gm Powd.Pack) 17 gm PO DAILY [facility] Last Admin: 02/04/24 09:01 Dose: Not Given Prazosin HCl (Prazosin Hcl 1 Mg Capsule) 1 mg PO BEDTIME [facility]; Protocol Last Admin: 02/03/24 21:58 Dose: 1 mg Quetiapine Fumarate (Quetiapine Fumarate 100 Mg Tablet) 100 mg PO BEDTIME [facility] Last Admin: 02/03/24 21:57 Dose: 100 mg Risperidone (Risperidone 1 Mg Tablet) 1 mg PO BID [facility] Last Admin: 02/04/24 08:53 Dose: 1 mg Senna (Sennosides 8.6 Mg Tablet) 17.2 mg PO BEDTIME [facility] Last Admin: 02/03/24 21:58 Dose: 17.2 mg Sertraline HCl (Sertraline Hcl 25 Mg Tablet) 75 mg PO DAILY [facility] Last Admin: 02/04/24 08:53 Dose: 75 mg Trazodone HCl (Trazodone Hcl 50 Mg Tablet) 50 mg PO BEDTIME MRX1 PRN PRN Reason: Insomnia Last Admin: 02/01/24 22:34 Dose: 50 mg Allergies Allergies Allergy/AdvReac Type Severity Reaction Status Date / Time No Known Allergies Allergy Verified 01/22/24 22:51 [No Known Allergies*] Assessment & Plan Assessment & Plan (1) Schizoaffective disorder, bipolar type: Status: Acute Code(s): F25.0 - Schizoaffective disorder, bipolar type (2) Opioid use disorder, severe, on maintenance therapy, dependence: Status: Acute Code(s): F11.20 - Opioid dependence, uncomplicated (3) Polysubstance use disorder: Status: Acute Code(s): F19.90 - Other psychoactive substance use, unspecified, uncomplicated (4) Grief at loss of child: Status: Acute Code(s): F43.21 - Adjustment disorder with depressed mood; Z63.4 - Disappearance and of family member Plan 01/25/24 Wellbutrin 75 mg a.m. 01/26/24 Continue tx ECT consult 01/26: continue current management and treatment plan. 01/27: continue current management and treatment plan. 01/28: Continue tx. 01/30: Continue tx. CSS applications 02/01 Continue tx. Waiting for CSS acceptance 02/03/2024: No changes 02/04/2024: No changes. Will order VIRAJ stockings, which patient utilizes at home Reason for continued inpatient stay Substantial Risk for: rapid decompensation Time Spent With Patient Time: Total time managing care of this patient today ____ minutes.
[2024-02-04 20:00] VITALS: BP 138/80; PULSE 62; RESP 16; TEMP 37; O2SAT 96
[2024-02-04] MEDS: Melatonin 3 MG TABLET PO (22:01)
[2024-02-04] MEDS: Prazosin HCL 1 MG CAPSULE PO (22:01)
[2024-02-04] MEDS: Sennosides 8.6 MG TABLET 17.2 MG PO (22:01)
[2024-02-04] MEDS: QUEtiapine Fumarate 100 MG TABLET PO (22:02)
[2024-02-05 08:00] VITALS: BP 123/79; PULSE 64; RESP 15; TEMP 36.8; O2SAT 93
[2024-02-05] MEDS: methADONE HCl 20 MG/2 ML ORAL.CONC 80 MG PO (08:40)
[2024-02-05] MEDS: OXcarbazepine 300 MG TABLET PO ×2 (08:40→22:05)
[2024-02-05] MEDS: risperiDONE 1 MG TABLET PO ×2 (08:40→22:05)
[2024-02-05] MEDS: Docusate Sodium 100 MG CAPSULE PO ×2 (08:41→22:03)
[2024-02-05] MEDS: buPROPion HCL 75 MG TABLET PO (08:41)
[2024-02-05] MEDS: Sertraline HCL 25 MG TABLET 75 MG PO (08:41)
--- NOTE | 2024-02-05 15:56 | HO.PSYCHPN ---
Subjective Subjective Date of Service: 02/05/24 Reason For Visit: SI Subjective Notes: Conditional Voluntary Healthcare Proxy: No Guardianship: No Medical Problems Affecting Mental Status: No Interim History: Met with pt and Rosemary Goldsmith LCSW. Discussed outcome of CSS search, currently denied by [employer]-pt plans to call the program himself. No available spaces in other programs. Initiated discussion of alternative planning. Pt asks for a list of programs he can call which was provided Denies SI/HI/AH/VH Visable in milieu, ambulating, reports he is feeling some improvement. Medication Compliance: Yes Side effects from medications: No Attending Groups: Yes Review of Systems Acute medical concerns: No Medical Review of Systems: unchanged Review of Systems Review of Systems Wearing TEDS stockings for BLE/Pedal edema Mental Status Exam Mental Status Exam Patient Appearance: Appropriate Patient Orientation: Person, Place, Time and Situation Level of Consciousness: Alert Patient Behavior: Talkative and Good Eye Contact Mood Description: Calm Affect Description: Calm Patient Cognition Impaired: No Ability to Follow Directions: Good Speech Pattern: Spontaneous Speech Memory Description: Episodic Impaired Thought Process: Intact (no SI/HI) and Goal Oriented Thought Content: positive for Intact and positive for Goal Oriented Judgement: Good Diagnostics Vital Signs (24Hr): Vital Signs - 24 hr 02/04/24 20:00 02/05/24 08:00 Temperature 98.6 F 98.3 F Pulse Rate 62 64 Respiratory Rate 16 15 Blood Pressure 138/80 123/79 Pulse Oximetry 96 93 Oxygen Delivery Method Room Air Room Air BMI result Body Mass Index 41.4 Labs 01/22/24 23:34 01/22/24 23:34 Imaging Radiology Impressions: ITS Impressions Forearm CT 01/23/24 22:30 IMPRESSION: 1. A 12 cm band of ill-defined soft tissue attenuation at the dorsal aspect of the forearm which may correspond to local inflammation or early phlegmon formation along the course of a subcutaneous vein. No discrete drainable fluid collection to indicate abscess. No significant gas. 2. 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 Medications Medications Current Medications Acetaminophen (Acetaminophen 325 Mg Tablet) 650 mg PO Q6H PRN PRN Reason: Headache/Pain Mild Scale (1-3) Last Admin: 02/04/24 05:16 Dose: 650 mg Al Hydroxide/Mg Hydroxide (Magnesium Hydrox/Alum Hydrox 30 Ml Oral.Susp) 30 ml PO Q6H PRN PRN Reason: Heartburn/Nausea Last Admin: 02/04/24 07:50 Dose: 30 ml Bisacodyl (Bisacodyl 5 Mg Tablet.Dr) 10 mg PO DAILY PRN PRN Reason: Constipation Bupropion HCl (Bupropion Hcl 75 Mg Tablet) 75 mg PO DAILY [facility] Last Admin: 02/05/24 08:41 Dose: 75 mg Docusate Sodium (Docusate Sodium 100 Mg Capsule) 100 mg PO BID [facility] Last Admin: 02/05/24 08:41 Dose: 100 mg Hydroxyzine HCl (Hydroxyzine Hcl 25 Mg Tablet) 25 mg PO Q6H PRN PRN Reason: Anxiety Last Admin: 01/28/24 22:20 Dose: 25 mg Magnesium Hydroxide (Milk Of Magnesia 30 Ml Oral.Susp) 30 ml PO DAILY PRN PRN Reason: Constipation Last Admin: 01/29/24 09:54 Dose: 30 ml Melatonin (Melatonin 3 Mg Tablet) 3 mg PO BEDTIME [facility] Last Admin: 02/04/24 22:01 Dose: 3 mg Methadone HCl (Methadone Hcl 20 Mg/2 Ml Oral.Conc) 80 mg PO DAILY [facility] Last Admin: 02/05/24 08:40 Dose: 80 mg Naloxone HCl (Naloxone Hcl Nasal 4 Mg [place]) 4 mg NOSTRILALT Q2M PRN PRN Reason: opioid overdose Olanzapine (Olanzapine 5 Mg Tablet) 5 mg PO TID PRN PRN Reason: agitation Oxcarbazepine (Oxcarbazepine 300 Mg Tablet) 300 mg PO BID [facility] Last Admin: 02/05/24 08:40 Dose: 300 mg Polyethylene Glycol (Polyethylene Glycol 3350 17 Gm Powd.Pack) 17 gm PO DAILY [facility] Last Admin: 02/05/24 08:41 Dose: Not Given Prazosin HCl (Prazosin Hcl 1 Mg Capsule) 1 mg PO BEDTIME [facility]; Protocol Last Admin: 02/04/24 22:01 Dose: 1 mg Quetiapine Fumarate (Quetiapine Fumarate 100 Mg Tablet) 100 mg PO BEDTIME [facility] Last Admin: 02/04/24 22:02 Dose: 100 mg Risperidone (Risperidone 1 Mg Tablet) 1 mg PO BID [facility] Last Admin: 02/05/24 08:40 Dose: 1 mg Senna (Sennosides 8.6 Mg Tablet) 17.2 mg PO BEDTIME [facility] Last Admin: 02/04/24 22:01 Dose: 17.2 mg Sertraline HCl (Sertraline Hcl 25 Mg Tablet) 75 mg PO DAILY [facility] Last Admin: 02/05/24 08:41 Dose: 75 mg Trazodone HCl (Trazodone Hcl 50 Mg Tablet) 50 mg PO BEDTIME MRX1 PRN PRN Reason: Insomnia Last Admin: 02/01/24 22:34 Dose: 50 mg Allergies Allergies Allergy/AdvReac Type Severity Reaction Status Date / Time No Known Allergies Allergy Verified 01/22/24 22:51 [No Known Allergies*] Assessment & Plan Assessment & Plan (1) Schizoaffective disorder, bipolar type: Status: Acute Code(s): F25.0 - Schizoaffective disorder, bipolar type (2) Opioid use disorder, severe, on maintenance therapy, dependence: Status: Acute Code(s): F11.20 - Opioid dependence, uncomplicated (3) Polysubstance use disorder: Status: Acute Code(s): F19.90 - Other psychoactive substance use, unspecified, uncomplicated (4) Grief at loss of child: Status: Acute Code(s): F43.21 - Adjustment disorder with depressed mood; Z63.4 - Disappearance and of family member Plan 01/25/24 Wellbutrin 75 mg a.m. 01/26/24 Continue tx ECT consult 01/26: continue current management and treatment plan. 01/27: continue current management and treatment plan. 01/28: Continue tx. 01/30: Continue tx. CSS applications 02/01 Continue tx. Waiting for CSS acceptance 02/03/2024: No changes 02/04/2024: No changes. Will order VIRAJ [place], which patient utilizes at home 02/05/24: Continue tx. Pt will call a program list as currently he has no acceptances for ongoing care. Reason for continued inpatient stay Substantial Risk for: rapid decompensation Time Spent With Patient Time: Total time managing care of this patient today ____ minutes.
[2024-02-05 20:00] VITALS: BP 176/90; PULSE 70; RESP 16; TEMP 36.8; O2SAT 98
[2024-02-05] MEDS: Prazosin HCL 1 MG CAPSULE PO (22:03)
[2024-02-05] MEDS: Melatonin 3 MG TABLET PO (22:04)
[2024-02-05] MEDS: QUEtiapine Fumarate 100 MG TABLET PO (22:04)
[2024-02-05] MEDS: Sennosides 8.6 MG TABLET 17.2 MG PO (22:04)
[2024-02-05] MEDS: Magnesium Hydrox/Alum Hydrox 30 ML ORAL.SUSP PO (22:57)
[2024-02-06 08:00] VITALS: BP 130/72; PULSE 57; RESP 16; TEMP 36.5; O2SAT 95
[2024-02-06] MEDS: Sertraline HCL 25 MG TABLET 75 MG PO (08:44)
[2024-02-06] MEDS: risperiDONE 1 MG TABLET PO ×2 (08:44→21:51)
[2024-02-06] MEDS: Docusate Sodium 100 MG CAPSULE PO ×2 (08:44→21:51)
[2024-02-06] MEDS: buPROPion HCL 75 MG TABLET PO (08:44)
[2024-02-06] MEDS: methADONE HCl 20 MG/2 ML ORAL.CONC 80 MG PO (08:45)
[2024-02-06] MEDS: OXcarbazepine 300 MG TABLET PO ×2 (08:45→21:51)
--- NOTE | 2024-02-06 09:51 | P.PNPSI_ITS ---
Subjective Subjective Date of Service: 02/06/24 Reason For Visit: SI Subjective Notes: Conditional Voluntary Healthcare Proxy: No Guardianship: No Medical Problems Affecting Mental Status: No Interim History: Pt exercising today, spending time on the phone. Continues to not have a specific plan for discharge, but checking on resources. To addiction group this afternoon. Medication Compliance: Yes Side effects from medications: No Attending Groups: Intermittent Review of Systems Acute medical concerns: No Medical Review of Systems: unchanged Review of Systems Review of Systems BLE edema-wearing TEDS Mental Status Exam Mental Status Exam Patient Appearance: Appropriate Patient Orientation: Person, Place, Time and Situation Level of Consciousness: Alert Patient Behavior: Talkative and Good Eye Contact Mood Description: Calm Affect Description: Calm Patient Cognition Impaired: No Ability to Follow Directions: Good Speech Pattern: Spontaneous Speech Memory Description: Episodic Impaired Thought Process: Intact (no SI/HI) and Goal Oriented Thought Content: positive for Intact and positive for Goal Oriented Judgement: Good Diagnostics Vital Signs (24Hr): Vital Signs - 24 hr 02/05/24 20:00 Temperature 98.2 F Pulse Rate 70 Respiratory Rate 16 Blood Pressure 176/90 H Pulse Oximetry 98 Oxygen Delivery Method Room Air BMI result Body Mass Index 41.4 Labs 01/22/24 23:34 01/22/24 23:34 Imaging Radiology Impressions: ITS Impressions Forearm CT 01/23/24 22:30 IMPRESSION: 1. A 12 cm band of ill-defined soft tissue attenuation at the dorsal aspect of the forearm which may correspond to local inflammation or early phlegmon formation along the course of a subcutaneous vein. No discrete drainable fluid collection to indicate abscess. No significant gas. 2. 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 Medications Medications Current Medications Acetaminophen (Acetaminophen 325 Mg Tablet) 650 mg PO Q6H PRN PRN Reason: Headache/Pain Mild Scale (1-3) Last Admin: 02/04/24 05:16 Dose: 650 mg Al Hydroxide/Mg Hydroxide (Magnesium Hydrox/Alum Hydrox 30 Ml Oral.Susp) 30 ml PO Q6H PRN PRN Reason: Heartburn/Nausea Last Admin: 02/05/24 22:57 Dose: 30 ml Bisacodyl (Bisacodyl 5 Mg Tablet.Dr) 10 mg PO DAILY PRN PRN Reason: Constipation Bupropion HCl (Bupropion Hcl 75 Mg Tablet) 75 mg PO DAILY CODY Last Admin: 02/06/24 08:44 Dose: 75 mg Docusate Sodium (Docusate Sodium 100 Mg Capsule) 100 mg PO BID [facility] Last Admin: 02/06/24 08:44 Dose: 100 mg Hydroxyzine HCl (Hydroxyzine Hcl 25 Mg Tablet) 25 mg PO Q6H PRN PRN Reason: Anxiety Last Admin: 01/28/24 22:20 Dose: 25 mg Magnesium Hydroxide (Milk Of Magnesia 30 Ml Oral.Susp) 30 ml PO DAILY PRN PRN Reason: Constipation Last Admin: 01/29/24 09:54 Dose: 30 ml Melatonin (Melatonin 3 Mg Tablet) 3 mg PO BEDTIME CODY Last Admin: 02/05/24 22:04 Dose: 3 mg Methadone HCl (Methadone Hcl 20 Mg/2 Ml Oral.Conc) 80 mg PO DAILY [facility] Last Admin: 02/06/24 08:45 Dose: 80 mg Naloxone HCl (Naloxone Hcl Nasal 4 Mg Cordell) 4 mg NOSTRILALT Q2M PRN PRN Reason: opioid overdose Olanzapine (Olanzapine 5 Mg Tablet) 5 mg PO TID PRN PRN Reason: agitation Oxcarbazepine (Oxcarbazepine 300 Mg Tablet) 300 mg PO BID [facility] Last Admin: 02/06/24 08:45 Dose: 300 mg Polyethylene Glycol (Polyethylene Glycol 3350 17 Gm Powd.Pack) 17 gm PO DAILY [facility] Last Admin: 02/06/24 08:45 Dose: Not Given Prazosin HCl (Prazosin Hcl 1 Mg Capsule) 1 mg PO BEDTIME [facility]; Protocol Last Admin: 02/05/24 22:03 Dose: 1 mg Quetiapine Fumarate (Quetiapine Fumarate 100 Mg Tablet) 100 mg PO BEDTIME CODY Last Admin: 02/05/24 22:04 Dose: 100 mg Risperidone (Risperidone 1 Mg Tablet) 1 mg PO BID [facility] Last Admin: 02/06/24 08:44 Dose: 1 mg Senna (Sennosides 8.6 Mg Tablet) 17.2 mg PO BEDTIME CODY Last Admin: 02/05/24 22:04 Dose: 17.2 mg Sertraline HCl (Sertraline Hcl 25 Mg Tablet) 75 mg PO DAILY [facility] Last Admin: 02/06/24 08:44 Dose: 75 mg Trazodone HCl (Trazodone Hcl 50 Mg Tablet) 50 mg PO BEDTIME MRX1 PRN PRN Reason: Insomnia Last Admin: 02/01/24 22:34 Dose: 50 mg Allergies Allergies Allergy/AdvReac Type Severity Reaction Status Date / Time No Known Allergies Allergy Verified 01/22/24 22:51 [No Known Allergies*] Assessment & Plan Assessment & Plan (1) Schizoaffective disorder, bipolar type: Status: Acute Code(s): F25.0 - Schizoaffective disorder, bipolar type (2) Opioid use disorder, severe, on maintenance therapy, dependence: Status: Acute Code(s): F11.20 - Opioid dependence, uncomplicated (3) Polysubstance use disorder: Status: Acute Code(s): F19.90 - Other psychoactive substance use, unspecified, uncomplicated (4) Grief at loss of child: Status: Acute Code(s): F43.21 - Adjustment disorder with depressed mood; Z63.4 - Disappearance and of family member Plan 01/25/24 Wellbutrin 75 mg a.m. 01/26/24 Continue tx ECT consult 01/26: continue current management and treatment plan. 01/27: continue current management and treatment plan. 01/28: Continue tx. 01/30: Continue tx. CSS applications 02/01 Continue tx. Waiting for CSS acceptance 02/03/2024: No changes 02/04/2024: No changes. Will order VIRAJ stockings, which patient utilizes at home 02/06/24: Discharge planning. No medication changes today. Reason for continued inpatient stay Substantial Risk for: rapid decompensation Time Spent With Patient Time: Total time managing care of this patient today ____ minutes.
[2024-02-06 20:00] VITALS: BP 145/76; PULSE 66; RESP 16; TEMP 36.8; O2SAT 96
[2024-02-06] MEDS: Sennosides 8.6 MG TABLET 17.2 MG PO (21:51)
[2024-02-06] MEDS: QUEtiapine Fumarate 100 MG TABLET PO (21:51)
[2024-02-06] MEDS: Melatonin 3 MG TABLET PO (21:51)
[2024-02-06] MEDS: Prazosin HCL 1 MG CAPSULE PO (21:51)
[2024-02-07] MEDS: buPROPion HCL 75 MG TABLET PO (08:54)
[2024-02-07] MEDS: OXcarbazepine 300 MG TABLET PO ×2 (08:54→22:34)
[2024-02-07] MEDS: methADONE HCl 20 MG/2 ML ORAL.CONC 80 MG PO (08:54)
[2024-02-07] MEDS: Docusate Sodium 100 MG CAPSULE PO ×2 (08:54→22:34)
[2024-02-07] MEDS: risperiDONE 1 MG TABLET PO ×2 (08:54→22:35)
[2024-02-07] MEDS: Sertraline HCL 25 MG TABLET 75 MG PO (08:54)
[2024-02-07] MEDS: OLANZapine 5 MG TABLET PO (09:14)
[2024-02-07 09:20] VITALS: BP 157/86; PULSE 64; RESP 16; TEMP 36.9; O2SAT 97
[2024-02-07 20:00] VITALS: BP 140/86; PULSE 91; TEMP 36.5; O2SAT 96
[2024-02-07 22:33] VITALS: BP 140/86
[2024-02-07] MEDS: Prazosin HCL 1 MG CAPSULE PO (22:33)
[2024-02-07] MEDS: Sennosides 8.6 MG TABLET 17.2 MG PO (22:34)
[2024-02-07] MEDS: traZODone HCL 50 MG TABLET PO (22:34)
[2024-02-07] MEDS: Melatonin 3 MG TABLET PO (22:35)
[2024-02-07] MEDS: QUEtiapine Fumarate 100 MG TABLET PO (22:35)
[2024-02-08 08:00] VITALS: BP 151/84; PULSE 82; RESP 16; TEMP 36.4; O2SAT 99
[2024-02-08] MEDS: OXcarbazepine 300 MG TABLET PO (09:21)
[2024-02-08] MEDS: methADONE HCl 20 MG/2 ML ORAL.CONC 80 MG PO (09:21)
[2024-02-08] MEDS: buPROPion HCL 75 MG TABLET PO (09:22)
[2024-02-08] MEDS: risperiDONE 1 MG TABLET PO (09:22)
[2024-02-08] MEDS: Docusate Sodium 100 MG CAPSULE PO (09:22)
[2024-02-08] MEDS: Sertraline HCL 25 MG TABLET 75 MG PO (09:22)
--- NOTE | 2024-02-08 17:56 | P.DS_ITS ---
DS: Providers Provider Date of Service: 02/08/24 Date of admission: 01/23/24 14:41 Date of discharge: 02/08/24 Primary care physician: Trixie Khanna MD Admitting clinician: Thania Baer Attending physician on admission: Richard Bishop Consults: 01/23/24 17:34 Consult to Hospitalist Routine Comment: Self-injection ~72 hours ago Consulting Provider: Hospitalist Reason For Exam: ?Right forearm cellulitis s/p cocaine injection 01/26/24 18:30 Consult to Psychiatry Routine Consulting Provider: Psych Covering Reason for consultation: ECT Consult Has provider been notified: No Attending physician on discharge: Richard Bishop Discharging clinician: Thania Baer DS: Diagnosis Discharge Diagnosis (1) Schizoaffective disorder, bipolar type: Status: Acute (2) Opioid use disorder, severe, on maintenance therapy, dependence: Status: Acute (3) Polysubstance use disorder: Status: Acute (4) Grief at loss of child: Status: Acute DS: Medications Discharge Medications Home Medications: Previous Rx's ?Medication ?Instructions ?Recorded bupropion HCl 75 mg tablet 75 mg PO DAILY #7 tabs 02/08/24 docusate sodium 100 mg capsule 100 mg PO BID #14 caps 02/08/24 melatonin 3 mg tablet 3 mg PO BEDTIME #30 tabs 02/08/24 methadone 10 mg/mL oral 80 mg (8 mL) PO DAILY #0 mL 02/08/24 concentrate (Methadose) naloxone 4 mg/actuation nasal 4 mg intranasal Q2M PRN opioid 02/08/24 spray (Narcan) overdose #2 ea oxcarbazepine 300 mg tablet 300 mg PO BID #14 tabs 02/08/24 polyethylene glycol 3350 17 gram 17 g PO DAILY #30 packets 02/08/24 oral powder packet prazosin 1 mg capsule 1 mg PO BEDTIME #7 caps 02/08/24 quetiapine 100 mg tablet 100 mg PO BEDTIME #7 tabs 02/08/24 risperidone 1 mg tablet 1 mg PO BID #14 tabs 02/08/24 sennosides 8.6 mg tablet (Senna 17.2 mg (2 x 8.6 mg) PO BEDTIME 02/08/24 Lax) #30 tabs sertraline 25 mg tablet 75 mg (3 x 25 mg) PO DAILY #21 tabs 02/08/24 Mental Status Exam Mental Status Exam Patient Appearance: Appropriate Patient Orientation: Person, Place, Time and Situation Level of Consciousness: Alert Patient Behavior: Talkative and Good Eye Contact Mood Description: Calm Affect Description: Calm Patient Cognition Impaired: No Ability to Follow Directions: Good Speech Pattern: Spontaneous Speech Memory Description: Episodic Impaired Thought Process: Intact (no SI/HI) and Goal Oriented Thought Content: positive for Intact and positive for Goal Oriented Judgement: Good Data Imaging Diagnostic Imaging Impressions Forearm CT 01/23/24 22:30 IMPRESSION: 1. A 12 cm band of ill-defined soft tissue attenuation at the dorsal aspect of the forearm which may correspond to local inflammation or early phlegmon formation along the course of a subcutaneous vein. No discrete drainable fluid collection to indicate abscess. No significant gas. 2. 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 DS: Summary Hospital Course Hospital Course: Admission to adult psychiatry for exacerbation of schizoaffective disorder, bipolar type, opiate use disorder, currently on Methadone, polysubstance use disorder and grief reaction due to the sudden of 14 yo son in a motorcycle accident @ 8 months ago. Pt recently admitted 01/07-01/16, refusing [facility] admission upon discharge. Pt, prior to admission, overdosed, injected heroin with resulting cellulitis, stopped medications and did not follow up with services. Medications were evaluated and adjusted. Pt was offered full milieu treatment to strengthen coping skills. Symptoms were improved upon discharge, however, pt again refused transfer to [facility] [place] and chose to return to live with ex- and son, accepting out patient referrals for therapy and psychiatry. Status at Discharge Functional status at discharge: independent ambulation Overall status at discharge: patient is progressing back to baseline Time Spent with Patient Time attestation: Total time managing care of this patient today ____ minutes. Time spent: Less than 30 minutes Discharge Plan Discharge Anticipated Discharge Date/Time: 02/08/24 12:00 Patient Disposition: Home, Self-Care Discharge Diagnosis: Schizoaffective Disorder, Bipolar Type Opiate Use Disorder, Methadone Maintenance Polysubstance Use Disorder Grief reaction due to the loss of a child. Referrals: Clinical and Support Options Intake berna Bangura [Other] - 02/13/24 10:00 am (You will need to show up for this appt in order to receive a psychiatry and therapy appt. You have also been referred to case management which can support w housing. You will need to show up to this appt to begin these services. ) Trixie Khanna MD [Primary Care Provider] - 1 Week Discharge Medications: New methadone [Methadose] 10 mg/mL Concentrate 80 mg PO DAILY Qty: 0 0RF Rx Instructions: Partial Fill upon patient request. Discontinued methadone [Methadone Intensol] 10 mg/mL Concentrate 70 mg PO DAILY Rx Instructions: [facility] [phone], Dose verified by Inderjit CALLOWAY hydroxyzine pamoate 50 mg capsule 50 mg PO DAILY PRN (Reason: Anxiety) clopidogrel 75 mg tablet 75 mg PO DAILY aspirin 81 mg tablet,delayed release (DR/EC) 81 mg PO DAILY lisinopril 10 mg tablet 10 mg PO DAILY quetiapine 100 mg Tablet 100 mg PO BEDTIME Qty: 30 0RF sertraline 25 mg Tablet 75 mg PO DAILY Qty: 90 0RF risperidone 1 mg Tablet 1 mg PO BID Qty: 60 0RF oxcarbazepine 300 mg tablet 300 mg PO BID Qty: 60 0RF melatonin 3 mg tablet 3 mg PO BEDTIME Qty: 30 0RF naloxone [Narcan] 4 mg/actuation spray,non-aerosol 4 mg intranasal Q2M PRN (Reason: opioid overdose) Qty: 2 0RF Rx Instructions: spray 1 dose into ONE nostril; alternate nostrils w each dose until help arrives gabapentin 400 mg capsule 400 mg PO TID Qty: 21 4RF Discharge Orders: Discharge Order (Routine); Ordered 02/08/24 Ordered By: Thania Baer Diet: Advance to usual diet Activity on Discharge: As tolerated Stand Alone Forms: Patient Portal Discharge page, Community Support Print Language: [place] Care Plan Goals: Mood and Behavioral Stabilization Sobriety Health Concerns: Mood and Behavioral Stabilization Sobriety Plan of Treatment: Attend scheduled appointments Take medications as directed Pt has been declined by CSS programs. Pt has been accepted by [facility] [place], however, chooses to live with his son and ex- locally. Assessment: Pt interviewed prior to discharge and found to be fully oriented and without SI/HI. Pt has insight and demonstrates good judgment in terms of wanting to pursue treatment. Pt is not in imminent risk of harm to self or others and has a safety plan that includes presenting to the closest ER or calling 911 if feeling unsafe. Pt has been observed closely by nursing and unit staff throughout admission. Pt has not engaged in any behaviors that suggest dangerousness to self or others and has demonstrated appropriate behaviors and impulse control. Discharge Date/Time: 02/08/24 11:30
--- NOTE | 2024-02-08 17:56 | P.PNPSI_ITS ---
Subjective Subjective Date of Service: 02/07/24 Reason For Visit: SI Subjective Notes: Conditional Voluntary Healthcare Proxy: No Guardianship: No Medical Problems Affecting Mental Status: No Interim History: Plans discharge for 02/07. Has decided not to attend [facility], although he did complete the intake. Pt not accepted by [facility] programs. Plans to live with his son and ex- and attend OP Denies SI/HI/AH/VH Medication Compliance: Yes Side effects from medications: No Attending Groups: Intermittent Review of Systems Acute medical concerns: No Medical Review of Systems: unchanged Review of Systems Review of Systems BLE Edema-wearing compression stockings. Diagnostics Vital Signs (24Hr): Vital Signs - 24 hr 02/07/24 20:00 02/07/24 22:33 02/08/24 08:00 Temperature 97.7 F 97.6 F Pulse Rate 91 82 Respiratory Rate 16 Blood Pressure 140/86 H 140/86 H 151/84 H Pulse Oximetry 96 99 Oxygen Delivery Method Room Air BMI result Body Mass Index 41.4 Labs 01/22/24 23:34 01/22/24 23:34 Imaging Radiology Impressions: ITS Impressions Forearm CT 01/23/24 22:30 IMPRESSION: 1. A 12 cm band of ill-defined soft tissue attenuation at the dorsal aspect of the forearm which may correspond to local inflammation or early phlegmon formation along the course of a subcutaneous vein. No discrete drainable fluid collection to indicate abscess. No significant gas. 2. 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 Medications Allergies Allergies Allergy/AdvReac Type Severity Reaction Status Date / Time No Known Allergies Allergy Verified 01/22/24 22:51 [No Known Allergies*] Assessment & Plan Assessment & Plan (1) Schizoaffective disorder, bipolar type: Status: Acute Code(s): F25.0 - Schizoaffective disorder, bipolar type (2) Opioid use disorder, severe, on maintenance therapy, dependence: Status: Acute Code(s): F11.20 - Opioid dependence, uncomplicated (3) Polysubstance use disorder: Status: Acute Code(s): F19.90 - Other psychoactive substance use, unspecified, uncomplicated (4) Grief at loss of child: Status: Acute Code(s): F43.21 - Adjustment disorder with depressed mood; Z63.4 - Disappearance and of family member Plan 01/25/24 Wellbutrin 75 mg a.m. 01/26/24 Continue tx ECT consult 01/26: continue current management and treatment plan. 01/27: continue current management and treatment plan. 01/28: Continue tx. 01/30: Continue tx. CSS applications 02/01 Continue tx. Waiting for CSS acceptance 02/03/2024: No changes 02/04/2024: No changes. Will order VIRAJ stockings, which patient utilizes at home 02/06/24: Discharge planning. No medication changes today. 02/07/24: Discharge 02/08/24. Reason for continued inpatient stay Substantial Risk for: rapid decompensation Time Spent With Patient Time: Total time managing care of this patient today ____ minutes.
== END 2024-02-08 11:30 | disposition home or self-care (01) | DRG 750 ==
LOC: HO.ED 01-23 12:49 → HO.PM5 01-23 14:50
PROVIDERS: Admitting Provider Psychiatry & Neurology Psychiatry; Emergency Provider Emergency Medicine; PCP Family Medicine; Visit Provider Clinical Nurse Specialist Psychiatric/Mental Health, Adult
DX: F25.0 Schizoaffective disorder, bipolar type (principal); R45.851 Suicidal ideations; F11.20 Opioid dependence, uncomplicated; F14.10 Cocaine abuse, uncomplicated; F19.90 Other psychoactive substance use, unspecified, uncomplicated; F43.21 Adjustment disorder with depressed mood; Z63.4 Disappearance and death of family member; Z79.899 Other long term (current) drug therapy
CPT/HCPCS: 36415; 73201; 80053; 80143; 80179; 80307; 85025; 93005; 99285; Q9967; S9485

== ENCOUNTER → 2024-01-22 23:11 | Outpatient (BNV) | payer MEDICAID, SELFPAY | PROVIDERS: Emergency Provider Emergency Medicine; PCP Family Medicine; Visit Provider Internal Medicine Cardiovascular Disease | DX: R00.1 Bradycardia, unspecified (principal); R94.31 Abnormal electrocardiogram [ECG] [EKG] | CPT/HCPCS: 93010 ==

== ENCOUNTER → 2024-01-23 14:41 | Outpatient (BNV) | payer OTHER, SELFPAY | PROVIDERS: Admitting Provider Psychiatry & Neurology Psychiatry; Emergency Provider Emergency Medicine; PCP Family Medicine; Visit Provider Clinical Nurse Specialist Psychiatric/Mental Health, Adult | DX: F25.0 Schizoaffective disorder, bipolar type (principal); F11.20 Opioid dependence, uncomplicated; F19.90 Other psychoactive substance use, unspecified, uncomplicated; F43.21 Adjustment disorder with depressed mood; Z63.4 Disappearance and death of family member | CPT/HCPCS: 99231; 99232; 99499 ==

== ENCOUNTER 2024-02-20 18:13 | Emergency (ER) | payer MEDICAID, SELFPAY ==
--- NOTE | 2024-02-20 18:16 | ED_ITS ---
HPI - Psych General Chief Complaint: Psychiatric Symptoms Stated Complaint: SI Time Seen by Provider: 02/20/24 18:39 Source: patient Mode of arrival: ambulatory Limitations: no limitations History of Present Illness ED Provider: Dr. Zhane Chicas HPI Narrative: Patient comes to the emergency room complaining of suicidal ideation. Patient states that a for about a week patient has been having depression, hallucinations, no compliance with medications, states that his nephew recently . Patient states that he has been using fentanyl and cocaine, drinking alcohol. Patient plans to jump off a bridge and hit the pillars and the way down. Patient denies HI Related Data Previous Rx's ?Medication ?Instructions ?Recorded bupropion HCl 75 mg tablet 75 mg PO DAILY #7 tabs 02/08/24 docusate sodium 100 mg capsule 100 mg PO BID #14 caps 02/08/24 melatonin 3 mg tablet 3 mg PO BEDTIME #30 tabs 02/08/24 methadone 10 mg/mL oral 80 mg (8 mL) PO DAILY #0 mL 02/08/24 concentrate (Methadose) naloxone 4 mg/actuation nasal 4 mg intranasal Q2M PRN opioid 02/08/24 spray (Narcan) overdose #2 ea oxcarbazepine 300 mg tablet 300 mg PO BID #14 tabs 02/08/24 polyethylene glycol 3350 17 gram 17 g PO DAILY #30 packets 02/08/24 oral powder packet prazosin 1 mg capsule 1 mg PO BEDTIME #7 caps 02/08/24 quetiapine 100 mg tablet 100 mg PO BEDTIME #7 tabs 02/08/24 risperidone 1 mg tablet 1 mg PO BID #14 tabs 02/08/24 sennosides 8.6 mg tablet (Senna 17.2 mg (2 x 8.6 mg) PO BEDTIME 02/08/24 Lax) #30 tabs sertraline 25 mg tablet 75 mg (3 x 25 mg) PO DAILY #21 tabs 02/08/24 Allergies Allergy/AdvReac Type Severity Reaction Status Date / Time No Known Allergies Allergy Verified 02/20/24 18:19 [No Known Allergies*] Review of Systems 2 Review of Systems: Constitutional : No Weight loss, No Fever, No Chills, No Night Sweats, No Fatigue, No Malaise ENT/Mouth : No Hearing loss, No Ear Pain, No Nasal Congestion, No Sinus Pain, No Hoarseness, No sore throat, No Rhinorrhea, No Swallowing Difficulty Eyes: No Eye Pain, No Swelling, No Redness, No Foreign Body, No Discharge, No Vision Changes Cardiovascular : No Chest Pain, No SOB, No Dyspnea on Exertion, No Orthopnea, No Edema, No Palpitations Respiratory : No Cough, No Sputum, No Wheezing, No Smoke Exposure, No Dyspnea Gastrointestinal : No Nausea, No Vomiting, No Diarrhea, No Constipation, No abdominal Pain, No Hematochezia, No Melena Genitourinary : no irregular bleeding, No Dysuria, No Urinary Frequency, No Hematuria, No Urinary Incontinence, No Urgency, No Flank Pain, No Urinary Flow Changes, No Hesitancy Musculoskeletal : No joint pain, No Myalgias, No Joint Swelling Skin : No Skin Lesions, No rash Neuro : No Weakness, No Numbness, No Paresthesias, No Loss of Consciousness, No Dizziness, No Headache Psych : No Anxiety/Panic, complaining of anxiety, depression, suicidal ideation with plan, no HI Heme/Lymph: No Bruising, No Bleeding,No Lymphadenopathy Endocrine : No Polyuria, No Polydipsia, No Temperature Intolerance PMFSH Past Medical History Medical History Grief at loss of child Gabapentin overdose Opioid use disorder, severe, on maintenance therapy, dependence Polysubstance use disorder Schizoaffective disorder, bipolar type Brain lesion Cocaine abuse Hemorrhagic stroke Social History Social History Household Members: Significant Other Housing: Other Housing Other:: in between housing Do you presently have visiting nurse or other home services: No Unable to assess alcohol history related to: Unknown Alcohol intake: former Patient Tobacco Use Status: Never used Tobacco e-Cigarette/Vaping Use: Never Used Second Hand Smoke Exposure: Yes Substance Use Type: Crack/Cocaine and Other Advance Directives: No Advance Directives Information Provided: No Do you have a plan to hurt others: No Plan service: Yes Sexual orientation: Straight/Heterosexual Physical Exam 2 Vital Signs: Vital Signs: Last Vital Signs Temp 96.5 F L 02/20/24 18:17 Pulse 56 02/20/24 18:17 Resp 20 02/20/24 18:17 BP 152/80 H 02/20/24 18:17 Pulse Ox 98 02/20/24 18:17 O2 Del Method Room Air 02/20/24 18:17 BMI result Body Mass Index 41.6 Const: Other: Appearance: Alert. Oriented X3. No acute distress. Eyes: Pupils equal, round and reactive to light. ENT: Pharynx normal. Neck: Normal inspection. Neck supple. No lymph nodes noted. No crepitus CVS: Normal heart rate and rhythm. Pulses normal. Normal S1 and S2 Respiratory: No respiratory distress. Breath sounds normal. No Wheezing. No rales Abdomen: Soft and nontender. No rigidity. No distention. Skin: Skin warm and dry. Normal skin color. Normal skin turgor. Extremities: No lower extremity edema. No Lacerations. No Rash Neuro: Oriented X 3. No motor deficit. No sensory deficit. Moving all extremities. No slurred speech. CN 2 through 12 grossly intact Psych: calm, cooperative, seems depressed Course Course Course Narrative: This is a Rapid Medical Exam performed in triage by Azul Lagunas PA-C. Full HPI, ROS and PE to be performed by primary ED provider. 53 year-old M w/ PMHx presenting to the ED c/o +SI w/ plan to jump off bridge and hit the pillars on the way down & hallucinations x 1 week, and noncompliance with meds since his nephew passed. States that threw him into asael. Admits to using Fentanyl & cocaine & drinking 1/5 Vodka yesterday. reports hx ETOH withdrawal & seizures. Admits to abdominal pain, nausea and TEE. PE: diaphoretic, ambulating w/steady gait. no appreciable tremor/tongue fasciculation Plan: EKG, labs, UA, Tox screen, CARE team Medical Decision Making Medical Decision Making [facility] Narrative: -my interpretation of labs, normal hematology, normal chemistry, normal LFTs, urinalysis negative for UTI, urine toxicology positive for methadone, fentanyl and cocaine my ETOH negative -patient on a Section 12 -care team consult pending -physician observation started at 19:50 -20:34, I discussed the patient with the care team, patient needs inpatient level of care Differential Diagnosis Differential Diagnoses: The differential diagnosis associated with the presentation includes (Anxiety, depression, polysubstance abuse, alcohol intoxication) Admission/Observation Consideration of admission/observation: Escalation of care including admission/observation considered (Patient Is under physician observation waiting to be seen by the care team to determine patient's disposition) Lab Data MDM Lab Attestation statement: I reviewed the patient's lab results. 02/20/24 18:52 02/20/24 18:52 Labs: Lab Results 02/20/24 02/20/24 02/20/24 Range/Units 18:45 18:46 18:52 WBC 5.2 (4.8-10.8) X10*3/uL RBC 4.97 (4.60-5.80) X10*6/uL Hgb 13.7 L (14.0-18.0) g/dl Hct 41.0 L (42.0-52.0) % MCV 82.5 (80.0-98.0) fL MCH 27.6 (27.0-33.0) pg MCHC 33.4 (31.0-36.0) g/dl RDW 13.6 (11.0-16.0) % Plt Count 236 (160-400) X10*3/uL MPV 10.8 (9.4-12.4) fL Immature Gran % (Auto) 0.2 (0.0-0.4) % Neut % (Auto) 62.2 (45-73) % Lymph % (Auto) 25.0 (20-40) % [place] % (Auto) 9.3 (2-11) % Eos % (Auto) 2.9 (0-4) % Baso % (Auto) 0.4 (0-2) % Lymph # (Auto) 1.3 (1.2-4.9) X10*3/uL [place] # (Auto) 0.5 (0.1-1.2) X10*3/uL Eos # (Auto) 0.2 (0.0-0.4) X10*3/uL Baso # (Auto) 0.0 (0.0-0.2) X10*3/uL Abs Immat Gran (auto) 0.01 (0.00-0.03) X10*3/uL Absolute Neuts (auto) 3.2 (2.0-8.3) x10*3/uL Absolute Nucleated RBC 0.000 (0.0-0.012) X10*3/uL Nucleated RBC % (auto) 0.0 (0.0-0.2) /100WBC Sodium 139 (135-145) mmol/L Potassium 4.0 (3.3-5.1) mmol/L Chloride 104 (96-108) mmol/L Carbon Dioxide 25 (22-29) mmol/L Anion Gap 14 (12-20) BUN 9 (9-16) mg/dL Creatinine 0.88 (0.5-1.4) mg/dL Estim Creat Clear Calc 141.9 Estimated GFR > 60 Random Glucose 90 (60-115) mg/dL Calcium 9.4 (8.4-10.2) mg/dL Magnesium 2.1 (1.6-2.6) mg/dL Total Bilirubin 0.5 (0.0-1.0) mg/dL Direct Bilirubin 0.2 (0.0-0.5) mg/dL AST 39 H (5-37) U/L ALT 42 H (0-40) U/L Alkaline Phosphatase 102 (39-117) U/L Total Protein 7.9 (6.5-8.0) g/dL Albumin 4.1 (3.5-5.0) g/dL Lipase 21 (8-78) U/L Urine Color Yellow Urine Appearance Clear Urine pH 6.0 (5.0-9.0) Ur Specific [place] 1.020 (1.005-1.025) Urine Protein Negative (Neg-Trace) mg/dL Urine Glucose (UA) Negative (Negative) mg/dL Urine Ketones Negative (Negative) mg/dL Urine Blood Negative (Negative) Urine Nitrite Negative (Negative) Ur Leukocyte Esterase Negative (Negative) Salicylates < 5.0 L (15-30) mg/dL Urine Opiates Screen Not Detected (Not Detect) Ur Buprenorphine Scrn Not Detected (Not Detect) ng/mL Ur Oxycodone Screen Not Detected (Not Detect) ng/mL Urine Methadone Screen Positive H (Not Detect) ng/mL Urine Fentanyl Screen POSITIVE H (Not Detect) Acetaminophen < 3 (<30) mcg/mL Ur Barbiturates Screen Not Detected (Not Detect) Ur Phencyclidine Scrn Not Detected (Not Detect) Ur Amphetamines Screen Not Detected (Not Detect) U Benzodiazepines Scrn Not Detected (Not Detect) Urine Cocaine Screen POSITIVE H (Not Detect) U Marijuana (THC) Screen Not Detected (Not Detect) Ethyl Alcohol < 10 mg/dL Critical Care Time Critical Care Time Critical Care Time: Yes Total Critical Care Time: 30 Attestation: I have personally provided critical care time. Time includes review of lab data, radiology results, discussion with consultants, and monitoring for potential decompensation. Intervention performed as documented. Discharge Plan Discharge Clinical Impression: Polydrug abuse, Suicidal ideation Patient Disposition: Still a Patient Prescriptions: No Action sennosides [Senna Lax] 8.6 mg Tablet 17.2 mg PO BEDTIME Qty: 30 0RF polyethylene glycol 3350 17 gram Powder In Packet 17 g PO DAILY Qty: 30 0RF prazosin 1 mg Capsule 1 mg PO BEDTIME Qty: 7 4RF Protocol: Hold for SBP< HOLD for SBP < : 90 bupropion HCl 75 mg Tablet 75 mg PO DAILY Qty: 7 4RF docusate sodium 100 mg Capsule 100 mg PO BID Qty: 14 4RF methadone [Methadose] 10 mg/mL Concentrate 80 mg PO DAILY Qty: 0 0RF Rx Instructions: Partial Fill upon patient request. oxcarbazepine 300 mg tablet 300 mg PO BID Qty: 14 4RF melatonin 3 mg tablet 3 mg PO BEDTIME Qty: 30 0RF quetiapine 100 mg Tablet 100 mg PO BEDTIME Qty: 7 4RF sertraline 25 mg Tablet 75 mg PO DAILY Qty: 21 4RF risperidone 1 mg Tablet 1 mg PO BID Qty: 14 4RF naloxone [Narcan] 4 mg/actuation spray,non-aerosol 4 mg intranasal Q2M PRN (Reason: opioid overdose) Qty: 2 0RF Rx Instructions: spray 1 dose into ONE nostril; alternate nostrils w each dose until help arrives Print Language: Portuguese
[2024-02-20 18:17] VITALS: BP 152/80; PULSE 56; RESP 20; TEMP 35.8; O2SAT 98; BMI 41.6
--- NOTE | 2024-02-20 18:18 | ECG_ITS ---
Test Reason : psych clearance Blood Pressure : / mmHG Vent. Rate : 044 BPM Atrial Rate : 044 BPM P-R Int : 164 ms QRS Dur : 096 ms QT Int : 504 ms P-R-T Axes : 044 007 020 degrees QTc Int : 430 ms Marked sinus bradycardia Cannot rule out Anterior infarct (cited on or before 04-JAN-2024) Abnormal ECG When compared with ECG of 22-JAN-2024 23:11, No significant change was found Referred By: Azul Lagunas Electronically Signed By:BERONICA CHIANG
--- NOTE | 2024-02-20 18:54 | PC.NURSE ---
pt belongings to paulino
[2024-02-20 18:56] LABS: MANUAL DIFF FLAG NO
[2024-02-20 18:58] LABS: Appearance Urine Clear; Color Urine Yellow; Glucose Urine UA Negative (Negative); Leukocyte Esterase Urine Negative (Negative); Nitrite Urine Negative (Negative); Urine Blood Negative (Negative); Urine Ketones Negative (Negative); Urine Protein Negative (Neg-Trace)
[2024-02-20 19:07] LABS: Basophils Percent Auto 0.4 % (0-2); Eosinophils Absolute Auto 0.2 X10*3/uL (0.0-0.4); Eosinophils Percent Auto 2.9 % (0-4); Hemoglobin 13.7 g/dl (14.0-18.0); Imm Gran Abs Auto 0.01 X10*3/uL (0.00-0.03); Imm Gran Pct Auto 0.2 % (0.0-0.4); Lymphocytes Absolute Auto 1.3 X10*3/uL (1.2-4.9); Mean Corpuscular HGB Conc 33.4 g/dl (31.0-36.0); Mean Corpuscular Hemoglobin 27.6 pg (27.0-33.0); Mean Corpuscular Volume 82.5 fL (80.0-98.0); Mean Platelet Volume 10.8 fL (9.4-12.4); Monocytes Absolute Auto 0.5 X10*3/uL (0.1-1.2); Monocytes Percent Auto 9.3 % (2-11); Neutrophils Absolute Auto 3.2 x10*3/uL (2.0-8.3); Neutrophils Percent Auto 62.2 % (45-73); Platelet Count 236 X10*3/uL (160-400); Red Blood Count 4.97 X10*6/uL (4.60-5.80); Red Cell Distribution Width 13.6 % (11.0-16.0); White Blood Count 5.2 X10*3/uL (4.8-10.8)
[2024-02-20 19:08] LABS: Amphetamine Screen Urine Not Detected (Not Detect); Barbiturates, Urine Not Detected (Not Detect); Benzodiazepines Screen Urine Not Detected (Not Detect); Buprenorphine Scr Not Detected (Not Detect); Cannabinoid Screen Urine Not Detected (Not Detect); Cocaine Screen Urine POSITIVE (Not Detect); Fentanyl, urine POSITIVE (Not Detect); Methadone Screen, Urine Positive (Not Detect); Opiate Screen Urine Not Detected (Not Detect); Oxycodone Screen Urine Not Detected (Not Detect); Phencyclidine Screen Urine Not Detected (Not Detect)
[2024-02-20 19:20] LABS: Acetaminophen LAB < 3 mcg/mL (<30); Alanine Aminotransferase 42 U/L (0-40); Albumin Level 4.1 g/dL (3.5-5.0); Alkaline Phosphatase 102 U/L (39-117); Anion Gap 14 (12-20); Aspartate Amino Transferase 39 U/L (5-37); Bilirubin Direct 0.2 mg/dL (0.0-0.5); Bilirubin Total 0.5 mg/dL (0.0-1.0); Blood Urea Nitrogen 9 mg/dL (9-16); Calcium 9.4 mg/dL (8.4-10.2); Carbon Dioxide 25 mmol/L (22-29); Chloride 104 mmol/L (96-108); Creatinine Clr Calc Pharmacy 141.9; Estimated Glomerular Filt Rate > 60; Ethanol < 10 mg/dL; Glucose Random 90 mg/dL (60-115); Lipase 21 U/L (8-78); Magnesium 2.1 mg/dL (1.6-2.6); Salicylate < 5.0 mg/dL (15-30); Sodium 139 mmol/L (135-145); Total Protein 7.9 g/dL (6.5-8.0)
--- NOTE | 2024-02-20 19:37 | MHC.EDTECH ---
Patient requested food, okay per FRANCINE Mcfarland. Patient provided with sandwich, cheese stick and trisha linda.
[2024-02-21 05:01] VITALS: BP 166/80; PULSE 41; RESP 16; TEMP 36.3; O2SAT 99
--- NOTE | 2024-02-21 06:54 | HE.PHANOTE ---
METHADONE Patients methadone verification sheet has been received, patient confirmed to be getting dosed with [facility] [phone], last dose was 80 mg on 02/20/24 @0800
[2024-02-21] MEDS: methADONE HCl 20 MG/2 ML ORAL.CONC 80 MG PO (09:45)
--- NOTE | 2024-02-21 10:37 | MHC.CARE ---
Patient has been accepted to [facility] located @ [address] [place] [address] ETA 2pm. Accepting Physician is Dr. Marilu Levy, transport is being booked, FRANCINE Almeida and Care Team aware.
== END 2024-02-21 15:30 ==
PROVIDERS: Physician Assistant; Emergency Provider Emergency Medicine Emergency Medical Services; PCP Family Medicine
DX: F19.10 Other psychoactive substance abuse, uncomplicated (principal); R45.851 Suicidal ideations; F25.0 Schizoaffective disorder, bipolar type; F14.10 Cocaine abuse, uncomplicated; F11.20 Opioid dependence, uncomplicated; Z91.148 Patient's other noncompliance with medication regimen for other reason
CPT/HCPCS: 36415; 80048; 80076; 80143; 80179; 80307; 81003; 83690; 83735; 85025; 93005; 99285; S9485

== ENCOUNTER → 2024-02-20 18:18 | Outpatient (BNV) | payer MEDICAID, SELFPAY | PROVIDERS: Emergency Provider Emergency Medicine Emergency Medical Services; PCP Family Medicine; Visit Provider Internal Medicine | DX: R00.1 Bradycardia, unspecified (principal); R94.31 Abnormal electrocardiogram [ECG] [EKG] | CPT/HCPCS: 93010 ==